=== PATIENT | female | born 1970 | race Caucasian/White ===

== ENCOUNTER 2022-08-17 07:02 | Outpatient (CLI) | payer OTHER, SELFPAY ==
--- NOTE | 2022-08-17 07:15 | CRLHL7_ITS ---
For Patients: As a result of the Century Cures Act, medical imaging exams and procedure reports are released immediately into your electronic medical record. You may view this report before your referring provider. If you have questions, please contact your health care provider. INDICATION: Neck pain TECHNIQUE: Noncontrast sagittal T1, T2, STIR and axial GRE sequences are provided. No comparisons. FINDINGS: The overall stature, alignment and intrinsic marrow signal of the cervical spine is within normal limits. Cervical cord is normal. C5-6: Minor disc osteophyte complex effaces the ventral thecal sac and results in mild to moderate central canal with no foraminal narrowing. C6-7: Mild broad-based posterior disc bulge effaces the ventral thecal sac results in mild central canal narrowing. Neural foramina are patent. Remainder of the cervical spine is unremarkable, specifically no evidence of suspicious central canal or foraminal narrowing. IMPRESSION: 1. Lzii-as-zyelhsvq C5-6 central canal narrowing. 2. Mild C6-7 central canal narrowing. Dictated by Anthony Del Rio MD @ 08/18/2022 4:02:08 AM Dictated by: Anthony Del Rio MD @ 08/18/2022 04:03:11 (Electronically Signed)
== END 2022-08-17 07:03 | disposition home or self-care (01) ==
LOC: MRI 07:03
PROVIDERS: PCP Family Medicine; Visit Provider Family Medicine
DX: M54.2 Cervicalgia (principal); M50.222 Other cervical disc displacement at C5-C6 level
CPT/HCPCS: 72141

== ENCOUNTER 2022-10-27 16:49 | Emergency (ER) | payer OTHER, SELFPAY ==
[2022-10-27 16:57] VITALS: BP 143/85; PULSE 98; RESP 18; TEMP 36.6; O2SAT 98; BMI 21.2
--- NOTE | 2022-10-27 17:18 | ED_ITS ---
HPI - General Adult General Chief complaint: Neck Injury/Pain Stated complaint: Neck pain, right side Time Seen by Provider: 10/27/22 16:50 History of Present Illness HPI narrative: Patient is a 52-year-old female who slipped on ice in grabbed a grocery cart, hurt her neck in the past. She has had chronic neck pain since she, she has had a plain film and an MRI to look largely unremarkable and some mild central stenosis of her cervical cervical spine, she denies radicular pain describes right cervical strap muscle pain down her periscapular area on the right in in her P trapezius muscle. No real radicular pain down her right arm Related Data Home Medications Medication Instructions Recorded Confirmed epinephrine 0.3 mg/0.3 mL 0.3 mg IM Q5-15M PRN 07/18/22 09/17/22 injection, auto-injector estradiol 1 mg tablet 1 mg PO QDAY 07/18/22 10/27/22 hydroxyzine pamoate 25 mg capsule 25 mg PO Q8H PRN 07/18/22 10/27/22 ketorolac 60 mg/2 mL intramuscular 60 mg IM QDAY PRN 07/18/22 10/27/22 solution mirtazapine 30 mg tablet 30 mg PO QHS 07/18/22 10/27/22 ondansetron 8 mg disintegrating 8 mg PO Q12H 07/18/22 10/27/22 tablet Tylenol 10/27/22 Previous Rx's Medication Instructions Recorded tizanidine 4 mg tablet See Rx Instructions PO Q8H PRN 07/30/22 muscle spasticity #30 tabs celecoxib 200 mg capsule 200 mg PO QDAY #21 caps 09/09/22 zolpidem 5 mg tablet 5 mg PO QHS PRN insomnia #14 tabs 09/17/22 methylprednisolone 4 mg tablets in See Rx Instructions PO .COMPLEX 10/27/22 a dose pack (Medrol (Lazaro)) #21 ea Allergies Allergy/AdvReac Type Severity Reaction Status Date / Time bee venom protein (honey bee) Allergy Severe Verified 10/27/22 17:02 acetaminophen Allergy Intermediate Hives Verified 10/27/22 17:02 codeine Allergy Unknown Rash Verified 10/27/22 17:02 dihydroergotamine Allergy Unknown Diarrhea Verified 10/27/22 17:02 hydrocodone Allergy Unknown Hives Verified 10/27/22 17:02 loperamide Allergy Unknown Hives Verified 10/27/22 17:02 methocarbamol Allergy Unknown Rash Verified 10/27/22 17:02 minocycline Allergy Unknown Verified 10/27/22 17:02 morphine Allergy Unknown Hives Verified 10/27/22 17:02 oxycodone Allergy Unknown Hives Verified 10/27/22 17:02 prochlorperazine Allergy Unknown Anxiety Verified 10/27/22 17:02 rizatriptan Allergy Unknown Nausea Verified 10/27/22 17:02 sumatriptan Allergy Unknown Hives Verified 10/27/22 17:02 venlafaxine Allergy Unknown Anxiety Verified 10/27/22 17:02 Review of Systems Status of ROS: Reports: 6 or more systems reviewed and unremarkable except as noted in History and below Narrative: Patient has worked with Dr. Giraldo on her situation has done some PT, some steroids. She is alert some morphine, but has had a lot in the past [facility] Medical History Pain of right middle finger ?M79.644 - Pain in right finger(s) (ICD-10) Surgical History Status post appendectomy ?Z90.49 - Acquired absence of other specified parts of digestive tract (ICD-10) Status post arthroscopy of right knee ?Z98.890 - Other specified postprocedural states (ICD-10) Status post hysterectomy with oophorectomy ?Z90.710 - Acquired absence of both cervix and uterus (ICD-10) ?Z90.721 - Acquired absence of ovaries, unilateral (ICD-10) Status post laparoscopic cholecystectomy ?Z90.49 - Acquired absence of other specified parts of digestive tract (ICD- 10) Status post shoulder surgery ?Z98.890 - Other specified postprocedural states (ICD-10) Social History Smoking Status: Current every day smoker How often do you have a drink containing alcohol: never AUDIT-C Alcohol total score: 0 Non-prescribed substance use: denies use Little interest or pleasure in doing things: more than half the days Feeling down, depressed, or hopeless: nearly every day Exam Narrative: Exam Narrative: Objective: In general patient apparent distress she has some tenderness along the right paraspinal cervical muscles on the right and into her trapezius muscle some mild rhomboid tenderness hand strength in healthcare liaison strength in the upper right upper extremity are unremarkable. Review of her MRI and plain film in the chart was done. Const: Vital Signs, click to edit/add: Vital Signs - 24 hr 10/27/22 16:57 Temperature 97.9 F Pulse Rate [Left P ulse Oximeter] 98 Respiratory Rate 18 Blood Pressure [Ri ght Upper Arm] 143/85 H Pulse Oximetry 98 Oxygen Delivery Me thod Room Air Course Vital Signs Vital signs: Initial Vital Signs Temperature 97.9 F 10/27/22 16:57 Temperature Source Temporal Artery Scan 10/27/22 16:57 Pulse Rate 98 10/27/22 16:57 Respiratory Rate 18 10/27/22 16:57 Blood Pressure 143/85 H 10/27/22 16:57 Blood Pressure Mean 104 10/27/22 16:57 Blood Pressure Position Sitting 10/27/22 16:57 Pulse Oximetry 98 10/27/22 16:57 Oxygen Delivery Method Room Air 10/27/22 16:57 Vital Signs Temperature 97.9 F 10/27/22 16:57 Pulse Rate 98 10/27/22 16:57 Respiratory Rate 18 10/27/22 16:57 Blood Pressure 143/85 H 10/27/22 16:57 Pulse Oximetry 98 10/27/22 16:57 Oxygen Delivery Method Room Air 10/27/22 16:57 Temperature 97.9 F 10/27/22 16:57 Pulse Rate 98 10/27/22 16:57 Respiratory Rate 18 10/27/22 16:57 Blood Pressure 143/85 H 10/27/22 16:57 Pulse Oximetry 98 10/27/22 16:57 Oxygen Delivery Method Room Air 10/27/22 16:57 Medical Decision Making MDM Narrative Medical decision making narrative: [age] year white female with increasing pain in her right periscapular and cervical strap muscle area, status post fairly reassuring MRI scan of the neck. At this point will give her an injection of Dilaudid IM 2 mg, will start a Medrol Dosepak again she has not been on 1 for 4-6 weeks. And would have her follow up with Dr. Abbasi on Saturday regarding continuation of physical therapy or additional modality. She may even consider the spine service in [place] with a medx program. Return here as needed Discharge Plan Discharge Clinical Impression: Chronic neck pain Patient Disposition: Home w/ Parent or Adult Condition: Stable Additional Instructions: medrol dose lazaro, ice, recheck primary saturday Activity Level: Light activity Discharge Diet: Regular Prescriptions: New methylprednisolone [Medrol (Lazaro)] 4 mg tablets,dose pack See Rx Instructions .ROUTE .COMPLEX Qty: 21 0RF Rx Instructions: orally per package directions No Action estradiol 1 mg tablet 1 mg PO QDAY Rx Instructions: off 1 week; repeat cycle mirtazapine 30 mg tablet 30 mg PO QHS hydroxyzine pamoate 25 mg capsule 25 mg PO Q8H PRN ondansetron 8 mg tablet,disintegrating 8 mg PO Q12H ketorolac 60 mg/2 mL solution 60 mg IM QDAY PRN epinephrine 0.3 mg/0.3 mL auto-injector 0.3 mg IM Q5-15M PRN Rx Instructions: do not exceed 3 doses per episode tizanidine 4 mg tablet See Rx Instructions PO Q8H PRN (Reason: muscle spasticity) Qty: 30 2RF Rx Instructions: 2 mg QAM and Q1PM, and 4 mg at HS orally every 8 hours PRN; zolpidem 5 mg tablet 5 mg PO QHS PRN (Reason: insomnia) Qty: 14 0RF Tylenol celecoxib 200 mg capsule 200 mg PO QDAY Qty: 21 2RF Follow Up/Referrals: Allen Kelley MD [Primary Care Provider] - Stand Alone Forms: [employer] Info Instructions
[2022-10-27] MEDS: HYDROmorphone 0.5 mg/0.5 ml inj 2 MG IM (17:27)
== END 2022-10-27 17:39 | disposition home or self-care (01) ==
LOC: ED 17:24
PROVIDERS: Emergency Provider Family Medicine; PCP Family Medicine
DX: M54.2 Cervicalgia (principal); G89.29 Other chronic pain
CPT/HCPCS: 96372; 99283; 99284; J1170

== ENCOUNTER 2022-11-20 18:02 | Emergency (ER) | payer OTHER, SELFPAY ==
[2022-11-20 18:13] VITALS: BP 144/85; PULSE 95; RESP 18; TEMP 36.4; O2SAT 98; BMI 21.6
[2022-11-20] MEDS: BUPIVACAINE 0.25% 30 ML INJECTION (19:25)
[2022-11-20] MEDS: HYDROmorphone 0.5 mg/0.5 ml inj 1 MG IM (19:43)
--- NOTE | 2022-11-22 13:46 | ED_ITS ---
HPI - General Adult General Chief complaint: Neck Injury/Pain Stated complaint: Neck injury Time Seen by Provider: 11/20/22 18:31 History of Present Illness HPI narrative: neck injury 5 months ago. seen in ED several weeks ago. was on steroids and that helped but has now completed, pain has returned. PT tomorrow and neck 52 year old woman presenting with complaint of right-sided neck pain of some months duration much worse again today. took a partial endo over an imbalanced cart leaving [employer]. A strain but did not impact head or neck. initially minimal discomfort with pain escalating in the following days. Had a massage the next? day. Pain especially with bilateral neck flexion and shaylee to the left. Pain mostly at the right. otherwise without radicular pain. can feel knots in the musculature. acetaminophen of minimal relief. also using heat. She reports recent MRI unremarkable. Believe she cannot take ibuprofen type medications due to recommendations stemming from an H pylori diagnosis. Not clear that there were ever ulcers or certainly not bleeding ulcers diagnosed. challenges in follow up since injury partly related to care of mother and her in the interim. Is finally able to see PT tomorrow. Related Data Home Medications Medication Instructions Recorded Confirmed epinephrine 0.3 mg/0.3 mL 0.3 mg IM Q5-15M PRN 07/18/22 09/17/22 injection, auto-injector estradiol 1 mg tablet 1 mg PO QDAY 07/18/22 10/27/22 hydroxyzine pamoate 25 mg capsule 25 mg PO Q8H PRN 07/18/22 10/27/22 ketorolac 60 mg/2 mL intramuscular 60 mg IM QDAY PRN 07/18/22 10/27/22 solution mirtazapine 30 mg tablet 30 mg PO QHS 07/18/22 10/27/22 ondansetron 8 mg disintegrating 8 mg PO Q12H 07/18/22 10/27/22 tablet Tylenol 10/27/22 Previous Rx's Medication Instructions Recorded tizanidine 4 mg tablet See Rx Instructions PO Q8H PRN 07/30/22 muscle spasticity #30 tabs celecoxib 200 mg capsule 200 mg PO QDAY #21 caps 09/09/22 zolpidem 5 mg tablet 5 mg PO QHS PRN insomnia #14 tabs 09/17/22 methylprednisolone 4 mg tablets in See Rx Instructions PO .COMPLEX 10/27/22 a dose pack (Medrol (Lazaro)) #21 ea hydromorphone 2 mg tablet 2 mg PO Q6H PRN pain #14 tabs 10/29/22 Allergies Allergy/AdvReac Type Severity Reaction Status Date / Time bee venom protein (honey bee) Allergy Severe Verified 10/27/22 17:02 acetaminophen Allergy Intermediate Hives Verified 10/27/22 17:02 codeine Allergy Unknown Rash Verified 10/27/22 17:02 dihydroergotamine Allergy Unknown Diarrhea Verified 10/27/22 17:02 hydrocodone Allergy Unknown Hives Verified 10/27/22 17:02 loperamide Allergy Unknown Hives Verified 10/27/22 17:02 methocarbamol Allergy Unknown Rash Verified 10/27/22 17:02 minocycline Allergy Unknown Verified 10/27/22 17:02 morphine Allergy Unknown Hives Verified 10/27/22 17:02 oxycodone Allergy Unknown Hives Verified 10/27/22 17:02 prochlorperazine Allergy Unknown Anxiety Verified 10/27/22 17:02 rizatriptan Allergy Unknown Nausea Verified 10/27/22 17:02 sumatriptan Allergy Unknown Hives Verified 10/27/22 17:02 venlafaxine Allergy Unknown Anxiety Verified 10/27/22 17:02 Review of Systems Status of ROS: Reports: 6 or more systems reviewed and unremarkable except as noted in History and below [facility] Medical History Pain of right middle finger ?M79.644 - Pain in right finger(s) (ICD-10) Surgical History Status post laparoscopic cholecystectomy ?Z90.49 - Acquired absence of other specified parts of digestive tract (ICD- 10) Status post appendectomy ?Z90.49 - Acquired absence of other specified parts of digestive tract (ICD- 10) Status post arthroscopy of right knee ?Z98.890 - Other specified postprocedural states (ICD-10) Status post hysterectomy with oophorectomy ?Z90.710 - Acquired absence of both cervix and uterus (ICD-10) ?Z90.721 - Acquired absence of ovaries, unilateral (ICD-10) Status post shoulder surgery ?Z98.890 - Other specified postprocedural states (ICD-10) Social History Smoking Status: Current every day smoker What tobacco products do you use: cigarettes Second hand tobacco smoke exposure: No How often do you have a drink containing alcohol: never AUDIT-C Alcohol total score: 0 Non-prescribed substance use: denies use Little interest or pleasure in doing things: more than half the days Feeling down, depressed, or hopeless: nearly every day service: No Exam Narrative: Exam Narrative: Pleasant. Seems a little uncomfortable. Conversing easily. Moving all extremities without difficulty. Prefers to sit upright in the bed with her head cocked to the left just a little. Frequently reaches up and massages deeply the right trapezial and paracervical musculature. Head looks to be atraumatic. She does not demonstrate difficulty with swallowing. Cranial nerves 2-12 are intact. No midline neck tenderness. There is a good deal of tension to palpation about the right trapezius and paracervical musculature relative to the left. Also tender. 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 Head rotation to the left is around 30? and equal to the right. Flexion of the head to the left is limited to 5-10? and causing more pain. To the right maybe 15?. Const: Documenting provider has reviewed patient's vital signs: yes Course Vital Signs Vital signs: Initial Vital Signs Temperature 97.6 F 11/20/22 18:13 Temperature Source Temporal Artery Scan 11/20/22 18:13 Pulse Rate 95 11/20/22 18:13 Respiratory Rate 18 11/20/22 18:13 Blood Pressure 144/85 H 11/20/22 18:13 Blood Pressure Mean 104 11/20/22 18:13 Blood Pressure Position Sitting 11/20/22 18:13 Pulse Oximetry 98 11/20/22 18:13 Oxygen Delivery Method Room Air 11/20/22 18:13 Vital Signs Temperature 97.6 F 11/20/22 18:13 Pulse Rate 95 11/20/22 18:13 Respiratory Rate 18 11/20/22 18:13 Blood Pressure 144/85 H 11/20/22 18:13 Pulse Oximetry 98 11/20/22 18:13 Oxygen Delivery Method Room Air 11/20/22 18:13 Temperature 97.6 F 11/20/22 18:13 Pulse Rate 95 11/20/22 18:13 Respiratory Rate 18 11/20/22 18:13 Blood Pressure 144/85 H 11/20/22 18:13 Pulse Oximetry 98 11/20/22 18:13 Oxygen Delivery Method Room Air 11/20/22 18:13 Medical Decision Making MDM Narrative Medical decision making narrative: suspect muscle spasms/strain/sprain possibly with jumped/slipped facet. Extensive imaging has already been done. Mostly myofascial issues probably remain. She is really needing some pain relief in the short term. Somewhat desperate for sleep I suspect We discussed options. I offered injection in the musculature for temporary relief. She would like to proceed with that. Risks and benefits were discussed. Cleansed injection sites with alcohol. Injected with about 1.5 mL in 5 sites scattered around the right trapezius and low right pericervical musculature as indicated by her as most tender. Overall improved. Still with discomfort after period of observation the emergency department was requesting further pain relief. Was given a shot of Dilaudid. She was then requesting departure. See patient discharge plan Medical Records Medical records reviewed: Yes I reviewed the patient's medical records Discharge Plan Discharge Clinical Impression: Muscle spasm, Torticollis Patient Disposition: Home w/ Parent or Adult Condition: Improved Additional Instructions: See handout on stretches for the upper back; these may further be helpful. And follow-up with physical therapy tomorrow as planned. You might benefit from some sort of a tens unit. I would consider an appointment with Dr. Koenig with consideration of facet injections. Wonder if you may have sustained, in addition to a neck strain, a jumped facet/inflammation that is resulting in some of this pain/muscle spasm/tension. Schedule also follow up with primary care to discuss further pain management if needed. I am not sure that H pylori is an absolute contraindication to nonsteroidal anti-inflammatories like ibuprofen. Can discuss the details of your history also with primary care. I would think ibuprofen and naproxen might be helpful as a baseline and could be combined with acetaminophen. Tramadol and prednisone from [facility]. Take the prednisone as 60 mg daily for 3 days then 40 mg daily for 4 days then 20 mg daily for 2 days Prescriptions: No Action estradiol 1 mg tablet 1 mg PO QDAY Rx Instructions: off 1 week; repeat cycle mirtazapine 30 mg tablet 30 mg PO QHS hydroxyzine pamoate 25 mg capsule 25 mg PO Q8H PRN ondansetron 8 mg tablet,disintegrating 8 mg PO Q12H ketorolac 60 mg/2 mL solution 60 mg IM QDAY PRN epinephrine 0.3 mg/0.3 mL auto-injector 0.3 mg IM Q5-15M PRN Rx Instructions: do not exceed 3 doses per episode tizanidine 4 mg tablet See Rx Instructions PO Q8H PRN (Reason: muscle spasticity) Qty: 30 2RF Rx Instructions: 2 mg QAM and Q1PM, and 4 mg at HS orally every 8 hours PRN; zolpidem 5 mg tablet 5 mg PO QHS PRN (Reason: insomnia) Qty: 14 0RF Tylenol methylprednisolone [Medrol (Lazaro)] 4 mg tablets,dose pack See Rx Instructions .ROUTE .COMPLEX Qty: 21 0RF Rx Instructions: orally per package directions celecoxib 200 mg capsule 200 mg PO QDAY Qty: 21 2RF hydromorphone 2 mg tablet 2 mg PO Q6H PRN (Reason: pain) Qty: 14 0RF Follow Up/Referrals: Allen Kelley MD [Primary Care Provider] - Stand [facility]one [facility]
== END 2022-11-20 20:14 | disposition home or self-care (01) ==
PROVIDERS: Emergency Provider Family Medicine; PCP Family Medicine
DX: M43.6 Torticollis (principal); M62.838 Other muscle spasm
CPT/HCPCS: 96372; 99284; J1170; J3490

== ENCOUNTER 2022-12-30 09:36 | Emergency (ER) | payer OTHER, SELFPAY ==
[2022-12-30 09:59] VITALS: BP 137/100; PULSE 113; RESP 16; TEMP 36.4; O2SAT 97; BMI 22.6
[2022-12-30] MEDS: LIDOCAINE 1 % PF 30 ML INJECTION (10:35)
[2022-12-30] MEDS: dexAMETHasone 10 MG/ML inj IV (10:35)
--- NOTE | 2022-12-30 10:37 | ED.NECK ---
HPI - Neck Pain/Injury General Chief Complaint: Neck Injury/Pain Stated Complaint: neck pain Time Seen by Provider: 12/30/22 09:58 History of Present Illness HPI Narrative: This 52-year-old female has chronic neck pain and states that she has difficulty turning her head to the left. She does not report any new injury event or strenuous activity. She is not currently taking any medications for these symptoms. Related Data Home Medications Medication Instructions Recorded Confirmed epinephrine 0.3 mg/0.3 mL 0.3 mg IM Q5-15M PRN 07/18/22 09/17/22 injection, auto-injector estradiol 1 mg tablet 1 mg PO QDAY 07/18/22 10/27/22 hydroxyzine pamoate 25 mg capsule 25 mg PO Q8H PRN 07/18/22 10/27/22 ketorolac 60 mg/2 mL intramuscular 60 mg IM QDAY PRN 07/18/22 10/27/22 solution mirtazapine 30 mg tablet 30 mg PO QHS 07/18/22 10/27/22 ondansetron 8 mg disintegrating 8 mg PO Q12H 07/18/22 10/27/22 tablet Tylenol 10/27/22 Previous Rx's Medication Instructions Recorded tizanidine 4 mg tablet See Rx Instructions PO Q8H PRN 07/30/22 muscle spasticity #30 tabs celecoxib 200 mg capsule 200 mg PO QDAY #21 caps 09/09/22 zolpidem 5 mg tablet 5 mg PO QHS PRN insomnia #14 tabs 09/17/22 methylprednisolone 4 mg tablets in See Rx Instructions PO .COMPLEX 10/27/22 a dose pack (Medrol (Lazaro)) #21 ea hydromorphone 2 mg tablet 2 mg PO Q6H PRN pain #14 tabs 10/29/22 cyclobenzaprine 10 mg tablet 10 mg PO TID #15 tabs 12/30/22 ketorolac 10 mg tablet 10 mg PO Q8H 5 days #15 tabs 12/30/22 methylprednisolone 4 mg tablets in See Rx Instructions PO .COMPLEX 12/30/22 a dose pack (Medrol (Lazaro)) #21 ea Allergies Allergy/AdvReac Type Severity Reaction Status Date / Time bee venom protein (honey bee) Allergy Severe Verified 10/27/22 17:02 acetaminophen Allergy Intermediate Hives Verified 10/27/22 17:02 codeine Allergy Unknown Rash Verified 10/27/22 17:02 dihydroergotamine Allergy Unknown Diarrhea Verified 10/27/22 17:02 hydrocodone Allergy Unknown Hives Verified 10/27/22 17:02 loperamide Allergy Unknown Hives Verified 10/27/22 17:02 methocarbamol Allergy Unknown Rash Verified 10/27/22 17:02 minocycline Allergy Unknown Verified 10/27/22 17:02 morphine Allergy Unknown Hives Verified 10/27/22 17:02 oxycodone Allergy Unknown Hives Verified 10/27/22 17:02 prochlorperazine Allergy Unknown Anxiety Verified 10/27/22 17:02 rizatriptan Allergy Unknown Nausea Verified 10/27/22 17:02 sumatriptan Allergy Unknown Hives Verified 10/27/22 17:02 venlafaxine Allergy Unknown Anxiety Verified 10/27/22 17:02 Review of Systems Status of ROS: Reports: 10 or more systems reviewed and unremarkable except as noted in History and below Narrative: Constitutional: No fevers, no weight gain or loss. Eyes: No discharge. No vision changes. HENT: No congestion, no sore throat, no ear pain. Cardiovascular: No chest pain, no palpitations. Respiratory: No shortness of breath, no wheezes, no cough. Gastrointestinal: No abdominal pain, no vomiting, no diarrhea. Genitourinary: No dysuria, no hematuria. Musculoskeletal: Normal range of motion. Decreased range of motion of her neck as described above. Skin: No rashes, no pruritis. Neurological: No dizziness, weakness, sensory change, speech change. Endo/Heme/Allergies: No bruising or bleeding. No polydipsia. Pysch: no suicidality, no anxiety, no insomnia. All other systems reviewed and are negative. [facility] Medical History Pain of right middle finger ?M79.644 - Pain in right finger(s) (ICD-10) Surgical History Status post laparoscopic cholecystectomy ?Z90.49 - Acquired absence of other specified parts of digestive tract (ICD-10) Status post appendectomy ?Z90.49 - Acquired absence of other specified parts of digestive tract (ICD-10) Status post arthroscopy of right knee ?Z98.890 - Other specified postprocedural states (ICD-10) Status post hysterectomy with oophorectomy ?Z90.710 - Acquired absence of both cervix and uterus (ICD-10) ?Z90.721 - Acquired absence of ovaries, unilateral (ICD-10) Status post shoulder surgery ?Z98.890 - Other specified postprocedural states (ICD-10) Social History Smoking Status: Current every day smoker What tobacco products do you use: cigarettes Second hand tobacco smoke exposure: No How often do you have a drink containing alcohol: never AUDIT-C Alcohol total score: 0 Non-prescribed substance use: denies use Little interest or pleasure in doing things: more than half the days Feeling down, depressed, or hopeless: nearly every day service: No Exam Narrative: Exam Narrative: Constitutional: Well-developed, well-nourished, no acute distress. HEENT: Normocephalic, atraumatic. Neck: Decreased range of motion. No midline tenderness. Heart: Intact distal pulses. Lungs: No chest discomfort. No wheezes, rhonchi, or rales. Abdomen: Nontender. Back: Normal range of motion. Extremities: Normal range of motion. No injury. Skin: Intact. No rash. Warm. No erythema or pallor. Neurologic: No altered sensation. No weakness. Alert and oriented. Psychiatric: No suicidality. No anxiety or depression. No insomnia. Nursing notes and vitals signs are reviewed. Const: Vital Signs, click to edit/add: Vital Signs - 24 hr 12/30/22 09:59 Temperature 97.5 F L Pulse Rate [Pulse Oximeter] 113 H Respiratory Rate 16 Blood Pressure [Ri ght Upper Arm] 137/100 H Pulse Oximetry 97 Oxygen Delivery Me thod Room Air Course Vital Signs Vital signs: Initial Vital Signs Temperature 97.5 F L 12/30/22 09:59 Temperature Source Temporal Artery Scan 12/30/22 09:59 Pulse Rate 113 H 12/30/22 09:59 Pulse Rhythm Regular 12/30/22 09:59 Respiratory Rate 16 12/30/22 09:59 Blood Pressure 137/100 H 12/30/22 09:59 Blood Pressure Mean 112 H 12/30/22 09:59 Blood Pressure Position Sitting 06/25/23 09:59 Pulse Oximetry 97 12/30/22 09:59 Oxygen Delivery Method Room Air 12/30/22 09:59 Vital Signs Temperature 97.5 F L 12/30/22 09:59 Pulse Rate 113 H 12/30/22 09:59 Respiratory Rate 16 12/30/22 09:59 Blood Pressure 137/100 H 12/30/22 09:59 Pulse Oximetry 97 12/30/22 09:59 Oxygen Delivery Method Room Air 12/30/22 09:59 Temperature 97.5 F L 12/30/22 09:59 Pulse Rate 113 H 12/30/22 09:59 Respiratory Rate 16 12/30/22 09:59 Blood Pressure 137/100 H 12/30/22 09:59 Pulse Oximetry 97 12/30/22 09:59 Oxygen Delivery Method Room Air 12/30/22 09:59 MDM - Neck Pain/Injury MDM Narrative Medical decision making narrative: This patient has chronic neck pain and comes in stating that she has some decreased range of motion rotating her head to the left. She does not describe any recent injury event or strenuous activity that would indicate need for imaging at this time. She did receive a therapeutic injection of 10 mg of dexamethasone mixed with 1% lidocaine split equally on either side of the nuchal ligament in the distribution of the occipital nerves. She also received prescription for Toradol, Flexeril, and Medrol Dosepak. She states that she has an appointment next week to follow-up with a primary physician. Discharge Plan Discharge Clinical Impression: Torticollis, Strain of neck muscle Patient Disposition: Home, Self-Care Condition: Stable Additional Instructions: Take medication as prescribed and needed. Follow up with MD return if worsening. Prescriptions: New cyclobenzaprine 10 mg tablet 10 mg PO TID Qty: 15 0RF ketorolac 10 mg tablet 10 mg PO Q8H 5 Days Qty: 15 0RF methylprednisolone [Medrol (Alzaro)] 4 mg tablets,dose pack See Rx Instructions .ROUTE .COMPLEX Qty: 21 0RF Rx Instructions: orally per package directions No Action estradiol 1 mg tablet 1 mg PO QDAY Rx Instructions: off 1 week; repeat cycle mirtazapine 30 mg tablet 30 mg PO QHS hydroxyzine pamoate 25 mg capsule 25 mg PO Q8H PRN ondansetron 8 mg tablet,disintegrating 8 mg PO Q12H ketorolac 60 mg/2 mL solution 60 mg IM QDAY PRN epinephrine 0.3 mg/0.3 mL auto-injector 0.3 mg IM Q5-15M PRN Rx Instructions: do not exceed 3 doses per episode tizanidine 4 mg tablet See Rx Instructions PO Q8H PRN (Reason: muscle spasticity) Qty: 30 2RF Rx Instructions: 2 mg QAM and Q1PM, and 4 mg at HS orally every 8 hours PRN; zolpidem 5 mg tablet 5 mg PO QHS PRN (Reason: insomnia) Qty: 14 0RF Tylenol methylprednisolone [Medrol (Lazaro)] 4 mg tablets,dose pack See Rx Instructions .ROUTE .COMPLEX Qty: 21 0RF Rx Instructions: orally per package directions celecoxib 200 mg capsule 200 mg PO QDAY Qty: 21 2RF hydromorphone 2 mg tablet 2 mg PO Q6H PRN (Reason: pain) Qty: 14 0RF Follow Up/Referrals: Allen Kelley MD [Primary Care Provider] - Stand Alone Forms: [facility] Info Instructions
== END 2022-12-30 10:48 | disposition home or self-care (01) ==
PROVIDERS: Emergency Provider Emergency Medicine Emergency Medical Services; PCP Family Medicine
DX: M43.6 Torticollis (principal); S16.1XXA Strain of muscle, fascia and tendon at neck level, initial encounter
CPT/HCPCS: 96374; 99284; J1100; J2001

== ENCOUNTER 2023-04-30 07:10 | Outpatient (CLI) | payer OTHER, SELFPAY ==
--- NOTE | 2023-04-30 07:15 | MR_ITS ---
[facility] [address] [facility] [address] Phone:?[phone] Fax:?[phone] Referring Physician Information: Romel Busch M.D. [address] [facility] [address] Phone:?[phone] Fax:?[phone] Patient:Bella Erickson D.O.B:?1970 Sex:?Female Phone:?[phone] [facility] MRN:?[id number] Exam Date:?04/30/2023 EXAM: MRI EXAMINATION OF THE RIGHT KNEE CLINICAL INFORMATION: Right knee pain. No specific injury. History of surgery to this area. TECHNICAL INFORMATION: Coronal PD and STIR. Axial PD and T2 fat saturation. Sagittal PD and PD fat saturation images acquired. No prior studies for comparison. INTERPRETATION: Bones: No appreciable subchondral edema signal or cystic change. No evidence for an occult fracture, osseous contusion or stress reaction. No evidence for AVN. No other abnormal bone marrow edema pattern is identified. Ligaments and tendons: The medial collateral ligament is intact, without acute sprain or tear. The iliotibial band, fibular collateral ligament, biceps femoris tendon and popliteus tendon all are intact. The anterior cruciate ligament is intact without acute sprain or tear. The posterior cruciate ligament is intact. Extensor Mechanism: The patellar and quadriceps tendons are intact. The medial and lateral retinacula are intact. Knee Joint: There is a small knee joint effusion. There is a slender popliteal cyst. There is no discrete loose body seen within the joint. Medial Compartment: There is no evidence for discrete medial meniscal tear. No displaced flap fragment or parameniscal cyst. There is a 0.8 x 0.7 cm segment of grade 3 to IV chondromalacia just posterior to the mid weightbearing surface of the medial femoral condyle. No other significant changes of chondromalacia. Lateral Compartment: There is no evidence for discrete lateral meniscal tear. No displaced flap fragment or parameniscal cyst. There is no focal chondral defect. No other significant changes of chondromalacia. Patellofemoral articulation: There is no focal chondral defect. No other significant chondromalacia. CONCLUSION: 1. No evidence for a meniscal tear. 2. The cruciate ligaments are intact. No other residua of a ligament injury involving the knee. 3. 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 No other evidence for chondromalacia involving the knee. 4. There is a small knee joint effusion as well as a slender popliteal cyst. 5. No other internal derangement. [facility]ES Electronically signed on 04/30/2023 3:29:00 PM by John Patel M.D.
== END 2023-04-30 07:11 | disposition home or self-care (01) ==
LOC: MRI 07:12
PROVIDERS: PCP Family Medicine; Visit Provider Orthopaedic Surgery Sports Medicine
DX: M25.561 Pain in right knee (principal); M94.261 Chondromalacia, right knee; M25.461 Effusion, right knee; M17.11 Unilateral primary osteoarthritis, right knee; S83.241A Other tear of medial meniscus, current injury, right knee, initial encounter
CPT/HCPCS: 73721

== ENCOUNTER 2023-05-14 12:44 | Emergency (ER) | payer OTHER, SELFPAY ==
[2023-05-14 13:14] VITALS: BP 139/88; PULSE 89; RESP 18; TEMP 36.8; O2SAT 98; BMI 21.6
--- NOTE | 2023-05-14 13:21 | CRLHL7_ITS ---
For Patients: As a result of the Century Cures Act, medical imaging exams and procedure reports are released immediately into your electronic medical record. You may view this report before your referring provider. If you have questions, please contact your health care provider. Indication: Ladder fell on right foot Comparison: None available. Technique: AP, lateral, and oblique views right foot were obtained. Findings: There is no displaced fracture or dislocation. There is minimal forefoot soft tissue swelling. The joint spaces are grossly well preserved. Impression: Mild forefoot soft tissue swelling without evidence of displaced fracture. Dictated by Iain Gupta MD @ 05/14/2023 2:51:50 PM (Electronically Signed)
--- NOTE | 2023-05-14 14:43 | ED_ITS ---
HPI - General Adult General Date Seen: 05/14/23 Chief complaint: Extremity Pain/Injury, Lower Stated complaint: r foot injury Time Seen by Provider: 05/14/23 14:20 History of Present Illness HPI narrative: This is a pleasant 52-year-old female with a past medical history of osteoarthritis, knee meniscus injury, rheumatoid arthritis, tobacco use, chronic neck pain, migraine headaches, anxiety, presents to the ER today with right foot pain. She was getting out a ladder to climb up into the rafters of her garage day today, Tote of [place] and holiday decorations. She was checking the ladder to see if it was secure when the ladder slipped. The ladder fell and landed directly across the dorsum of her right foot. She has had a lot of right foot pain there and is notice bruising and swelling over the midfoot and metatarsals. She is having pain with walking. The pain radiates from her foot up to her ankle and lower leg which she did not hit her ankle or lower leg with the ladder. No other injuries when a ladder fell on her foot. She says her toes feel slightly numb. She has a lot of pain when she tries to wiggle them. She has multiple medication allergies and intolerances. She tried to take fecj-hoy-dynnmdg medications and ice for pain but they are ineffective. Typically when she has pain like this, her primary doctor gives her Dilaudid, since she is tolerant of that. Related Data Home Medications Medication Instructions Recorded Confirmed epinephrine 0.3 mg/0.3 mL 0.3 mg IM Q5-15M PRN 07/18/22 04/16/23 injection, auto-injector estradiol 1 mg tablet 1 mg PO QDAY 07/18/22 04/16/23 hydroxyzine pamoate 25 mg capsule 25 mg PO Q8H PRN 07/18/22 04/16/23 ketorolac 60 mg/2 mL intramuscular 60 mg IM QDAY PRN 07/18/22 04/16/23 solution mirtazapine 30 mg tablet 30 mg PO QHS 07/18/22 04/16/23 ondansetron 8 mg disintegrating 8 mg PO Q12H 07/18/22 04/16/23 tablet Tylenol 10/27/22 04/16/23 Previous Rx's Medication Instructions Recorded tizanidine 4 mg tablet See Rx Instructions PO Q8H PRN 07/30/22 muscle spasticity #30 tabs celecoxib 200 mg capsule 200 mg PO QDAY #21 caps 09/09/22 zolpidem 5 mg tablet 5 mg PO QHS PRN insomnia #14 tabs 09/17/22 methylprednisolone 4 mg tablets in See Rx Instructions PO .COMPLEX 10/27/22 a dose pack (Medrol (Lazaro)) #21 ea cyclobenzaprine 10 mg tablet 10 mg PO TID #15 tabs 12/30/22 methylprednisolone 4 mg tablets in See Rx Instructions PO .COMPLEX 12/30/22 a dose pack (Medrol (Lazaro)) #21 ea ketorolac 10 mg tablet 10 mg PO Q6H PRN pain 5 days #15 01/17/23 tabs hydromorphone 2 mg tablet 2 mg PO Q6H PRN pain #14 tabs 04/08/23 hydromorphone 2 mg tablet 2 mg PO Q6H PRN pain #14 tabs 04/29/23 hydromorphone 2 mg tablet 2 mg PO Q6H PRN pain #7 tabs 05/14/23 (Dilaudid) Allergies Allergy/AdvReac Type Severity Reaction Status Date / Time bee venom protein (honey bee) Allergy Severe Verified 04/16/23 08:43 codeine Allergy Unknown Rash Verified 04/16/23 08:43 dihydroergotamine Allergy Unknown Diarrhea Verified 04/16/23 08:43 hydrocodone Allergy Unknown Hives Verified 04/16/23 08:43 loperamide Allergy Unknown Hives Verified 04/16/23 08:43 methocarbamol Allergy Unknown Rash Verified 04/16/23 08:43 minocycline Allergy Unknown Verified 04/16/23 08:43 morphine Allergy Unknown Hives Verified 04/16/23 08:43 oxycodone Allergy Unknown Hives Verified 04/16/23 08:43 prochlorperazine Allergy Unknown Anxiety Verified 04/16/23 08:43 rizatriptan Allergy Unknown Nausea Verified 04/16/23 08:43 sumatriptan Allergy Unknown Hives Verified 04/16/23 08:43 venlafaxine Allergy Unknown Anxiety Verified 04/16/23 08:43 [facility] Medical History (Updated 05/14/23 @ 15:18 by Vic Stein MD) Family history of ASCVD ?Z82.49 - Family history of ischemic heart disease and other diseases of the circulatory system (ICD-10) Family history of rheumatoid arthritis ?Z82.61 - Family history of arthritis (ICD-10) Family history of diabetes mellitus (DM) ?Z83.3 - Family history of diabetes mellitus (ICD-10) Kidney stones ?N20.0 - Calculus of kidney (ICD-10) History of depression ?Z86.59 - Personal history of other mental and behavioral disorders (ICD-10) DDD (degenerative disc disease) Pain of right middle finger ?M79.644 - Pain in right finger(s) (ICD-10) Surgical History (Updated 04/16/23 @ 08:43 by Julia Rahman ~ [facility], [facility]) History of arthroscopy of right shoulder (~2011) ?Z98.890 - Other specified postprocedural states (ICD-10) Status post laparoscopic cholecystectomy (04/28/14) ?Z90.49 - Acquired absence of other specified parts of digestive tract (ICD- 10) Status post appendectomy ?Z90.49 - Acquired absence of other specified parts of digestive tract (ICD- 10) Status post arthroscopy of right knee (~2009) ?Z98.890 - Other specified postprocedural states (ICD-10) Status post hysterectomy with oophorectomy ?Z90.710 - Acquired absence of both cervix and uterus (ICD-10) ?Z90.721 - Acquired absence of ovaries, unilateral (ICD-10) Social History (Reviewed 04/16/23 @ 08:45 by Julia Rahman ~ [facility], [facility]) Smoking Status: Current every day smoker What tobacco products do you use: cigarettes Smoking packs per day: 0.25 Smoking cigarettes per day: 5.0 Years smoked: 25 Smoking pack-years: 6.25 Do you use any of these nicotine containing products: None Second hand tobacco smoke exposure: No How often do you have a drink containing alcohol: never How often do you have six or more drinks on one occasion: Never AUDIT-C Alcohol total score: 0 Non-prescribed substance use: denies use Little interest or pleasure in doing things: more than half the days Feeling down, depressed, or hopeless: nearly every day service: No Exam Narrative: Exam Narrative: Constitutional: Appears well-developed and well-nourished. Alert. Conversant. Non toxic. HENT: Head: Atraumatic. Nose: Nose normal. Mouth/Throat: Oral mucosa is clear and moist. no trismus. Pharynx normal. Tonsils symmetric. No tonsillar enlargement, erythema, or exudate. Eyes: Conjunctivae normal. EOM normal. Pupils equal, round, and reactive to light. No scleral icterus. Neck: Normal range of motion. Neck supple. No tracheal deviation present. Cardiovascular: Normal rate, regular rhythm. No gallop. No friction rub. No murmur heard. Symmetric radial artery pulses Pulmonary/Chest: Effort normal. No stridor. No respiratory distress. No wheezes. No rales. No rhonchi . No tenderness. Abdominal: Soft. Bowel sounds normal. No distension. No mass. No tenderness. No rebound. No guarding. Musculoskeletal: RUE: Normal range of motion. No tenderness. No deformity LUE: Normal range of motion. No tenderness. No deformity RLE: Hip, femur, knee, bonds, Achilles, gastrocnemius are nontender. Ankle: Normal inspection. No tenderness over the medial lateral malleolus. Foot: Hind foot and calcaneus nontender. She is tender over the dorsum of the midfoot in particular over the dorsum of the 1st and 2nd metatarsals. There is subtle soft tissue swelling and probable early evolving ecchymosis there. No bony crepitus or deformity. No tenderness over the 4th or 5th metatarsals. She does not have any tenderness over the proximal or distal phalanges of her toes but she says her midfoot hurts whenever she tries to wiggle her toes. Normal distal cap refill. She has subjective paresthesias in her foot but no objective numbness. LLE: Normal range of motion. No edema. No tenderness. No deformity Neurological: Alert and oriented to person, place, and time. Normal strength. CN II-VII intact. No sensory deficit. GCS eye subscore is 4. GCS verbal subscore is 5. GCS motor subscore is 6. Normal coordination Skin: Skin is warm and dry. No rash noted. No pallor. Normal capillary refill. Psychiatric: Normal mood. Normal affect. Const: Vital Signs, click to edit/add: Vital Signs - 24 hr 05/14/23 13:14 Temperature 98.2 F Pulse Rate [Pulse Oximeter] 89 Respiratory Rate 18 Blood Pressure [Ri ght Upper Arm] 139/88 Pulse Oximetry 98 Oxygen Delivery Me thod Room Air Course Vital Signs Vital signs: Initial Vital Signs Temperature 98.2 F 05/14/23 13:14 Temperature Source Temporal Artery Scan 05/14/23 13:14 Pulse Rate 89 05/14/23 13:14 Pulse Rhythm Regular 05/14/23 13:14 Respiratory Rate 18 05/14/23 13:14 Blood Pressure 139/88 05/14/23 13:14 Blood Pressure Mean 105 05/14/23 13:14 Blood Pressure Position Sitting 05/14/23 13:14 Pulse Oximetry 98 05/14/23 13:14 Oxygen Delivery Method Room Air 05/14/23 13:14 Vital Signs Temperature 98.2 F 05/14/23 13:14 Pulse Rate 89 05/14/23 13:14 Respiratory Rate 18 05/14/23 13:14 Blood Pressure 139/88 05/14/23 13:14 Pulse Oximetry 98 05/14/23 13:14 Oxygen Delivery Method Room Air 05/14/23 13:14 Temperature 98.2 F 05/14/23 13:14 Pulse Rate 89 05/14/23 13:14 Respiratory Rate 18 05/14/23 13:14 Blood Pressure 139/88 05/14/23 13:14 Pulse Oximetry 98 05/14/23 13:14 Oxygen Delivery Method Room Air 05/14/23 13:14 Medications Administered Medications: Discontinued Medications Generic Name Dose Route Start Last Admin Trade Name Freq PRN Reason Stop Dose Admin Hydromorphone HCl 0.5 mg 05/14/23 14:41 05/14/23 14:56 Hydromorphone 0.5 Mg/0.5 Ml Inj IM 0.5 mg Q1H PRN Administration Pain Medical Decision Making [facility] Narrative Medical decision making narrative: Pleasant 52-year-old female with a history of osteoarthritis, through the 30s, chronic pain presenting to the ER today with a right foot injury where she accidentally dropped a ladder onto the dorsum of her right midfoot. She has tenderness with subtle ecchymosis and mild swelling there. Fortunately x-rays are negative for any acute fracture. No evidence for any tendon injury. She has some subjective numbness which I think is from pain but no evidence for any neurovascular compromise. No other injury aside from her midfoot. Pain is improved after Dilaudid here in the ER. She is intolerant of multiple her pain killers and opiate pain meds and that is really the only medicine that works, according to the patient. She is placed into a crutches and a knee ortho shoe. Will discharge home. Short prescription for Dilaudid tablets provided. Discussed the risks of sedation, addiction. Opiate precautions. Rest, ice, elevation. Use crutches and ortho shoe to help protect the injured foot. Follow-up with primary care or Ortho Clinic within 5-6 days if not completely improved. Return to the ER with any worsening symptoms. Imaging Data XR foot: Attestation: I have reviewed the pertinent imaging results. Radiologist's impression: Impression: Mild forefoot soft tissue swelling without evidence of displaced fracture. Discharge Plan Discharge Clinical Impression: Contusion of foot Patient Disposition: Home, Self-Care Condition: Stable Instructions: Foot Contusion (ED) Additional Instructions: Please rest her foot. Keep weight off it with crutches and use the foot brace to protect her foot for the next few days. Keep it elevated above the level of your heart when possible. Use ice or ice packs for 15-20 minutes every few hours to help reduce swelling and bruising. Try to treat the pain with bczy-vdu-lwmfcdi medications 1st. Use prescription pain killers only if needed for breakthrough pain. If you are not improving within the next 5 -6 days, please follow-up with your regular doctor or the [facility] (call [phone] to schedule an appointment) for recheck. If if you have worsening or severe pain, or other new concerning symptoms, please come back to the ER right away to be rechecked. Prescriptions: New hydromorphone [Dilaudid] 2 mg tablet 2 mg PO Q6H PRN (Reason: pain) Qty: 7 0RF No Action estradiol 1 mg tablet 1 mg PO QDAY Rx Instructions: off 1 week; repeat cycle mirtazapine 30 mg tablet 30 mg PO QHS hydroxyzine pamoate 25 mg capsule 25 mg PO Q8H PRN ondansetron 8 mg tablet,disintegrating 8 mg PO Q12H ketorolac 60 mg/2 mL solution 60 mg IM QDAY PRN epinephrine 0.3 mg/0.3 mL auto-injector 0.3 mg IM Q5-15M PRN Rx Instructions: do not exceed 3 doses per episode tizanidine 4 mg tablet See Rx Instructions PO Q8H PRN (Reason: muscle spasticity) Qty: 30 2RF Rx Instructions: 2 mg QAM and Q1PM, and 4 mg at HS orally every 8 hours PRN; zolpidem 5 mg tablet 5 mg PO QHS PRN (Reason: insomnia) Qty: 14 0RF cyclobenzaprine 10 mg tablet 10 mg PO TID Qty: 15 0RF methylprednisolone [Medrol (Lazaro)] 4 mg tablets,dose pack See Rx Instructions .ROUTE .COMPLEX Qty: 21 0RF Rx Instructions: orally per package directions Tylenol methylprednisolone [Medrol (Lazaro)] 4 mg tablets,dose pack See Rx Instructions .ROUTE .COMPLEX Qty: 21 0RF Rx Instructions: orally per package directions celecoxib 200 mg capsule 200 mg PO QDAY Qty: 21 2RF ketorolac 10 mg tablet 10 mg PO Q6H PRN (Reason: pain) 5 Days Qty: 15 2RF hydromorphone 2 mg tablet 2 mg PO Q6H PRN (Reason: pain) Qty: 14 0RF hydromorphone 2 mg tablet 2 mg PO Q6H PRN (Reason: pain) Qty: 14 0RF Follow Up/Referrals: Allen Kelley MD [Primary Care Provider] - Stand Alone Forms: [facility] Info Instructions
[2023-05-14] MEDS: HYDROmorphone 0.5 mg/0.5 ml inj IM (14:56)
== END 2023-05-14 15:40 | disposition home or self-care (01) ==
LOC: ED 15:20
PROVIDERS: Emergency Provider Emergency Medicine; PCP Family Medicine
DX: S90.31XA Contusion of right foot, initial encounter (principal); W11.XXXA Fall on and from ladder, initial encounter
CPT/HCPCS: 73630; 96372; 99283; J1170

== ENCOUNTER 2023-11-24 06:56 | Emergency (ER) | payer BC, SELFPAY ==
[2023-11-24 07:08] VITALS: BP 148/90; PULSE 86; RESP 18; TEMP 36.6; O2SAT 98; BMI 21.6
--- NOTE | 2023-11-24 07:18 | ED.GENADULT ---
HPI - General Adult General Chief complaint: Extremity Pain/Injury, Lower Stated complaint: r foot wart Time Seen by Provider: 11/24/23 07:10 History of Present Illness HPI narrative: Patient is a 53-year-old woman who has had progressive intermittent pain in the right foot for last 6 months is escalated over the weekend. His strong family history of gout in her brother and her son. She has had no recent trauma to her right foot which is mildly swollen and tender over the M TPs. She has no redness no signs of infection no fevers no chills no calf swelling. The pain is severe when she puts any weight on it. No other complaints or concerns are noted. No skin breakdown noted. Related Data Home Medications Medication Instructions Recorded Confirmed epinephrine 0.3 mg/0.3 mL 0.3 mg IM Q5-15M PRN 07/18/22 08/12/23 injection, auto-injector estradiol 1 mg tablet 1 mg PO QDAY 07/18/22 08/12/23 ketorolac 60 mg/2 mL intramuscular 60 mg IM QDAY PRN 07/18/22 08/12/23 solution ondansetron 8 mg disintegrating 8 mg PO Q12H 07/18/22 08/12/23 tablet Tylenol 10/27/22 08/12/23 Previous Rx's Medication Instructions Recorded tizanidine 4 mg tablet See Rx Instructions PO Q8H PRN 07/30/22 muscle spasticity #30 tabs celecoxib 200 mg capsule 200 mg PO QDAY #21 caps 09/09/22 zolpidem 5 mg tablet 5 mg PO QHS PRN insomnia #14 tabs 09/17/22 methylprednisolone 4 mg tablets in See Rx Instructions PO .COMPLEX 10/27/22 a dose pack (Medrol (Lazaro)) #21 ea cyclobenzaprine 10 mg tablet 10 mg PO TID #15 tabs 12/30/22 hydromorphone 2 mg tablet 2 mg PO Q6H PRN pain #14 tabs 04/08/23 hydromorphone 2 mg tablet 2 mg PO Q6H PRN pain #14 tabs 04/29/23 hydromorphone 2 mg tablet 2 mg PO Q6H PRN pain #7 tabs 05/14/23 (Dilaudid) lorazepam 1 mg tablet 1 mg PO TID PRN anxiety #20 tabs 07/26/23 azithromycin 250 mg tablet See Rx Instructions PO .COMPLEX #6 08/12/23 tabs hydroxyzine pamoate 25 mg capsule 25 mg PO Q6H PRN anxiety #30 caps 09/06/23 ketorolac 10 mg tablet 10 mg PO Q6H PRN pain 5 days #15 11/18/23 tabs Allergies Allergy/AdvReac Type Severity Reaction Status Date / Time bee venom protein (honey bee) Allergy Severe Verified 08/12/23 08:43 codeine Allergy Unknown Rash Verified 08/12/23 08:43 dihydroergotamine Allergy Unknown Diarrhea Verified 08/12/23 08:43 hydrocodone Allergy Unknown Hives Verified 08/12/23 08:43 loperamide Allergy Unknown Hives Verified 08/12/23 08:43 methocarbamol Allergy Unknown Rash Verified 08/12/23 08:43 minocycline Allergy Unknown Verified 08/12/23 08:43 morphine Allergy Unknown Hives Verified 08/12/23 08:43 oxycodone Allergy Unknown Hives Verified 08/12/23 08:43 prochlorperazine Allergy Unknown Anxiety Verified 08/12/23 08:43 rizatriptan Allergy Unknown Nausea Verified 08/12/23 08:43 sumatriptan Allergy Unknown Hives Verified 08/12/23 08:43 venlafaxine Allergy Unknown Anxiety Verified 08/12/23 08:43 Review of Systems Status of ROS: Reports: 10 or more systems reviewed and unremarkable except as noted in History and below [facility] Medical History COVID-19 ?U07.1 - COVID-19 (ICD-10) History of depression ?Z86.59 - Personal history of other mental and behavioral disorders (ICD-10) DDD (degenerative disc disease) Pain of right middle finger ?M79.644 - Pain in right finger(s) (ICD-10) Surgical History History of arthroscopy of right shoulder (~2011) ?Z98.890 - Other specified postprocedural states (ICD-10) Status post laparoscopic cholecystectomy (04/28/14) ?Z90.49 - Acquired absence of other specified parts of digestive tract (ICD-10) Status post appendectomy ?Z90.49 - Acquired absence of other specified parts of digestive tract (ICD-10) Status post arthroscopy of right knee (~2009) ?Z98.890 - Other specified postprocedural states (ICD-10) Status post hysterectomy with oophorectomy ?Z90.710 - Acquired absence of both cervix and uterus (ICD-10) ?Z90.721 - Acquired absence of ovaries, unilateral (ICD-10) Social History Smoking Status: Current every day smoker What tobacco products do you use: cigarettes Smoking packs per day: 0.25 Smoking cigarettes per day: 5.0 Years smoked: 25 Smoking pack-years: 6.25 Do you use any of these nicotine containing products: None Second hand tobacco smoke exposure: No How often do you have a drink containing alcohol: never How often do you have six or more drinks on one occasion: Never AUDIT-C Alcohol total score: 0 Non-prescribed substance use: denies use Little interest or pleasure in doing things: more than half the days Feeling down, depressed, or hopeless: nearly every day service: No Exam Narrative: Exam Narrative: EXAM GENERAL: Patient appears comfortable and well. EYES: No scleral icterus. ENT: Tympanic membranes and oropharynx normal. THYROID: no thyroid nodules or thyromegaly. LYMPH: No supraclavicular or cervical lymphadenopathy. SKIN: Visible skin seen during exam normal or with benign process only. EXT: Mild swelling without erythema of the right foot centered on the MTPs. HEART: Regular rate and rhythm with no murmurs, rubs, or gallops. LUNGS: Clear to auscultation bilaterally with no crackles or wheezes. ABD: Soft, non tender, non distended. PSYCH: Good eye contact, speech is not pressured. Const: Vital Signs, click to edit/add: Vital Signs - 24 hr 11/24/23 07:08 Temperature 97.9 F Pulse Rate [Pulse Oximeter] 86 Respiratory Rate 18 Blood Pressure [Ri ght Upper Arm] 148/90 H Pulse Oximetry 98 Oxygen Delivery Me thod Room Air Course Course ED Course: Patient seen and examined. Vital Signs Vital signs: Initial Vital Signs Temperature 97.9 F 11/24/23 07:08 Temperature Source Temporal Artery Scan 11/24/23 07:08 Pulse Rate 86 11/24/23 07:08 Respiratory Rate 18 11/24/23 07:08 Blood Pressure 148/90 H 11/24/23 07:08 Blood Pressure Mean 109 H 11/24/23 07:08 Pulse Oximetry 98 11/24/23 07:08 Oxygen Delivery Method Room Air 11/24/23 07:08 Vital Signs Temperature 97.9 F 11/24/23 07:08 Pulse Rate 86 11/24/23 07:08 Respiratory Rate 18 11/24/23 07:08 Blood Pressure 148/90 H 11/24/23 07:08 Pulse Oximetry 98 11/24/23 07:08 Oxygen Delivery Method Room Air 11/24/23 07:08 Temperature 97.9 F 11/24/23 07:08 Pulse Rate 86 11/24/23 07:08 Respiratory Rate 18 11/24/23 07:08 Blood Pressure 148/90 H 11/24/23 07:08 Pulse Oximetry 98 11/24/23 07:08 Oxygen Delivery Method Room Air 11/24/23 07:08 Medical Decision Making [facility] Narrative Medical decision making narrative: Patient is a 53-year-old woman with family history of gout who presents with a monoarthritis. The most likely etiology is gout. She has failed edcf-tlr-allfoai anti-inflammatories I did place her on prednisone 20 mg twice daily for 5 days. If her symptoms resolve and do not return she can proceed without further intervention. I did otherwise recommend primary care follow-up. Differential diagnosis includes but not limited to cellulitis fracture monoarthritis due to gout or pseudogout osteoarthritis. Discharge Plan Discharge Clinical Impression: Gout Patient Disposition: Home, Self-Care Condition: Stable Instructions: Gout (ED) Additional Instructions: Prednisone as directed Tylenol Rest Fluids Activity Level: No Restrictions Discharge Diet: Regular Prescriptions: No Action estradiol 1 mg tablet 1 mg PO QDAY Rx Instructions: off 1 week; repeat cycle ondansetron 8 mg tablet,disintegrating 8 mg PO Q12H ketorolac 60 mg/2 mL solution 60 mg IM QDAY PRN epinephrine 0.3 mg/0.3 mL auto-injector 0.3 mg IM Q5-15M PRN Rx Instructions: do not exceed 3 doses per episode tizanidine 4 mg tablet See Rx Instructions PO Q8H PRN (Reason: muscle spasticity) Qty: 30 2RF Rx Instructions: 2 mg QAM and Q1PM, and 4 mg at HS orally every 8 hours PRN; zolpidem 5 mg tablet 5 mg PO QHS PRN (Reason: insomnia) Qty: 14 0RF azithromycin 250 mg tablet See Rx Instructions PO .COMPLEX Qty: 6 0RF Rx Instructions: For 250 mg dose pack: take 500 mg today (day 1), then 250 mg for 4 days (days 2-5) PO cyclobenzaprine 10 mg tablet 10 mg PO TID Qty: 15 0RF Tylenol methylprednisolone [Medrol (Lazaro)] 4 mg tablets,dose pack See Rx Instructions .ROUTE .COMPLEX Qty: 21 0RF Rx Instructions: orally per package directions hydromorphone [Dilaudid] 2 mg tablet 2 mg PO Q6H PRN (Reason: pain) Qty: 7 0RF celecoxib 200 mg capsule 200 mg PO QDAY Qty: 21 2RF hydromorphone 2 mg tablet 2 mg PO Q6H PRN (Reason: pain) Qty: 14 0RF hydromorphone 2 mg tablet 2 mg PO Q6H PRN (Reason: pain) Qty: 14 0RF lorazepam 1 mg tablet 1 mg PO TID PRN (Reason: anxiety) Qty: 20 0RF hydroxyzine pamoate 25 mg capsule 25 mg PO Q6H PRN (Reason: anxiety) Qty: 30 2RF ketorolac 10 mg tablet 10 mg PO Q6H PRN (Reason: pain) 5 Days Qty: 15 2RF Follow Up/Referrals: Allen Kelley MD [Primary Care Provider] - Stand Alone Forms: [facility] Info Instructions
--- OUTSIDE RECORDS SUMMARY | 2023-11-24 07:27 | XMS_ITS | Encounter Summary ---
Author Name Unknown Organization [facility] Address [address] [address] Care Team Providers Care Electric Container Tester Name Role Phone Anna Wilkes MD Primary Care Provider + [phone] Encounter Details Date Type Department Care Team (Late st Contact Info) Description 10/13/2012 Orders Only [facility] [address] [place] [address] Tariq Cao MD [address] [place] [address] Biceps tendinopathy Social History Tobacco Use Types Packs/Day Years Used Date Smoking Tobacco: Never Assessed Sex and Gender Information Value Date Recorded Sex Assigned at Not on file Gender Identity Not on file Sexual Orientation Not on file documented as of this encounter Plan of Treatment Not on file documented as of this encounter Visit Diagnoses Diagnosis Biceps tendinopathy Bicipital tenosynovitis documented in this encounter Additional Health Concerns Infection Onset Date Last Indicated Resolved Time R/O COVID19 03/08/2020 03/08/2020 03/12/2020 7:18 AM CDT R/O COVID19 04/30/2021 04/30/2021 05/01/2021 2:03 AM CDT documented as of this encounter Care Teams Electric Container Tester Relationship Specialty Start Date End Date Anna Wilkes MD [address] [facility] [place] [address] PCP - General 08/23/14 documented as of this encounter
--- OUTSIDE RECORDS SUMMARY | 2023-11-24 07:27 | XMS_ITS | Encounter Summary ---
Author Name Unknown Organization [facility] Address [address] [place] [id number] Care Team Providers Care Conveyor Attendant Name Role Phone Neil Wilkes MD Primary Care Provider + [phone] Reason for Visit * Reason Comments Refill varenicline (CHANTIX ) 1 MG tablet [Pharmacy Med Name: VARENICLINE TARTRATE 1MG TABS] Encounter Details Date Type Department Care Team (Late st Contact Info) Description 11/07/2023 [facility]ill [facility] [address] [place], [place] [id number] Neil Wilkes MD [address] [place] [place], [place] [address] Refill (varenicline (CHANTIX) 1 MG tablet [Pharmacy Med Name: VARENICLINE TARTRATE 1MG TABS]) Social History Tobacco Use Types Packs/Day Years Used Date Smoking Tobacco: Every Day Cigarettes 0.5 7.2 Started: 09/11/2016 Smokeless Tobacco: Never Alcohol Use Standard Drinks/Week Comments No 0 (1 standard drink = 0.6 oz pur e alcohol) PHQ-2 Answer Date Recorded PHQ-2 Score 0 08/13/2023 Financial Resource Strain Answer Date R ecorded Is it hard for you to pay fo r the very basics like food, housing, medical care or heating? No 09/18/2022 Food Insecurity Answer Date Recorded Does your food run out before you have the money to buy more? No 09/18/2022 Transportation Needs Answer Date Record ed Does a lack of transportatio n keep you from your medical appointments or from getting your medications? No 023 Sex and Gender Information Value Date Recorded Sex Assigned at Not on file Gender Identity Not on file Sexual Orientation Not on file documented as of this encounter Nursing Notes * Megan Dickerson Xrwcomm - 11/07/2023 5:09 AM CDT varenicline (CHANTIX) 1 MG tablet [Pharmacy Med Name: VARENICLINE TARTRATE 1MG TABS] Medication started: 02/05/2023 Last ordered by NEIL WILKES: 05/28/2023 (163 days ago) QTY: 180, Refills: 1, Sig: take one tablet by mouth twice a day (unchanged) -> Medication cannot be delegated. Last qualifying visit: 08/13/2023 (with NEIL WILKES) Next scheduled visit: None [facility] Emb[facility]ded Refills, Reference: [id number], 11/07/2023 5:09:24 AM JACKSONTNathan: [facility] [[id number]] ([id number]) documented in this encounter Plan of Treatment Not on file documented as of this encounter Visit Diagnoses Diagnosis Tobacco use ([facility]) Tobacco use disorder documented in this encounter Care Teams Conveyor Attendant Relationship Specialty Start Date End Date Neil Wilkes MD [address] [place] [address] PCP - General 08/23/14 documented as of this encounter
--- OUTSIDE RECORDS SUMMARY | 2023-11-24 07:27 | XMS_ITS | Encounter Summary ---
Author Name Unknown Organization [facility] Address [address] [place] [address] Care Team Providers Care Director Of Photography Name Role Phone Anna Wilkes MD Primary Care Provider + [phone] Reason for Visit * Reason Onset Date Comments Refill Medication Approved 09/17/2023 Encounter Details Date Type Department Care Team (Late st Contact Info) Description 09/17/2023 Refill [facility] [address] [place] [address] Sanchez Garnica MD [address] [place] [id number] Refill; Medication Approved Social History Tobacco Use Types Packs/Day Years [...] as of this encounter Nursing Notes * Bettina Karimi RN - 09/17/2023 7:51 AM CDT Refill Request Granted: Requested Prescriptions Signed Prescriptions Disp Refills betamethasone dipropionate (DIPROLENE-AF) 0.05 % AUGMENTED cream 60 g 3 Sig: APPLY TO AFFECTED ITCHY SCALY AREAS OF THE BODY TWICE DAILY NEEDED Authorizing Provider: SANCHEZ GARNICA Ordering User: BETTINA KARIMI Action taken by Triage: Medication refilled per protocol. Patient is within 12 months of qualifying visit per refill protocol. * Megan Dickerson Xrwcomm - 09/17/2023 5:07 AM CDT betamethasone dipropionate (DIPROLENE-AF) 0.05 % AUGMENTED cream [Pharmacy Med Name: BETAMETHASONE DIP AUG 0.05%CREAM] None Exists -> Unable to determine if sig has changed, review required. -> Medication cannot be delegated. Last qualifying visit: 01/29/2023 (with SANCHEZ GARNICA) Next scheduled visit: None Last ordered by SANCHEZ GARNICA: 01/29/2023 (231 days ago) QTY: 60, Refills: 6, Sig: apply topicallytwo times daily as needed. 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
--- OUTSIDE RECORDS SUMMARY | 2023-11-24 07:27 | XMS_ITS | Clinical Summary ---
Author Name Unknown [facility] Address [address] [address] Care Team Providers Care Conference Producer Name Role Phone Anna Wilkes MD Primary Care Provider + [phone] Source Comments You are receiving this document as you are listed as the primary care provider,follow-up provider, or the patient has been referred to you for consultation.This is in compliance with the Medicare andMedicaid EHR Incentive Program,which states Providers who transition their patient to another setting of careor provider of care or refers their patient to another provider of care shouldprovide summary care record for each transition of care or referral. [facility] Allergies Active Allergy Reactions Criticality Noted Date Comments Bee Venom 09/19/2018 Codeine Rash 03/12/2006 Robitussin with Codeine cough syrup tolerates well Dihydroergotamine Diarrhea 01/19/2014 Hydrocodone Hives High 03/12/2006 Hydrocodone-Acetaminophen Hives 03/12/2006 Loperamide Hives 03/12/2006 Methocarbamol Rash 08/20/2012 Minocycline Itching 11/04/2013 Morphine Hives 03/12/2006 Oxycodone Hives High 03/12/2006 Oxycodone-Acetaminophen Hives 03/12/2006 Prochlorperazine Anxiety 09/29/2010 Rizatriptan Nausea 05/12/2015 Sumatriptan Hives 03/12/2006 Venlafaxine Anxiety 08/26/2012 Medications Medication Sig Dispensed Refills Start Date End Date Status acetaminophen (TYLENOL) 325 MG tabletIndications: Headache, migraine Take 2 Tablets (650 mg) by mouth every 4 hours as needed (Take 650 mg by mouth every 4 hours as needed.). 10/01/19 13 Active diphenhydrAMINE (BENADRYL) 25 MG capsuleIndications :[facility] Aug 05, 2014 8:02 AM Received from: External Pharmacy Received Sig: Take 1 Capsule (25 mg) by mouth three times a day as needed (Take 1 capsule by mouth 3 times daily as needed.). Indications: [facility] Aug 05, 2014 8:02 AM Received from: External Pharmacy Received Si 09/07/19 14 Active ascorbic acid (AKA VITAMIN C) 1000 MG tablet Take 1 Tablet (1,000 mg) by mouth daily. 11/16/19 15 Active EPINEPHrine (EPIPEN 2-MAX) 0.3 MG/0.3ML injectionIndicatio ns:Bee sting allergy Inject 0.3 mL intramuscularly as needed. May repeat 2 Each 03/13/20 18 Active ALBUterol sulfate HFA 108 (90 Base) MCG/ACT inhaler Inhale 2 Puffs. Acti ve oxymetazoline (AFRIN) 0.05 % nasal solution Place 2 Sprays into both nostrils two times a day. 30 mL 04/21/20 18 Active zolpidem (AMBIEN) 10 MG tabletIndications: Chronic insomnia Take 0.5-1 Tablets (5-10 mg) by mouth at bedtime as needed for Sleep. 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 20 Each 3 10/31/19 23 Active triamcinolone acetonide (KENALOG) 0.1 % ointmentIndication s:Eczema, unspecified type Apply topically two times a day. 80 g 11 11/28/19 23 Active loratadine (ALLERGY RELIEF) 10 MG tabletIndications: Allergic rhinitis, unspecified seasonality, unspecified trigger Take 1 Tablet (10 mg) by mouth daily. 90 Tablet 3 12/29/19 23 Active pregabalin (LYRICA) 75 MG capsuleIndications :Chronic pain syndrome,Neck pain,Chronic bilateral low back pain without sciatica Take 1 Capsule (75 mg) by mouth daily at bedtime for 7 days, THEN 1 Capsule (75 mg) two times a day for 7 days, THEN 1 Capsule (75 mg) three times a day. 201 Capsule 03/22/20 23 Active estradiol (ESTRACE) 1 MG tabletIndications: Symptomatic postsurgical menopause TAKE ONE TABLET BY MOUTH ONCE DAILY 90 Tablet 2 05/10/20 23 Active mirtazapine (REMERON) 30 MG tabletIndications: Major depressive disorder, recurrent, severe without psychotic features (HRC),Anxiety (HRC) TAKE ONE TABLET BY MOUTH AT BEDTIME 90 Tablet 2 05/29/20 23 Active citalopram (CELEXA) 10 MG tabletIndications: Major depressive disorder, recurrent, severe without psychotic features (HRC),Grief reaction (HRC),Anxiety (HRC) Take 1-2 Tablets (10-20 mg) by mouth daily. 60 Tablet 3 06/04/20 23 024 Active ketorolac (TORADOL) 60 MG/2ML injectionIndicatio ns:Chronic migraine without aura without status migrainosus, not intractable INJECT 2ML ONCE NEEDED FOR MIGRAINE 10 mL 1 06/06/20 23 Active nortriptyline (PAMELOR) 25 MG capsule Take 1 Capsule (25 mg) by mouth every evening. 90 Capsule 3 07/18/19 24 025 Active LORazepam (ATIVAN) 0.5 MG tabletIndications: Anxiety (HRC) TAKE ONE TABLET BY MOUTH EVERY 8 HOURS NEEDED FOR ANXIETY 15 Tablet 07/26/19 24 Active HYDROmorphone (DILAUDID) 4 MG tabletIndications: Strain of neck muscle, subsequent encounter,Right foot pain Take 0.5 Tablets (2 mg) by mouth every 3 hours as needed for Pain. 10 Tablet 07/31/19 24 Active ondansetron (ZOFRAN-ODT) 8 MG disintegrating tabletIndications: Allergic rhinitis, unspecified seasonality, unspecified trigger Take 1 Tablet (8 mg) by mouth every 8 hours as needed for Nausea. 30 Tablet 1 08/04/19 24 Active betamethasone dipropionate (DIPROLENE-AF) 0.05 % AUGMENTED creamIndications:C utaneous lupus erythematosus APPLY TO AFFECTED ITCHY SCALY AREAS OF THE BODY TWICE DAILY NEEDED 60 g 3 09/17/19 24 Active baclofen (LIORESAL) 10 MG tabletIndications: Chronic pain syndrome TAKE ONE TABLET BY MOUTH THREE TIMES A DAY NEEDED 90 Tablet 09/17/19 24 Active Meloxicam (MOBIC) 15 MG tabletIndications: Strain of neck muscle, subsequent encounter TAKE ONE TABLET BY MOUTH ONCE DAILY NEEDED 30 Tablet 1 10/18/19 24 Active hydrOXYzine pamoate (VISTARIL) 25 MG capsuleIndications :Anxiety (HRC) TAKE ONE CAPSULE BY MOUTH EVERY 8 HOURS NEEDED 120 Capsule 1 10/22/19 24 Active benzonatate (TESSALON) 200 MG capsule Take 1 Capsule by mouth three times a day as needed for Cough. 30 Capsule 1 06/20/20 21 024 Discontinued hydroxychloroquine (PLAQUENIL) 200 MG tabletIndications: Cutaneous lupus erythematosus Take 1 Tablet (200 mg) by mouth two times a day. 60 Tablet 3 01/30/20 23 024 Discontinued varenicline (CHANTIX) 1 MG tabletIndications: Tobacco use (HRC) TAKE ONE TABLET BY MOUTH TWICE A DAY 180 Tablet 1 05/28/20 23 024 Discontinued varenicline (CHANTIX) 1 MG tabletIndications: Tobacco use (HRC) TAKE ONE TABLET BY MOUTH TWICE A DAY 180 Tablet 11/07/19 24 024 Discontinued Active Problems Problem Noted Date Diagnosed Date Rheumatoid arthritis 11/09/2021 Major depressive disorder, r ecurrent episode, in partial remission 09/30/2012 Overview: Major depressive disorder, recurrent episode, in partial or unspecified remission Generalized anxiety disorder 09/30/2012 Chronic pain syndrome 08/05/2009 Migraine 09/18/2007 Overview: Migraine Without Aura Resolved Problems Problem Noted Date Diagnosed Date Resolved Date Marital conflict involving divorce 12/05/2014 07/22/2017 Helicobacter pylori (H. pylori) infection 04/27/2014 07/22/2017 Psychological factors associ ated with another disorder 09/30/2012 07/22/2017 Overview: Psychic factors associated with diseases classified elsewhere Migraine, chronic, without aura 09/30/2012 07/22/2017 Tobacco use disorder 05/08/2009 012 Overview: Nicotine Dependency Stressful life event affecting family 07/22/2017 Encounters Date Type Department Care Team Description 11/12/2023 1:15 PM CDT [facility] [address] [place] [address] Anna Wilkes MD Major depressive disorder, recurrent episode, in partial remission (HRC) (Primary Dx); Chronic pain syndrome; Rash 11/07/2023 [facility] [address] [place] [address] Anna Wilkes MD Refill (varenicline (CHANTIX) 1 MG tablet [Pharmacy Med Name: VARENICLINE TARTRATE 1MG TABS]) 10/17/2023 [facility] [address] [place] [address] Anna Wilkes MD Refill (Vistaril) 10/16/2023 [facility] [address] [place] [address] Anna Wilkes MD Refill (Meloxicam (MOBIC) 15 MG tablet [Pharmacy Med Name: MELOXICAM 15MG TABS]) 10/10/2023 [facility] [address] [place] [address] Anna Wilkes MD Breast Cancer Screening Outreach 09/17/2023 Refill [facility] [address] [place] [address] Graciela Adrian APRN, PROGRAM REVIEW DIRECTOR Refill 09/17/2023 Refill [facility] [address] [place] [address] Yadi Garnica MD Refill; Medication Approved from Last 3 Months Immunizations Name Administration Dates Next Due Flu Vac Preserv Free (3+yrs) 03/05/2012, 04/10/2011,04/03/2010, 009,04/19/2006 Influenza IIV4 (Quadrivalent ) 0.5mL (24850) 03/27/2023,03/29/2021,04/26/2020, 019,04/18/2018,04/05/2017,04/06/2016,05/2015,03/19/2014,03/27/2013,03/05/2012 ,04/10/2011,04/03/2010,03/29/2009,2005 PPSV23 (Pneumovax) 06/21/2017 Pfizer Monovalent 12+ Purple Top 021,05/15/2021,10/22/2020, 021 TDAP (ADACEL) 03/27/2007 Td 12/20/1997 Tdap 01/31/2017 Zoster RZV (Shingrix) 05/10/2021,02/21/2021 Family History Medical History Relation Name Comments Arthritis Father Rheumatoid COPD Father Heart Disease Father triple bypass Rheumatologic Disease Father Coronary Artery Disease Mother Diabetes Mother Hypertension Mother Migraines Mother Osteoarthritis Mother Other Mother Proctor's esoph kaley Rheumatologic Disease Mother Cancer Cousin Migraines Daughter linda Coronary Artery Disease Maternal Aunt Coronary Artery Disease Maternal Uncle Migraines Sister 1 Migraines Sister 2 both Migraines Son 1 agus Anesthesia Reaction Negative Family History Broken Bones Negative Family History Clotting Disorder Negative Family History Osteoporosis Negative Family History Relation Name Status Comments Father Alive does not know b iological father Mother (Age 71) ruptured g allbladder Brother Alive half Cousin Daughter linda Grandchild 9 Maternal Aunt Maternal Uncle (Age 55) Sister 1 Alive half Sister 2 Alive Son 1 agus Son 2 gutierrez Alive Son 3 reagan Alive Social History Tobacco Use Types Packs/Day Years Used Date Smoking Tobacco: Every Day Cigarettes 0.5 7.2 Started: 09/11/2016 Smokeless Tobacco: Never Tobacco Cessation:Ready to Q uit: No; Counseling Given: No Alcohol Use Standard Drinks/Week Comments No 0 (1 standard drink = 0.6 oz pur e alcohol) PHQ-2 Answer Date Recorded PHQ-2 Score 0 11/12/2023 Financial Resource Strain Answer Date R ecorded [...] on file Sexual Orientation Not on file Last Filed Vital Signs Vital Sign Reading Time Taken Comments Blood Pressure 116/88 07/18/2023 2:01 PM SCHOOL GUARD Pulse 92 07/18/2023 2:01 PM SCHOOL GUARD Temperature 36.4 ??C (97.6 ??F) 05/29/2022 8:10 AM CS T pt reported Respiratory Rate 16 12/04/2022 9:10 AM CDT Oxygen Saturation 97% 12/04/2022 9:10 AM CDT Inhaled Oxygen Concentration - - Weight 56 kg (123 lb 6.4 oz) 07/18/2023 2:01 PM SCHOOL GUARD Height 157.5 cm (5' 2) 12/28/2022 7:07 AM CDT Body Mass Index 22.57 12/28/2022 7:07 AM CDT Plan of Treatment Health Maintenance Due Date Last Done Comments HepB (1) 1989 Pneumococcal (2 - PCV) 06/21/2018 06/21/2017 Adult Preventive Visit 11/05/2019 11/04/2018, 2016 Dexa 12/24/2019 12/23/2018 Mammogram 12/24/2019 12/23/2018, 10/07, 04/23/2012 COVID-19 Vaccine ( season) 2023 05/17/2021, 05/15/2021, 10/22/2020, Additional history exists DTaP/Tdap/Td (3 - Tdap) 01/31/2027 02/01/20 17, 03/27/2007, 03/27/2007, Additional history exists Cholesterol 08/02/2028 08/02/2023, 01/06, 08/05/2014, Additional history exists Colonoscopy 12/04/2029 12/04/2022, 06/07 (Completed) Hep C Screening (Preventive Services) Completed 09/19/2018 HIV Screening (Preventive Services) Completed 04/26/2020 Zoster/Shingles Completed 05/10/2021, 02/21/2021 Influenza Completed 03/27/2023, 03/09, 04/26/2020, Additional history exists HepA Aged Out No longer eligi ble based on patient's age to complete this topic Hib Aged Out No longer eligi ble based on patient's age to complete this topic IPV (Polio) Aged Out No longer eligi ble based on patient's age to complete this topic MCV4 Aged Out No longer eligi ble based on patient's age to complete this topic Procedures Procedure Name Priority Date/Time Associated Diagnosis Comments LIPID PANEL & DIRECT LDL (IF NEEDED) Routine 08/02/2023 9:37 AM SCHOOL GUARD Screening for cholesterol level ENDOSCOPY, COLON, SCREENING/DIAGNOS TIC Routine 12/04/2022 8:16 AM CDT Screening for colon cancer HIV 1/2 AG/AB 4TH GEN Routine 04/26/2020 8:15 AM CDT Screening for HIV (human immunodeficiency virus) MM MAMMOGRAM SCREENING BILAT W CAD Routine 12/23/2018 10:52 AM CDT Visit for screening mammogram DXA BONE DENSITY SPINE/HIP Routine 12/23/2018 10:18 AM CDT Menopause HEPATITIS C ANTIBODY, WITH REFLEX Routine 09/19/2018 10:04 AM CDT Rheumatoid arthritis, involving unspecified site, unspecified rheumatoid factor presence (HRC) from Last 3 Months or Most Recently Relevant to Health Maintenance Results * (ABNORMAL) Lipid Panel and Direct LDL(If Needed) (08/02/2023 9:37 AM SCHOOL GUARD) Pathologist [facility] Cholesterol 192 0 - 199 mg/dL 08/02/2023 3:50 PM SCHOOL GUARD [facility] Triglyceride 155(H) <=149 mg/dL 08/02/2023 3:50 PM [facility] HDL Cholesterol 35(L) >=40 mg/dL 4 3:50 PM [facility] LDL, Calculated 126 <130 mg/dL 4 3:50 PM [facility] Non HDL Chol, Calculated 157 <=159 mg/dL 08/02/2023 3:50 PM [facility] Cholesterol/HDL Ratio 5.5(H) <=5.0 08/02/2023 3:50 PM [facility] Hours Fasting 15.0 8 - 12 Hours 08/02/2023 3:50 PM [facility] Blood Venipuncture / Unknown 08/02/2023 9:37 AM SCHOOL GUARD 08/02/2023 9:37 AM SCHOOL GUARD Anna Wilkes MD LAB_1 [facility] [address] [place] [address] [address] [place] [phone] * Endoscopy, Colon, Screening/Diagnostic (12/04/2022 8:16 AM CDT) 12/04/2022 8:16 AM CDT Narrative [facility] - 12/04/2022 8:16 AM CDT Patient Name: Dean Erickson Procedure Date: 12/04/2022 8:16 AM Date of : 1970 Admit Type: Outpatient Age: 52 Note Status: Finalized Attending MD: Liz Burgess , Procedure: ? Colonoscopy Indications: ? Screening for colorectal malignant ? neoplasm, Last colonoscopy 10 years ? ago Providers: ? Liz K. Nagler, Leesa Donald Referring MD: ? Medicines: ? Fentanyl 200 micrograms IV, ? Midazolam 5 mg IV Complications: ? No immediate complications. Procedure: ? After I obtained informed consent, ? the scope was passed under direct ? vision. Throughout the procedure, ? the patient's blood pressure, ? pulse, and oxygen saturations were ? monitored continuously. The ? [id number] was introduced through ? the anus and advanced to the ? terminal ileum. The colonoscopy was ? performed without difficulty. The ? quality of the bowel preparation ? was good. The patient tolerated the ? procedure. Findings: ? The terminal ileum appeared normal. ? A 1 to 2 mm polyp was found in the transverse colon. ? The polyp was sessile. The polyp was removed with a ? jumbo cold forceps. Resection and retrieval were ? complete. ? A 3 to 4 mm polyp was found in the descending colon. ? The polyp was sessile. The polyp was removed with a ? cold snare. Resection and retrieval were complete. ? Multiple diverticula were found in the entire colon. ? Hemorrhoids were found during retroflexion. ? No additional abnormalities were found on ? retroflexion. Moderate Sedation: ? Moderate (conscious) sedation was administered by the ? endoscopy nurse and supervised by the endoscopist. ? The patient's oxygen saturation, heart rate, blood ? pressure and response to care were monitored. Total ? physician intraservice time was 14 minutes. ? This time is the duration from the initial medication ? administration until the weather reporter assists with ? initial maneuvers (biopsy / polypectomy / etc.), or ? if no maneuvers are performed, until the endoscopist ? leaves the room. Impression: ?- The examined portion of the ileum ? was normal. ? - One 1 to 2 mm polyp in the ? transverse colon, removed with a ? jumbo cold forceps. Resected and ? retrieved. ? - One 3 to 4 mm polyp in the ? descending colon, removed with a ? cold snare. Resected and retrieved. ? - Diverticulosis in the entire ? examined colon. ? - Hemorrhoids. Recommendation: ?- Await pathology results. ? - Repeat colonoscopy in 5-10 years ? for surveillance based on pathology ? results. ? - future colonoscopies with ? propofol due to anxiety. Procedure Code(s): ? --- Professional --- ? 10895, Colonoscopy, flexible; with ? removal of tumor(s), polyp(s), or ? other lesion(s) by snare technique ? 41880, 59, Colonoscopy, flexible; ? with biopsy, single or multiple ? G0500, Moderate sedation services ? provided by the same physician or ? other qualified health care ? professional performing a ? gastrointestinal endoscopic service ? that sedation supports, requiring ? the presence of an independent ? trained observer to assist in the ? monitoring of the patient's level ? of consciousness and physiological ? status; initial 15 minutes of ? intra-service time; patient age 5 ? years or older (additional time may ? be reported with 91348, as ? appropriate) Diagnosis Code(s): ? --- Professional --- ? Z12.11, Encounter for screening for ? malignant neoplasm of colon ? K64.9, Unspecified hemorrhoids ? K63.5, Polyp of colon ? K57.30, Diverticulosis of large ? intestine without perforation or ? abscess without bleeding CPT copyright 2020 [employer]. All rights reserved. The codes documented in this report are preliminary and upon inpatient coder review may be revised to meet current compliance requirements. Liz Burgess, 12/04/2022 8:52:36 AM This document has been electronically signed. Number of Addenda: 0 Note Initiated On: 12/04/2022 8:16 AM ? Endoscopy Report Procedure Note Liz Burgess MD - 12/04/2022 Patient Name: Dean Erickson Procedure Date: 12/04/2022 8:16 AM Date of : 1970 Admit Type: Outpatient Age: 52 Note Status: Finalized Attending MD: Liz Burgess , Procedure: Colonoscopy Indications: Screening for colorectal malignant neoplasm, Last colonoscopy 10 years ago Providers: Leesa Gan Referring MD: Medicines: Fentanyl 200 micrograms IV, Midazolam 5 mg IV Complications: No immediate complications. Procedure: After I obtained informed consent, the scope was passed under direct vision. Throughout the procedure, the patient's blood pressure, pulse, and oxygen saturations were monitored continuously. The [id number] was introduced through the anus and advanced to the terminal ileum. The colonoscopy was performed without difficulty. The quality of the bowel preparation was good. The patient tolerated the procedure. Findings: The terminal ileum appeared normal. A 1 to 2 mm polyp was found in the transverse colon. The polyp was sessile. The polyp was removed with a jumbo cold forceps. Resection and retrieval were complete. A 3 to 4 mm polyp was found in the descending colon. The polyp was sessile. The polyp was removed with a cold snare. Resection and retrieval were complete. Multiple diverticula were found in the entire colon. Hemorrhoids were found during retroflexion. No additional abnormalities were found on retroflexion. Moderate Sedation: Moderate (conscious) sedation was administered by the endoscopy nurse and supervised by the endoscopist. The patient's oxygen saturation, heart rate, blood pressure and response to care were monitored. Total physician intraservice time was 14 minutes. This time is the duration from the initial medication administration until the weather reporter assists with initial maneuvers (biopsy / polypectomy / etc.), or if no maneuvers are performed, until the endoscopist leaves the room. Impression: - The examined portion of the ileum was normal. - One 1 to 2 mm polyp in the transverse colon, removed with a jumbo cold forceps. Resected and retrieved. - One 3 to 4 mm polyp in the descending colon, removed with a cold snare. Resected and retrieved. - Diverticulosis in the entire examined colon. - Hemorrhoids. Recommendation: - Await pathology results. - Repeat colonoscopy in 5-10 years for surveillance based on pathology results. - future colonoscopies with propofol due to anxiety. Procedure Code(s): --- Professional --- 60707, Colonoscopy, flexible; with removal of tumor(s), polyp(s), or other lesion(s) by snare technique 84741, 59, Colonoscopy, flexible; with biopsy, single or multiple G0500, Moderate sedation services provided by the same physician or other qualified health rn transitional care performing a gastrointestinal endoscopic service that sedation supports, requiring the presence of an independent trained observer to assist in the monitoring of the patient's level of consciousness and physiological status; initial 15 minutes of intra-service time; patient age 5 years or older (additional time may be reported with 22555, as appropriate) Diagnosis Code(s): --- Professional --- Z12.11, Encounter for screening for malignant neoplasm of colon K64.9, Unspecified hemorrhoids K63.5, Polyp of colon K57.30, Diverticulosis of large intestine without perforation or abscess without bleeding CPT copyright 2020 [employer]. All rights reserved. The codes documented in this report are preliminary and upon inpatient coder review may be revised to meet current compliance requirements. Liz Burgess, 12/04/2022 8:52:36 AM This document has been electronically signed. Number of Addenda: 0 Note Initiated On: 12/04/2022 8:16 AM Endoscopy Report Anna Wilkes MD PN GI PROCEDURE [facility] * HIV 1/2 Ag/Ab 4th Generation (04/26/2020 8:15 AM CDT) HIV 1/2 Antigen/Antib vickey (4th generation) Negative (Non Reactive) Negative (Non Reactive) 04/26/2020 1:03 PM CDT [facility] Comment:HIV-1 p24 Antigen an d HIV-1/HIV-2 Antibody not detected Blood Venipuncture / Unknown 04/26/2020 8:15 AM CDT 04/26/2020 8:15 AM CDT Anna Wilkes MD LAB_1 [facility] [address] * (ABNORMAL) MM Mammogram Screening Bilat W CAD (12/23/2018 10:52 AM CDT) Anatomical Region Laterality Modality Breast Bilateral Mammography Impressions 12/23/2018 11:10 AM CDT : ACR BI-RADS Category 0: Need Additional Imaging Evaluation RECOMMENDATION: Additional Mammographic Images and Ultrasound of the right breast. The results and recommendations of this examination will be communicated to the patient and the imaging center will attempt to schedule any recommended follow up with the patient. Narrative 12/23/2018 11:10 AM CDT MM MAMMOGRAM SCREENING BILAT W CAD performed on 12/23/18 Compared to: 11/03/2013 MM Mammogram Screening Bilat W CAD and 04/23/2012 MM Mammogram Screening Bilat W CAD FINDINGS: Bilateral screening mammogram was performed with the assistance of Computer-Aided Detection. The breasts are heterogeneously dense, which may obscure small masses. There is an asymmetry in the right breast at the 5 o'clock position at anterior depth. The remainder of the breast tissue is unremarkable. Anna Wilkes MD RAD [facility] * DEXA Bone Density Spine/Hip (12/23/2018 10:18 AM CDT) Anatomical Region Laterality Modality Lower Extremity, Spine, Hip, L-Spine Radiographic Imaging Narrative 12/29/2018 7:11 AM CDT CLINIC DXA REPORT Patient Name: ??Dean Erickson [place]: ??Francesco Polanco MD Densitometer: ??Hologic Horizon W (S/N [id number]) [place] BONE OSTEOPOROSIS RISK FACTORS FROM PATIENT QUESTIONNAIRE: ?? The patient is a 48 y.o.female: Calcium intake is probably adequate. There is no self-reported personal history of fracture. There is no family history in a first degree relative of hip, pelvis, and/or spine fracture. One self-reported fall over the past 12 months. Current smoking. Current corticosteroid therapy for rheumatoid arthritis. Current systemic estrogen replacement therapy. BONE MINERAL DENSITY: Lumbar Spine Vertebrae Included: L1;L2;L3;L4 Bone Mineral Density (gm/cm2): 0.807 T-Score: -2.2 Z-Score: -1.5 Total Hip Bone Mineral Density (gm/cm2): 0.755 T-Score: -1.5 Z-Score: -1.1 Femoral Neck Bone Mineral Density (gm/cm2): 0.633 T-Score: -1.9 Z-Score: -1.3 FRAX 10 year probability major osteoporotic fracture: 10.2% 10 year probability hip fracture: 2.2% COMPARISON TO PRIOR STUDY: Date of prior study: 04/23/2012 Lumbar spine change: -6.5% Total hip change: -8.2% VERTEBRAL FRACTURE ASSESSMENT: Not done ASSESSMENT: 1. Moderate low bone mass, based on T-score(s) at at the lumbar spine 2. Patient is at mildly increased risk of fracture, based on age, fracture history, bone mineral density at all skeletal sites, and presence or absence of other risk factors. RECOMMENDATIONS: ?? 1. Optimize calcium and vitamin D intake 2. Encourage cessation of smoking 3. Repeat DXA in 1 to 4 years, depending on dose and duration of corticosteroid therapy FRAX Explanation: The 10 year risks of hip and major osteoporotic fractures (clinical spine, forearm, hip or shoulder fracture) are calculated by the FRAX algorithm based on femoral neck bone density, age, gender, race/ethnicity, weight, height, previous fracture, parental hip fracture, smoking status, glucocorticoid intake, history of RA, secondary osteoporosis, and high alcohol consumption. FRAX Fracture Risk Categories in terms of major osteoporotic fractures: < 10% = low fracture risk ? 10% and <15% = mildly increased fracture risk ? 15% and <20% = moderately increased fracture risk ? 20% and <30% = high fracture risk ? 30% = very high fracture risk FRAX fracture risk estimates are adjusted for Trabecular Bone Score (TBS) Trabecular Bone Score (TBS) is a measure of the microarchitectural integrity of trabecular bone, and is derived from the [id number] changes of bone density embedded in the AP spine BMD image. TBS is only modestly correlated with BMD, and is modestly associated with incident major osteoporotic and hip fractures independent of BMD and other risk factors. TBS values of >1.350 indicate intact trabecular microarchitecture TBS values of 1.200 to 1.350 indicate partially degraded trabecular microarchitecture TBS values of <1.200 indicate degraded trabecular microarchitecture TBS for this patient is 1.299 National Osteoporosis Foundation Treatment Guideline A clinician may consider FDA-approved medical therapies in postmenopausal women and men aged 50 years and older, if one or more of the following is present (clinical correlation required and therapy may not always be indicated): 1. The patient has a hip or vertebral fracture. 2. T-score ? -2.5 at the femoral neck, hip, or spine after appropriate evaluation to exclude secondary causes. 3. Low bone mass (T-score between -1.0 and -2.5 at the femoral neck, hip or spine) and a 10-year probability of a hip fracture ? 3% or a 10-year probability of a major osteoporosis-related fracture ? 20% based on the FRAX scores. Anna iWlkes MD RAD DEXA * [facility] - Hepatitis C Virus Ivonne with Reflex In-House (09/19/2018 10:04 AM CDT) Hepatitis C Antibody Nonreactive Nonreactive PN SOFT 09/19/2018 10:0 4 AM CDT 09/19/2018 12:34 PM CDT Narrative PN SOFT - 09/19/2018 1:38 PM CDT Performed at [address] [address] CLIA number [id number] Janelle Carranza MD LAB_[address] [place] [id number] from Last 3 Months or Most Recently Relevant to Health Maintenance Care Teams Conference Producer Relationship Specialty Start Date End Date Anna Wilkes MD [address] [place], [place] [address] PCP - General 08/23/14
--- OUTSIDE RECORDS SUMMARY | 2023-11-24 07:27 | XMS_ITS | Encounter Summary ---
Author Name Unknown Organization [facility] Address [address], [place] [address] Care Team Providers Care Template Inspector Name Role Phone Neil Wilkes MD Primary Care Provider + [phone] Reason for Visit * Reason Onset Date Comments Refill 07/30/2023 HYDROmorphone (D ILAUDID) 2 MG tablet Encounter Details Date Type Department Care Team (Late st Contact Info) Description 07/30/2023 [facility] [address] [place], [place] [address] Neil Wilkes MD [address] [place], [place] [phone] Refill (HYDROmorphone (DILAUDID) 2 MG tablet) Social History Tobacco Use Types Packs/Day Years [...] as of this encounter Nursing Notes * Interface, Out PharmAssistant Prov Query - 07/30/2023 4:04 PM CST HYDROmorphone (DILAUDID) 2 MG tablet Medication started: 03/29/2021 Last ordered by NEIL WILKES M: 07/30/2023 (0 days ago) QTY: 20, Refills: 0, Sig: take 1 tablet (2 mg) by mouth every 3 hours as needed for pain. (unchanged) -> The patient is requesting a renewal from a different pharmacy. -> Medication cannot be delegated. Last qualifying visit: 07/30/2023 (with NEIL WILKES) Next scheduled visit: None [facility] Embedded Refills, Reference: [id number], 07/30/2023 4:04:20 PM FOOD STOREROOM CLERK, Pool: PN Refill [facility] Services - Primary Care [[id number]] ([id number]) STOREROOM CLERK * Guilherme Nielsen Surescripts Prov Query - 07/30/2023 4:04 PM CST No Careplan note found by [employer]. STOREROOM CLERK * Brodie Perea - 07/30/2023 4:01 PM CST Medications - Refill Request Name of prescribing clinician: Neil Wilkes MD Additional comments (related to the above concern): Pt would like a call with confirmation that the medication was sent For this refill, patient would like it filled at the pharmacy listed in Medication Management. If there are questions regarding your request, is it okay to leave a detailed message on your voicemail? Yes Is there anything else I can help you with today? STOREROOM CLERK documented in this encounter Plan of Treatment Not on file documented as of this encounter Visit Diagnoses Diagnosis Strain of neck muscle, subsequent encounter Right foot pain Pain in limb documented in this encounter Care Teams Template Inspector Relationship Specialty Start Date End Date Neil Wilkes MD [address] [place] [address] PCP - General 08/23/14 documented as of this encounter
--- OUTSIDE RECORDS SUMMARY | 2023-11-24 07:27 | XMS_ITS | Encounter Summary ---
Author Name Unknown Organization [facility] Address [address], [place] [address] Care Team Providers Care Hse Advisor Name Role Phone Neil Wilkes MD Primary Care Provider + [phone] Reason for Visit * Reason Comments Refill Meloxicam (MOBIC) 15 MG tablet [Pharmacy Med Name: MELOXICAM 15MG TABS] Encounter Details Date Type Department Care Team (Late st Contact Info) Description 10/16/2023 [facility] [address] [place], [place] [phone] Neil Wilkes MD [address] [place], [place] [address] Refill (Meloxicam (MOBIC) 15 MG tablet [Pharmacy Med Name: MELOXICAM 15MG TABS]) Social History Tobacco Use Types Packs/Day [...] as of this encounter Nursing Notes * Tino Swain RN - 10/18/2023 8:36 PM CDT Renewed medication per medication refill protocol. Requested Prescriptions Pending Prescriptions Disp Refills Meloxicam (MOBIC) 15 MG tablet [Pharmacy Med Name: MELOXICAM 15MG TABS] 30 Tablet 1 Sig: TAKE ONE TABLET BY MOUTH ONCE DAILY NEEDED * Megan Dickerson Xrwcomm - 10/16/2023 5:07 AM CDT Meloxicam (MOBIC) 15 MG tablet [Pharmacy Med Name: MELOXICAM 15MG TABS] Medication started: 11/21/2020 Last ordered by NEIL WILKES: 07/28/2023 (80 days ago) QTY: 30, Refills: 2, Sig: take one tablet by mouth once daily as needed (unchanged) -> Labs required if chronic use -> Refill x 6 months (until due for a(n) Cr check and HGB check) -> Calculate the quantity and number of refills manually. Last qualifying visit: 08/13/2023 (with NEIL WILKES) Next scheduled visit: None Cr: 0.9 mg/dL on 01/29/2023 HGB: 13.5 g/dL on 01/29/2023 [facility] Embedded Refills, Reference: [id number], 10/16/2023 5:07:46 AM CDT, [facility] - Primary Care [[id number]] ([id number]) * Megan Dickerson - 10/16/2023 5:07 AM CDT The following lab order(s) may be associated with the Result Note below: COMPLETE BLOOD COUNT-W/DIFF; COMP METABOLIC PANEL Notes recorded by Yadi Garnica on 01/30/2023 at 12:24 PM CDT Current labs do not show any evidence of internal lupus. Continue with topical steroid and hydroxychloroquine as discussed at visit. Keep follow-up appointment in 6-8 weeks. Team to call and update documented in this encounter Plan of Treatment Not on file documented as of this encounter Visit Diagnoses Diagnosis Strain of neck muscle, subsequent encounter documented in this encounter Care Teams Hse Advisor Relationship Specialty Start Date End Date Neil Wilkes MD [address] [place] [address] PCP - General 08/23/14 documented as of this encounter
--- OUTSIDE RECORDS SUMMARY | 2023-11-24 07:27 | XMS_ITS | Encounter Summary ---
Author Name Unknown Organization [facility] Address [address] [place] [address] Care Team Providers Care Loss Control Representative Name Role Phone Anna Wilkes MD Primary Care Provider + [phone] Reason for Visit * Reason Comments Refill Encounter Details Date Type Department Care Team (Late st Contact Info) Description 08/21/2023 Refill [facility] [address] [place] [address] Graciela Adrian APRN, JOB FOREMAN [address] [place] [address] Refill Social History Tobacco Use Types Packs/Day Years [...] as of this encounter Nursing Notes * Brittani Angulo MA - 08/21/2023 8:41 AM CST Medication: baclofen Dose:10 mg Quantity:90 Frequency of use: take 1 tab by mouth three times a day as needed Refill DUE DATE: Date of last OV with Provider:03/22/23 Date of next OV with Provider:NA Date last prescribed: __07/25/23 with 0 # of refills MATIC LOG CUT OFF SAWYER documented in this encounter Plan of Treatment Not on file documented as of this encounter Visit Diagnoses Diagnosis Chronic pain syndrome documented in this encounter Care Teams Loss Control Representative Relationship Specialty Start Date End Date Anna Wilkes MD [address] [place] [address] PCP - General 08/23/14 documented as of this encounter
--- OUTSIDE RECORDS SUMMARY | 2023-11-24 07:27 | XMS_ITS | Encounter Summary ---
Author Name Unknown Organization [facility] Address [address], [place] [address] Care Team Providers Care Electrical Continuity Tester Name Role Phone Neil Wilkes MD Primary Care Provider + [phone] Reason for Visit * Reason Comments Refill Vistaril Encounter Details Date Type Department Care Team (Late st Contact Info) Description 10/17/2023 Refill [facility] [address] [place], [place] [phone] Neil Wilkes MD [address] [place], [place] [phone] Refill (Vistaril) Social History Tobacco Use Types Packs/Day Years [...] as of this encounter Nursing Notes * Mayelin Gandhi RN - 10/22/2023 8:38 AM CDT Further Assistance Needed on Refill from Clinician RN reviewed. Signed order needed. Requested medication needs an order signed by an authorized prescriber. Last telemedicine visit for anxiety on 06/04/23. Last medication refill on 09/30/23. Per OV note- I am going to recommend mental health counseling and I also suggested that we start her on citalopram 10 mg daily for 2 weeks then increase to 20 mg daily for 2 weeks and follow-up with me in 6 weeks. Review pended order for accuracy and sign if appropriate and Document if appointment is needed for further refills. Requested Prescriptions Pending Prescriptions Disp Refills hydrOXYzine pamoate (VISTARIL) 25 MG capsule [Pharmacy Med Name: HYDROXYZINE PAMOATE 25MG CAPS] 120Capsule 2 Sig: TAKE ONE CAPSULE BY MOUTH EVERY 8 HOURS NEEDED * Diane Henderson RN - 10/21/2023 11:22 AM CDT Left message to return call to Nurse Line at [phone]. * Nacho Hassan RN - 10/21/2023 10:59 AM CDT Further Assistance Needed on Refill from Nursing/Triage Please clarify how patient is taking medication. Different dose/sig on medication list Next steps: Nursing/Triage to complete refill as appropriate. Requested Prescriptions Pending Prescriptions Disp Refills hydrOXYzine pamoate (VISTARIL) 25 MG capsule [Pharmacy Med Name: HYDROXYZINE PAMOATE 25MG CAPS] 120Capsule 2 Sig: TAKE ONE CAPSULE BY MOUTH EVERY 8 HOURS NEEDED * Megan Dickerson - 10/17/2023 9:33 AM CDT hydrOXYzine pamoate (VISTARIL) 25 MG capsule [Pharmacy Med Name: HYDROXYZINE PAMOATE 25MG CAPS] Medication started: 05/29/2022 Last ordered by NEIL WILKES: 05/23/2023 (147 days ago) QTY: 120, Refills: 2, Sig: take two capsules by mouth three times a day as needed (changed) -> Unable to determine if sig has changed, review required. -> Refill x 12 months (until due for an office visit) -> Calculate the quantity and number of refills manually. Last qualifying visit: 08/13/2023 (with NEIL WILKES) Next scheduled visit: None [facility] Embedded Refills, Reference: [id number], 10/17/2023 9:33:33 AM CDT, Nathan: ELID[facility] - [facility] [[id number]] ([id number]) documented in this encounter Plan of Treatment Not on file documented as of this encounter Visit Diagnoses Diagnosis Anxiety (HRC) Anxiety state, unspecified documented in this encounter Care Teams Electrical Continuity Tester Relationship Specialty Start Date End Date Neil Wilkes MD [address] [place] [address] PCP - General 08/23/14 documented as of this encounter
--- OUTSIDE RECORDS SUMMARY | 2023-11-24 07:27 | XMS_ITS | Encounter Summary ---
Author Name Unknown Organization [facility] Address [address], [place] [address] Care Team Providers Care Drop Wire Aligner Name Role Phone Anna Wilkes MD Primary Care Provider + [phone] Reason for Visit * Reason Onset Date Comments Video Visit 11/12/2023 Encounter Details Date Type Department Care Team (Late st Contact Info) Description 11/12/2023 1:15 PM CDT [facility] [address] [place] [address] Anna Wilkes MD [address] [place] [address] Major depressive disorder, recurrent episode, in partial remission (HRC) (Primary Dx); Chronic pain syndrome; Rash Social History Tobacco Use Types Packs/Day Years [...] on file documented as of this encounter Progress Notes * Anna Wilkes MD - 11/12/2023 1:15 PM CDT Subjective: Today's visit with Lea was conducted as a scheduled video visit. Patient had a full body rash break out in 2006. She states it resolved within a month and she has not had any trouble until the of her mother in 2022. She has been struggling with recurrent outbreaks primarily on the arms since the of her mother. She has been seen by several different head chopper and does have a follow-up appointment later this week with an outside head chopper. She has been started on methotrexate, she did not tolerate the meds orally and is doing weekly injections. She is complaining of a severe itch and burning discomfort, she has not sleeping well. I did review her medications and we elected to increase her hydroxyzine to 50 mg 3 times daily in hopes thatthis will help with the pain, anxiety and the itching. If this is not helpful she could try Toradoltwice daily, she generally only takes that for her migraines, for short period of time this would be appropriate. She could also increase the nortriptyline to 50 mg at bedtime. I would recommend thatshe not do all of these changes at 1 time. I would recommend hydroxyzine increased 1st and then either the Toradol or the nortriptyline increase. I discussed that she could use topical agents and I would suggest calamine lotion, Voltaren or Aspercreme. I would recommend that she apply to 1 lesion initially to make sure that this is not too uncomfortable Objective: There were no vitals taken for this visit. She is alert cooperative interactive in no acute distress Respiratory: She is breathing easily with no coughing or wheezing Neurologic: She is speaking in full and logical sentences with no focal neurologic deficits Dermatologic: She is got multiple annular lesions that have central ulcerations. There has no signsfor secondary infection at least through the visualization during a video visit Assessment/Plan: 1. Major depressive disorder, recurrent episode, in partial remission (HRC) 2. Chronic pain syndrome 3. Rash I would recommend that she try increasing the hydroxyzine to 50 mg 3 times daily, she should watch for sedation. If this is not effective she could try Toradol injections 1 to 2 times a day to help with the pain or she could increase the nortriptyline to 50 mg. I also recommended topical agents as d iscussed above Anna Wilkes MD documented in this encounter Plan of Treatment Not on file documented as of this encounter Visit Diagnoses Diagnosis Major depressive disorder, recurrent episode, in partial remission (HRC)- Primary Major depressive disorder, recurrent episode, in partial or unspecified remission Chronic pain syndrome Rash Rash and other nonspecific skin eruption documented in this encounter Care Teams Drop Wire Aligner Relationship Specialty Start Date End Date Anna Wilkes MD [address] [place] [address] PCP - General 08/23/14 documented as of this encounter
--- OUTSIDE RECORDS SUMMARY | 2023-11-24 07:27 | XMS_ITS | Encounter Summary ---
Author Name Unknown Organization [facility] Address [address] [place] [address] Care Team Providers Care Toy Mechanic Name Role Phone Anna Wilkes MD Primary Care Provider + [phone] Reason for Visit * Reason Comments Refill Encounter Details Date Type Department Care Team (Late st Contact Info) Description 09/17/2023 Refill [facility] [address] [place] [address] Graciela Adrian APRN, SDC TEACHER [address] [place] [address] Refill Social History Tobacco Use Types Packs/Day [...] Nursing Notes * Brittani Angulo MA - 09/17/2023 8:52 AM CDT Medication: baclofen Dose:10 mg Quantity:90 Frequency of use: take 1 tab by mouth three times a day as needed Refill DUE DATE: Date of last OV with Provider:03/22/23 Date of next OV with Provider:NA Date last prescribed: _08/21/23 with 0____ # of refills documented in this encounter Plan of Treatment Not on file documented as of this encounter Visit Diagnoses Diagnosis Chronic pain syndrome documented in this encounter Care Teams Toy Mechanic Relationship Specialty Start Date End Date Anna Wilkes MD [address] [place] [address] PCP - General 08/23/14 documented as of this encounter
--- OUTSIDE RECORDS SUMMARY | 2023-11-24 07:27 | XMS_ITS | Encounter Summary ---
Author Name Unknown Organization [facility] Address [address], [place] [address] Care Team Providers Care Aoc Airspace Control Officer Name Role Phone Anna Wilkes MD Primary Care Provider + [phone] Reason for Visit * Reason Comments Breast Cancer Screening Outreach Encounter Details Date Type Department Care Team (Late st Contact Info) Description 10/10/2023 [facility] [address] [place], [place] [phone] Anna Wilkes MD [address] [place], [place] [phone] Breast Cancer Screening Outreach Social History Tobacco Use Types Packs/Day Years [...] as of this encounter Nursing Notes * Adelaida Ortez - 10/10/2023 3:12 PM CDT This patient was identified from the Preventive Service workbench as coming due or overdue for a mammogram. This is the first attempt to contact [facility] . Result of call left recorded message to return my call. Adelaida Ortez 10/10/2023, 3:12 PM documented in this encounter Plan of Treatment Not on file documented as of this encounter Visit Diagnoses Not on filedocumented in this encounter Care Teams Aoc Airspace Control Officer Relationship Specialty Start Date End Date Anna Wilkes MD [address] [place] [address] PCP - General 08/23/14 documented as of this encounter
== END 2023-11-24 07:33 | disposition home or self-care (01) ==
LOC: ED 07:24
PROVIDERS: Emergency Provider Internal Medicine; PCP Family Medicine
DX: M10.9 Gout, unspecified (principal)
CPT/HCPCS: 99283

== ENCOUNTER 2024-01-10 11:39 | Emergency (ER) | payer BC, SELFPAY ==
[2024-01-10 11:49] VITALS: BP 135/97; PULSE 89; RESP 18; TEMP 36.5; O2SAT 94; BMI 21.6
--- NOTE | 2024-01-10 11:59 | CRLHL7_ITS ---
For Patients: As a result of the Century Cures Act, medical imaging exams and procedure reports are released immediately into your electronic medical record. You may view this report before your referring provider. If you have questions, please contact your health care provider. Indication: Right flank pain. Technique: CT of the abdomen and pelvis was performed without contrast. Comparison: None available. Findings: Visualized lung bases: Clear. Liver: Unremarkable for unenhanced technique. Post cholecystectomy. No biliary ductal dilation. Pancreas: Unremarkable for unenhanced technique. Spleen: Unremarkable for unenhanced technique. Adrenals: Unremarkable for unenhanced technique. Kidneys: Unremarkable for unenhanced technique. There is a punctate nonobstructing right lower pole renal calculus. No left renal calculi. No obstructing ureteral calculi. No hydronephrosis. Aorta/IVC: Moderate atherosclerotic aortic calcifications with infrarenal abdominal aortic ectasia measuring 2 cm. Lymph nodes: No lymphadenopathy. Bowel: Nonobstructed bowel. Appendix is not definitively seen. No localized inflammatory changes. No intraperitoneal free air or fluid. Pelvis: Uterus is surgically absent. Bones/body wall: Multilevel degenerative disc disease. Impression: 1. Nonobstructing right lower pole renal calculus. No hydronephrosis or ureteral calculi visualized. 2. Chronic/incidental findings as described. Please note that all CT scans at this facility use dose modulation, iterative reconstruction, and/or weight-based dosing when appropriate to reduce radiation dose to as low as reasonably achievable. Dictated by Rosi Cavazos MD @ 01/10/2024 1:00:01 PM (Electronically Signed)
--- NOTE | 2024-01-10 12:08 | ED.GENADULT ---
HPI - General Adult General Chief complaint: Flank Pain Stated complaint: Right side pain - kidney stones? Time Seen by Provider: 01/10/24 11:48 Source: patient Mode of arrival: ambulatory Limitations: no limitations History of Present Illness HPI narrative: 53-year-old female coming in today complaining of right flank pain that has been constant and intense for the last 6 hours. She states that she has increased urinary frequency. She had dysuria yesterday. She denies seeing any blood in her urine. She denies any fevers. The pain is located in the right flank and radiates into the right upper quadrant. Does not radiate into her groin. Does not change with food. She denies vomiting. She has not taken any pain medications this morning. Patient's past medical history is complex and significant for rheumatoid arthritis, anxiety, chronic pain. She has had an appendectomy and a cholecystectomy. Related Data Home Medications ?Medication ?Instructions ?Recorded ?Confirmed epinephrine 0.3 mg/0.3 mL 0.3 mg IM Q5-15M PRN 07/18/22 08/12/23 injection, auto-injector estradiol 1 mg tablet 1 mg PO QDAY 07/18/22 08/12/23 ketorolac 60 mg/2 mL intramuscular 60 mg IM QDAY PRN 07/18/22 08/12/23 solution ondansetron 8 mg disintegrating 8 mg PO Q12H 07/18/22 08/12/23 tablet Tylenol 10/27/22 08/12/23 Previous Rx's ?Medication ?Instructions ?Recorded tizanidine 4 mg tablet See Rx Instructions PO Q8H PRN 07/30/22 muscle spasticity #30 tabs celecoxib 200 mg capsule 200 mg PO QDAY #21 caps 09/09/22 zolpidem 5 mg tablet 5 mg PO QHS PRN insomnia #14 tabs 09/17/22 methylprednisolone 4 mg tablets in See Rx Instructions PO .COMPLEX 10/27/22 a dose pack (Medrol (Lazaro)) #21 ea cyclobenzaprine 10 mg tablet 10 mg PO TID #15 tabs 12/30/22 hydromorphone 2 mg tablet 2 mg PO Q6H PRN pain #14 tabs 04/08/23 hydromorphone 2 mg tablet 2 mg PO Q6H PRN pain #14 tabs 04/29/23 hydromorphone 2 mg tablet 2 mg PO Q6H PRN pain #7 tabs 05/14/23 (Dilaudid) lorazepam 1 mg tablet 1 mg PO TID PRN anxiety #20 tabs 07/26/23 azithromycin 250 mg tablet See Rx Instructions PO .COMPLEX #6 08/12/23 tabs hydroxyzine pamoate 25 mg capsule 25 mg PO Q6H PRN anxiety #30 caps 09/06/23 ketorolac 10 mg tablet 10 mg PO Q6H PRN pain 5 days #15 12/03/23 tabs ciprofloxacin HCl 500 mg tablet 500 mg PO BID 7 days #14 tabs 01/10/24 Allergies Allergy/AdvReac Type Severity Reaction Status Date / Time bee venom protein (honey bee) Allergy Severe Verified 08/12/23 08:43 codeine Allergy Unknown Rash Verified 08/12/23 08:43 dihydroergotamine Allergy Unknown Diarrhea Verified 08/12/23 08:43 hydrocodone Allergy Unknown Hives Verified 08/12/23 08:43 loperamide Allergy Unknown Hives Verified 08/12/23 08:43 methocarbamol Allergy Unknown Rash Verified 08/12/23 08:43 minocycline Allergy Unknown Verified 08/12/23 08:43 morphine Allergy Unknown Hives Verified 08/12/23 08:43 oxycodone Allergy Unknown Hives Verified 08/12/23 08:43 prochlorperazine Allergy Unknown Anxiety Verified 08/12/23 08:43 rizatriptan Allergy Unknown Nausea Verified 08/12/23 08:43 sumatriptan Allergy Unknown Hives Verified 08/12/23 08:43 venlafaxine Allergy Unknown Anxiety Verified 08/12/23 08:43 Review of Systems Status of ROS: Reports: 10 or more systems reviewed and unremarkable except as noted in History and below [facility] Medical History COVID-19 ?U07.1 - COVID-19 (ICD-10) History of depression ?Z86.59 - Personal history of other mental and behavioral disorders (ICD-10) DDD (degenerative disc disease) Pain of right middle finger ?M79.644 - Pain in right finger(s) (ICD-10) Surgical History History of arthroscopy of right shoulder (~2011) ?Z98.890 - Other specified postprocedural states (ICD-10) Status post laparoscopic cholecystectomy (04/28/14) ?Z90.49 - Acquired absence of other specified parts of digestive tract (ICD-10) Status post appendectomy ?Z90.49 - Acquired absence of other specified parts of digestive tract (ICD-10) Status post arthroscopy of right knee (~2009) ?Z98.890 - Other specified postprocedural states (ICD-10) Status post hysterectomy with oophorectomy ?Z90.710 - Acquired absence of both cervix and uterus (ICD-10) ?Z90.721 - Acquired absence of ovaries, unilateral (ICD-10) Social History Smoking Status: Current every day smoker What tobacco products do you use: cigarettes Smoking packs per day: 0.25 Smoking cigarettes per day: 5.0 Years smoked: 25 Smoking pack-years: 6.25 Do you use any of these nicotine containing products: None Second hand tobacco smoke exposure: No How often do you have a drink containing alcohol: never How often do you have six or more drinks on one occasion: Never AUDIT-C Alcohol total score: 0 Non-prescribed substance use: denies use Little interest or pleasure in doing things: more than half the days Feeling down, depressed, or hopeless: nearly every day service: No Exam Narrative: Exam Narrative: Well-nourished well-developed patient , tearful. Alert and oriented. Answers questions appropriately. Thoughts are goal oriented and rational. No tangential or magical thinking noted. Patient speaks in full sentences without needing to catch her breath. HEENT: Normocephalic atraumatic. Pupils are equally round reactive to light. Extraocular muscles are intact. Conjunctivae are moist without any icterus noted. Moist mucous membranes. Posterior pharynx is normal. Neck is soft without any lymphadenopathy or thyromegaly. No masses are appreciated. Ago patient has dentures. Does Cardiovascular: Heart is regular rate and rhythm S1 and S2 are present without any murmurs. Lungs: Clear to auscultation bilaterally no wheezes rhonchi or rales are appreciated. Deep breaths cause right upper quadrant pain. Abdomen: Soft and nondistended with normal bowel sounds. Patient has right-sided CVA tenderness. She has right upper quadrant tenderness. Patient flinches and groans in pain with light touch to the skin in these areas. Extremities: Bilateral lower extremities are without edema. Skin: Well perfused, healing scabs across the upper extremities. Const: Vital Signs, click to edit/add: Vital Signs - 24 hr 01/10/24 11:49 01/10/24 12:47 Temperature 97.7 F Pulse Rate [Pulse Oximeter] 89 84 Respiratory Rate 18 14 Blood Pressure [Ri ght Upper Arm] 135/97 H 119/71 Pulse Oximetry 94 96 Oxygen Delivery Me thod Room Air Room Air Course Course ED Course: IV is established and patient is given fluids, Toradol and Zofran. Abdomen and pelvis CT showed Nonobstructing right lower pole renal calculus. No hydronephrosis or ureteral calculi visualized. Patient stated that her pain was just minimally better after the Toradol, however upon conversation re-evaluation she seemed significantly more comfortable and was no longer tearful. CBC was unremarkable. UA showed 1+ protein, 1+ blood, 1+ nitrite, trace leukocyte esterase. We discussed the possibility of UTI pyelonephritis. Because of this we did treat patient with IV Rocephin while she was here she will be discharged home with ciprofloxacin. Does not seem that her pain is being caused by that nonobstructing stone, that would be very unusual. We did not have chemistries, LFTs, CRP back as our labs were down on the stay. I do not think that we would be missing any life-threatening causes of her discomfort by not having these labs back. Vital Signs Vital signs: Initial Vital Signs Temperature 97.7 F 01/10/24 11:49 Temperature Source Temporal Artery Scan 01/10/24 11:49 Pulse Rate 89 01/10/24 11:49 Pulse Rhythm Regular 01/10/24 11:49 Respiratory Rate 18 01/10/24 11:49 Blood Pressure 135/97 H 01/10/24 11:49 Blood Pressure Mean 109 H 01/10/24 11:49 Blood Pressure Position Supine 01/10/24 11:49 Pulse Oximetry 94 01/10/24 11:49 Oxygen Delivery Method Room Air 01/10/24 11:49 Vital Signs Temperature 97.7 F 01/10/24 11:49 Pulse Rate 89 01/10/24 11:49 Respiratory Rate 18 01/10/24 11:49 Blood Pressure 135/97 H 01/10/24 11:49 Pulse Oximetry 94 01/10/24 11:49 Oxygen Delivery Method Room Air 01/10/24 11:49 Temperature 97.7 F 01/10/24 11:49 Pulse Rate 84 01/10/24 12:47 Respiratory Rate 14 01/10/24 12:47 Blood Pressure 119/71 01/10/24 12:47 Pulse Oximetry 96 01/10/24 12:47 Oxygen Delivery Method Room Air 01/10/24 12:47 Medications Administered Medications: Discontinued Medications Generic Name Dose Route Start Last Admin Trade Name Freq PRN Reason Stop Dose Admin Sodium Chloride 1,000 mls @ 1,000 mls/hr 01/10/24 12:00 01/10/24 13:14 0.9 % Sodium Chloride 1000 Ml IV 01/10/24 12:59 Infused .Q1H ERIC Infusion Ketorolac Tromethamine 30 mg 01/10/24 11:59 01/10/24 12:27 Ketorolac 30 Mg/Ml Inj IVP 01/10/24 12:00 30 mg ONCE ONE Administration Ondansetron HCl 4 mg 01/10/24 11:59 01/10/24 12:27 Ondansetron 2 Mg/Ml Inj IVP 01/10/24 12:00 4 mg ONCE ONE Administration Medical Decision Making MDM Narrative Medical decision making narrative: 53-year-old female with UTI, question pyelonephritis. Treatment per above. Medical Records Medical records reviewed: Yes I reviewed the patient's medical records Lab Data Lab results reviewed: Yes I reviewed the patient's lab results Labs: Lab Results 01/10/24 01/10/24 Range/Units 12:20 13:30 WBC 5.78 (4.50-11.00) K/uL RBC 4.32 (4.00-5.20) m/uL Hgb 13.0 (12.0-16.0) gm/dL Hct 38.6 (33.0-51.0) % MCV 89 (80-100) fL MCH 30 (26-34) pg MCHC 34 (32-36) gm/dL RDW Coeff of [place] 13.1 (11.5-15.5) % Plt Count 214 (140-440) K/uL Neut % (Auto) 71.0 (42.0-72.0) % Lymph % (Auto) 15.1 L (20-44) % [place] % (Auto) 9.2 (0.0-11.0) % Eos % (Auto) 3.6 (0.0-7.0) % Baso % (Auto) 0.2 (0.0-3.0) % Neut # (Auto) 4.11 (1.7-7.0) K/uL Lymph # (Auto) 0.90 (0.90-2.90) K/uL [place] # (Auto) 0.50 (0.00-0.90) K/UL Eos # (Auto) 0.21 (0.00-0.50) K/uL Baso # (Auto) 0.01 (0.00-0.30) K/uL Abs Immat Gran (auto) 0.05 (0.00-0.30) K/uL Imm/Tot Granulo (auto) 0.9 % Urine Color [place] A (Yellow) Urine Appearance Slightly Cloudy A (Clear) Urine pH 7.0 (5.0-8.5) Ur Specific [place] 1.020 (1.000-1.030) Urine Protein 1+ A (Negative) Urine Glucose (UA) Trace A (Negative) Urine Ketones Trace A (Negative) Urine Blood 1+ A (Negative) Urine Nitrite Positive A (Negative) Urine Bilirubin Negative (Negative) Urine Urobilinogen 1.0 (0.2-1.0) Ur Leukocyte Esterase Trace A (Negative) Urine RBC 0-2 (0-2) Urine WBC 2-5 (0-5) Ur Squamous Epith Cells Few (None-Few) Urine Bacteria Few A (None) Imaging Data CT scan - abdomen: Attestation: I have reviewed the pertinent imaging results. Radiologist's impression: Study:?CT-Abdomen/Pelvis WITHOUT-01/10/2024 12:27:01 PM Ordering Physician:Buffy Regalado Final Report: Indication: Right flank pain. Technique: CT of the abdomen and pelvis was performed without contrast. Comparison: None available. Findings: Visualized lung bases: Clear. Liver: Unremarkable for unenhanced technique. Post cholecystectomy. No biliary ductal dilation. Pancreas: Unremarkable for unenhanced technique. Spleen: Unremarkable for unenhanced technique. Adrenals: Unremarkable for unenhanced technique. Kidneys: Unremarkable for unenhanced technique. There is a punctate nonobstructing right lower pole renal calculus. No left renal calculi. No obstructing ureteral calculi. No hydronephrosis. Aorta/IVC: Moderate atherosclerotic aortic calcifications with infrarenal abdominal aortic ectasia measuring 2 cm. Lymph nodes: No lymphadenopathy. Bowel: Nonobstructed bowel. Appendix is not definitively seen. No localized inflammatory changes. No intraperitoneal free air or fluid. Pelvis: Uterus is surgically absent. Bones/body wall: Multilevel degenerative disc disease. Impression: 1. Nonobstructing right lower pole renal calculus. No hydronephrosis or ureteral calculi visualized. 2. Chronic/incidental findings as described. Discharge Plan Discharge Clinical Impression: UTI (urinary tract infection), Pyelonephritis Patient Disposition: Home, Self-Care Condition: Stable Additional Instructions: Take all antibiotics as prescribed. Okay to use ibuprofen or Tylenol as needed for discomfort. Okay to use a heating pad to sore areas, do not apply heat directly to skin. Follow-up with your primary care provider in approximately 1 week. Prescriptions: New ciprofloxacin HCl 500 mg tablet 500 mg PO BID 7 Days Qty: 14 0RF No Action estradiol 1 mg tablet 1 mg PO QDAY Rx Instructions: off 1 week; repeat cycle ondansetron 8 mg tablet,disintegrating 8 mg PO Q12H ketorolac 60 mg/2 mL solution 60 mg IM QDAY PRN epinephrine 0.3 mg/0.3 mL auto-injector 0.3 mg IM Q5-15M PRN Rx Instructions: do not exceed 3 doses per episode tizanidine 4 mg tablet See Rx Instructions PO Q8H PRN (Reason: muscle spasticity) Qty: 30 2RF Rx Instructions: 2 mg QAM and Q1PM, and 4 mg at HS orally every 8 hours PRN; zolpidem 5 mg tablet 5 mg PO QHS PRN (Reason: insomnia) Qty: 14 0RF azithromycin 250 mg tablet See Rx Instructions PO .COMPLEX Qty: 6 0RF Rx Instructions: For 250 mg dose pack: take 500 mg today (day 1), then 250 mg for 4 days (days 2-5) PO cyclobenzaprine 10 mg tablet 10 mg PO TID Qty: 15 0RF Tylenol methylprednisolone [Medrol (Lazaro)] 4 mg tablets,dose pack See Rx Instructions .ROUTE .COMPLEX Qty: 21 0RF Rx Instructions: orally per package directions hydromorphone [Dilaudid] 2 mg tablet 2 mg PO Q6H PRN (Reason: pain) Qty: 7 0RF celecoxib 200 mg capsule 200 mg PO QDAY Qty: 21 2RF hydromorphone 2 mg tablet 2 mg PO Q6H PRN (Reason: pain) Qty: 14 0RF hydromorphone 2 mg tablet 2 mg PO Q6H PRN (Reason: pain) Qty: 14 0RF lorazepam 1 mg tablet 1 mg PO TID PRN (Reason: anxiety) Qty: 20 0RF hydroxyzine pamoate 25 mg capsule 25 mg PO Q6H PRN (Reason: anxiety) Qty: 30 2RF ketorolac 10 mg tablet 10 mg PO Q6H PRN (Reason: pain) 5 Days Qty: 15 2RF Follow Up/Referrals: Allen Kelley MD [Primary Care Provider] - Stand Alone Forms: [facility] Info Instructions
--- OUTSIDE RECORDS SUMMARY | 2024-01-10 12:13 | XMS_ITS | Patient Health Record ---
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 Role Phone Anna Wilkes MD Primary Care Provider Unavail able Matt Schneider Unavailable [phone] Castillo [facility] Bear RUSSELL Unavailable Unavailab Wilfredo Jimenez Unavailable [phone] Quique Milton Unavailable [phone] Myra Santo Unavailable [phone] Luis Enrique Kruse Unavailable [phone] ALLERGIES Allergen (clinical drug ingredient) Drug/Non Drug Allergy documented on EMR Reaction Allergy Type Onset Date Status codeine Codeine Sulfate Hives Drug Allergy A ctive DHEA Diarrhea and Nausea Drug Allergy Active acetaminophen / hydrocodone Hydrocodone-Acetamino phen Hives Drug Allergy Active loperamide Loperamide HCl Hives Drug Allergy A ctive methocarbamol Methocarbamol Rash Drug Allergy Active minocycline Minocycline HCl Itching Drug Allergy Active morphine Morphine Sulfate Hives Drug Allergy Active oxycodone Oxycodone HCl Hives Drug Allergy Act rafael prochlorperazine Prochlorperazine Hives Drug Allergy Active sumatriptan Sumatriptan Hives Drug Allergy Act rafael venlafaxine Venlafaxine HCl Anxiety Drug Allergy Active REASON FOR REFERRAL Reason Repeat Left and Righ t L3-S1 RFAs Diagnosis 1 Spondylosis without myelopathy or radiculopathy, lumbosacral 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) Referral Organization [facility] Referring Provider First Name Matt Referring Provider Last Name Jennie Referring Provider Speciality Pain Medic ine Referred Organization [facility] Referred Provider Matt Schneider Referred Address [address] [place] [address] [address],[place], [place],[address],[place] Referred Provider Specialty Pain Medicin e Referral Priority Routine MEDICATIONS Medication SIG (Take, Route, Frequency, Duration) Notes Start Date End Date Status Ambien 10 MG 1 tablet at bedtime as needed Orally Once a day Active Hydroxychloroquine Sulfate 200 MG twice a day Orally Active tiZANidine HCl 2 MG 1 tablet as needed Orally every 8 hrs for 30 days Active Ketorolac Tromethamine 60 MG/2ML INJECT 2 ML ONCE A DAY NEEDED FOR MIGRAINE Intramuscular for 30 Active HYDROmorphone HCl 2 MG 1 tablet as neede d Orally three times a day as needed for 4 days For post procedural pain 12/18/2023 Active Ondansetron 8 MG DISSOLVE ONE TABLET BY MOUTH EVERY 8 HOURS NEEDED FOR NAUSEA Oral for 7 Active Allergy Relief 10 MG TAKE ONE TABLET BY MOUTH ONCE DAILY Oral for 90 Active Estradiol 1 MG 1 tablet Orally Once a day Active Mirtazapine 30 MG TAKE ONE TABLET BY MOUTH AT BEDTIME Oral for 90 Active SOCIAL HISTORY Tobacco Use: Social History Observation Description Date Details (start date - stop date) Current Smoker NA - NA Sex Assigned At : Social History Observation Description Sex Assigned At Unknown Tobacco Use/Smoking: Question Answer Notes Are you a current smoker How often do you smoke cigarettes? every day How many cigarettes a day do you smoke? 5 or les s How soon after you wake up d o you smoke your first cigarette? within 5 minutes Are you interested in quitting? Thinking about q uitting Alcohol Screen Question Answer Notes Did you have a drink containing alcohol in the p ast year? No Points 0 Interpretation Negative PROBLEMS Problem Type ICD Code Onset Dates Problem Status W/U Status Risk SNOMED Code Notes Problem Lumbar disc degeneration (722.52) Active confirmed Degeneration of lumbar intervertebral disc (20947850) Problem Chronic pain (338.29) Active confirmed Chronic pain (26501425) Problem Lumbosacral Spondylosis w/o myelopathy (721.3) Active confirmed Lumbosacral spondylosis without myelopathy (23948711) Problem Opioid dependence, uncomplicated (F11.20) Active confirmed Opioid dependen ce (36487184) Problem Opioid use, unspecified, uncomplicated (F11.90) Active confirmed Nondependent opioid abuse (263359632) Problem Fear of injections and transfusions (F40.231) Active confirmed Fear of medical treatment (584655245) Problem Mononeuropathy, unspecified (G58.9) Active confirmed Mononeuropathy (803514935) Problem Other chronic pain (G89.29) Active confirmed Chronic pain (49880229) Problem Pain in unspecified shoulder (M25.519) Active confirmed Shoulder joint pain (446142847) Problem Osteophyte, right wrist (M25.731) Active confirmed Enthesopathy of wrist AND/OR carpus (95438954) Problem Joint disorder, unspecified (M25.9) Active confirmed Joint disorder (034867123) Problem Other spondylosis with radiculopathy, lumbar region (M47.26) Active confirmed Lumbosacral spondylosis without myelopathy (36935971) Problem Spondylosis without myelopathy or radiculopathy, cervical region (M47.812) Active confirmed Cervical spondylosis without myelopathy (043057604) Problem Spondylosis without myelopathy or radiculopathy, lumbosacral 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) Active confirmed Lumbosacral spondylosis without myelopathy (15367838) Problem Other spondylosis, lumbosacral region (M47.897) Active confirmed Lumbosacral spondylosis without myelopathy (08089763) Problem Other intervertebral disc degeneration, lumbar region (M51.36) Active confirmed Degeneration of lumbar intervertebral disc (20598974) Problem Sacrococcygeal disorders, not elsewhere classified (M53.3) Active confirmed Sacrococcygeal disorder (951038625) Problem Radiculopathy, lumbar region (M54.16) Active confirmed Lumbar radiculopathy (903696703) Problem Radiculopathy, lumbosacral region (M54.17) Active confirmed Lumbosacral radiculopathy (4732140) Problem Cervicalgia (M54.2) Active confirmed Cervicalgia (71288638) Problem Myositis, unspecified (M60.9) Active confirmed Myositis (34721409) Problem Other synovitis and tenosynovitis, unspecified hand (M65.849) Active confirmed Synovitis/tenos yn ovitis - hand (115478946) Problem Primary osteoarthritis of right knee (M17.11) Active confirmed Osteoarthritis of knee (937390740) Problem Osteoarthritis of left knee, unspecified osteoarthritis type (M17.12) Active confirmed Osteoarthritis of left knee joint (783046034586286) VITAL SIGNS Heart Rate 90 /min 03/01/2023 Temperature 98.5 degrees Fahrenheit 03/01/2023 Respiratory Rate 16 /min 03/01/2023 Oximetry 98 % 03/01/2023 Blood pressure diastolic 94 mm Hg 11/20/2023 Height 63 in 11/20/2023 Blood pressure systolic 152 mm Hg 11/20/2023 Weight 123 lbs 11/20/2023 BMI 21.79 kg/m2 11/20/2023 PROCEDURES Procedure Date Ordered Date Performed Result Body Sit e Intervention: 11/20/2023 11/29/2023 sched 12/03 and 12/17 Intervention: 2 11/20/202312/09 sent letter Intervention: 08/05/2023 08/06/2023 sched 08/23 and 09/05 Intervention: 06/19/2023 07/25/2023 Sched 08/01 Intervention: 06/17/2023 06/17/2023 closing-see notes Intervention: 06/11/2023 06/13/2023 Sched Rt 06/17 and Lt 07/03 Intervention: 02/07/2023 02/11/2023 sched 02/14,03/01 Encounters Encounter Location Date Provider Diagnosis [facility] [address] [place] [address] 02/06/2023 Matt Schneider [facility] [address] [place] [address] 02/11/2023 Matt Schneider [facility] [address] [place] [address] 02/14/2023 Matt Schneider [facility] [address] [place] [address] 02/26/2023 Matt Schneider [facility] [address] [place] [address] 06/05/2023 Matt Schneider [facility] [address] [place] [address] 06/17/2023 Matt Schneider [facility] [address] [place] [address] 08/05/2023 Matt Schneider [facility] [address] [place] [address] 08/28/2023 Matt Schneider [facility] [address] [place] [address] [address] [place] [address] 09/02/2023 Matt Schneider [facility] [address] [place] [address] [address] [place] [address] 11/14/2023 Matt Schneider [place] [address] [facility] [address] [place] [address] 11/20/2023 Luis Enrique Uriah Spondylosis without myelopathy or radiculopathy, lumbosacral region M47.817 ; Mononeuropathy, unspecified G58.9 and Other chronic pain G89.29 [facility] [address] [place] [address] [address] [place] [address] 06/18/2023 Myra Santo Other chronic pain G89.29 [facility] [address] [place] [address] 07/03/2023 Matt Jennie [facility] [address] [place] [address] 06/17/2023 [facility] [address] [place] [address] [place] [address] [place] [address] 02/14/2023 Wilfredo Motta [facility] [address] [place] [address] 03/01/2023 Matt Jennie [facility] [address] [place] [address] 03/18/2023 Rano Faltas [facility] [address] [place] [address] 03/18/2023 Rano [place]altas [facility] [address] [place] [address] 08/02/2023 [facility] [address] [place] [address] [place] [address] [place] [address] 08/23/2023 Matt Jennie [facility] [address] [place] [address] 12/04/2023 Matt Jennie [facility] [address] [place] [address] [place] [address] [place] [address] 09/06/2023 Matt Jennie [facility] [address] [place] [address] 12/18/2023 Rano [place] [facility] [address] [place] [address] 12/17/2023 Rano [place]altas [facility] [address] [place] [address] [place] [address] [place] [address] 08/20/2023 Matt Jennie [facility] [address] [place] [address] 12/03/2023 Matt Jennie [facility] [address] [place] [address] [address] [place] [address] 09/03/2023 Matt Jennie [facility] [address] [place] [address] 02/27/2023 Matt Jennie [facility] [address] [place] [address] 03/14/2023 Rano [place]altas [facility] [address] [place] [address] 06/13/2023 Rano [place]as [facility] [address] [place] [address] 07/31/2023 Rano [place]altas [facility] [address] [place] [address] 06/28/2023 Matt Jennie [facility] [address] [place] [address] [place] [address] [place] [address] 02/11/2023 Wilfredo [place] [facility] [address] [place] [address] 03/01/2023 Matt Jennie Spondylosis without myelopathy or radiculopathy, cervical region M47.812 ASSESSMENTS Encounter Date Diagnosis Assessment Notes Treatment Notes Treatment Clinical Notes 11/20/2023 Mononeuropathy, unspecified (ICD-10 - G58.9) Patient education will be available in person or on the patient portal. 11/20/2023 Spondylosis without myelopathy or radiculopathy, lumbosacral region (ICD-10 - M47.817) Patient Educated with: Radiofrequency info sheet (Radiofrequency's.pd f) 06/18/2023 Other chronic pain (ICD-10 - G89.29) 03/01/2023 Spondylosis without myelopathy or radiculopathy, cervical region (ICD-10 - M47.812) 11/20/2023 Other chronic pain (ICD-10 - G89.29) Dean Patel) returns to clinic today for a follow-up evaluation regarding her chronic neck, left shoulder, and low back pain. I have reviewed the [facility] database and did not find any inconsistencies. We discussed her current symptoms and medications. I will continue with a treatment plan consisting of conservative therapy at this time. Lea reports that her low back pain has returned to baseline and based on her previous robust response to injection therapy, I have recommended and ordered repeat left and right L3-S1 RFAs. We discussed this procedure in detail, and she expressed understanding and interest in proceeding. In addition, she expressed interest in repeating her left dorsal scapular nerve block today and previously experienced great relief from this injection, therefore I have ordered a repeat of this procedure today. We discussed this procedure in detail, and she expressed understanding and interest in proceeding. This treatment plan was reviewed with the patient, and she was agreeable. I will continue to monitor her progress and she will follow up as needed. Plan:1. Order repeat left and right L3-S1 RFAs2. Order repeat left dorsal scapular nerve injection3. Follow-up as needed Discharge instructions reviewed verbally. The patient was instructed to return to the office as scheduled and call with any questions, problems or concerns. 03/01/2023 Other The patient has been cleared to have the above procedure today at [facility] and wishes to proceed. Ok to proceed forward. 06/18/2023 Other Alejandra Russell a m serving as a scribe to document services personally performed by Myra Santo NP, based upon my observations and the provider's statements to me. All documentation has been reviewed by the aforementioned EMERGENCY PREPAREDNESS COORDINATOR. I, Myra Santo NP, attest that the above named individual is acting in scribe capacity, has observed my performance of the services and has documented them in accordance with my direction. The documentation recorded by the scribe accurately reflects the service I personally performed and the decisions made during the clinic visit. 11/20/2023 Other I, Shira canales, am serving as a scribe to document services personally performed by Luis Enrique Kruse NP, based upon my observations and the provider's statements to me. All documentation has been reviewed by the aforementioned EMERGENCY PREPAREDNESS COORDINATOR prior to being entered into the official medical record. I, Luis Enrique Kruse NP, attest that the above named individual is acting in scribe capacity, has observed my performance of the services and has documented them in accordance with my direction. The documentation recorded by the scribe accurately reflects the service I personally performed and the decisions made during the clinic visit. PLAN OF TREATMENT Pending Test Test Name Order Date Intervention: 2 11/20/2023 MRI : Shoulder, right 03/30/2020 X ray : Hand, left 12/13/2021 Insurance Providers Payer Name Payer Address Payer Phone Subscriber Number Group Number Insured Name Patient Relationship to Insured Coverage Start Date Coverage End Date [facility] [address] [address] [place] [phone] [id number] Lisandro Erickson Spouse - patient is the spouse of the insured 3 [employer] [address] [place] [address] [id number] Dean Erickson Self - patient is the insured 3 3 MEDICATIONS ADMINISTERED Medication Instructions Date of Administration Dosage Notes Toradol 01/10/2017 1 mL MFG: Hospira Toradol 07/12/2016 30 mg Given in Right deltoid IM, Manuf [facility]osp[facility] Toradol 07/12/2016 30 mg Given in Rt de ltoid, IM - manuf hospira Toradol 09/10/2016 30 mg Given in Rt De ltoid IM, Manuf Hospira - Lot [id number] MEDICAL (GENERAL) HISTORY Medical History History ICD Code Depression Arthritis Migraines Osteoporosis Lupus Surgical History Surgery Date(Month/Year) Hysterectomy Appendectomy Cholecysectomy Right Shoulder x2 Right Knee Arthroscopy Cervical Radiofrequency 08/2021 Lumbar Radiofrequency 12/2021
--- OUTSIDE RECORDS SUMMARY | 2024-01-10 12:13 | XMS_ITS | Encounter Summary ---
Author Organization [employer] Address [address] [place] [address] Care Team Providers Care Outreach And Education Social Worker Name Role Phone Neil Wilkes MD Primary Care Provider + [phone] Reason for Visit * Reason Comments Refill hydrOXYzine pamoate (VISTARIL) 25 MG capsule [Pharmacy Med Name: HYDROXYZINE PAMOATE 25MG CAPS] Encounter Details Date Type Department Care Team (Late st Contact Info) Description 01/05/2024 Refill [facility] [address] [place], [place] [id number] Neil Wilkes MD [address] [place], [place] [address] Refill (hydrOXYzine pamoate (VISTARIL) 25 MG capsule [Pharmacy Med Name: HYDROXYZINE PAMOATE 25MG CAPS]) Social History Tobacco Use Types Packs/Day Years Used Date Smoking Tobacco: Every Day Cigarettes 0.5 7.3 Started: 09/11/2016 Smokeless Tobacco: Never Alcohol Use [...] as of this encounter Nursing Notes * Mary Caldwell, RN - 01/08/2024 4:20 PM CDT Requested Prescriptions Refused Prescriptions Disp Refills hydrOXYzine pamoate (VISTARIL) 25 MG capsule [Pharmacy Med Name: HYDROXYZINE PAMOATE 25MG CAPS] 120Capsule Sig: TAKE ONE CAPSULE BY MOUTH EVERY 8 HOURS NEEDED Refused By: MARY CALDWELL Reason for Refusal: Request Already Responded To By Other Means Rx 01/02/24 * Megan Dickerson Xrwcomm - 01/05/2024 5:14 AM CDT hydrOXYzine pamoate (VISTARIL) 25 MG capsule [Pharmacy Med Name: HYDROXYZINE PAMOATE 25MG CAPS] Medication started: 05/29/2022 Last ordered by NEIL WILKES M: 01/02/2024 (3 days ago) QTY: 120, Refills: 3, Sig: take one capsule by mouth every 8 hours as needed (unchanged) -> A duplicate request was processed on 01/02/2024. -> This is a re-requested duplicate that should be manually reviewed. -> Refill x 12 months (until due for an office visit) -> Calculate the quantity and number of refills manually. Last qualifying visit: 11/12/2023 (with NEIL WILKES) Next scheduled visit: None [facility] [employer] Emb[employer]ded Refills, Reference: [id number], 01/05/2024 5:14:04 AM CDT, Nathan: ELIDIA Refill Centralized Services - Primary Care [[id number]] ([id number]) documented in this encounter Plan of Treatment Not on file documented as of this encounter Visit Diagnoses Diagnosis Anxiety (HRC) Anxiety state, unspecified documented in this encounter Care Teams Outreach And Education Social Worker Relationship Specialty Start Date End Date Neil Wilkes MD [address] [place] [address] PCP - General 08/23/14 documented as of this encounter
--- OUTSIDE RECORDS SUMMARY | 2024-01-10 12:13 | XMS_ITS | Clinical Summary ---
[facility] Organization [facility] Address [address] [place] [address] Care Team Providers Care Pharmacy Technology Instructor Name Role Phone Anna Wilkes MD Primary Care Provider + [phone] Source Comments You are receiving this document [...] for each transition of care or referral. [facility] Allerg[facility] Active Allergy Reactions Criticality Noted Date [...] diphenhydrAMINE (BENADRYL) 25 MG capsuleIndications :CANDI JOSEPH Teodora Aug 05, 2014 8:02 AM Received from: External Pharmacy Received Sig: Take 1 Capsule (25 mg) by mouth three times a day as needed (Take 1 capsule by mouth 3 times daily as needed.). 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 20 Each 3 10/31/19 23 Active triamcinolone acetonide (KENALOG) 0.1 % ointmentIndication s:Eczema, unspecified type Apply topically two times a day. 80 g 11/28/19 23 Active pregabalin (LYRICA) 75 MG capsuleIndications [...] for Pain. 10 Tablet 07/31/19 24 Active betamethasone dipropionate (DIPROLENE-AF) 0.05 % AUGMENTED creamIndications:C utaneous lupus erythematosus APPLY TO AFFECTED ITCHY SCALY AREAS OF THE BODY TWICE DAILY NEEDED 60 g 3 09/17/19 24 Active baclofen (LIORESAL) 10 MG tabletIndications: Chronic pain syndrome TAKE ONE TABLET BY MOUTH THREE TIMES A DAY NEEDED 90 Tablet 09/17/19 24 Active Meloxicam (MOBIC) 15 MG tablet take one tablet by mouth once daily as needed 30 Tablet 12/27/19 24 Active loratadine (CLARITIN) 10 MG tabletIndications: Allergic rhinitis, unspecified seasonality, unspecified trigger take one tablet by mouth once daily 90 Tablet 3 12/31/19 24 Active ondansetron (ZOFRAN-ODT) 8 MG disintegrating tablet DISSOLVE ONE TABLET BY MOUTH EVERY 8 HOURS NEEDED FOR NAUSEA 30 Tablet 3 01/02/20 24 Active hydrOXYzine pamoate (VISTARIL) 25 MG capsuleIndications :Anxiety (HRC) TAKE ONE CAPSULE BY MOUTH EVERY 8 HOURS NEEDED 120 Capsule 3 01/02/20 24 Active loratadine (ALLERGY RELIEF) 10 MG tabletIndications: Allergic rhinitis, unspecified seasonality, unspecified trigger Take 1 Tablet (10 mg) by mouth daily. 90 Tablet 3 12/29/19 23 024 Discontinued ondansetron (ZOFRAN-ODT) 8 MG disintegrating tabletIndications: Allergic rhinitis, unspecified seasonality, unspecified trigger Take 1 Tablet (8 mg) by mouth every 8 hours as needed for Nausea. 30 Tablet 1 08/04/19 24 024 Discontinued Meloxicam (MOBIC) 15 MG tabletIndications: Strain of neck muscle, subsequent encounter TAKE ONE TABLET BY MOUTH ONCE DAILY NEEDED 30 Tablet 1 10/18/19 24 024 Discontinued hydrOXYzine pamoate (VISTARIL) 25 MG capsuleIndications :Anxiety (HRC) TAKE ONE CAPSULE BY MOUTH EVERY 8 HOURS NEEDED 120 Capsule 1 10/22/19 24 024 Discontinued loratadine (CLARITIN) 10 MG tabletIndications: Allergic rhinitis, unspecified seasonality, unspecified trigger take one tablet by mouth once daily 90 Tablet 3 12/24/19 24 024 Discontinued Active Problems Problem Noted [...] Encounters Date Type Department Care Team Description 01/05[facility] [address] [place] [address] Anna Wilkes MD Refill (hydrOXYzine pamoate (VISTARIL) 25 MG capsule [Pharmacy Med Name: HYDROXYZINE PAMOATE 25MG CAPS]) 01/04/2024 [facility] [address] [place] [place] [address] Anna Wilkes MD Refill (hydrOXYzine pamoate (VISTARIL) 25 MG capsule [Pharmacy Med Name: HYDROXYZINE PAMOATE 25MG CAPS]) 01/02/2024 [facility] [address] [place] [address] Anna Wilkes MD Refill (ondansetron (ZOFRAN-ODT) 8 MG disintegrating tablet [Pharmacy Med Name: ONDANSETRON 8MG TBDP]) 01/02/2024 [facility] [address] [place] [address] Anna Wilkes MD Refill (hydrOXYzine pamoate (VISTARIL) 25 MG capsule [Pharmacy Med Name: HYDROXYZINE PAMOATE 25MG CAPS]) 12/26/2023 [facility] [address] [place] [address] Anna Wilkes MD Refill (loratadine (CLARITIN) 10 MG tablet [Pharmacy Med Name: LORATADINE 10MG TABS]) 12/25/2023 [facility] [id number] [place] [address] Anna Wilkes MD Refill (loratadine (CLARITIN) 10 MG tablet [Pharmacy Med Name: LORATADINE 10MG TABS]) 12/24/[address] [place] [address] Anna Wilkes MD Breast Cancer Screening Outreach 12/24/[address] [place] [place] [address] Anna Wilkes MD Refill (Meloxicam (MOBIC) 15 MG tablet [Pharmacy Med Name: MELOXICAM 15MG TABS]) 12/24/[address] [place] [address] Anna Wilkes MD Refill (loratadine (CLARITIN) 10 MG tablet [Pharmacy Med Name: LORATADINE 10MG TABS]) 11/12/2023 1:15 PM CDT Telemedicine [address] [place] [address] Anna Wilkes MD Major depressive disorder, recurrent episode, in partial remission (HRC) (Primary Dx); Chronic pain syndrome; Rash 11/07/[address] [place] [address] Anna Wilkes MD Refill (varenicline (CHANTIX) 1 MG tablet [Pharmacy Med Name: VARENICLINE TARTRATE 1MG TABS]) 10/17/[address] [place] [place] [address] Anna Wilkes MD Refill (Vistaril) 10/16/[address] [place] [address] Anna Wilkes MD Refill (Meloxicam (MOBIC) 15 MG tablet [Pharmacy Med Name: MELOXICAM 15MG TABS]) from Last 3 Months Immunizations Name Administration Dates Next Due Flu Vac Preserv Free (3+yrs) 03/05/2012, 04/10/2011,04/03/2010, 009,04/19/2006 Influenza IIV4 (Quadrivalent ) 0.5mL (42328) 03/27/2023,03/29/2021,04/26/2020, 019,04/18/2018,04/05/2017,04/06/2016,05/2015,03/19/2014,03/27/2013,03/05/2012 ,04/10/2011,04/03/2010,03/29/2009,2005 PPSV23 (Pneumovax) 06/21/2017 Pfizer [facility] 12+ Purple Top 021,05/15/2021,10/22/2020, 021 TDAP (ADACEL) [...] 0.5 7.3 Started: 09/11/2016 Smokeless Tobacco: Never Tobacco Cessation:Ready [...] Comments Blood Pressure 116/88 07/18/2023 2:01 PM MOVIE PROJECTIONIST Pulse 92 07/18/2023 2:01 PM MOVIE PROJECTIONIST Temperature 36.4 ??C (97.6 ??F) 05/29/2022 8:10 AM CS T pt reported Respiratory Rate 16 12/04/2022 9:10 AM CDT Oxygen Saturation 97% 12/04/2022 9:10 AM CDT Inhaled Oxygen Concentration - - Weight 56 kg (123 lb 6.4 oz) 07/18/2023 2:01 PM MOVIE PROJECTIONIST Height 157.5 cm (5' 2) 12/28/2022 7:07 AM CDT Body Mass Index 22.57 12/28/2022 7:07 AM CDT Plan of Treatment Health Maintenance Due Date Last Done Comments HepB (1) 1989 Pneumococcal (2 - PCV) 06/21/2018 06/21/2017 Adult Preventive Visit 11/05/2019 11/04/2018, 2016 Dexa 12/24/2019 12/23/2018 Mammogram 12/24/2019 12/23/2018, 10/07, 04/23/2012 COVID-19 Vaccine ( season) 2023 05/17/2021, 05/15/2021, 10/22/2020, Additional history exists Influenza (#1) 2024 03/27/2023, 03/09, 04/26/2020, Additional history exists DTaP/Tdap/Td (3 - Tdap) 01/31/2027 02/01/20 17, 03/27/2007, 03/27/2007, Additional history exists Cholesterol 08/02/2028 08/02/2023, 01/06, 08/05/2014, Additional history exists Colonoscopy 12/04/2029 12/04/2022, 06/07 (Completed) Hep C Screening (Preventive Services) Completed 09/19/2018 HIV Screening (Preventive Services) Completed 04/26/2020 Zoster/Shingles Completed 05/10/2021, 02/21/2021 HepA Aged Out No longer eligi ble [...] LDL (IF NEEDED) Routine 08/02/2023 9:37 AM MOVIE PROJECTIONIST Screening for cholesterol level ENDOSCOPY, COLON, SCREENING/DIAGNOS [...] and Direct LDL(If Needed) (08/02/2023 9:37 AM MOVIE PROJECTIONIST) Cholesterol 192 0 - 199 mg/dL 08/02/2023 3:50 PM [facility] Triglyceride 155(H) <=149 mg/dL 08/02/2023 3:50 PM [facility] HDL Cholesterol 35(L) >=40 mg/dL 3:50 PM [facility] LDL, Calculated 126 <130 mg/dL 3:50 PM [facility] Non HDL Chol, Calculated 157 <=159 mg/dL 08/02/2023 3:50 PM [facility] Cholesterol/HDL Ratio 5.5(H) <=5.0 08/02/2023 3:50 PM [facility] Hours Fasting 15.0 8 - 12 Hours 08/02/2023 3:50 PM [facility] Blood Venipuncture / Unknown 08/02/2023 9:37 AM MOVIE PROJECTIONIST 08/02/2023 9:37 AM MOVIE PROJECTIONIST Anna Wilkes MD LAB_1 [facility] [address] [place] [address] [address] [place] [phone] * Endoscopy, Colon, Screening/Diagnostic (12/04/2022 8:16 AM [...] 10 years ? ago Providers: ? Liz Burgess, Leesa Bennett Referring MD: ? Medicines: ? Fentanyl 200 micrograms IV, ? Midazolam 5 mg IV Complications: ? No immediate complications. Procedure: ? After I obtained informed consent, ? the scope was passed under direct ? vision. Throughout the procedure, ? the patient's blood pressure, ? pulse, and oxygen saturations were ? monitored continuously. The ? [id number] was introduced through ? the anus and [...] the initial medication ? administration until the hr consultant assists with ? initial maneuvers (biopsy / [...] Procedure Code(s): ? --- Professional --- ? 61678, Colonoscopy, flexible; with ? removal of tumor(s), polyp(s), or ? other lesion(s) by snare technique ? 24228, 59, Colonoscopy, flexible; ? with biopsy, single [...] (additional time may ? be reported with 85807, as ? appropriate) Diagnosis Code(s): ? --- Professional --- ? Z12.11, Encounter for screening for ? malignant neoplasm of colon ? K64.9, Unspecified hemorrhoids ? K63.5, Polyp of colon ? K57.30, Diverticulosis of large ? intestine without perforation or ? abscess without bleeding CPT copyright 2020 [employer]. All rights reserved. The codes documented in this report are preliminary and upon attendance clerk review may be revised to meet current [...] colonoscopy 10 years ago Providers: Leesa Gan MD: Medicines: Fentanyl 200 micrograms IV, Midazolam 5 mg IV Complications: No immediate complications. Procedure: After I obtained informed consent, the scope was passed under direct vision. Throughout the procedure, the patient's blood pressure, pulse, and oxygen saturations were monitored continuously. The [id number] was introduced through the anus and advanced [...] from the initial medication administration until the hr consultant assists with initial maneuvers (biopsy / polypectomy [...] to anxiety. Procedure Code(s): --- Professional --- 71083, Colonoscopy, flexible; with removal of tumor(s), polyp(s), or other lesion(s) by snare technique 48132, 59, Colonoscopy, flexible; with biopsy, single or multiple G0500, Moderate sedation services provided by the same physician or other qualified health animal caretaker performing a gastrointestinal endoscopic service that sedation supports, requiring the presence of an independent trained observer to assist in the monitoring of the patient's level of consciousness and physiological status; initial 15 minutes of intra-service time; patient age 5 years or older (additional time may be reported with 40752, as appropriate) Diagnosis Code(s): --- Professional --- Z12.11, Encounter for screening for malignant neoplasm of colon K64.9, Unspecified hemorrhoids K63.5, Polyp of colon K57.30, Diverticulosis of large intestine without perforation or abscess without bleeding CPT copyright 2020 [employer]. All rights reserved. The codes documented in this report are preliminary and upon attendance clerk review may be revised to meet current compliance requirements. Liz Burgess, 12/04/2022 8:52:36 AM This document has been electronically signed. Number of Addenda: 0 Note Initiated On: 12/04/2022 8:16 AM Endoscopy Report Anna BRENNER GI PROCEDURE ORDE AMANDA [facility] Organization Address City/State/ZIP Co de Phone Number PN PROVATION * HIV 2 Ag/Ab 4th Generation (04/26/2020 8:15 AM CDT) HIV 1/2 Antigen/Antib vickey (4th generation) Negative (Non Reactive) Negative (Non Reactive) 04/26/2020 1:03 PM CDT [facility] Comment:HIV-1 p24 Antigen an d HIV-1/HIV-2 Antibody not detected Blood Venipuncture / Unknown 04/26/2020 8:15 AM CDT 04/26/2020 8:15 AM CDT Anna Wilkes MD LAB_1 [facility] [address] * (ABNORMAL) MM Mammogram Screening Bilat [...] AM CDT CLINIC DXA REPORT Patient Name: ??Daen Erickson Sutton: ??Francesco Polanco MD Densitometer: ??Hologic Horizon W (S/N [id number]) AESTMAN BONE OSTEOPOROSIS RISK FACTORS FROM PATIENT QUESTIONNAIRE: [...] trabecular bone, and is derived from the xxnmn-gw-adobb changes of bone density embedded in the [...] 20% based on the FRAX scores. Anna Wilkes MD RAD DEXA * HC[facility] - Hepatitis C Virus Ivonne with Reflex In-House (09/19/2018 10:04 AM CDT) Hepatitis C Antibody Nonreactive Nonreactive SOFT 09/19/2018 10:0 4 AM CDT 09/19/2018 12:34 PM CDT Narrative PN SOFT - 09/19/2018 1:38 PM CDT Performed at [address] [address] CLIA number [id number] Janelle Carranza MD LAB_[address] [address] [place] [id number] from Last 3 Months or Most Recently Relevant to Health Maintenance Care Teams Pharmacy Technology Instructor Relationship Specialty Start Date End Date Anna Wilkes MD [address] [place] [address] PCP - General 08/23/14
--- OUTSIDE RECORDS SUMMARY | 2024-01-10 12:14 | XMS_ITS | Encounter Summary ---
Author Organization [employer] Address [address] [place] [address] Care Team Providers Care Sales Floor Manager Name Role Phone Anna Wilkes MD Primary Care Provider + [phone] Reason for Visit * Reason Comments Breast Cancer Screening Outreach Encounter Details Date Type Department Care Team (Late st Contact Info) Description 12/24/2023 Telephone [facility] [address] [place], [place] [phone] Anna Wilkes MD [address] [place], [place] [address] Breast Cancer Screening Outreach Social History Tobacco [...] as of this encounter Nursing Notes * Ankita Sheppard - 12/24/2023 10:04 AM CDT This patient was identified from the Preventive Service workbench as coming due or overdue for a mammogram. This is the second attempt to contact [facility] . Result of call left message with [phone] to return my call. Ankita Sheppard 12/24/2023, 10:04 AM documented in this encounter Plan of Treatment Not on file documented as of this encounter Visit Diagnoses Not on filedocumented in this encounter Care Teams Sales Floor Manager Relationship Specialty Start Date End Date Anna Wilkes MD [address] [place] [address] PCP - General 08/23/14 documented as of this encounter
--- OUTSIDE RECORDS SUMMARY | 2024-01-10 12:14 | XMS_ITS | Encounter Summary ---
Author Organization [employer] Address [address] [place] [address] Care Team Providers Care Speeder Tender Name Role Phone Neil Wilkes MD Primary Care Provider + [phone] Reason for Visit * Reason Comments Refill loratadine (CLARITIN ) 10 MG tablet [Pharmacy Med Name: LORATADINE 10MG TABS] Encounter Details Date Type Department Care Team (Late st Contact Info) Description 12/[facility] [address] [place], [place] [id number] Neil Wilkes MD [address] [place], [place] [address] Refill (loratadine (CLARITIN) 10 MG tablet [Pharmacy Med Name: LORATADINE 10MG TABS]) Social History Tobacco Use Types Packs/Day [...] as of this encounter Nursing Notes * Vicki iDckersonreynaldoarmand Xrwcomm - 12/25/2023 5:09 AM CDT loratadine (CLARITIN) 10 MG tablet [Pharmacy Med Name: LORATADINE 10MG TABS] Medication started: 01/01/2020 Last ordered by NEIL WILKES: 12/24/2023 (1 days ago) QTY: 90, Refills: 3, Sig: take one tablet by mouth once daily (unchanged) -> A duplicate request was processed on 12/24/2023. -> Refill x 12 months, qty: 90, refills: 3 (until due for an office visit) Last qualifying visit: 11/12/2023 (with NEIL WILKES) Next scheduled visit: [facility] Embedded Refills, Reference: [id number], 12/25/2023 5:09:05 AM Nathan MUNSON: ELIDIA Refill [facility] - Primary Care [[id number]] ([id number]) documented in this encounter Plan of Treatment Not on file documented as of this encounter Visit Diagnoses Diagnosis Allergic rhinitis, unspecified seasonality, unspecified trigger documented in this encounter Care Teams Speeder Tender Relationship Specialty Start Date End Date Neil Wilkes MD [address] [place] [address] PCP - General 08/23/14 documented as of this encounter
--- OUTSIDE RECORDS SUMMARY | 2024-01-10 12:14 | XMS_ITS | Encounter Summary ---
Author Organization [employer] Address [address] [place] [address] Care Team Providers Care Expediter Service Order Name Role Phone Neil Wilkes MD Primary Care Provider + [phone] Reason for Visit * Reason Comments Refill Vistaril Encounter Details Date Type Department Care Team (Late st Contact Info) Description 10/17/2023 [facility] [address] [place], [place] [address] Neil Wilkes MD [address] [place], [place] [address] Refill (Vistaril) Social History Tobacco Use Types [...] to return call to Nurse Line at [phone]. * Nacho Hassan RN - 10/21/2023 10:59 [...] NEIL WILKES) Next scheduled visit: [facility] Embedded Refills, Reference: [id number], 10/17/2023 9:33:33 AM CDT, Nathan: ELIDIA [place] Centralized Services - Primary Care [[id number]] ([id number]) documented in this encounter Plan of Treatment Not on file documented as of this encounter Visit Diagnoses Diagnosis Anxiety (HRC) Anxiety state, unspecified documented in this encounter Care Teams Expediter Service Order Relationship Specialty Start Date End Date Neil Wilkes MD [address] [place] [place] [address] PCP - General 08/23/14 documented as of this encounter
--- OUTSIDE RECORDS SUMMARY | 2024-01-10 12:14 | XMS_ITS | Encounter Summary ---
Author Organization [employer] Address [address] [place] [address] Care Team Providers Care Four Slide Operator Name Role Phone Neil Wilkes MD Primary Care Provider + [phone] Reason for Visit * Reason Comments Refill hydrOXYzine pamoate (VISTARIL) 25 MG capsule [Pharmacy Med Name: HYDROXYZINE PAMOATE 25MG CAPS] Encounter Details Date Type Department Care Team (Late st Contact Info) Description 01/04/2024 [facility] [address] [place], [place] [address] Neil Wilkes MD [address] [place], [place] [address] Refill (hydrOXYzine pamoate (VISTARIL) 25 MG capsule [...] Nursing Notes * Megan Dickerson Xrwcomm - 01/04/2024 5:14 AM CDT hydrOXYzine pamoate (VISTARIL) 25 MG capsule [Pharmacy Med Name: HYDROXYZINE PAMOATE 25MG CAPS] Medication started: 05/29/2022 Last ordered by NEIL WILKES: 01/02/2024 (2 days ago) QTY: 120, Refills: 3, Sig: take one capsule by mouth every 8 hours as needed (unchanged) -> A duplicate request was processed on 01/02/2024. -> Refill x 12 months (until due for an office visit) -> Calculate the quantity and number of refills manually. Last qualifying visit: 11/12/2023 (with NEIL WILKES) Next scheduled visit: [facility] Embedded Refills, Reference: [id number], 01/04/2024 5:14:54 AM CDT, Pool: ELIDIA Refill [facility]ized Services - Primary Care [[id number]] ([id number]) documented in this encounter Plan of Treatment Not on file documented as of this encounter Visit Diagnoses Diagnosis Anxiety (HRC) Anxiety state, unspecified documented in this encounter Care Teams Four Slide Operator Relationship Specialty Start Date End Date Neil Wilkes MD [address] [place], [place] [address] PCP - General 08/23/14 documented as of this encounter
--- OUTSIDE RECORDS SUMMARY | 2024-01-10 12:14 | XMS_ITS | Encounter Summary ---
Author Organization [employer] Address [address] [place] [address] Care Team Providers Care Ship Engines Operating Engineer Name Role Phone Neil Wilkes MD Primary Care Provider + [phone] Reason for Visit * Reason Comments Refill loratadine (CLARITIN ) 10 MG tablet [Pharmacy Med Name: LORATADINE 10MG TABS] Encounter Details Date Type Department Care Team (Late st Contact Info) Description 12/26/2023 [facility] [address] [place], [place] [phone] Neil Wilkes MD [address] [place], [place] [address] Refill (loratadine (CLARITIN) 10 MG tablet [Pharmacy [...] as of this encounter Nursing Notes * Zahra Lamas, RN - 12/31/2023 7:18 AM CDT Renewed medication per medication refill standing order. Requested Prescriptions Signed Prescriptions Disp Refills loratadine (CLARITIN) 10 MG tablet 90 Tablet 3 Sig: take one tablet by mouth once daily Authorizing Provider: NEIL WILKES Ordering User: ZAHRA LAMAS * Megan Dickerson Xrwcomm - 12/26/2023 5:09 AM CDT loratadine (CLARITIN) 10 MG tablet [Pharmacy Med Name: LORATADINE 10MG TABS] Medication started: 01/01/2020 Last ordered by NEIL WILKES: 12/24/2023 (2 days ago) QTY: 90, Refills: 3, Sig: take one tablet by mouth once daily (unchanged) -> A duplicate request was processed on 12/24/2023. -> This is a re-requested duplicate that should be manually reviewed. -> Refill x 12 months, qty: 90, refills: 3 (until due for an office visit) Last qualifying visit: 11/12/2023 (with NEIL WILKES) Next scheduled visit: [facility] Emb[facility]ded Refills, Reference: [id number], 12/26/2023 5:09:52 AM CDT, Pool: PN Refill [facility]ized [facility] - Primary Care [[id number]] ([id number]) documented in this encounter Plan of Treatment Not on file documented as of this encounter Visit Diagnoses Diagnosis Allergic rhinitis, unspecified seasonality, unspecified trigger documented in this encounter Care Teams Ship Engines Operating Engineer Relationship Specialty Start Date End Date Neil Wilkes MD [address] [place] [address] PCP - General 08/23/14 documented as of this encounter
--- OUTSIDE RECORDS SUMMARY | 2024-01-10 12:14 | XMS_ITS | Encounter Summary ---
Author Organization [employer] Address [address] [place] [address] Care Team Providers Care Parachute Mender Name Role Phone Neil Wilkes MD Primary Care Provider + [phone] Reason for Visit * Reason Comments Refill Meloxicam (MOBIC) 15 MG tablet [Pharmacy Med Name: MELOXICAM 15MG TABS] Encounter Details Date Type Department Care Team (Late st Contact Info) Description 12/24/2023 [facility] [address] [place], [place] [id number] Neil Wilkes MD [address] [place], [place] [address] Refill (Meloxicam (MOBIC) 15 MG tablet [Pharmacy [...] as of this encounter Nursing Notes * Berta Saenz RN - 12/27/2023 3:20 PM CDT Renewed medication per medication refill standing order. Requested Prescriptions Pending Prescriptions Disp Refills Meloxicam (MOBIC) 15 MG tablet [Pharmacy Med Name: MELOXICAM 15MG TABS] 30 Tablet 0 Sig: take one tablet by mouth once daily as needed * Megan Dickerson Xrwcomm - 12/24/2023 5:08 AM CDT Meloxicam (MOBIC) 15 MG tablet [Pharmacy Med Name: MELOXICAM 15MG TABS] Medication started: 11/21/2020 Last ordered by NEIL WILKES M: 10/18/2023 (67 days ago) QTY: 30, Refills: 1, Sig: take one tablet by mouth once daily as needed (unchanged) -> Labs required if chronic use -> Refill x 3 months (until due for a(n) Cr check and HGB check) -> Calculate the quantity and number of refills manually. Last qualifying visit: 11/12/2023 (with NEIL WILKES) Next scheduled visit: None Cr: 0.9 mg/dL on 01/29/2023 HGB: 13.5 g/dL on 01/29/2023 [facility] Embedded Refills, Reference: [id number], 12/24/2023 5:08:02 AM CDT, [facility] Services - Primary Care [[id number]] ([id number]) * Megan Dickerson - 12/24/2023 5:08 AM CDT The following lab order(s) may [...] on filedocumented in this encounter Care Teams Parachute Mender Relationship Specialty Start Date End Date Neil Wilkes MD [address] [place] [address] PCP - General 08/23/14 documented as of this encounter
--- OUTSIDE RECORDS SUMMARY | 2024-01-10 12:14 | XMS_ITS | Encounter Summary ---
Author Organization [employer] Address [address] [place] [address] Care Team Providers Care Planer Offbearer Name Role Phone Neil Wilkes MD Primary Care Provider + [phone] Reason for Visit * Reason Comments Refill ondansetron (ZOFRAN- ODT) 8 MG disintegrating tablet [Pharmacy Med Name: ONDANSETRON 8MG TBDP] Encounter Details Date Type Department Care Team (Late st Contact Info) Description 01/02/2024 [facility] [address] [place], [place] [phone] Neil Wilkes MD [address] [place], [place] [phone] Refill (ondansetron (ZOFRAN-ODT) 8 MG disintegrating tablet [Pharmacy Med Name: ONDANSETRON 8MG TBDP]) Social History Tobacco Use Types Packs/Day Years [...] Nursing Notes * Megan Dickerson Xrwcomm - 01/02/2024 1:06 PM CDT ondansetron (ZOFRAN-ODT) 8 MG disintegrating tablet [Pharmacy Med Name: ONDANSETRON 8MG TBDP] Medication started: 01/27/2018 Last ordered by NEIL WILKES: 08/04/2023 (151 days ago) QTY: 30, Refills: 1, Sig: take 1 tablet (8 mg) by mouth every 8 hours as needed for nausea. (changed but equivalent) -> Medication cannot be delegated. Last qualifying visit: 11/12/2023 (with NEIL WILKES) Next scheduled visit: None [facility] Embedded Refills, Reference: [id number], 01/02/2024 1:05:59 PM CDTNathan: ELIDIA Refill [facility] Services - Primary Care [[id number]] ([id number]) documented in this encounter Plan of Treatment Not on file documented as of this encounter Visit Diagnoses Not on filedocumented in this encounter Care Teams Planer Offbearer Relationship Specialty Start Date End Date Neil Wilkes MD [address] [place] [address] PCP - General 08/23/14 documented as of this encounter
--- OUTSIDE RECORDS SUMMARY | 2024-01-10 12:14 | XMS_ITS | Encounter Summary ---
Author Organization [employer] Address [address] [place] [address] Care Team Providers Care Monotype Keyboard Operator Name Role Phone Neil Wilkes MD Primary Care Provider + [phone] Reason for Visit * Reason Comments Refill varenicline (CHANTIX ) 1 MG tablet [Pharmacy Med Name: VARENICLINE TARTRATE 1MG TABS] Encounter Details Date Type Department Care Team (Late st Contact Info) Description 11/07/2023 [facility] [address] [place], [place] [address] Neil Wilkes MD [address] [place], [place] [address] Refill (varenicline (CHANTIX) 1 MG tablet [Pharmacy [...] visit: None [facility] Embedded Refills, Reference: [id number], 11/07/2023 5:09:24 AM JACKSONT, Nathan: ELIDIA Refill [facility] - Primary Care [[id number]] ([id number]) documented in this encounter Plan of Treatment Not on file documented as of this encounter Visit Diagnoses Diagnosis Tobacco use (HRC) Tobacco use disorder documented in this encounter Care Teams Monotype Keyboard Operator Relationship Specialty Start Date End Date Neil Wilkes MD [address] [place] [address] PCP - General 08/23/14 documented as of this encounter
--- OUTSIDE RECORDS SUMMARY | 2024-01-10 12:14 | XMS_ITS | Encounter Summary ---
Author Organization [facility] Address [address] [place] [address] Care Team Providers Care Metal Inspector Name Role Phone Anna Wilkes MD Primary Care Provider + [phone] Reason for Visit * Reason Onset Date Comments Video Visit 11/12/2023 Encounter Details Date Type Department Care Team (Late st Contact Info) Description 11/12/2023 1:15 PM CDT [facility] [address] [place], [place] [phone] Anna Wilkes MD [address] [place], [place] [phone] Major depressive disorder, recurrent episode, in partial [...] She has been seen by several different biomedical technician and does have a follow-up appointment later this week with an outside biomedical technician. She has been started on methotrexate, she [...] eruption documented in this encounter Care Teams Metal Inspector Relationship Specialty Start Date End Date Anna Wilkes MD [address] [place] [address] PCP - General 08/23/14 documented as of this encounter
--- OUTSIDE RECORDS SUMMARY | 2024-01-10 12:14 | XMS_ITS | Encounter Summary ---
Author Organization [employer] Address [address] [place] [address] Care Team Providers Care Metal Rolling Mill Operator Name Role Phone Neil Wilkes MD Primary Care Provider + [phone] Reason for Visit * Reason Comments Refill Meloxicam (MOBIC) 15 MG tablet [Pharmacy Med Name: MELOXICAM 15MG TABS] Encounter Details Date Type Department Care Team (Late st Contact Info) Description 10/16/2023 [facility] [address] [place], [place] [phone] Neil Wilkes MD [address] [place], [place] [address] Refill (Meloxicam (MOBIC) 15 MG tablet [Pharmacy [...] 11/21/2020 Last ordered by NEIL WILKES M: 07/28/2023 (80 days ago) QTY: 30, Refills: [...] 01/29/2023 HGB: 13.5 g/dL on 01/29/2023 [facility] Embedded Refills, Reference: [id number], 10/16/2023 5:07:46 AM CDTLindsay [facility] [[id number]] ([id number]) * Megan Dickerson - 10/16/2023 5:07 AM [...] encounter documented in this encounter Care Teams Metal Rolling Mill Operator Relationship Specialty Start Date End Date Neil Wilkes MD [address] [place] [address] PCP - General 08/23/14 documented as of this encounter
--- OUTSIDE RECORDS SUMMARY | 2024-01-10 12:14 | XMS_ITS | Encounter Summary ---
Author Organization [employer] Address [address] [place] [address] Care Team Providers Care Skills Instructor Name Role Phone Anna Wilkes MD Primary Care Provider + [phone] Reason for Visit * Reason Comments Breast Cancer Screening Outreach Encounter Details Date Type Department Care Team (Late st Contact Info) Description 10/10/2023 [facility] [address] [place], [place] [address] Anna Wilkes MD [address] [place], [place] [address] Breast Cancer Screening Outreach Social History Tobacco [...] This is the first attempt to contact [facility] . Result of call left recorded message to return my call. Adelaida Ortez 10/10/2023, 3:12 PM documented in this encounter Plan of Treatment Not on file documented as of this encounter Visit Diagnoses Not on filedocumented in this encounter Care Teams Skills Instructor Relationship Specialty Start Date End Date Anna Wilkes MD [address] [place] [address] PCP - General 08/23/14 documented as of this encounter
--- OUTSIDE RECORDS SUMMARY | 2024-01-10 12:14 | XMS_ITS | Encounter Summary ---
Author Organization [employer] Address [address] [place] [address] Care Team Providers Care Repair Department Manager Name Role Phone Neil Wilkes MD Primary Care Provider + [phone] Reason for Visit * Reason Comments Refill loratadine (CLARITIN ) 10 MG tablet [Pharmacy Med Name: LORATADINE 10MG TABS] Encounter Details Date Type Department Care Team (Late st Contact Info) Description 12/24/2023 [facility] [address] [place], [place] [phone] Neil Wilkes MD [address] [place], [place] [address] Refill (loratadine (CLARITIN) 10 MG tablet [Pharmacy [...] Nursing Notes * Zahra Lamas, RN - 12/24/2023 8:39 AM CDT Renewed medication per medication refill protocol. Requested Prescriptions Pending Prescriptions Disp Refills loratadine (CLARITIN) 10 MG tablet [Pharmacy Med Name: LORATADINE 10MG TABS] 90 Tablet 3 Sig: take one tablet by mouth once daily * Megan Dickerson Xrwcomm - 12/24/2023 5:08 AM CDT loratadine (CLARITIN) 10 MG tablet [Pharmacy Med Name: LORATADINE 10MG TABS] Medication started: 01/01/2020 Last ordered by NEIL WILKES M: 12/28/2022 (361 days ago) QTY: 90, Refills: 3, Sig: take 1 tablet (10 mg) by mouth daily. (changed but equivalent) -> Refill x 12 months, qty: 90, refills: 3 (until due for an office visit) Last qualifying visit: 11/12/2023 (with NEIL WILKES) Next scheduled visit: None [facility] Embedded Refills, Reference: [id number], 12/24/2023 5:08:02 AM CDT, Pool: ELIDIA Refill Centralized Services - Primary Care [[id number]] ([id number]) documented in this encounter Plan of Treatment Not on file documented as of this encounter Visit Diagnoses Diagnosis Strain of neck muscle, subsequent encounter Allergic rhinitis, unspecified seasonality, unspecified trigger documented in this encounter Care Teams Repair Department Manager Relationship Specialty Start Date End Date Neil Wilkes MD [address] [place] [address] PCP - General 08/23/14 documented as of this encounter
--- OUTSIDE RECORDS SUMMARY | 2024-01-10 12:14 | XMS_ITS | Encounter Summary ---
Author Organization [employer] Address [address] [place] [address] Care Team Providers Care Personal Financial Counselor Name Role Phone Anna Wilkes MD Primary Care Provider + [phone] Reason for Visit * Reason Comments Refill hydrOXYzine pamoate (VISTARIL) 25 MG capsule [Pharmacy Med Name: HYDROXYZINE PAMOATE 25MG CAPS] Encounter Details Date Type Department Care Team (Late st Contact Info) Description 01/02/2024 [facility] [address] [place], [place] [address] Anna Wilkes MD [address] [place], [place] [address] Refill (hydrOXYzine pamoate (VISTARIL) 25 MG capsule [...] Diagnosis Allergic rhinitis, unspecified seasonality, unspecified trigger Anxiety (HRC) Anxiety state, unspecified documented in this encounter Care Teams Personal Financial Counselor Relationship Specialty Start Date End Date Anna Wilkes MD [address] [place] [address] PCP - General 08/23/14 documented as of this encounter
--- OUTSIDE RECORDS SUMMARY | 2024-01-10 12:14 | XMS_ITS | Encounter Summary ---
Author Organization [facility] Address [address] [place] [address] Care Team Providers Care Quality Control Manager Name Role Phone Anna Wilkes MD Primary Care Provider + [phone] Encounter Details Date Type Department Care Team (Late st Contact Info) Description 10/13/2012 Orders Only [facility] [address] [place] [address] Tariq Cao MD [address] [place], [place] [address] Biceps tendinopathy Social History Tobacco Use Types [...] documented as of this encounter Care Teams Quality Control Manager Relationship Specialty Start Date End Date Anna Wilkes MD [address] [facility] [place] [address] PCP - General 08/23/14 documented as of this encounter
[2024-01-10] MEDS: KETOROLAC 30 MG/ML inj IVP (12:27)
[2024-01-10] MEDS: 0.9 % SODIUM CHLORIDE 1000 ml 1,000 ML IV (12:27)
[2024-01-10] MEDS: ONDANSETRON 2 MG/ML inj 4 MG IVP (12:27)
[2024-01-10 12:41] LABS: Basophils Absolute Auto 0.01 K/uL (0.00-0.30); Basophils Percent Auto 0.2 % (0.0-3.0); Eosinophils Absolute Auto 0.21 K/uL (0.00-0.50); Eosinophils Percent Auto 3.6 % (0.0-7.0); Hematocrit 38.6 % (33.0-51.0); Immature Granulocytes Abs Auto 0.05 K/uL (0.00-0.30); Immature Granulocytes Pct Auto 0.9 %; Lymphocytes Percent Auto 15.1 % (20-44); Mean Corpuscular HGB Conc 34 gm/dL (32-36); Mean Corpuscular Hemoglobin 30 pg (26-34); Mean Corpuscular Volume 89 fL (80-100); Monocytes Percent Auto 9.2 % (0.0-11.0); Neutrophils Absolute Auto 4.11 K/uL (1.7-7.0); Platelet Count* 214 K/uL (140-440); RDW Coefficient of Variation % 13.1 % (11.5-15.5); Red Blood Count 4.32 m/uL (4.00-5.20); White Blood Count* 5.78 K/uL (4.50-11.00)
[2024-01-10 12:46] LABS: Slide Review Reflex No
[2024-01-10 12:47] VITALS: BP 119/71; PULSE 84; RESP 14; O2SAT 96
[2024-01-10 13:43] LABS: Appearance Urine Slightly Cloudy (Clear); Bilirubin Urine Negative (Negative); Blood Urine 1+ (Negative); Color Urine Orange (Yellow); Glucose Urine Trace (Negative); Ketones Urine Trace (Negative); Leukocyte Esterase Urine Trace (Negative); Nitrite Urine Positive (Negative); Protein Urine 1+ (Negative)
[2024-01-10 13:55] LABS: Bacteria Urine Few; RBC Urine 0-2 (0-2); Squamous Epithelial Cell Urine Few (None-Few)
[2024-01-10] MEDS: cefTRIAXone 1 GM VIAL IVPB (14:32)
[2024-01-10 15:38] LABS: Chloride* 106 mmol/L (96-114); Potassium* 3.6 mmol/L (3.6-5.1); Sodium* 140 mmol/L (135-149)
[2024-01-10 15:41] LABS: Creatinine* 0.7 mg/dL (0.5-1.5); Est. Creatinine Clearance* 76.88; Estimated Glomerular Filt Rate 103 ml/min
[2024-01-10 15:42] LABS: Anion Gap 8 mEq/L (7-15); Blood Urea Nitrogen* 13 mg/dL (7-30); Calcium* 9.3 mg/dL (8.4-10.6); Carbon Dioxide* 26 mmol/L (20-32); Glucose* 93 mg/dL (60-115)
[2024-01-10 15:45] LABS: C Reactive Protein* < 0.5 mg/dL (0.5-1.0)
[2024-01-10 16:50] LABS: Albumin* 4.4 g/dL (3.3-5.0)
[2024-01-10 16:53] LABS: Alanine Aminotransferase* 13 U/L (4-35); Alkaline Phosphatase* 91 U/L (40-150); Aspartate Amino Transferase* 21 U/L (12-35); Bilirubin Total* 0.8 mg/dL (0.1-1.5); Lipase* 65 U/L (23-300); Total Protein* 7.5 g/dL (6.0-8.3)
== END 2024-01-10 14:56 | disposition home or self-care (01) ==
PROVIDERS: Emergency Provider Family Medicine; PCP Family Medicine
DX: N39.0 Urinary tract infection, site not specified (principal); N10 Acute pyelonephritis
CPT/HCPCS: 36415; 74176; 80048; 80076; 81001; 83690; 85025; 86140; 87086; 87186; 99284; J0696; J1885; J2405; J7030

== ENCOUNTER 2024-09-21 16:20 | Emergency (ER) | payer BC, SELFPAY ==
--- OUTSIDE RECORDS SUMMARY | 2024-09-21 16:22 | XMS_ITS | Clinical Summary ---
[facility] Address [address] [place] [address] Care Team Providers Care Investigative Assistant Name Role Phone Anna Wilkes MD Primary Care Provider + [phone] Source Comments You are receiving this document [...] for each transition of care or referral. [facility] Allergies Active Allergy Reactions Criticality Noted Date Comments Bee Venom 09/19/2018 Codeine Rash 03/12/2006 Robitussin with Codeine cough syrup tolerates well Dihydroergotamine Diarrhea 01/19/2014 Hydrocodone Hives High 03/12/2006 Hydrocodone-Acetaminophen Hives 03/12/2006 Loperamide Hives 03/12/2006 Methocarbamol Rash 08/20/2012 Minocycline Itching 11/04/2013 Morphine Hives 03/12/2006 Oxycodone Hives High 03/12/2006 Oxycodone-Acetaminophen Hives 03/12/2006 Prochlorperazine Anxiety 09/29/2010 Rizatriptan Nausea 05/12/2015 Sumatriptan Hives 03/12/2006 Venlafaxine Anxiety 08/26/2012 Medications * This document contains information received from the source organization and may not represent a complete record from that organization. acetaminophen (TYLENOL) 325 MG tabletIndication s:Headache, migraine Take 2 Tablets (650 mg) by mouth every 4 hours as needed (Take 650 mg by mouth every 4 hours as needed.). 013 Active diphenhydrAMINE (BENADRYL) 25 MG capsuleIndicatio ns:CANDI JOSEPH [facility] Aug 05, 2014 8:02 AM Received from: External Pharmacy Received Sig: Take 1 Capsule (25 mg) by mouth three times a day as needed (Take 1 capsule by mouth 3 times daily as needed.). Indications: ACNDI JOSEPH [facility] Aug 05, 2014 8:02 AM Received from: External Pharmacy Received Si 014 Active ascorbic acid (AKA VITAMIN C) 1000 MG tablet Take 1 Tablet (1,000 mg) by mouth daily. 015 Active EPINEPHrine (EPIPEN 2-MAX) 0.3 MG/0.3ML injectionIndicat ions:Bee sting allergy Inject 0.3 mL intramuscularly as needed. May repeat 2 Each 018 Active ALBUterol sulfate HFA 108 (90 Base) MCG/ACT inhaler Inhale 2 Puffs. Active oxymetazoline (AFRIN) 0.05 % nasal solution Place 2 Sprays into both nostrils two times a day. 30 mL 018 Active zolpidem (AMBIEN) 10 MG tabletIndication s:Chronic insomnia Take 0.5-1 Tablets (5-10 mg) by mouth at bedtime as needed for Sleep. 90 Tablet 1 023 Active Syringe, Disposable, 3 MLIndications:Ch ronic migraine without aura without status migrainosus, not intractable Use with ketorolac- 3cc syringes with 1 needles 23-25 G, and Filter [place] if glass ampules. 20 Each 3 023 Active triamcinolone acetonide (KENALOG) 0.1 % ointmentIndicati ons:Eczema, unspecified type Apply topically two times a day. 80 g 11 023 Active citalopram (CELEXA) 10 MG tabletIndication s:Major depressive disorder, recurrent, severe without psychotic features (HRC),Grief reaction (HRC),Anxiety (HRC) Take 1-2 Tablets (10-20 mg) by mouth daily. 60 Tablet 3 023 Active ketorolac (TORADOL) 60 MG/2ML injectionIndicat ions:Chronic migraine without aura without status migrainosus, not intractable INJECT 2ML ONCE NEEDED FOR MIGRAINE 10 mL 1 023 Active LORazepam (ATIVAN) 0.5 MG tabletIndication s:Anxiety (HRC) TAKE ONE TABLET BY MOUTH EVERY 8 HOURS NEEDED FOR ANXIETY 15 Tablet 024 Active betamethasone dipropionate (DIPROLENE-AF) 0.05 % AUGMENTED creamIndications :Cutaneous lupus erythematosus APPLY TO AFFECTED ITCHY SCALY AREAS OF THE BODY TWICE DAILY NEEDED 60 g 3 024 Active loratadine (CLARITIN) 10 MG tabletIndication s:Allergic rhinitis, unspecified seasonality, unspecified trigger take one tablet by mouth once daily 90 Tablet 3 024 Active clobetasol (TEMOVATE) 0.05 % cream Apply topically. 024 Active desonide (DESOWEN) 0.05 % ointment Apply topically. 024 Active folic acid 1 MG tablet Take 1 Tablet (1 mg) by mouth. 024 Active methotrexate 50 MG/2ML injection Inject 15 mg subcutaneously once every week. 024 Active BD SAFETYGLIDE NEEDLE 25G X 5/8 USE FOR METHOTREXATE INJECTIONS 024 Active estradiol (ESTRACE) 1 MG tabletIndication s:Symptomatic postsurgical menopause take one tablet by mouth once daily 90 Tablet 3 024 Active mirtazapine (REMERON) 30 MG tabletIndication s:Major depressive disorder, recurrent, severe without psychotic features (HRC),Anxiety (HRC) take one tablet by mouth at bedtime 90 Tablet 3 024 Active nortriptyline (PAMELOR) 50 MG capsuleIndicatio ns:Chronic pain syndrome,Neck pain,Chronic bilateral low back pain without sciatica Take 2 Capsules (100 mg) by mouth daily at bedtime. 180 Capsule 3 024 2024 Active pregabalin (LYRICA) 75 MG capsuleIndicatio ns:Chronic pain syndrome,Neck pain,Chronic bilateral low back pain without sciatica Take one in the am and noon and 2 at bedtime 360 Capsule 1 Active varenicline tartrate (CHANTIXPAK) 0.5 MG X 11 & 1 MG X 42 TBPK tabletIndication s:Smoker (HRC) 1 wk before you stop smoking take 0.5mg daily on days 1-3, 0.5mg 2 times each day on days 4-7, then 1mg 2 times daily 53 Each Active cyclobenzaprine (FLEXERIL) 10 MG tablet Take 0.5-1 Tablets (5-10 mg) by mouth three times a day as needed for Muscle Spasms for up to 30 doses. 30 Tablet Active HYDROmorphone (DILAUDID) 2 MG tabletIndication s:Coccyalgia (HRC),De Quervain's tenosynovitis, left,Left wrist pain Take 1 Tablet (2 mg) by mouth every 6 hours as needed for Pain. 10 Tablet Active hydrOXYzine pamoate (VISTARIL) 25 MG capsuleIndicatio ns:Anxiety (HRC) TAKE ONE CAPSULE BY MOUTH EVERY 8 HOURS NEEDED 120 Capsule 3 Active Meloxicam (MOBIC) 15 MG tablet Take 1 Tablet (15 mg) by mouth daily. 90 Tablet 3 Active HYDROmorphone (DILAUDID) 4 MG tabletIndication s:Chronic bilateral low back pain without sciatica Take 0.5 Tablets (2 mg) by mouth every 3 hours as needed for Pain. 10 Tablet 025 Active hydroCHLOROthiaz donovan (ORETIC) 25 MG tablet Take 1 Tablet (25 mg) by mouth daily. 90 Tablet 3 025 2025 Active ondansetron (ZOFRAN-ODT) 8 MG disintegrating tablet DISSOLVE ONE TABLET BY MOUTH EVERY 8 HOURS NEEDED FOR NAUSEA 30 Tablet 1 Active ondansetron (ZOFRAN-ODT) 8 MG disintegrating tablet DISSOLVE ONE TABLET BY MOUTH EVERY 8 HOURS NEEDED FOR NAUSEA 30 Tablet 3 024 2024 Discontinued Active Problems Problem Noted Date Diagnosed Date Rheumatoid arthritis 11/09/2021 Major depressive disorder, r ecurrent episode, in partial remission 09/30/2012 Overview (02/27/2017): Major depressive disorder, recurrent episode, in partial or unspecified remission Generalized anxiety disorder 09/30/2012 Chronic pain syndrome 08/05/2009 Migraine 09/18/2007 Overview (02/27/2017): Migraine Without Aura Resolved Problems Problem Noted Date Diagnosed Date Resolved Date Marital conflict involving divorce 12/05/2014 07/22/2017 Helicobacter pylori (H. pylori) infection 04/27/2014 07/22/2017 Psychological factors associ ated with another disorder 09/30/2012 07/22/2017 Overview (02/27/2017): Psychic factors associated with diseases classified elsewhere Migraine, chronic, without aura 09/30/2012 07/22/2017 Tobacco use disorder 05/08/2009 012 Overview (02/27/2017): Nicotine Dependency Stressful life event affecting family 07/22/2017 Encounters Date Type Department Care Team Description 09/[facility] [address] [place] [address] Anna Wilkes MD Refill (ondansetron (ZOFRAN-ODT) 8 MG disintegrating tablet [Pharmacy Med Name: ONDANSETRON 8MG TBDP]) 09/11/2024 9:00 AM [employer] [facility] [address] [place] [address] Anna Wilkes MD Chief Comp: QUESTIONS, GENERAL 08/30/2024 [facility] [address] [place] [address] Anna Wilkes MD Refill (Meloxicam (MOBIC) 15 MG tablet [Pharmacy Med Name: MELOXICAM 15MG TABS]) 08/29/2024 [facility] [address] [place] [address] Anna Wilkes MD Refill (Meloxicam (MOBIC) 15 MG tablet [Pharmacy Med Name: MELOXICAM 15MG TABS]) 08/28/2024 Notes/Orders [place] 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 [address] Anna Wilkes MD Chronic bilateral low back pain without sciatica (Primary Dx); Essential hypertension (HRC); Post-menopausal; Encounter for screening mammogram for malignant neoplasm of breast; Encounter for long-term (current) use of medications; Generalized anxiety disorder (HRC); Major depressive disorder, recurrent episode, in partial remission (HRC) 08/01/[address] [place] [place] [address] Anna Wilkes MD Refill (hydrOXYzine pamoate (VISTARIL) 25 MG capsule [Pharmacy Med Name: HYDROXYZINE PAMOATE 25MG CAPS]) 07/31/2024 Nurse Triage [place] [place] [address] Anna Wilkes MD Back Pain 07/11/[address] [place] [place] [address] Anna Wilkes MD Refill (nortriptyline (PAMELOR) 25 MG capsule [Pharmacy Med Name: NORTRIPTYLINE HCL 25MG CAPS]) from Last 3 Months Immunizations Immunization Administration Dates Next Due Flu Vac Preserv Free (3+yrs) 03/05/2012, 04/10/2011,04/03/2010,2008,04/19/2006 Influenza IIV4 (Quadrivalent ) 0.5mL (15608) 03/27/2023,03/29/2021,04/26/2020,2018,04/18/2018,04/05/2017,04/06/2016,0 03/18/2015,03/19/2014,03/27/2013, 012,04/10/2011,04/03/2010,03/29/2009, Influenza ccIIV3 6 months+ (Flucelvax) 05/19/2024 PCV20 ([id number]) 03/12/2024 PPSV23 (Pneumovax) 06/21/2017 Pfizer COVID-19 12+ 05/19/2024 Pfizer Monovalent 12+ Purple Top 021,05/15/2021,10/22/2020,2020 TDAP (ADACEL) 03/27/2007 Td 12/20/1997 Tdap 01/31/2017 [...] Date Smoking Tobacco: Every Day Cigarettes 0.5 8 Started: 09/11/2016 Smokeless Tobacco: Never Tobacco Cessation:Ready to Q uit: No; Counseling Given: No Alcohol Use Standard Drinks/Week Comments No 0 (1 standard drink = 0.6 oz pur e alcohol) PHQ-2 Answer Date Recorded PHQ-2 Score 0 05/19/2024 Financial Resource Strain Answer Date R ecorded [...] or from getting your medications? 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 [facility], [place] [id number] Anna Wilkes MD [address] [place] [place] [id number] Health Maintenance Due Date Last Done Comments HepB (1) 1989 Adult Preventive Visit 11/05/2019 11/04/2018, 2016 Dexa 12/24/2019 12/23/2018 Mammogram 12/24/2019 12/23/2018, 10/07, 04/23/2012 DTaP/Tdap/Td (3 - Tdap) 01/31/2027 02/01/20 17, 03/27/2007, 03/27/2007, Additional history exists Cholesterol 08/02/2028 08/02/2023, 01/06, 08/05/2014, Additional history exists Colonoscopy 12/04/2029 12/04/2022, 06/07 (Completed) Hep C Screening (Preventive Services) Completed 09/19/2018 HIV Screening (Preventive Services) Completed 04/26/2020 Zoster/Shingles Completed 05/10/2021, 02/21/2021 Pneumococcal 50+ Yrs Completed 03/12/2024, 06/21/20 COVID-19 Vaccine Completed 05/19/2024, 04/2021, 05/15/2021, Additional history exists Influenza Completed 05/19/2024, 03/09, 03/29/2021, Additional history exists HepA Aged Out No [...] on patient's age to complete this topic Meningococcal B Aged Out No longer el igible based on patient's age to complete this topic Procedures Procedure Name Priority Date/Time Associated Diagnosis Comments LIPID PANEL & DIRECT LDL (IF NEEDED) Routine 08/02/2023 9:37 AM SH[employer]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 Screening for cholesterol level ENDOSCOPY, COLON, SCREENING/DIAGNOS [...] and Direct LDL(If Needed) (08/02/2023 9:37 AM SHUTTLECOCK ASSEMBLER) Cholesterol 192 0 - 199 mg/dL 08/02/2023 3:50 PM [facility] Triglyceride 155(H) <=149 mg/dL 08/02/2023 3:50 PM [facility] HDL Cholesterol 35(L) >=40 mg/dL 4 3:50 PM [facility] LDL, Calculated 126 <130 mg/dL 4 3:50 PM [facility] Non HDL Chol, Calculated 157 <=159 mg/dL 08/02/2023 3:50 PM [facility] Cholesterol/HDL Ratio 5.5(H) <=5.0 08/02/2023 3:50 PM [facility] Hours Fasting 15.0 8 - 12 Hours 08/02/2023 3:50 PM [facility] Blood Venipuncture / Unknown 08/02/2023 9:37 AM SHUTTLECOCK ASSEMBLER 08/02/2023 9:37 AM SHUTTLECOCK ASSEMBLER us Anna Wilkes MD LAB_1 Final Result [facility] [address] [place] [address], [facility] [address] [place] [id number] * Endoscopy, Colon, Screening/Diagnostic (12/04/2022 8:16 AM CDT) Anatomical Region Laterality Modality Other 12/04/2022 8:16 AM CDT Narrative 12/04/2022 8:16 AM CDT Patient Name: Dean Del Rosario Procedure Date: 12/04/2022 8:16 AM Date of [...] and oxygen saturations were monitored continuously. The [id number] was introduced through the anus and advanced [...] from the initial medication administration until the financial accountant assists with initial maneuvers (biopsy / polypectomy [...] to anxiety. Procedure Code(s): --- Professional --- 86322, Colonoscopy, flexible; with removal of tumor(s), polyp(s), or other lesion(s) by snare technique 41539, 59, Colonoscopy, flexible; with biopsy, single or multiple G0500, Moderate sedation services provided by the same physician or other qualified health career manager performing a gastrointestinal endoscopic service that sedation supports, requiring the presence of an independent trained observer to assist in the monitoring of the patient's level of consciousness and physiological status; initial 15 minutes of intra-service time; patient age 5 years or older (additional time may be reported with 15859, as appropriate) Diagnosis Code(s): --- Professional --- Z12.11, Encounter for screening for malignant neoplasm of colon K64.9, Unspecified hemorrhoids K63.5, Polyp of colon K57.30, Diverticulosis of large intestine without perforation or abscess without bleeding CPT copyright 2020 [employer]. All rights reserved. The codes documented in this report are preliminary and upon medical donation professional review may be revised to meet current compliance requirements. Liz Burgess, 12/04/2022 8:52:36 AM This document has been electronically signed. Number of Addenda: 0 Note Initiated On: 12/04/2022 8:16 AM Endoscopy Report Procedure Note Liz Burgess MD - 12/04/2022 Patient Name: Dean Del Rosario Procedure Date: 12/04/2022 8:16 AM Date of [...] and oxygen saturations were monitored continuously. The [id number] was introduced through the anus and advanced [...] from the initial medication administration until the financial accountant assists with initial maneuvers (biopsy / polypectomy [...] to anxiety. Procedure Code(s): --- Professional --- 00936, Colonoscopy, flexible; with removal of tumor(s), polyp(s), or other lesion(s) by snare technique 29152, 59, Colonoscopy, flexible; with biopsy, single or multiple G0500, Moderate sedation services provided by the same physician or other qualified health career manager performing a gastrointestinal endoscopic service that sedation supports, requiring the presence of an independent trained observer to assist in the monitoring of the patient's level of consciousness and physiological status; initial 15 minutes of intra-service time; patient age 5 years or older (additional time may be reported with 91665, as appropriate) Diagnosis Code(s): --- Professional --- Z12.11, Encounter for screening for malignant neoplasm of colon K64.9, Unspecified hemorrhoids K63.5, Polyp of colon K57.30, Diverticulosis of large intestine without perforation or abscess without bleeding CPT copyright 2020 [employer]. All rights reserved. The codes documented in this report are preliminary and upon medical donation professional review may be revised to meet current compliance requirements. Liz Burgess, 12/04/2022 8:52:36 AM This document has been electronically signed. Number of Addenda: 0 Note Initiated On: 12/04/2022 8:16 AM Endoscopy Report Anna Wilkes MD ET GI PROCEDURE ORDERABLES F inal Result * HIV 1/2 Ag/Ab 4th Generation (04/26/2020 8:15 AM CDT) HIV 1/2 Antigen/Antib vickey (4th generation) Negative (Non Reactive) Negative (Non Reactive) 04/26/2020 1:03 PM CDT [facility] Comment:HIV-1 p24 Antigen an d HIV-1/HIV-2 Antibody not detected Blood Venipuncture / Unknown 04/26/2020 8:15 AM CDT 04/26/2020 8:15 AM CDT Anna Wilkes MD LAB_1 Final Result [facility] [address] * (ABNORMAL) MM Mammogram Screening Bilat [...] remainder of the breast tissue is unremarkable. us Anna Wilkes MD RAD GIOVANNA Final Result * DEXA Bone Density Spine/Hip (12/23/2018 10:18 AM CDT) Anatomical Region Laterality Modality Lower Extremity, Spine, Hip, L-Spine Radiographic Imaging Narrative 12/29/2018 7:11 AM CDT CLINIC DXA REPORT Patient Name: Dean Del Rosario [place]: Francesco Polanco MD Densitometer: AxialMED Horizon W (S/N [id number]) EASTMAN BONE OSTEOPOROSIS RISK FACTORS FROM PATIENT QUESTIONNAIRE: The patient is a 48 y.o.female: Calcium [...] or absence of other risk factors. RECOMMENDATIONS: 1. Optimize calcium and vitamin D intake [...] trabecular bone, and is derived from the [id number] changes of bone density embedded in the [...] ? 20% based on the FRAX scores. us Anna Wilkes MD RAD DEXA Final Result * [facility] - Hepatitis C Virus Ivonne with Reflex In-House (09/19/2018 10:04 AM CDT) Hepatitis C Antibody Nonreactive Nonreactive PN SOFT 09/19/2018 10:0 4 AM CDT 09/19/2018 12:34 PM CDT Narrative PN SOFT - 09/19/2018 1:38 PM CDT Performed at [facility], [address] [place] [address] CLIA number [id number] us Janelle Carranza MD LAB_1 Final Resul t [facility] [address] [place] [address] from Last 3 Months or Most Recently Relevant to Health Maintenance Insurance [facility] Care Teams Investigative Assistant Relationship Specialty Start Date End Date Anna Wilkes MD [address] [place], [place] [id number] PCP - General 08/23/14
--- OUTSIDE RECORDS SUMMARY | 2024-09-21 16:22 | XMS_ITS | Encounter Summary ---
Author Organization [facility] Address [address] [place] [address] Care Team Providers Care Briquette Machine Operator Name Role Phone Unavailable Primary Care Provider Unavailabl e Reason for Visit * Reason Comments Flank Pain Patient presents wit h burning with urination along with (R) flank. Patient has history of kidney stones. Encounter Details Date Type Department Care Team (Late st Contact Info) Description 09/13/2024 5:14 PM CDT - 09/13/2024 7:10 PM CDT Emergency [facility] [address] [place] [phone] Héctor Allen M.D. [address] [place] [address] Pyelonephritis Acute (Primary Dx); Pain Flank Discharge Disposition: Home or Self Care Social History Tobacco Use Types Packs/Day Years Used Date Smoking Tobacco: Every Day Cigarettes 0.3 1.2 Started: 2023 Smokeless Tobacco: Never Tobacco Cessation:Ready to Q uit: Not Asked; Counseling Given: Not Answered Alcohol Use Standard Drinks/Week Comments Not Currently 0 (1 standard drink = 0.6 oz pur e alcohol) Nutrition Answer Date Recorded Nutrition: EVOO Fat Source 13 03/22 Nutrition: Servings of Fruits/Vegetables per Day Not on file 03/22/2020 Dental Answer Date Recorded Dental: Regular Dentist Unknown 09/07/19 21 Comments No Sex and Gender Information Value Date Recorded Sex Assigned at Not on file 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 Gender Identity Not on file Sexual Orientation Not on file documented as of this encounter Last Filed Vital Signs Vital Sign Reading Time Taken Comments Blood Pressure 150/97 09/13/2024 7:00 PM CDT Pulse 85 09/13/2024 7:00 PM CDT Temperature 36.6 C (97.9 F) 09/13/2024 7:01 PM CDT Respiratory Rate - - Oxygen Saturation 97% 09/13/2024 7:00 PM CDT Inhaled Oxygen Concentration - - Weight 51 kg (112 lb 6.4 oz) 09/13/2024 5:37 PM CDT Height 157 cm (5' 1.81) 09/13/2024 5:37 PM CDT Body Mass Index 20.68 09/13/2024 5:37 PM CDT documented in this encounter Discharge Instructions * Discharge Instructions* Héctor Allen M.D. - 09/13/2024 7:04 PM CDT You can also take ibuprofen 400 mg every 6 hours and acetaminophen 650 mg every 6 hours for fever or pain. You may alternate these so that you are able to take something every 3 hours, but still keep6 hours between doses of the same medication. * Attachments The following attachments cannot be sent through Care Everywhere. * Pyelonephritis Adult (Kosovan) documented in this encounter Medications at Time of Discharge albuterol (PROVENTIL HFA,VENTOLIN HFA) 90 mcg/actuation inhaler Inhale 2 puffs. ALPRAZolam (XANAX) 0.5 mg tablet Take 0.5 mg by mouth. ascorbic acid, vitamin C, (VITAMIN C) 1,000 mg tablet Take 1,000 mg by mouth. 5 atenolol (TENORMIN) 50 mg tablet Take 50 mg by mouth. EPINEPHrine (EPIPEN) 0.3 mg/0.3 mL injection syringe Inject 0.3 mg intramuscularly. 6 estradiol (ESTRACE) 1 mg tablet Take 1 mg by mouth. 11/13/19 1 8 hydroCHLOROthiazide (HydroDiuril) 25 mg tablet Take 25 mg by mouth daily. HYDROmorphone (DILAUDID) 2 mg tablet Take 1 tablet by mouth every 4 (four) hours as needed. 7 hydrOXYzine (VISTARIL) 25 mg capsule Take 25 mg by mouth. 7 ketorolac (TORADOL) 60 mg/2 mL injection INJECT 2MLS INTRAMUSCULARLY NEEDED FOR MIGRAINE HEADACHE,UP TO 2 INJECTIONS PER 24 HOURS 8 loratadine-pseudoep hedrine (CLARITIN-D 24-hour) 10-240 mg per 24 hr tablet Take 1 tablet by mouth. LORazepam (ATIVAN) 1 mg tablet Take 1 mg by mouth. 03/06/20 1 7 methotrexate 25 mg/mL injection Inject 15 mg under the skin over 168 hr. 4 mirtazapine (Remeron) 30 mg tablet Take 30 mg by mouth at bedtime. nortriptyline (Pamelor) 50 mg capsule Take 100 mg by mouth. 4 03/12/20 25 omeprazole (PriLOSEC) 40 mg capsule Take 40 mg by mouth as needed. 7 ondansetron ODT (ZOFRAN-ODT) 8 mg disintegrating tablet DISSOLVE ONE TABLET BY MOUTH EVERY 12 HOURS NEEDED 8 safety needles (BD SafetyGlide Needle) 25 gauge x 5/8 needle USE FOR METHOTREXATE INJECTIONS 4 triamcinolone (Kenalog) 0.1 % ointment Apply 1 Application topically 2 (two) times a day. 3 zolpidem (AMBIEN) 10 mg tablet Take 5-10 mg by mouth. 8 cefdinir (Omnicef) 300 mg capsuleIndications: Pyelonephritis Acute Take 1 capsule (300 mg total) by mouth every 12 (twelve) hours for 7 days. 14 capsule 5 09/21/19 25 documented as of this encounter ED Notes * Héctor Allen M.D. - 09/13/2024 7:10 PM CDT CHIEF COMPLAINT/REASON FOR VISIT (RN note) Flank Pain (Patient presents with burning with urination along with (R) flank. Patient has history of kidney stones. ) HISTORY OF PRESENT ILLNESS Dean Erickson is a 54 y.o. female who presents to the ED for evaluation of severe. She does have a history of kidney stones in the past. She also reports dysuria. No fever, nausea or vomiting, orchanges in bowel movements. Past medical history: Reviewed in the EMR. Agree with nursing documentation. Pertinent past medicalhistory noted per HPI. Medical History[1] Patient Active Problem List Diagnosis Date Noted Dysthymia 12/18/2012 Family History[2] Social history: Reviewed in the EMR. Agree with nursing documentation. Pertinent social history noted per HPI. Social History[3] REVIEW OF SYSTEMS Constitutional: As noted in the HPI, otherwise negative. Eyes: As noted in the HPI, otherwise negative. HEENT: As noted in the HPI, otherwise negative. CV: As noted in the HPI, otherwise negative. Resp: As noted in the HPI, otherwise negative. GI: As noted in the HPI, otherwise negative. : As noted in the HPI, otherwise negative. MSK: As noted in the HPI, otherwise negative. Skin: As noted in the HPI, otherwise negative. Neuro: As noted in the HPI, otherwise negative. PHYSICAL EXAMINATION Initial Vitals Temperature 09/13/24 1901 36.6 ??C Pulse Rate 09/13/24 1730 107 Heart Rate -- Resp -- Blood Pressure 09/13/24 1737 (!) 155/97 SpO2 09/13/24 1730 97 % Pain Score 09/13/24 1738 10 - Worst possible pain General: Awake, alert, oriented x3. No apparent distress. Elevated blood pressure noted. Head: Normocephalic, atraumatic. Eyes: Normal sclerae and conjunctivae, extraocular movements intact. ENT: Oropharynx is clear, moist mucus membranes. Neck: Supple, full range of motion, trachea midline. Heart: Tachycardic, regular. Lungs: No respiratory distress. Abd: Soft, mild right-sided abdominal tenderness without rebound or guarding, nondistended. Back: Normal to inspection, nontender, right costovertebral angle tenderness. Ext: Warm, well-perfused. Skin: Warm, dry, normal color. No rashes. Neuro: Awake, alert, GCS 15, cranial nerves II-XII grossly intact, normal strength/sensation x4 without focal deficits. Psych: Normal affect, concentration, and judgment. MEDICAL DECISION MAKING / ED COURSE: 54-year-old female comes to the emergency department found to have pyelonephritis and started on cefdinir. She does have an allergy listed to loracarbef and after discussion with her and finding out that she has had both Augmentin and cephalosporins in the past, she was comfortable with receiving ce ftriaxone here, was feeling better after Zofran and discussed the results of her CT that show a nonobstructing stone but nothing ureteral. -- Nursing documentation and prior records reviewed in the medical record. -- External documents reviewed. -- I personally reviewed by visualization, interpreted, and discussed with the patient the results of labs and imaging studies as reported in the medical record. Medications ondansetron ODT disintegrating tablet 4 mg (Zofran-ODT) ( oral See Alternative 09/13/241741) Or ondansetron (PF) injection 4 mg (Zofran) (4 mg intravenous Given 09/13/241741) cefTRIAXone injection 2 g (Rocephin) (2 g intravenous Given 09/13/241900) FINAL DIAGNOSIS: 1. Pyelonephritis Acute 2. Pain Flank ED Disposition Discharge ED Prescriptions Medication Sig Dispense Start Date End Date Auth. Provider cefdinir (Omnicef) 300 mg capsule Take 1 capsule (300 mg total) by mouth every 12 (twelve) hours for 7 days. 14 capsule 09/13/2024 09/20/2024 Héctor Allen M.D. DIAGNOSTIC RESULTS Labs Reviewed BASIC METABOLIC PANEL, S/P - Abnormal Result Value Potassium, P 3.9 Sodium, P 141 Chloride, P 103 Bicarbonate, P 26 Anion Gap, P 12 BUN (Blood Urea Nitrogen), P 31 (*) Creatinine 0.92 Estimated GFR (eGFR) 74 Calcium, Total, P 9.6 Glucose, P 106 URINALYSIS WITH MICROSCOPIC IF INDICATED, U - Abnormal Source Urine, Urine, Midstream Clarity Clear Color Yellow Blood Negative Nitrite Negative Leukocyte Esterase Small (*) Protein 30 (*) Glucose Negative Ketones, QI(U) Negative Bilirubin Negative pH 7.0 Specific [place] 1.020 Urobilinogen 0.2 MICROSCOPIC MANUAL - Abnormal White Blood Cells 51-100 (*) Red Blood Cells None Seen Bacteria Present (*) BACTERIAL CULTURE, AEROBIC + SUSC, URINE TEST, POCT, U (LAB) Test, POCT, U Negative CBC WITHOUT DIFFERENTIAL, B Hemoglobin 13.4 Hematocrit 39.6 Erythrocytes 4.58 MCV 86.5 RBC Distrib Width 13.0 Platelet Count [address] Abdomen Pelvis without IV Contrast Final Result Small nonobstructing stone in the right kidney. No ureteral stones, hydronephrosis, or other acute abnormality. Notes are completed with voice recognition dictation software. [1] No past medical history on file. [2] No family history on file. [3] Social History Tobacco Use Smoking status: Every Day Current packs/day: 0.25 Average packs/day: 0.3 packs/day for 1.2 years (0.3 ttl pk-yrs) Types: Cigarettes Start date: 2023 Smokeless tobacco: Never Vaping Use Vaping status: never used Substance Use Topics Alcohol use: Not Currently Drug use: Never Héctor Allen M.D. 09/14/242122 documented in this encounter Plan of Treatment Not on file documented as of this encounter Procedures Procedure Name Priority Date/Time Associated Diagnosis Comments CT ABDOMEN PELVIS WITHOUT IV CONTRAST RAD - Semiurgent (Fast; most ED patients; some inpatients) 09/13/2024 6:16 PM CDT URINALYSIS WITH MICROSCOPIC IF INDICATED, U Routine 09/13/2024 5:31 PM CDT HC URINALYSIS AUTO W MICRO Routine 09/13/2024 5:31 PM CDT BACTERIAL CULTURE, AEROBIC + SUSC, URINE Routine 09/13/2024 5:31 PM CDT TEST, POCT, U (LAB) STAT 09/13/2024 5:31 PM CDT CBC WITHOUT DIFFERENTIAL, B STAT 09/13/2024 5:30 PM CDT BASIC METABOLIC PANEL, S/P STAT 09/13/2024 5:30 PM CDT documented in this encounter Results * CT Abdomen Pelvis without IV Contrast (09/13/2024 6:16 PM CDT) Anatomical Region Laterality Modality Abdomen, Pelvis, Abdominal R ST LOS, Abdominal ARZ LOS, Abdominal FLA LOS N/A Computed Tomography 09/13/2024 6:13 PM CDT Impressions 09/13/2024 6:24 PM CDT Small nonobstructing stone in the right kidney. No ureteral stones, hydronephrosis, or other acute abnormality. Narrative 09/13/2024 6:24 PM CDT EXAM: CT ABDOMEN PELVIS WITHOUT IV CONTRAST COMPARISON: Abdomen CT 01/12/2014 FINDINGS: Nonobstructing 3 mm stone lower pole the right kidney. No hydronephrosis, hydroureter, or visible ureteral stones. Distal ureters are difficult to visualize. Scattered calcified pelvic phleboliths. Cholecystectomy. Unremarkable noncontrast appearance the liver, adrenal glands, spleen, and pancreas. Postop changes distal colon. Colonic diverticula without diverticulitis. Moderate arterial calcifications. Procedure Note Augustine Rankin M.D. - 09/13/2024 EXAM: CT ABDOMEN PELVIS WITHOUT IV CONTRAST COMPARISON: Abdomen CT 01/12/2014 FINDINGS: Nonobstructing 3 mm stone lower pole the right kidney. Nohydronephrosis, hydroureter, or visible ureteral stones. Distal uretersare difficult to visualize. Scattered calcified pelvic phleboliths. Cholecystectomy. Unremarkable noncontrast appearance the liver, adrenalglands, spleen, and pancreas. Postop changes distal colon. Colonicdiverticula without diverticulitis. Moderate arterial calcifications. IMPRESSION: Small nonobstructing stone in the right kidney. No ureteral stones,hydronephrosis, or other acute abnormality. Héctor Allen M.D. IMG CT PROCEDURES Final Res ult * (ABNORMAL) Microscopic Manual (09/13/2024 5:31 PM CDT) White Blood Cells 51-100(A) /hpf 09/13/2024 5:47 PM CDT NPRG Comment: ----REFERENCE VALUE---- Males: 0-3 Females: 0-10 Unknown: 0-10 Red Blood Cells None Seen 0 - 2 /hpf 09/13/2024 5:47 PM CDT NPRG Bacteria Present(A) None Seen 09/13/2024 5:47 PM CDT NPRG Urine 09/13/2024 5:31 PM CDT 09/13/2024 5:34 PM CDT Héctor Allen M.D. LAB URINE ORDERABLES Final Result [facility] [address] [place] [address], [facility] NPRG [facility] [address] [place] [address] * (ABNORMAL) Bacterial Culture, Aerobic + Susceptibility, Urine (09/13/2024 5:31 PM CDT) Pathologist [facility] Urine Culture ESCHERICHIA COLI >100,000 cfu/mL (A) 09/16/2024 6:31 AM CDT MKTO Urine (Urine, Midstream) 09/13/2024 5:31 PM CDT 09/14/2024 2:17 PM CDT Comment:Specimen Source Site : Urine Narrative Organism Antibiotic Method Susceptibility Escherichia coli Ampicillin SUSCEPTIBILITY, PETRA (MCG/ML) <=2 mcg/mL: Susceptible Escherichia coli Ampicillin + Sulbactam SUSCEPTI BILITY, PETRA (MCG/ML) <=2 mcg/mL: Susceptible Escherichia coli Piperacillin + Tazobactam SUSCE PTIBILITY, PETRA (MCG/ML) <=4 mcg/mL: Susceptible Escherichia coli Cefazolin SUSCEPTIBILITY, PETRA (MCG/ML) <=4 mcg/mL: Susceptible Comment: The interpretation applies to uncomplicated urinary tract infections only. It also applies to these oral cephalosporins: cefuroxime, cephalexin, and cefprozil. Escherichia coli Ceftazidime SUSCEPTIBILITY, PETRA (MCG/ML) <=1 mcg/mL: Susceptible Escherichia coli Ceftriaxone SUSCEPTIBILITY, PETRA (MCG/ML) <=1 mcg/mL: Susceptible Escherichia coli Cefepime SUSCEPTIBILITY, PETRA (MCG/ML) <=1 mcg/mL: Susceptible Escherichia coli Aztreonam SUSCEPTIBILITY, PETRA (MCG/ML) <=1 mcg/mL: Susceptible Escherichia coli Ertapenem SUSCEPTIBILITY, PETRA (MCG/ML) <=0.5 mcg/mL: Susceptible Escherichia coli Meropenem SUSCEPTIBILITY, PETRA (MCG/ML) <=0.25 mcg/mL: Susceptible Escherichia coli Gentamicin SUSCEPTIBILITY, PETRA (MCG/ML) <=1 mcg/mL: Susceptible Escherichia coli Tobramycin SUSCEPTIBILITY, PETRA (MCG/ML) <=1 mcg/mL: Susceptible Escherichia coli Levofloxacin SUSCEPTIBILITY, PETRA (MCG/ML) <=0.12 mcg/mL: Susceptible Escherichia coli Nitrofurantoin SUSCEPTIBILITY, PETRA (MCG/ML) <=16 mcg/mL: Susceptible Escherichia coli Trimethoprim + Sulfamethoxazole SUSCEPTIBILITY, PTERA (MCG/ML) <=20 mcg/mL: Susceptible us Héctor Allen M.D. LAB MICROBIOLOGY - GENERAL ORDERABLES Final Result [facility] [address] [place] [address], [facility] [place] [address] * (ABNORMAL) Urinalysis with Microscopic if Indicated: Urine, Midstream (09/13/2024 5:31 PM CDT) Source Urine, Urine, Midstream 09/13/2024 5:34 PM CDT NPRG Clarity Clear Clear 09/13/2024 5:37 PM CDT NPRG Color Yellow 09/13/2024 5:37 PM CDT NPRG Comment: ----REFERENCE VALUE---- Colorless Yellow Janeth Blood Negative Negative 09/13/2024 5:37 PM CDT NPRG Nitrite Negative Negative 09/13/2024 5:37 PM CDT NPRG Leukocyte Esterase Small(A) Negative 09/13/2024 5:37 PM CDT NPRG Protein 30(A) mg/dL 09/13/2024 5:37 PM CDT NPRG Comment: ----REFERENCE VALUE---- Negative Trace Glucose Negative Negative mg/dL 09/13/2024 5:37 PM CDT NPRG Ketones, QI(U) Negative Negative mg/dL 09/13/2024 5:37 PM CDT NPRG Bilirubin Negative Negative 09/13/2024 5:37 PM CDT NPRG pH 7.0 5.0 - 8.0 09/13/2024 5:37 PM CDT NPRG Specific [place] 1.020 1.001 - 1.035 09/13/2024 5:37 PM CDT NPRG Urobilinogen 0.2 0.2 - 1.0 mg/dL 09/13/2024 5:37 PM CDT NPRG Urine (Urine, Midstream) 09/13/2024 5:31 PM CDT 09/13/2024 5:34 PM CDT Héctor Allen M.D. LAB URINE ORDERABLES Final Result Performing Organization Address [facility]/ZIP Co de Phone Number [facility] [address] [place] [address], [facility] NPRG [address] [address] * Test, POCT, Urine (Lab) (09/13/2024 5:31 PM CDT) Test, POCT, U Negative 09/13/2024 5:42 PM CDT NPRG Urine (Urine, Midstream) 09/13/2024 5:31 PM CDT 09/13/2024 5:34 PM CDT Héctor Allen M.D. LAB POCT ORDERABLES - DEVIC E Final Result Performing Organization Address City/[facility]/ZIP Co de Phone Number [facility] [address] [place] [id number], [facility] [address] [address] * CBC without Differential (09/13/2024 5:30 PM CDT) Hemoglobin 13.4 11.6 - 15.0 g/dL 09/13/2024 5:37 PM CDT NPRG Hematocrit 39.6 35.5 - 44.9 % 09/13/2024 5:37 PM CDT NPRG Erythrocytes 4.58 3.92 - 5.13 x10(12)/L 09/13/2024 5:37 PM CDT NPRG MCV 86.5 78.2 - 97.9 fL 09/13/2024 5:37 PM CDT NPRG RBC Distrib Width 13.0 12.2 - 16.1 % 09/13/2024 5:37 PM CDT NPRG Platelet Count 187 157 - 371 x10(9)/L 09/13/2024 5:37 PM CDT NPRG Leukocytes 5.6 3.4 - 9.6 x10(9)/L 09/13/2024 5:37 PM CDT NPRG Blood (Blood, Venous) 09/13/2024 5:30 PM CDT 09/13/2024 5:33 PM CDT Héctor Allen M.D. LAB BLOOD ADD-ON Final Resu lt [facility] [address] [place] [address], [facility] NPRG [facility] [address] [place] [address] * (ABNORMAL) Basic Metabolic Panel (09/13/2024 5:30 PM CDT) Potassium, P 3.9 3.6 - 5.2 mmol/L 09/13/2024 5:56 PM CDT NPRG Sodium, P 141 135 - 145 mmol/L 09/13/2024 5:56 PM CDT NPRG Chloride, P 103 98 - 107 mmol/L 09/13/2024 5:56 PM CDT NPRG Bicarbonate, P 26 22 - 29 mmol/L 09/13/2024 5:56 PM CDT NPRG Anion Gap, P 12 7 - 15 09/13/2024 5:56 PM CDT NPRG BUN (Blood Urea Nitrogen), P 31(H) 6 - 21 mg/dL 09/13/2024 5:56 PM CDT NPRG Creatinine 0.92 0.59 - 1.04 mg/dL 09/13/2024 5:56 PM CDT NPRG Estimated GFR (eGFR) 74 >=60 mL/min/BSA 09/13/2024 5:56 PM CDT NPRG Comment: Estimated GFR calculated using the 2020 CKD_EPI creatinine equation. Calcium, Total, P 9.6 8.6 - 10.0 mg/dL 09/13/2024 5:56 PM CDT NPRG Glucose, P 106 70 - 140 mg/dL 09/13/2024 5:56 PM CDT NPRG Blood (Blood, Venous) 09/13/2024 5:30 PM CDT 09/13/2024 5:33 PM CDT us Héctor Allen M.D. LAB BLOOD ADD-ON Final Resu lt [facility] [address] [place] [address], [facility] NPRG [facility] [address] [place] [address] documented in this encounter Visit Diagnoses Diagnosis Pyelonephritis Acute- Primary Pain Flank documented in this encounter Administered Medications Inactive Administered Medications - up to 3 most recent administrations Medication Order MAR Action Action Date Dose Rate Site cefTRIAXone injection 2 g (Rocephin) 2 g, intravenous, Once, On 09/13/24 at 1839, For 1 dose, If needed, reconstitute vial per package insert instructions. See IVAG for administration guidelines., Drug Monitoring Program: Pharmacist to adjust medication dosing based on indication and drug clearance factors., Indications: Upper UTI (pyelonephritis)Indications:Upper UTI (pyelonephritis) Given 09/13/2024 7:01 PM CDT 2 g HYDROmorphone injection 0.5 mg (Dilaudid) 0.5 mg, intravenous, Every 30 min PRN, severe pain or score 7-10 of 10, Starting on 09/13/24 at 1735, For 3 doses Given 09/13/2024 6:57 PM CDT 0.5 mg Given 09/13/2024 5:41 PM CDT 0.5 mg ondansetron (PF) injection 4 mg (Zofran) 4 mg, intravenous, Once as needed, nausea, vomiting, Starting on Sat09/13/24 at 1722, For 1 dose, Select antiemetic if IV access obtained. Given 09/13/2024 5: 42 PM CDT 4 mg sodium chloride 0.9 % injection 10 mL 10 mL, intravenous, As needed, line care, Starting on 09/13/24 at 1722, Peripheral Intravenous Catheter and Rapid Infusion Catheter, prior to blood sampling, post blood transfusion or post blood sampling sodium chloride 0.9 % injection 3 mL 3 mL, intravenous, As needed, line care, Starting on Sat09/13/24 at 1722, Prior to and following infusion and between multiple consecutive infusions: sodium chloride 0.9 % injection sodium chloride 0.9 % injection 3 mL 3 mL, intravenous, Every 12 hours scheduled, First dose on Sat09/13/24 at 2100, Peripheral Intravenous Catheter and Rapid Infusion Catheter, when no infusion to maintain patency documented in this encounter Active and Recently Administered Medications Due to Daylight Saving Time, this section may contain times in both DRIVER EXAMINER and CDT. Scheduled Medication Order 09/11/2024 09/12/2024 09/13/2024 cefTRIAXone injection 2 g (Rocephin) (COMPLETED) 2 g, intravenous, Once, On Sat09/13/24 at 1839, For 1 dose, If needed, reconstitute vial per package insert instructions. See IVAG for administration guidelines., Drug Monitoring Program: Pharmacist to adjust medication dosing based on indication and drug clearance factors., Indications: Upper UTI (pyelonephritis) 1901 (Given - Provid er: Kamla Tran R.N.) sodium chloride 0.9 % injection 3 mL 3 mL, intravenous, Every 12 hours scheduled, First dose on Sat09/13/24 at 2100, Peripheral Intravenous Catheter and Rapid Infusion Catheter, when no infusion to maintain patency PRN Medication Order 09/11/2024 09/12/2024 09/13/2024 HYDROmorphone injection 0.5 mg (Dilaudid) 0.5 mg, intravenous, Every 30 min PRN, severe pain or score 7-10 of 10, Starting on 09/13/24 at 1735, For 3 doses 1741 (Given - Provid er: Luis Sanders R.N.)1857 (Given - Provider: Kamla Tran R.N.) ondansetron (PF) injection 4 mg (Zofran) (COMPLETED)(Linked Group 1) 4 mg, intravenous, Once as needed, nausea, vomiting, Starting on 09/13/24 at 1722, For 1 dose, Select antiemetic if IV access obtained. 1742 (Given - Provid er: Luis Sanders R.N.) sodium chloride 0.9 % injection 10 mL 10 mL, intravenous, As needed, line care, Starting on 09/13/24 at 1722, Peripheral Intravenous Catheter and Rapid Infusion Catheter, prior to blood sampling, post blood transfusion or post blood sampling sodium chloride 0.9 % injection 3 mL 3 mL, intravenous, As needed, line care, Starting on 09/13/24 at 1722, Prior to and following infusion and between multiple consecutive infusions: sodium chloride 0.9 % injection Linked Groups Order Group 1: ondansetron ODT disintegrating tablet 4 mg (Zofran-ODT) (COMPLETED) 4 mg, oral, Once as needed, nausea, vomiting, Starting on 09/13/24 at 1722, For 1 dose, Select antiemetic if no IV access. When splitting ODT at bedside, handle with gloves and a pill splitter to prevent moisture contact. Or ondansetron (PF) injection 4 mg (Zofran) (COMPLETED)Jump to med 4 mg, intravenous, Once as needed, nausea, vomiting, Starting on 09/13/24 at 1722, For 1 dose, Select antiemetic if IV access obtained. documented in this encounter Additional Health Concerns Infection Onset Date Last Indicated Resolved Time Protective Environment 09/13/2024 09/13/2024 documented as of this encounter
--- OUTSIDE RECORDS SUMMARY | 2024-09-21 16:22 | XMS_ITS ---
Author Organization [facility] Address [address] [place] [address] [address] [place] [address] Care Team Providers Care Utility Spray Operator Name Role Phone Katrin BARNETT, Anna Primary Care Provider Unavail able Matt Schneider Unavailable [phone] [facility] Bear RUSSELL Unavailable Unavailab le REASON FOR VISIT FYI Encounters Encounter Location Date Provider Diagnosis MG [address] [facility] [address] [facility] [address] [place] [address] 09/21/2024 Matt Schneider Plan Of Treatment No Information Progress Notes * Dean DEL ROSARIO JDOB: 0 (54 yo F)Acc No.[id number]:09/21/2024 Patient: Rosalba DUARTEDean DELCID :[id number] A ge:54 Y S ex:Female Phone: Address:[address] [place] [address], [id number] * * Date:
--- OUTSIDE RECORDS SUMMARY | 2024-09-21 16:23 | XMS_ITS | Encounter Summary ---
Author Organization [employer] Address [address] [place] [address] Care Team Providers Care Lab Director Name Role Phone Neil Wilkes MD Primary Care Provider + [phone] Reason for Visit * Reason Comments Refill Meloxicam (MOBIC) 15 MG tablet [Pharmacy Med Name: MELOXICAM 15MG TABS] Encounter Details Date Type Department Care Team (Late st Contact Info) Description 08/30/2024 Refill [facility] [address] [place], [place] [phone] Neil Wilkes MD [address] [place], [place] [phone] Refill (Meloxicam (MOBIC) 15 MG tablet [Pharmacy Med Name: MELOXICAM 15MG TABS]) Social History Tobacco Use Types Packs/Day Years Used Date Smoking Tobacco: Every Day Cigarettes 0.5 8 Started: 09/11/2016 Smokeless Tobacco: Never Alcohol Use [...] file Not on file Not on file documented as of this encounter Nursing Notes * Megan Dickerson Xrwcomm - 08/30/2024 5:19 AM CST Meloxicam (MOBIC) 15 MG tablet [Pharmacy Med Name: MELOXICAM 15MG TABS] Medication started: 11/21/2020 Last ordered by NEIL WILKES M: 08/03/2024 (27 days ago) QTY: 90, Refills: 3, Sig: take 1 tablet(15 mg) by mouth daily. (changed) -> This is a re-requested duplicate that should be manually reviewed. -> A duplicate request was processed on 08/29/2024. -> Labs required if chronic use -> Unable to determine if sig has changed, review required. -> Cr is overdue (performed over 19 months ago, required every 12 months) -> Cr was found, but the result could not be read. Last qualifying visit: 08/03/2024 (with NEIL WILKES) Next scheduled visit: 09/18/2024 (with NEIL WILKES) Cr: Taken on 01/29/2023 HGB: 13.2 g/dL on 01/23/2024 [facility] Embedded Refills, Reference: [id number], 08/30/2024 5:19:30 AM RETAIL ATTENDANT, Pool: ELIDIA Refill Centralized Services - Primary Care [[id number]] ([id number]) [place] ATTENDANT * Megan Dickerson - 08/30/2024 5:19 AM CST The following lab order(s) may be associated with the Result Note below: COMP METABOLIC PANEL Notes recorded by Yadi Garnica on 01/30/2023 at 12:24 PM CDT Current labs do not show any evidence of internal lupus. Continue with topical steroid and hydroxychloroquine as discussed at visit. Keep follow-up appointment in 6-8 weeks. Team to call and update [place] ATTENDANT * Megan Dickerson - 08/30/2024 5:19 AM CST The following lab order(s) may be associated with the following Patient Result Comment (Entered by Neil Wilkes MD at 01/26/2024 12:31 PM): COMPLETE BLOOD COUNT-W/DIFF Your CBC continues to be very good and unlikely a picture of sepsis which would indicate the bacteria had gotten into her blood stream. [place] ATTENDANT documented in this encounter Plan of Treatment Upcoming Encounters Date Type Department Care Team (Late st Contact Info) Description 09/22/2024 3:15 PM CDT Telemedicine [facility] [address] [place], [place] [phone] Neil Wilkes MD [address] [place], [place] [phone] documented as of this encounter Visit Diagnoses Not on filedocumented in this encounter Care Teams Lab Director Relationship Specialty Start Date End Date Neil Wilkes MD [address] [place], [place] [phone] PCP - General 08/23/14 documented as of this encounter
--- OUTSIDE RECORDS SUMMARY | 2024-09-21 16:23 | XMS_ITS | Encounter Summary ---
Author Organization [employer] Address [address] [place] [address] Care Team Providers Care Metal Products Viewer Name Role Phone Anna Wilkes MD Primary Care Provider + [phone] Reason for Visit * Reason Comments Back Pain Encounter Details Date Type Department Care Team (Late st Contact Info) Description 07/31/2024 Nurse [facility]riage [facility] [address] [place], [place] [phone] Anna Wilkes MD [address] [place], [place] [phone] Back Pain Social History Tobacco Use Types Packs/Day Years [...] as of this encounter Nursing Notes * Anna Wilkes MD - 07/31/2024 10:04 AM CST Please call, I did send a prescription for prednisone. She should take 2 tablets every day for 5 days. I would recommend that she take this in the morning with food. LER FIRST * Matheus Fajardo RN - 07/31/2024 9:17 AM CST I would be happy to forward your message (request) onto your clinician, however please note that a potential charge may apply in doing so. Do I have your approval to forward this onto them? Yes Clinician: Review and advise and Patient is expecting a call back from [facility] Patient/post acute care registered nurse request: Input needed: ongoing symptoms and New medication Specific Request: (Triage Encounter 07/31/24) - patient is requesting input on severe pain control prior to 08/03/24 appointment, reports previously prescribed steroid pack for former back issues. RN advised Seen in Office Today / Urgent Care, patient requests 08/03/24 appointment and message to PCP. LER FIRST * Matheus Fajardo RN - 07/31/2024 8:56 AM CST Situation/Background (brief explanation of current symptoms/situation): Symptoms: Back Pain Characteristics: Severe right sided lower back pain, intermittent electric pulse sensation. Pain constant with movement worsening. Bowel Movements increase pain. Pain: at rest 8/10 movement goes to 10/10 or with bending. History: Severe back pain occurrence in the past, reports steroid pack and pain management effective. Onset date/time: 07/29/24 - picking up grandchild, pain began. Location: Right Lower Back, radiates to Right Leg Aggravating: Movement, bending. Relieving: Tylenol, q4 hours. Denies; denies numbness or tingling, denies loss of bladder control, denies vomiting, denies abdominal pain, denies weakness of extremity. Reviewed pertinent medical history (as relates to the call): Yes Reviewed pertinent medications (as relates to the call): Yes I would be happy to forward your message (request) onto your clinician, however please note that a potential charge may apply in doing so. Do I have your approval to forward this onto them? Yes It is possible that you are experiencing a harmful medical condition for which doctor's office is not a safe place for your symptoms. Any delay in your care such as waiting for an appointment or being seen in the wrong place could be harmful to your health. You have the right to refuse my recommendation but I need to make sure you understand. Do you understand? Yes Reason for Disposition SEVERE back pain (e.g., excruciating, unable to do any normal activities) and not improved after pain medicine and CARE ADVICE Protocols used: Back Zjqd-NASYK-ET LER FIRST * Singh Buitrago - 07/31/2024 8:51 AM CST Symptoms Describe your symptoms (if pain, include location): Back pain When did they start? Ongoing 2 days Additional comments (related to the above concern): Patient states she was picking up her grandchild when she through her back out and will like to be seen by pcp if possible and recommendations Insurance verified and confirmed with patient? Yes If a prescription is needed, patient would like it filled at the pharmacy listed in Medication Management. Preferred communication method: Phone Call. Is it okay to leave a detailed message on your voicemail? Yes Is there anything else I can help you with today? LER FIRST documented in this encounter Plan of Treatment Upcoming Encounters Date Type Department Care Team (Late st Contact Info) Description 09/22/2024 3:15 PM CDT Telemedicine [place] [address] [place] [address] Anna Wilkes MD [address] [place] [id number] documented as of this encounter Visit Diagnoses Diagnosis Chronic bilateral low back pain without sciatica- Primary documented in this encounter Care Teams Metal Products Viewer Relationship Specialty Start Date End Date Anna Wilkes MD [address] [place] [phone] PCP - General 08/23/14 documented as of this encounter
--- OUTSIDE RECORDS SUMMARY | 2024-09-21 16:23 | XMS_ITS ---
Author Organization [facility] Address [address] [place] [address] [address] [place] [address] Care Team Providers Care Vacuum Bottle Assembler Name Role Phone Katrin BARNETT, Anna Primary Care Provider Unavail able Matt Schneider Unavailable [phone] [facility] CITLALY-Bear Peterson Unavailable Unavailab le REASON FOR VISIT Cervical RFA request Encounters Encounter Location Date Provider Diagnosis [facility] [address] [place] [address] [address] [place] [address] 09/21/2024 Matt Schneider Plan Of Treatment No Information Progress Notes * Dean DEL ORSARIODOB: 0 (54 yo F)Acc No.[id number]:09/21/2024 Patient: Herminio AGUAYOchloe Carlos A :1970 A ge:54 Y S ex:Female Phone: Address:[address] [place] [address], [address] * true * Date: Generated for Printi ng/Fasukhjinderg/eTransmitting on: 0 09/21/2024 04:22 PM CDT
--- OUTSIDE RECORDS SUMMARY | 2024-09-21 16:23 | XMS_ITS ---
Author Organization [facility] Address [address] [place] [address] [address] [place] [address] Care Team Providers Care Tree Tapping Laborer Name Role Phone Katrin BARNETT, Anna Primary Care Provider Unavail able Matt Schneider Unavailable [phone] [facility] Bear RUSSELL Unavailable Unavailab le REASON FOR VISIT repeat cRFA request Encounters Encounter Location Date Provider Diagnosis [facility] [address] [place] [address] [address] [place] [address] 09/21/2024 Matt Schneider Plan Of Treatment No Information Progress Notes * Dean DEL ROSARIO JDOB: 0 (54 yo F)Acc No.[id number]:09/21/2024 Patient: Rosalba BIGGSDean :1970 A ge:54 Y S ex:Female Phone: Address:[address] [place] [address], [address] * * Date:
--- OUTSIDE RECORDS SUMMARY | 2024-09-21 16:23 | XMS_ITS | Encounter Summary ---
Author Organization [employer] Address [address] [place] [address] Care Team Providers Care Candy Butcher Name Role Phone Anna Wilkes MD Primary Care Provider + [phone] Reason for Visit * Reason Comments HYPERTENSION Entered automaticall y based on patient selection in [employer]. Encounter Details Date Type Department Care Team (Late st Contact Info) Description 08/17/2024 12:05 AM QM CONSULTANT [facility] [address] [place], [place] [address] Anna Wilkes MD [address] [place], [place] [phone] Dx: Screening for hypertension (Primary Dx) Social History Tobacco Use Types Packs/Day Years [...] Comments Blood Pressure 152/101 08/14/2024 1:21 PM QM CONSULTANT Pulse - - Temperature - - Respiratory Rate - - Oxygen Saturation - - Inhaled Oxygen Concentration - - Weight - - Height - - Body Mass Index - - documented in this encounter Nursing Notes * Loretta Martin MA - 08/28/2024 1:22 PM CST Clinician: Review and advise Patient/career guidance counselor request: Input needed: Home BP Results and pain medication refill Specific Request: Pt is wondering if their BP is high due to the pain or just high due to high blood pressure. Pt is requesting a refill of the pain medication because she is unable to sleep at night. Received patients home blood pressure monitor results. Does this patient have an active RN Hypertension Order? No No order of RN HYPERTENSION ORDER is found. Blood Pressure and Pulse from current encounter: BP: (!) 152/101, BP Method: Patient Reported, BP Readings from Last 5 Encounters: 08/14/24 (!) 152/101 08/03/24 (!) 162/109 05/19/24 (!) 142/93 03/12/24 (!) 127/92 01/24/24 (!) 128/90 Pulse Readings from Last 5 Encounters: 08/03/24 90 05/19/24 88 03/12/24 (!) 103 01/24/24 83 01/23/24 99 Verify home BP monitor: Needs to be a digital BP monitor, upper arm cuff Follow Up Instructions: Patient instructed on follow up recommendations BP 160-179/100-109 Recheck BP and send your BP readings within 2-4 weeks. If next BP not improved, schedule a Clinician visit within 1-2 weeks. CONSULTANT documented in this encounter Plan of Treatment Upcoming Encounters Date Type Department Care Team (Late st Contact Info) Description 09/22/2024 3:15 PM CDT Telemedicine [facility] [address] [place], [place] [address] Anna Wilkes MD [address] [place] [id number] documented as of this encounter Visit Diagnoses Diagnosis Screening for hypertension- Primary documented in this encounter Care Teams Candy Butcher Relationship Specialty Start Date End Date Anna Wilkes MD [address] [facility] [place] [phone] PCP - General 08/23/14 documented as of this encounter
--- OUTSIDE RECORDS SUMMARY | 2024-09-21 16:23 | XMS_ITS | Encounter Summary ---
Author Organization [facility] Address [address] [place] [address] Care Team Providers Care Sales Consultant Insurance Name Role Phone Elsewhere, Pcp Primary Care Provider Unavailabl e Reason for Visit * Reason Comments Back Pain Patient reports arou nd 10:30 am this morning she bent over to crop picker her granddaughter and she threw her back out. She states the pain radiates down her left hip and ankle. Encounter Details Date Type Department Care Team (Late st Contact Info) Description 09/21/2024 2:22 PM CDT - 09/21/2024 3:38 PM CDT Emergency [facility] [address] [place] [address] Mary Moreno, YVONNE, C.N.P., M.S.N. 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 8 documented as of this encounter Progress Notes * Mary Moreno, YVONNE, C.N.P., M.S.N. - 09/21/2024 3:26 PM CDT SUBJECTIVE CHIEF COMPLAINT/REASON FOR VISIT Back Pain (Patient reports around 10:30 am this morning she bent over to crop picker her granddaughter and she threw her back out. She states the pain radiates down her left hip and ankle. ). HISTORY OF PRESENT ILLNESS Dean Erickson is a 54 y.o. female who presents for evaluation of low back pain. Patient states at 10:30 a.m. this morning she bent over to crop picker her grandson and felt a sharp pain in her left low back. Her pain radiated down her left posterior leg to just below the knee. She states the pain is progressively gotten worse throughout the day. She has had a history of low back pain and cervicalneck pain. She states she sees a [facility] in the [facility] and has radiofrequency injections every 6 months. Her last injection was in July. She is unsure of what type of spine problem she has. She denies any bowel or bladder involvement, she denies any saddle numbness. She was able to walk into the clinic and exam room without problem. REVIEW OF SYSTEMS Review of Systems was negative except for that mentioned in the History of Present Illness. Social History Tobacco Use Smoking status: Every Day Packs/day: 0.25 Years: 0.3 packs/day for 1.2 years (0.3 ttl pk-yrs) Types: Cigarettes Start date: 2023 Smokeless tobacco: Never The following portions of the chart were reviewed and updated: ???Allergies, current medications, family history, medical history, social history, and surgical history.?? OBJECTIVE VITAL SIGNS BP (!) 150/99 (BP Location: Left arm;Upper, Patient Position: Sitting) Pulse (!) 112 Temp 37 ??C (Temporal) Resp 20 Wt 51.1 kg SpO2 99% BMI 20.72 kg/m?? PHYSICAL EXAMINATION General: Patient is crying stating she is having severe pain. Appropriately dressed and normal hygiene. HEENT: Normocephalic. Respiratory: Normal rise and fall of chest. No shortness of breath. Cardiac: No cyanosis. Musculoskeletal: Examination the back reveals no bruising, swelling or rashes. Patient reports tenderness over the left hip crest. She has tenderness on palpation in that area, no spinal process tenderness in the lumbar or sacral area, no hip tenderness or pelvic tenderness. No numbness or paresthesia over the left leg. Strength in left leg is slightly weaker than right. She does have some pain with left leg raise. Grossly intact, no deformities. No neurovascular compromise. Skin: Good turgor. No rashes noted on exposed skin during exam. No cyanosis. Neurologic/Psychiatric: Alert, responds appropriately. No weakness or abnormality of gait. DIAGNOSTICS LABS: No results found for this or any previous visit (from the past 24 hours). ECG: IMAGING: No results found. ASSESSMENT / PLAN #1 Pain Low Back Acute Other orders - ketorolac injection 15 mg (ToradoL); 15 mg, intramuscular, Once, On Sat09/21/24 at 1514, For 1 doseAdult IV push rate: Over 15 seconds. Peds IV push rate: Over 1 minute. Doses > 15 mg IV/IM are discouraged due to lack of additional analgesic benefit. Upon entering the exam room, patient was sitting on the floor beside the exam table crying. She states she got up to get a drink of water and ???my left leg gave out?? . She stated she was unable to get off the floor. The ER and urgent care nurse's assistant principal her to the exam table. She was able to bear weight on her left leg and foot. She has no numbness in the left leg or foot, she does have fullextension and flexion of the leg, foot and ankle. Patient was given Toradol 15 mg IM. I did offer her muscle relaxants however she declined all muscle relaxant because it makes her too tired. I did recommend acetaminophen as directed for pain. She states she is unable take NSAIDs due to stomach problems. Ice to the low back. Because she has a history of spine problems that she is being followed by the spine Clinic in the [facility], I did recommend she call them today and let them know what occurred and follow-up with them as she is being followed by them quite closely for her chronic back and neck problems. Recommend further recommendations per her spine doctors. Warning signs and symptoms that would require re-evaluation or emergency evaluation reviewed. Patient verbalized understanding and acceptance of this plan has no further questions at this time. Patient left the urgent care, walking without any difficulty, only with a very slight limp, to meether in the parking lot. She states he will be driving her home. Mary Moreno APRN, C.NCharlie., M.S.N. Mary Moreno APRN, C.NCharlie., M.S.N. 09/21/24 1534 documented in this encounter Plan of Treatment Not on file documented as of this encounter Visit Diagnoses Diagnosis Pain Low Back Acute- Primary documented in this encounter Administered Medications Inactive Administered Medications - up to 3 most recent administrations Medication Order MAR Action Action Date Dose Rate Site ketorolac injection 15 mg (ToradoL) 15 mg, intramuscular, Once, On 09/21/24 at 1514, For 1 dose, Adult IV push rate: Over 15 seconds. Peds IV push rate: Over 1 minute. Doses > 15 mg IV/IM are discouraged due to lack of additional analgesic benefit. Given 09/21/2024 3:21 PM CDT 15 mg Left Deltoid documented in this encounter Active and Recently Administered Medications Times are shown in CDT. Scheduled Medication Order 09/19/2024 09/20/2024 09/21/2024 ketorolac injection 15 mg (ToradoL) (COMPLETED) 15 mg, intramuscular, Once, On 09/21/24 at 1514, For 1 dose, Adult IV push rate: Over 15 seconds. Peds IV push rate: Over 1 minute. Doses > 15 mg IV/IM are discouraged due to lack of additional analgesic benefit. 1521 (Given - Provid er: Jessica MinorM.ASylvain) documented in this encounter Additional Health Concerns Infection Onset Date Last Indicated Resolved Time Protective Environment 09/13/2024 09/13/2024 documented as of this encounter Care Teams Sales Consultant Insurance Relationship Specialty Start Date End Date Elsewhere, Pcp PCP - General Internal Medicine 09/21/24 documented as of this encounter
--- OUTSIDE RECORDS SUMMARY | 2024-09-21 16:23 | XMS_ITS | Encounter Summary ---
Author Organization [employer] Address [address] [place] [address] Care Team Providers Care Refrigeration Engine Operator Name Role Phone Anna Wilkes MD Primary Care Provider + [phone] Reason for Visit * Reason Comments QUESTIONS, GENERAL Entered automaticall y based on patient selection in [facility]. Encounter Details Date Type Department Care Team (Late st Contact Info) Description 09/11/2024 9:00 AM CLERICAL DENTIST ASSISTANT [facility] [address] [place], [place] [phone] Anna Wilkes MD [address] [place], [place] [phone] Chief Comp: QUESTIONS, GENERAL Social History Tobacco Use Types Packs/Day Years [...] as of this encounter Plan of Treatment Upcoming Encounters Date Type Department Care Team (Late st Contact Info) Description 09/22/2024 3:15 PM CDT Telemedicine [facility] [address] [place], [place] [phone] Anna Wilkes MD [address] [place], [place] [phone] documented as of this encounter Visit Diagnoses Not on filedocumented in this encounter Care Teams Refrigeration Engine Operator Relationship Specialty Start Date End Date Anna Wilkes MD [address] [place], [place] [phone] PCP - General 08/23/14 documented as of this encounter
--- OUTSIDE RECORDS SUMMARY | 2024-09-21 16:23 | XMS_ITS | Clinical Summary ---
Author Organization [facility] Address [address] [place] [address] Care Team Providers Care General Office Assistant Name Role Phone Elsewhere, Pcp Primary Care Provider Unavailabl e Source Comments Patient records contain information from all sites at [facility]. For routine questions regarding patient records, call [phone] during business hours, M-F 8:00 AM - 5:00 PM Central Time. Record requests for emergency care only can be directed to [phone] at any time.[facility] Allergies Active Allergy Reactions Criticality Noted Date Comments Codeine Hives (Reselect Reaction) 07/05/2006 Codeine only Dihydroergotamine Diarrhea 01/19/2014 Woztncro-Xvi-Cz-Acetaminoph en Hives (Reselect Reaction) 06/26/2013 Hydrocodone Hives (Reselect Reaction) 11/11/2012 Loperamide Hives (Reselect Reaction) 06/26/2013 Loracarbef Hives (Reselect Reaction) 07/05/2006 Methocarbamol Rash 06/26/2013 Minocycline Itching 11/04/2013 Morphine Hives (Reselect Reaction) 07/05/2006 Oxycodone Hives (Reselect Reaction) 11/11/2012 Oxycodone-Acetaminophen Hives (Reselect Reaction) 07/05/2006 Prochlorperazine Anxiety,Other (see comments) 12/29/2009 Rizatriptan GI intolerance 05/12/2015 Sumatriptan Hives (Reselect Reaction) 07/05/2006 Venlafaxine Analogues Anxiety 06/26/2013 Venom-Honey Bee Anaphylaxis High 09/19/2018 Medications albuterol (PROVENTIL HFA,VENTOLIN HFA) 90 mcg/actuation inhaler Inhale 2 puffs. Acti ve ALPRAZolam (XANAX) 0.5 mg tablet Take 0.5 mg by mouth. Active ascorbic acid, vitamin C, (VITAMIN C) 1,000 mg tablet Take 1,000 mg by mouth. 11/16/19 15 Active atenolol (TENORMIN) 50 mg tablet Take 50 mg by mouth. Active EPINEPHrine (EPIPEN) 0.3 mg/0.3 mL injection syringe Inject 0.3 mg intramuscularly. 04/06/20 16 Active estradiol (ESTRACE) 1 mg tablet Take 1 mg by mouth. 11/13/19 18 Active HYDROmorphone (DILAUDID) 2 mg tablet Take 1 tablet by mouth every 4 (four) hours as needed. 07/12/19 17 Active hydrOXYzine (VISTARIL) 25 mg capsule Take 25 mg by mouth. 07/27/19 17 Active ketorolac (TORADOL) 60 mg/2 mL injection INJECT 2MLS INTRAMUSCULARLY NEEDED FOR MIGRAINE HEADACHE,UP TO 2 INJECTIONS PER 24 HOURS 09/27/19 18 Active loratadine-pseudo ephedrine (CLARITIN-D 24-hour) 10-240 mg per 24 hr tablet Take 1 tablet by mouth. Active LORazepam (ATIVAN) 1 mg tablet Take 1 mg by mouth. 03/06/20 17 Active omeprazole (PriLOSEC) 40 mg capsule Take 40 mg by mouth as needed. 02/01/20 17 Active ondansetron ODT (ZOFRAN-ODT) 8 mg disintegrating tablet DISSOLVE ONE TABLET BY MOUTH EVERY 12 HOURS NEEDED 08/08/19 18 Active zolpidem (AMBIEN) 10 mg tablet Take 5-10 mg by mouth. 09/13/19 18 Active safety needles (BD SafetyGlide Needle) 25 gauge x 5/8 needle USE FOR METHOTREXATE INJECTIONS 10/31/19 24 Active methotrexate 25 mg/mL injection Inject 15 mg under the skin over 168 hr. 12/25/19 24 Active mirtazapine (Remeron) 30 mg tablet Take 30 mg by mouth at bedtime. Active nortriptyline (Pamelor) 50 mg capsule Take 100 mg by mouth. 03/12/20 24 2024 Active triamcinolone (Kenalog) 0.1 % ointment Apply 1 Application topically 2 (two) times a day. 11/28/19 23 Active hydroCHLOROthiazi de (HydroDiuril) 25 mg tablet Take 25 mg by mouth daily. Active cefdinir (Omnicef) 300 mg capsuleIndication s:Pyelonephritis Acute Take 1 capsule (300 mg total) by mouth every 12 (twelve) hours for 7 days. 14 capsule 09/14/19 25 2024 Active Problems Problem Noted Date Diagnosed Date Dysthymia 12/18/2012 Overview (11/27/2016): Depression with anxiety (dysthymic) Encounters Date Type Department Care Team Description 09/21/2024 2:22 PM CDT - 09/21/2024 3:38 PM CDT Emergency [facility] [address] [place] [phone] Mary Moreno APRN, C.N.P., M.S.N. Pain Low Back Acute (Primary Dx) Discharge Disposition: Home or Self Care 09/15/2024 Results Follow-Up [facility] [address] [place] [address], [place] [phone] Augustine Davis M.D. Bacterial Culture, Aerobic + Susceptibility, Urine 09/13/2024 5:14 PM CDT - 09/13/2024 7:10 PM CDT Emergency [facility] [address] [place] [address], [place] [address] Héctor Allen M.D. 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 Gender Identity Not on file Sexual Orientation [...] oz) 09/21/2024 1:47 P M CDT Height 157 cm (5' 1.81) 09/13/2024 5:37 PM CDT Body Mass Index 20.72 09/13/2024 5:37 PM CDT Plan of Treatment Health Maintenance Due Date Last Done Comments CT Colonography 1970 Cologuard 1970 Colonoscopy 1970 Colorectal Cancer Screening 1970 FIT 1970 Hepatitis C Screening 1970 Lipid (Cholesterol) Screening 1970 Tobacco Cessation counseling 1970 Hepatitis B Vaccines (1 of 3 - 19+ 3-dose series) 1989 Pneumococcal vaccine (50+ years) (2 of 2 - PCV) 06/21/2018 06/21/2017 Mammogram 12/24/2019 12/23/2018, 12/06, 11/03/2013, Additional history exists Depression Screening (Annual PHQ-2) 07/08/2024 COVID-19 Vaccine (5 - Pfizer risk season) 2024 05/19/2024, 05/17/2021, 10/22/2020, Additional history exists DTaP,Tdap,and Td Vaccines (3 - Td or Tdap) 01/31/2027 01/31/2017, 03/27/2007, 12/20/1997 Fasting Glucose for Diabetes Screening 09/14/2027 09/13/2024, 09/01/2014, 08/14/2014, Additional history exists Zoster Vaccines Completed 05/10/2021, 02/21/2021 Influenza Vaccine Completed 05/19/2024, , 03/29/2021, Additional history exists IPV Vaccines Aged Out No longer eligi ble based on patient's age to complete this topic Procedures Procedure Name Priority Date/Time Associated Diagnosis Comments CT ABDOMEN PELVIS WITHOUT IV CONTRAST RAD - Semiurgent (Fast; most ED patients; some inpatients) 09/13/2024 6:16 PM CDT HC URINALYSIS AUTO W MICRO Routine 09/13/2024 5:31 PM CDT URINALYSIS WITH MICROSCOPIC IF INDICATED, U Routine 09/13/2024 5:31 PM CDT TEST, POCT, U (LAB) STAT 09/13/2024 5:31 PM CDT BACTERIAL CULTURE, AEROBIC + SUSC, URINE Routine 09/13/2024 5:31 PM CDT CBC WITHOUT DIFFERENTIAL, B STAT 09/13/2024 5:30 PM CDT BASIC METABOLIC PANEL, S/P STAT 09/13/2024 5:30 PM CDT from Last 3 Months Results * CT Abdomen Pelvis without IV [...] No ureteral stones,hydronephrosis, or other acute abnormality. us Héctor Allen M.D. IMG CT PROCEDURES Final Res ult * (ABNORMAL) Urinalysis with Microscopic if Indicated: [...] 8.0 09/13/2024 5:37 PM CDT NPRG Specific [place] 1.020 1.001 - 1.035 09/13/2024 5:37 PM CDT NPRG Urobilinogen 0.2 0.2 - 1.0 mg/dL 09/13/2024 5:37 PM CDT NPRG Urine (Urine, Midstream) 09/13/2024 5:31 PM CDT 09/13/2024 5:34 PM CDT us Héctor Allen M.D. LAB URINE ORDERABLES Final Result Performing Organization Address [facility]/ZIP Co de Phone Number [facility] [address] [place] [id number], [facility] NPRG [address] [address] * (ABNORMAL) Microscopic Manual (09/13/2024 5:31 PM CDT) White Blood Cells 51-100(A) /hpf 09/13/2024 5:47 PM CDT NPRG Comment: ----REFERENCE VALUE---- Males: 0-3 Females: 0-10 Unknown: 0-10 Red Blood Cells None Seen 0 - 2 /hpf 09/13/2024 5:47 PM CDT NPRG Bacteria Present(A) None Seen 09/13/2024 5:47 PM CDT NPRG Urine 09/13/2024 5:31 PM CDT 09/13/2024 5:34 PM CDT us Héctor Allen M.D. LAB URINE ORDERABLES Final Result Performing Organization Address City/[facility]/ZIP Co de Phone Number [facility] [address] [place] [address], [facility] NPRG [address] [address] * (ABNORMAL) Bacterial Culture, Aerobic + Susceptibility, Urine (09/13/2024 5:31 PM CDT) Urine Culture ESCHERICHIA COLI >100,000 cfu/mL (A) [...] Susceptible Escherichia coli Trimethoprim + Sulfamethoxazole SUSCEPTIBILITY, PETRA (MCG/ML) <=20 mcg/mL: Susceptible us Héctor Allne M.D. LAB MICROBIOLOGY - GENERAL ORDERABLES Final Result [facility] [address] [place] [address], [place] [facility] [place] [address] [place] [address] * Test, POCT, Urine (Lab) (09/13/2024 5:31 PM CDT) Test, POCT, U Negative 09/13/2024 5:42 PM CDT NPRG Urine (Urine, Midstream) 09/13/2024 5:31 PM CDT 09/13/2024 5:34 PM CDT us Héctor Allen M.D. LAB POCT ORDERABLES - DEVIC E Final Result [facility] [address] [place] [address], [facility] NPRG [facility] [address] [place] [address] * CBC without Differential (09/13/2024 5:30 PM [...] M.D. LAB BLOOD ADD-ON Final Resu lt [facility] [address] [place] [address], [facility] NPRG [facility] [address] [place] [address] * (ABNORMAL) Basic Metabolic Panel (09/13/2024 5:30 [...] M.D. LAB BLOOD ADD-ON Final Resu lt [facility] [address] [place] [address], [facility] NPRG [facility] [address] [place] [address] from Last 3 Months Additional Health Concerns Infection Onset Date Last Indicated Protective Environment 09/13/2024 Insurance [facility] [place] [address] Care Teams General Office Assistant Relationship Specialty Start Date End Date Elsewhere, Pcp PCP - General Internal Medicine 09/21/24
--- OUTSIDE RECORDS SUMMARY | 2024-09-21 16:23 | XMS_ITS | Encounter Summary ---
Author Organization [employer] Address [address] [place] [address] Care Team Providers Care Cigar Wrapper Tender Automatic Name Role Phone Neil Wilkes MD Primary Care Provider + [phone] Reason for Visit * Reason Comments Refill ondansetron (ZOFRAN- ODT) 8 MG disintegrating tablet [Pharmacy Med Name: ONDANSETRON 8MG TBDP] Encounter Details Date Type Department Care Team (Late st Contact Info) Description 09/17/2024 [facility] [address] [place], [place] [phone] Neil Wilkes MD [address] [place], [place] [address] Refill (ondansetron (ZOFRAN-ODT) 8 MG disintegrating tablet [...] Nursing Notes * Megan Dickerson Xrwcomm - 09/17/2024 5:09 AM CDT ondansetron (ZOFRAN-ODT) 8 MG disintegrating tablet [Pharmacy Med Name: ONDANSETRON 8MG TBDP] Medication started: 12/30/2018 Last ordered by NEIL WILKES: 05/05/2024 (135 days ago) QTY: 30, Refills: 3, Sig: dissolve onetablet by mouth every 8 hours as needed for nausea (unchanged) -> Patient has a visit scheduled within the next 3 days. -> Medication cannot be delegated. Last qualifying visit: 08/03/2024 (with NEIL WILKES) Next scheduled visit: 09/18/2024 (with NEIL WILKES) [employer] Embedded Refills, Reference: [id number], 09/17/2024 5:09:12 AM CDT, Pool: ELIDIA Refill Centralized Services - Primary Care [[id number]] ([id number]) documented in this encounter Plan of Treatment Upcoming Encounters Date Type Department Care Team (Late st Contact Info) Description 09/22/2024 3:15 PM CDT [facility] [address] [place], [place] [phone] Neil Wilkes MD [address] [place], [place] [phone] documented as of this encounter Visit Diagnoses Not on filedocumented in this encounter Care Teams Cigar Wrapper Tender Automatic Relationship Specialty Start Date End Date Neil Wilkes MD [address] [place], [place] [phone] PCP - General 08/23/14 documented as of this encounter
--- OUTSIDE RECORDS SUMMARY | 2024-09-21 16:23 | XMS_ITS | Encounter Summary ---
Author Organization [facility] Address [address] [place] [address] Care Team Providers Care Electronic Equipment Set Up Operator Name Role Phone Anna Wileks MD Primary Care Provider + [phone] Encounter Details Date Type Department Care Team (Late st Contact Info) Description 10/13/2012 [facility] Only [facility] [address] [place] [address] Tariq Cao MD [address] [place] [address] Biceps tendinopathy Social History Tobacco Use Types Packs/Day Years Used Date Smoking Tobacco: Never Assessed Comments No Sex and Gender Information Value Date Recorded Sex Assigned at Not on file Legal Sex Female 12:08 PM CDT Gender Identity Not on file Sexual Orientation Not on file documented as of this encounter Plan of Treatment Upcoming Encounters Date Type Department Care Team (Late st Contact Info) Description 09/22/2024 3:15 PM CDT [facility] [address] [place], [place] [phone] Anna Wilkes MD [address] [place], [place] [phone] documented as of this encounter Visit Diagnoses Diagnosis Biceps tendinopathy Bicipital tenosynovitis documented in this encounter Additional Health Concerns Infection Onset Date Last Indicated Resolved Time R/O COVID19 03/08/2020 03/08/2020 03/12/2020 7:18 AM CDT R/O COVID19 04/30/2021 04/30/2021 05/01/2021 2:03 AM CDT documented as of this encounter Care Teams Electronic Equipment Set Up Operator Relationship Specialty Start Date End Date Anna Wilkes MD [address] [place] [address] PCP - General 08/23/14 documented as of this encounter
--- OUTSIDE RECORDS SUMMARY | 2024-09-21 16:23 | XMS_ITS | Encounter Summary ---
Author Organization [employer] Address [address] [place] [address] Care Team Providers Care Paper Baler Name Role Phone Anna Wilkes MD Primary Care Provider + [phone] Reason for Referral * Procedure/Equipment (Routine) - Authorized Specialty Diagnoses / Procedures Referred By Theresaac t Referred To Contact Diagnoses Chronic radicular low back pain Procedures MR Lumbar Spine WO IV Cont Anna Wilkes MD [address] [place] [address] Phone: tel: fax: Referral ID Status Reason Start Date Expiration Date V isits Requested Visits Authorized [id number] Authorized 08/28/2024 11/27/2025 1 1 [employer] Encounter Details Date Type Department Care Team (Late st Contact Info) Description 08/28/2024 Notes/Orders [facility] [address] [place], [place] [phone] Anna Wilkes MD [address] [place], [place] [phone] Chronic radicular low back pain (Primary Dx) Social History Tobacco Use Types [...] Info) Description 09/22/2024 3:15 PM CDT Telemedicine [facility] [address] [place], [place] [phone] Anna Wilkes MD [address] [place] [address] Scheduled Orders Name Type Priority Associated Diagnoses Orde r Schedule MR Lumbar Spine WO IV Cont Imaging New Routine Chronic radicular low back pain Expected: 08/28/2024 (Approximate), Expires: 08/28/2025 documented as of this encounter Visit Diagnoses Diagnosis Chronic radicular low back pain- Primary Thoracic or lumbosacral neuritis or radiculitis, unspecified documented in this encounter Care Teams Paper Baler Relationship Specialty Start Date End Date Anna Wilkes MD [address] [place], [place] [address] PCP - General 08/23/14 documented as of this encounter
--- OUTSIDE RECORDS SUMMARY | 2024-09-21 16:23 | XMS_ITS | Encounter Summary ---
Author Organization [employer] Address [address] [place] [address] Care Team Providers Care Medical Staff Credentialing Coordinator Name Role Phone Neil Wilkes MD Primary Care Provider + [phone] Reason for Visit * Reason Comments Refill Meloxicam (MOBIC) 15 MG tablet [Pharmacy Med Name: MELOXICAM 15MG TABS] Encounter Details Date Type Department Care Team (Late st Contact Info) Description 08/29/2024 [facility] [address] [place], [place] [phone] Neil Wilkes MD [address] [place], [place] [phone] Refill (Meloxicam (MOBIC) 15 MG tablet [Pharmacy [...] Nursing Notes * Megan Dickerson Xrwcomm - 08/29/2024 5:06 AM CST Meloxicam (MOBIC) 15 MG tablet [Pharmacy Med Name: MELOXICAM 15MG TABS] Medication started: 11/21/2020 Last ordered by NEIL WILKES M: 08/03/2024 (26 days ago) QTY: 90, Refills: 3, Sig: take 1 tablet(15 mg) by mouth daily. (changed) -> The patient is requesting refills too soon, the current prescription is due to run out on 07/29/2025. -> Labs required if chronic use -> Unable to determine if sig has changed, review required. -> Cr is overdue (performed over 19 months ago, required every 12 months) -> Cr was found, but the result could not be read. Last qualifying visit: 08/03/2024 (with NEIL WILKES) Next scheduled visit: 09/18/2024 (with NEIL WILKES) Cr: Taken on 01/29/2023 HGB: 13.2 g/dL on 01/23/2024 [facility] Embedded Refills, Reference: [id number], 08/29/2024 5:06:31 AM BREW HOUSE SUPERVISORNathan: ELIDIA Refill Centralized Services - Primary Care [[id number]] ([id number]) HOUSE SUPERVISOR * Megan Dickerson - 08/29/2024 5:06 AM CST The following lab order(s) may be associated with the Result Note below: COMP METABOLIC PANEL Notes recorded by Yadi Garnica on 01/30/2023 at 12:24 PM CDT Current labs do not show any evidence of internal lupus. Continue with topical steroid and hydroxychloroquine as discussed at visit. Keep follow-up appointment in 6-8 weeks. Team to call and update * Megan Dickerson - 08/29/2024 5:06 AM CST The following lab order(s) may be associated with the following Patient Result Comment (Entered by Neil Wilkes MD at 01/26/2024 12:31 PM): COMPLETE BLOOD COUNT-W/DIFF Your CBC continues to be very good and unlikely a picture of sepsis which would indicate the bacteria had gotten into her blood stream. HOUSE SUPERVISOR documented in this encounter Plan of Treatment Upcoming Encounters Date Type Department Care Team (Late st Contact Info) Description 09/22/2024 3:15 PM CDT Telemedicine [place] [place], [place] [address] Neil Wilkes MD [address] [facility] [place] [address] documented as of this encounter Visit Diagnoses Not on filedocumented in this encounter Care Teams Medical Staff Credentialing Coordinator Relationship Specialty Start Date End Date Neil Wilkes MD [address] [facility] [place] [phone] PCP - General 08/23/14 documented as of this encounter
--- OUTSIDE RECORDS SUMMARY | 2024-09-21 16:23 | XMS_ITS | Encounter Summary ---
Author Organization [facility] Address [address] [place] [address] Care Team Providers Care Recreation Establishment Manager Name Role Phone Elsewhere, Pcp Primary Care Provider Unavailabl e Encounter Details Date Type Department Care Team (Late st Contact Info) Description 09/15/2024 Results Follow-Up [facility] [address] [place] [phone] Augustine Davis M.D. 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
--- OUTSIDE RECORDS SUMMARY | 2024-09-21 16:23 | XMS_ITS | Clinical Summary ---
Author Organization [facility] Address [address] [place] [id number] Care Team Providers Care Threader Operator Name Role Phone None, Provided Unavailable Unavailable Anna Wilkes MD Primary Care Prov ider Allergies Active Allergy Reactions Criticality Noted Date Comments Codeine Hives 07/05/2006 Venlafaxine Analogues Anxiety 06/26/2013 Jbjkijts-Dyt-Ob-Acetaminophen Hives 2012 Sumatriptan Hives 07/05/2006 Loperamide Hives 07/05/2006 Loperamide Hives 06/26/2013 Loracarbef Hives 07/05/2006 Morphine Hives 07/05/2006 Oxycodone-Acetaminophen Hives 07/05/2006 Prochlorperazine Agitation 12/29/2009 Methocarbamol Rash 06/26/2013 Ketorolac Hives 07/05/2006 Medications estradiol (ESTRACE) 1 mg tablet Take 1 mg by mouth once daily. Active fluocinonide 0.05% topical (LIDEX) 0.05 % cream Apply topically to affected area(s) 2 times daily. Active topiramate (TOPAMAX) 50 mg tablet Take 50 mg by mouth 2 times daily. Active albuterol (PROVENTIL; VENTOLIN) 90 mcg/Actuation inhaler Inhale 2 Puffs by mouth 4 times daily if needed. Active ALPRAZolam (XANAX) 0.5 mg tablet Take 0.5 mg by mouth 3 times daily if needed. 1-2 three times a day if needed Active loratadine-pse udoephedrine, 10-240 mg, 24hr (CLARITIN-D 24 HOUR) 10-240 mg per tablet Take 1 tablet by mouth once daily. Active acetaminophen (TYLENOL) 325 mg tablet Take by mouth every 4 hours if needed. Max acetaminophen dose: 4000mg in 24 hrs. Active amitriptyline (ELAVIL) 25 mg tablet Take 25 mg by mouth at bedtime. 1-2 at bedtime as needed Active atenolol (TENORMIN) 50 mg tablet Take 50 mg by mouth once daily. 1.5 tablets by mouth daily Active buPROPion (WELLBUTRIN SR) 150 mg Sustained-Rele ase tablet Take 150 mg by mouth 2 times daily. Active divalproex (DEPAKOTE ER) 250 mg Extended-Relea se tablet Take 250 mg by mouth once daily. 1 tablet at bedtime x 7 days then increase to 2 tablets at bedtime Active hydrOXYzine pamoate (VISTARIL) 25 mg capsule Take 25 mg by mouth every 8 hours if needed. Active HYDROmorphone (DILAUDID) 2 mg tablet Take 1 tablet by mouth every 4 hours if needed for Pain. 30 tablet 0 3 Active zolpidem (AMBIEN) 10 mg tablet Take 1 tablet by mouth at bedtime if needed for Sleep. 0 5 Active hyoscyamine sublingual (LEVSIN SL) 0.[address] 1-2 tablets under the tongue every 4 hours if needed. 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 Gender Identity Not on file Sexual Orientation Not on file Obstetrics History Last Filed Vital Signs Vital Sign Reading Time Taken Comments Blood Pressure 108/78 02/18/2015 3:10 PM CDT Pulse 90 02/18/2015 3:10 PM CDT Temperature 36.7 C (98 F) 07/21/2014 3:49 PM 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 Respiratory Rate 16 02/18/2015 3:10 PM CDT Oxygen Saturation 90% 02/18/2015 3:10 PM CDT Inhaled Oxygen Concentration - - Weight 53 kg (116 lb 13.5 oz) 02/18/2015 1:24 PM CDT Height 157.5 cm (5' 2) 02/18/2015 1:24 PM CDT Body Mass Index 21.37 02/18/2015 1:24 PM CDT Plan of Treatment Health Maintenance Due Date Last Done Comments Tdap 1981 Depression screening for age 12+ 1982 HIV for age 15-65 1985 BMI (ht and wt on same day) for age 18+ 1988 Hepatitis C screening for age 18-79 1988 Tetanus booster 1990 Pap test for age 21-65 1991 Colonoscopy through age 75 2015 Lipids for age 45-75 2015 Mammogram for age 45-75 2015 Pneumococcal series for age 50+ (1 of 1 - PCV) 020 Zoster (shingles) series for age 50+ (1 of 2) 06/22/20 20 COVID-19 vaccine series ( - 2023- season) 4 Influenza Vaccine (#1) 2024 Medical Devices Implanted Type Area Human Relations Professor Device Identifier Shelf Expiration Date Model / Serial / Lot Sut Bio Mini Revo W/#2 Hi Fi - [id number] Implanted:Qty: 3 on 12/30/2009 at [facility] Right: Shoulder [employer] 01/05/2011 [id number] / / [id number] Sut Bio Mini Revo W/#2 Hi Fi - [id number] Implanted:Qty: 1 on 12/30/2009 at [facility] Right: Shoulder [employer] 09/05/2010 [id number]# / / [id number] Sut Bio Mini Revo W/#2 Hi Fi - [id number] Implanted:Qty: 1 on 12/30/2009 at [facility] Right: Shoulder [employer] 12/06/2010 [id number] / / [id number] Insurance [facility] BASIC+1 PB ONLY [facility] * Guarantor: JOSE A DEL ROSARIO Account Type Relation to Patient Date of Phone Billing Address [employer] [id number] [place] [id number] [employer] * Guarantor: JOSE A DIAS Account Type Relation to Patient Date of Phone Billing Address Personal/Family 1970 [facility] [id number] Advance Directives * Full Code (Latest Code Status on File) Date Activated Date Inactivated Comments 02/18/2015 1:29 PM 02/18/2015 5:28 PM * Full Code Date Activated Date Inactivated Comments 07/02/2013 10:09 AM 07/02/2013 6:18 PM * Full Code Date Activated Date Inactivated Comments 06/19/2013 2:41 PM 06/19/2013 6:31 PM * Full Code Date Activated Date Inactivated Comments 12/30/2009 9:15 AM 12/30/2009 1:20 PM Care Teams Threader Operator Relationship Specialty Start Date End Date Anna Wilkes MD . PCP - General Family Practice 02/15/15 None, Provided . 07/05/06
[2024-09-21 17:21] VITALS: BP 149/94; PULSE 93; RESP 18; TEMP 36.7; O2SAT 96; BMI 19.8
--- NOTE | 2024-09-21 19:50 | ED.BACK ---
HPI - Back Pain/Injury General Chief Complaint: Back Injury/Pain Stated Complaint: Lower left back pain Time Seen by Provider: 09/21/24 19:23 History of Present Illness HPI Narrative: this 54-year-old female comes in with severe lower back pain radiating all the way down her left leg. She states that she bent over to berry picker her grandchild a few days ago and felt onset of some pain which has worsened since then. She does not have any prior history of back pain like this. She does not report any other injury event. She states that she went to urgent care elsewhere and while waiting there she stood up and had sudden onset of severe pain causing her to fall. She states that she laid there for about 15 minutes before somebody came to help her up. She came here instead for further evaluation Related Data Home Medications ?Medication ?Instructions ?Recorded ?Confirmed epinephrine 0.3 mg/0.3 mL 0.3 mg IM Q5-15M PRN 07/18/22 09/21/24 injection, auto-injector estradiol 1 mg tablet 1 mg PO QDAY 07/18/22 09/21/24 ondansetron 8 mg disintegrating 8 mg PO Q12H 07/18/22 08/12/23 tablet Tylenol 10/27/22 08/12/23 Previous Rx's ?Medication ?Instructions ?Recorded tizanidine 4 mg tablet See Rx Instructions PO Q8H PRN 07/30/22 muscle spasticity #30 tabs celecoxib 200 mg capsule 200 mg PO QDAY #21 caps 09/09/22 zolpidem 5 mg tablet 5 mg PO QHS PRN insomnia #14 tabs 09/17/22 methylprednisolone 4 mg tablets in See Rx Instructions PO .COMPLEX 10/27/22 a dose pack (Medrol (Lazaro)) #21 ea cyclobenzaprine 10 mg tablet 10 mg PO TID #15 tabs 12/30/22 hydromorphone 2 mg tablet 2 mg PO Q6H PRN pain #14 tabs 04/08/23 hydromorphone 2 mg tablet 2 mg PO Q6H PRN pain #14 tabs 04/29/23 hydromorphone 2 mg tablet 2 mg PO Q6H PRN pain #7 tabs 05/14/23 (Dilaudid) lorazepam 1 mg tablet 1 mg PO TID PRN anxiety #20 tabs 07/26/23 azithromycin 250 mg tablet See Rx Instructions PO .COMPLEX #6 08/12/23 tabs hydroxyzine pamoate 25 mg capsule 25 mg PO Q6H PRN anxiety #30 caps 09/06/23 ciprofloxacin HCl 500 mg tablet 500 mg PO BID 7 days #14 tabs 01/10/24 ketorolac 10 mg tablet 10 mg PO Q8H PRN pain #20 tabs 08/31/24 methylprednisolone 4 mg tablets in See Rx Instructions PO .COMPLEX 09/21/24 a dose pack (Medrol (Lazaro)) #21 ea Allergies Allergy/AdvReac Type Severity Reaction Status Date / Time bee venom protein (honey bee) Allergy Severe Verified 09/21/24 17:27 codeine Allergy Unknown Rash Verified 09/21/24 17:27 dihydroergotamine Allergy Unknown Diarrhea Verified 09/21/24 17:27 hydrocodone Allergy Unknown Hives Verified 09/21/24 17:27 loperamide Allergy Unknown Hives Verified 09/21/24 17:27 methocarbamol Allergy Unknown Rash Verified 09/21/24 17:27 minocycline Allergy Unknown Verified 09/21/24 17:27 morphine Allergy Unknown Hives Verified 09/21/24 17:27 oxycodone Allergy Unknown Hives Verified 09/21/24 17:27 prochlorperazine Allergy Unknown Anxiety Verified 09/21/24 17:27 rizatriptan Allergy Unknown Nausea Verified 09/21/24 17:27 sumatriptan Allergy Unknown Hives Verified 09/21/24 17:27 venlafaxine Allergy Unknown Anxiety Verified 09/21/24 17:27 Review of Systems Status of ROS: Reports: 10 or more systems reviewed and unremarkable except as noted in History and below Narrative: Constitutional: No fevers, no weight gain or loss. Eyes: No discharge. No vision changes. HENT: No congestion, no sore throat, no ear pain. Cardiovascular: No chest pain, no palpitations. Respiratory: No shortness of breath, no wheezes, no cough. Gastrointestinal: No abdominal pain, no vomiting, no diarrhea. Genitourinary: No dysuria, no hematuria. Musculoskeletal: Normal range of motion. Low back pain radiating down the left leg as described above. Skin: No rashes, no pruritis. Neurological: No dizziness, weakness, sensory change, speech change. Endo/Heme/Allergies: No bruising or bleeding. No polydipsia. Pysch: no suicidality, no anxiety, no insomnia. All other systems reviewed and are negative. [facility] Medical History COVID-19 ?U07.1 - COVID-19 (ICD-10) History of depression ?Z86.59 - Personal history of other mental and behavioral disorders (ICD-10) DDD (degenerative disc disease) Pain of right middle finger ?M79.644 - Pain in right finger(s) (ICD-10) Surgical History History of arthroscopy of right shoulder (~2011) ?Z98.890 - Other specified postprocedural states (ICD-10) Status post laparoscopic cholecystectomy (04/28/14) ?Z90.49 - Acquired absence of other specified parts of digestive tract (ICD-10) Status post appendectomy ?Z90.49 - Acquired absence of other specified parts of digestive tract (ICD-10) Status post arthroscopy of right knee (~2009) ?Z98.890 - Other specified postprocedural states (ICD-10) Status post hysterectomy with oophorectomy ?Z90.710 - Acquired absence of both cervix and uterus (ICD-10) ?Z90.721 - Acquired absence of ovaries, unilateral (ICD-10) Social History Smoking Status: Current every day smoker What tobacco products do you use: cigarettes Smoking packs per day: 0.25 Smoking cigarettes per day: 5.0 Years smoked: 25 Smoking pack-years: 6.25 Do you use any of these nicotine containing products: None Second hand tobacco smoke exposure: No How often do you have a drink containing alcohol: never How often do you have six or more drinks on one occasion: Never AUDIT-C Alcohol total score: 0 Non-prescribed substance use: denies use service: No Exam Narrative: Exam Narrative: Constitutional: Well-developed, well-nourished, no acute distress. HEENT: Normocephalic, atraumatic. Neck: Normal range of motion. Nontender. Supple. Heart: Intact distal pulses. Lungs: No chest discomfort. No wheezes, rhonchi, or rales. Abdomen: Nontender. Back: Low back pain with pain radiating down the left leg to the foot. Extremities: Normal range of motion. No injury. Skin: Intact. No rash. Warm. No erythema or pallor. Neurologic: No altered sensation. No weakness. Alert and oriented. Psychiatric: No suicidality. No anxiety or depression. No insomnia. Nursing notes and vitals signs are reviewed. Const: Vital Signs, click to edit/add: Vital Signs - 24 hr 09/21/24 17:21 09/21/24 19:51 09/21/24 19:54 Temperature 98.1 F 98.1 F Pulse Rate [Pulse Oximeter] 93 85 Respiratory Rate 18 18 Blood Pressure [Ri ght Upper Arm] 149/94 H 135/84 Pulse Oximetry 96 96 96 Oxygen Delivery Me thod Room Air Room Air 09/21/24 20:00 Temperature 98.1 F Pulse Rate [Pulse Oximeter] 85 Respiratory Rate 18 Blood Pressure [Ri ght Upper Arm] 135/84 Pulse Oximetry Oxygen Delivery Me thod Course Vital Signs Vital signs: Initial Vital Signs Temperature 98.1 F 09/21/24 17:21 Temperature Source Temporal Artery Scan 09/21/24 17:21 Pulse Rate 93 09/21/24 17:21 Respiratory Rate 18 09/21/24 17:21 Blood Pressure 149/94 H 09/21/24 17:21 Blood Pressure Mean 112 H 09/21/24 17:21 Blood Pressure Position Sitting 09/21/24 17:21 Pulse Oximetry 96 09/21/24 17:21 Oxygen Delivery Method Room Air 09/21/24 17:21 Vital Signs Temperature 98.1 F 09/21/24 17:21 Pulse Rate 93 09/21/24 17:21 Respiratory Rate 18 09/21/24 17:21 Blood Pressure 149/94 H 09/21/24 17:21 Pulse Oximetry 96 09/21/24 17:21 Oxygen Delivery Method Room Air 09/21/24 17:21 Temperature 98.1 F 09/21/24 20:00 Pulse Rate 85 09/21/24 20:00 Respiratory Rate 18 09/21/24 20:00 Blood Pressure 135/84 09/21/24 20:00 Pulse Oximetry 96 09/21/24 19:54 Oxygen Delivery Method Room Air 09/21/24 19:54 Medications Administered Medications: Discontinued Medications Generic Name Dose Route Start Last Admin Trade Name Siva PRN Reason Stop Dose Admin Hydromorphone HCl 0.5 mg 09/21/24 19:48 09/21/24 19:55 Hydromorphone 0.5 Mg/0.5 Ml Inj IM 09/21/24 19:49 0.5 mg ONCE ONE Administration MDM - Back Pain/Injury MDM Narrative Medical decision making narrative: This patient comes in with symptoms typical of a lumbar radiculopathy. There was no significant injury event that requires imaging at this time. She may need an MRI if further more specific treatments are needed. Today the patient received an intramuscular injection of hydromorphone 0.5 mg. I did also provide prescriptions from [facility] for Flexeril, Toradol, and tramadol. A prescription for Medrol Dosepak is also sent to her preferred pharmacy. I advised her to follow-up with our back clinic for ongoing management and treatment. Discharge Plan Discharge Clinical Impression: Acute left lumbar radiculopathy Patient Disposition: Home w/ Parent or Adult Condition: Stable Additional Instructions: take medications as prescribed. Follow-up with spine clinic for ongoing management and treatment. Call [phone] for appointment. Return if worsening. Prescriptions: New methylprednisolone [Medrol (Lazaro)] 4 mg tablets,dose pack See Rx Instructions .ROUTE .COMPLEX Qty: 21 0RF Rx Instructions: orally per package directions No Action estradiol 1 mg tablet 1 mg PO QDAY Rx Instructions: off 1 week; repeat cycle ondansetron 8 mg tablet,disintegrating 8 mg PO Q12H epinephrine 0.3 mg/0.3 mL auto-injector 0.3 mg IM Q5-15M PRN Rx Instructions: do not exceed 3 doses per episode tizanidine 4 mg tablet See Rx Instructions PO Q8H PRN (Reason: muscle spasticity) Qty: 30 2RF Rx Instructions: 2 mg QAM and Q1PM, and 4 mg at HS orally every 8 hours PRN; zolpidem 5 mg tablet 5 mg PO QHS PRN (Reason: insomnia) Qty: 14 0RF azithromycin 250 mg tablet See Rx Instructions PO .COMPLEX Qty: 6 0RF Rx Instructions: For 250 mg dose pack: take 500 mg today (day 1), then 250 mg for 4 days (days 2-5) PO cyclobenzaprine 10 mg tablet 10 mg PO TID Qty: 15 0RF Tylenol methylprednisolone [Medrol (Lazaro)] 4 mg tablets,dose pack See Rx Instructions .ROUTE .COMPLEX Qty: 21 0RF Rx Instructions: orally per package directions hydromorphone [Dilaudid] 2 mg tablet 2 mg PO Q6H PRN (Reason: pain) Qty: 7 0RF ciprofloxacin HCl 500 mg tablet 500 mg PO BID 7 Days Qty: 14 0RF celecoxib 200 mg capsule 200 mg PO QDAY Qty: 21 2RF hydromorphone 2 mg tablet 2 mg PO Q6H PRN (Reason: pain) Qty: 14 0RF hydromorphone 2 mg tablet 2 mg PO Q6H PRN (Reason: pain) Qty: 14 0RF lorazepam 1 mg tablet 1 mg PO TID PRN (Reason: anxiety) Qty: 20 0RF hydroxyzine pamoate 25 mg capsule 25 mg PO Q6H PRN (Reason: anxiety) Qty: 30 2RF ketorolac 10 mg tablet 10 mg PO Q8H PRN (Reason: pain) Qty: 20 1RF Rx Instructions: maximum total duration of 5 days from all oral, intranasal, or parenteral formulations Follow Up/Referrals: Allen Kelley MD [Primary Care Provider] - Stand Alone Forms: [facility] Info Instructions
[2024-09-21 19:51] VITALS: O2SAT 96
[2024-09-21 19:54] VITALS: BP 135/84; PULSE 85; RESP 18; TEMP 36.7; O2SAT 96
[2024-09-21] MEDS: HYDROmorphone 0.5 mg/0.5 ml inj IM (19:55)
--- OUTSIDE RECORDS SUMMARY | 2024-09-21 19:56 | XMS_ITS | Patient Health Record ---
Author Organization [facility] Address [address] [place] [address] [address] [place] [address] Care Team Providers Care Software Quality Analyst Name Role Phone Katrin BARNETT, Anna Primary Care Provider Unavail able Matt Schneider Unavailable [phone] Castillo [facility] Bear RUSSELL Unavailable Unavailab Wilfredo Jimenez Unavailable [phone] Quique Milton Unavailable [phone] Luis Enrique Kruse Unavailable [phone] Lorrie Charles Unavailable [phone] Allergies Allergen (clinical drug ingredient) Drug/Non Drug Allergy documented on EMR Reaction Allergy Type Onset Date Status codeine Codeine Sulfate Hives Drug Allergy A ctive prasterone DHEA Diarrhea and Nausea Drug Allergy Active acetaminophen / hydrocodone Hydrocodone-Acetamino phen Hives Drug Allergy Active loperamide Loperamide HCl Hives Drug Allergy A ctive methocarbamol Methocarbamol Rash Drug Allergy Active minocycline Minocycline HCl Itching Drug Allergy Active morphine Morphine Sulfate Hives Drug Allergy Active oxycodone Oxycodone HCl Hives Drug Allergy Act rafael prochlorperazine Prochlorpjohannzine Hives Drug Allergy Active sumatriptan Sumatriptan Hives Drug Allergy Act rafael venlafaxine Venlafaxine HCl Anxiety Drug Allergy Active Reason For Referral Reason Repeat Left and Righ t L3-S1 RFAs Diagnosis 1 Spondylosis without myelopathy or radiculopathy, lumbosacral 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) Referral Organization [facility] Referring Provider First Name Matt Referring Provider Last Name Jennie Referring Provider Speciality Pain Medic ine Referred Organization [facility] Referred Provider Matt Schneider Referred Address [address],[place], [place],[address],[place] Referred Provider Specialty Pain Medicin e Referral Priority Routine Reason Repeat Left and Righ t C4-C6 RFAs Diagnosis 1 Spondylosis without myelopathy or radiculopathy, cervical region (M47.812) Referral Organization [facility] Referring Provider First Name Matt Referring Provider Last Name Jennie Referring Provider Speciality Pain Medic ine Referred Organization [facility] Referred Provider Matt Schneider Referred Address [address] [place] [address] [address],[place], [place],[address],[place] Referred Provider Specialty Pain Medicin e Referral Priority Routine Reason Repeat Left and Righ t L3-S1 RFAs Diagnosis 1 Spondylosis without myelopathy or radiculopathy, lumbosacral 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) Referral Organization [facility] Referring Provider First Name Matt Referring Provider Last Name Jennie Referring Provider Speciality Pain Medic ine Referred Organization [facility] Referred Provider Matt Schneider Referred Address [address] [place] [address] [address],[place], [place],[address],[place] Referred Provider Specialty Pain Medicin e Referral Priority Routine Medications Medication SIG (Take, Route, Frequency, Duration) Notes Start Date End Date Status tiZANidine HCl 2 MG 1 tablet as needed Orally every 8 hrs for 30 days Active Hydroxychloroquine Sulfate 200 MG twice a day Orally Active HYDROmorphone HCl 2 MG 1 tablet as neede d Orally three times a day for 4 days post procedure pain 07/22/2024 Active Ketorolac Tromethamine 60 MG/2ML INJECT 2 ML ONCE A DAY NEEDED FOR MIGRAINE Intramuscular for 30 Active Medrol 4 MG as directed on Medrol package Orally 1 pack for 6 days 06/30/2024 Active HYDROmorphone HCl 2 MG 1 tablet as neede d Orally once daily for severe pain for 12 days G89.29. M47.817 06/30/2024 Active Allergy Relief 10 MG TAKE ONE TABLET BY MOUTH ONCE DAILY Oral for 90 Active Ondansetron 8 MG DISSOLVE ONE TABLET BY MOUTH EVERY 8 HOURS NEEDED FOR NAUSEA Oral for 7 Active Mirtazapine 30 MG TAKE ONE TABLET BY MOUTH AT BEDTIME Oral for 90 Active Estradiol 1 MG 1 tablet Orally Once a day Active Ambien 10 MG 1 tablet at bedtime as needed Orally Once a day Active HYDROmorphone HCl 2 MG 1 tablet as neede d Orally every 8 hours for 4 days post procedure pain Active Social History Tobacco Use: Social History Observation Description Date Details (start date - stop date) Current Smoker NA - NA Tobacco Use/Smoking: Question Answer Notes Are you [...] ast year? No Points 0 Interpretation Negative Problems Problem Type SNOMED Code ICD Code Onset Dates Problem Status W/U Status Risk Notes Problem Degeneration of lumbar intervertebral disc (72854153) Lumbar disc degeneration (722.52) Active confirmed Problem Chronic pain (63941423) Chronic pain (338.29) Active confirmed Problem Lumbosacral spondylosis without myelopathy (34415908) Lumbosacral Spondylosis w/o myelopathy (721.3) Active confirmed Problem Opioid dependence (61728174) Opioid dependence, uncomplicated (F11.20) Active confirmed Problem Nondependent opioid abuse (727879624) Opioid use, unspecified, uncomplicated (F11.90) Active confirmed Problem Fear of medical treatment (986166048) Fear of injections and transfusions (F40.231) Active confirmed Problem Mononeuropathy of upper limb (583917139) Unspecified mononeuropathy of left upper limb (G56.92) Active confirmed Problem Mononeuropathy (787766208) Mononeuropathy, unspecified (G58.9) Active confirmed Problem Chronic pain (86423113) Other chronic pain (G89.29) Active confirmed Problem Shoulder joint pain (767122740) Pain in unspecified shoulder (M25.519) Active confirmed Problem Enthesopathy of wrist AND/OR carpus (13301238) Osteophyte, right wrist (M25.731) Active confirmed Problem Joint disorder (611532928) Joint disorder, unspecified (M25.9) Active confirmed Problem Lumbosacral spondylosis without myelopathy (64960312) Other spondylosis with radiculopathy, lumbar region (M47.26) Active confirmed Problem Cervical spondylosis without myelopathy (945580391) Spondylosis without myelopathy or radiculopathy, cervical region (M47.812) Active confirmed Problem Lumbosacral spondylosis without myelopathy (disorder) (60508648) Spondylosis without myelopathy or radiculopathy, lumbosacral 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) Active confirmed Problem Lumbosacral spondylosis without myelopathy (19516722) Other spondylosis, lumbosacral region (M47.897) Active confirmed Problem Degeneration of lumbar intervertebral disc (40139085) Other intervertebral disc degeneration, lumbar region (M51.36) Active confirmed Problem Sacrococcygeal disorder (304824965) Sacrococcygeal disorders, not elsewhere classified (M53.3) Active confirmed Problem Lumbar radiculopathy (595282415) Radiculopathy, lumbar region (M54.16) Active confirmed Problem Lumbosacral radiculopathy (3312001) Radiculopathy, lumbosacral region (M54.17) Active confirmed Problem Cervicalgia (70757394) Cervicalgia (M54.2) Active confirmed Problem Myositis (02173973) Myositis, unspecified (M60.9) Active confirmed Problem Synovitis/tenosyn ovitis - hand (680879942) Other synovitis and tenosynovitis, unspecified hand (M65.849) Active confirmed Problem Osteoarthritis of knee (481485233) Primary osteoarthritis of right knee (M17.11) Active confirmed Problem Osteoarthritis of left knee joint (800987098354865) Osteoarthritis of left knee, unspecified osteoarthritis type (M17.12) Active confirmed Vital Signs Blood pressure diastolic 98 mm Hg 06/30/2024 Height 63 in 06/30/2024 Blood pressure systolic 166 mm Hg 06/30/2024 Weight 123 lbs 06/30/2024 BMI 21.79 kg/m2 06/30/2024 Encounters Encounter Location Date Provider Diagnosis [place] [address] [facility] [address] [address] 11/20/2023 Luis Enrique Kruse Spondylosis without myelopathy or radiculopathy, lumbosacral region M47.817 ; Mononeuropathy, unspecified G58.9 and Other chronic pain G89.29 [facility] [address] [place] [address] 12/03/2023 Matt Jennie [facility] [address] [place] [address] 12/04/2023 Mattlarry Barronf [facility] [address] [place] [address] 12/17/2023 Rano Faltas [facility] [address] [place] [address] 12/18/2023 Rano Faltas [facility] [address] [place] [address] 01/23/2024 Rano Faltas [facility] [address] [place] [address] 01/24/2024 Rano Faltas [address] [facility] [address] [place] [address] 03/24/2024 Wilfredo [place] Spondylosis without myelopathy or radiculopathy, cervical region M47.812 [address] [facility] [address] [place] [address] 04/07/2024 Wilfredo [place] Spondylosis without myelopathy or radiculopathy, cervical region M47.812 [address] [facility] [address] [facility] [facility] [address] [place] [address] 06/30/2024 Rano Faltas Spondylosis without myelopathy or radiculopathy, lumbosacral region M47.817 ; Mononeuropathy, unspecified G58.9 and Other chronic pain G89.29 [facility] [place] [address] [place] [address] 07/21/2024 Matt Schneider [address] [place] [address] 07/22/2024 Matt Schneider [address] [facility] [address] [place] [address] 08/06/2024 Matt Schneider Spondylosis without myelopathy or radiculopathy, lumbosacral region M47.817 [facility] [address] [place] [address] [address] [place] [address] 09/21/2024 Matt Schneider [place] [address] [facility] [address] [place] [address] 09/21/2024 Matt Schneider [facility] [address] [place] [address] [address] [place] [address] 11/14/2023 Matt Schneider [facility] [address] [place] [address] [address] [place] [address] 01/27/2024 Quique Milton [facility] [address] [place] [address] [address] [place] [address] 02/07/2024 Matt Schneider [facility] [address] [place] [address] [address] [place] [address] 03/23/2024 Wilfredo Motta [facility] [address] [place] [address] [address] [place] [address] 04/06/2024 Wilfredo Motta [facility] [address] [place] [address] [address] [place] [address] 06/18/2024 Matt Schneider [facility] [address] [place] [address] [address] [place] [address] 07/07/2024 Matt Schneider Spondylosis without myelopathy or radiculopathy, lumbosacral region M47.817 [facility] [address] [place] [address] [address] [place] [address] 08/03/2024 Matt Schneider [facility] [address] [place] [address] [address] [place] [address] 09/21/2024 Matt Schneider Assessments Encounter Date Diagnosis (ICD Code) Assessment Notes Treatment Notes Treatment Clinical Notes Section Notes 11/20/2023 Mononeuropathy, unspecified (ICD-10 - G58.9) Patient education will be available in person or on the patient portal. 11/20/2023 Spondylosis without myelopathy or radiculopathy, lumbosacral region (ICD-10 - M47.817) Patient Educated with: Radiofrequency info sheet (Radiofrequency's. pdf) 03/24/2024 Spondylosis without myelopathy or radiculopathy, cervical region (ICD-10 - M47.812) 04/07/2024 Spondylosis without myelopathy or radiculopathy, cervical region (ICD-10 - M47.812) 06/30/2024 Spondylosis without myelopathy or radiculopathy, lumbosacral region (ICD-10 - M47.817) 07/07/2024 Spondylosis without myelopathy or radiculopathy, lumbosacral region (ICD-10 - M47.817) 08/06/2024 Spondylosis without myelopathy or radiculopathy, lumbosacral region (ICD-10 - M47.817) 06/30/2024 Mononeuropathy, unspecified (ICD-10 - G58.9) 11/20/2023 Other chronic pain (ICD-10 - G89.29) Dean Patel) returns to clinic today for a follow-up evaluation regarding her chronic neck, left shoulder, and low back pain. I have reviewed the [facility] database and did not find any inconsistencies. [...] call with any questions, problems or concerns. 06/30/2024 Other chronic pain (ICD-10 - G89.29) Lea returns to clinic today for a follow-up evaluation regarding her chronic neck, left shoulder, and low back pain. I have reviewed the [facility] database and did not find any inconsistencies. We discussed her current symptoms and medications. I will continue with a treatment plan consisting of conservative therapies at this time. Regarding medications, I have refilled her Dilaudid 2mg QD PRN for severe pain until she can complete her RFA procedure. I will also start an MDP to address her wolff flare. This treatment plan was reviewed with Lea, and she was agreeable. I will continue to monitor her progress and she will follow up in one month or sooner if needed. Plan: 1. Order repeat right and left C2-5 RFAs 2. Refill Dilaudid 2mg #12 3. Send MDP 4. Follow up in one month Discharge instructions reviewed verbally. Discussed the risks/benefits of prescribed medication. The patient is aware that medication may be discontinued at any time due to poor compliance with visits, and recommended treatment and/or if patient doesn't adhere to the signed pain contract. The patient was instructed to return to the office as scheduled and call with any questions, problems or concerns. 11/20/2023 Other Shira Russell, am serving as a scribe to document services personally performed by Luis Enrique Kruse NP, based upon my observations and the provider's statements to me. All documentation has been reviewed by the aforementioned MONEY COUNTER prior to being entered into the official medical record. I, Luis Enrique Kruse NP, attest that the above named individual is acting in scribe capacity, has observed my performance of the services and has documented them in accordance with my direction. The documentation recorded by the scribe accurately reflects the service I personally performed and the decisions made during the clinic visit. 06/30/2024 Other Sara Russell, am serving as a scribe to document services personally performed by Quique Milton MD, based upon my observations and the provider's statements to me. All documentation has been reviewed by the aforementioned MD. I, Quique Milton MD, attest that the above named individual is acting in scribe capacity, has observed my performance of the services and has documented them in accordance with my direction. The documentation recorded by the scribe accurately reflects the service I personally performed and the decisions made during the clinic visit. Plan Of Treatment Pending Test Test Name Order Date MRI : Shoulder, right 03/30/2020 X ray : Hand, left 12/13/2021 Insurance Providers Payer Name Payer Address Payer Phone Subscriber Number Group Number Insured Name Patient Relationship to Insured Coverage Start Date Coverage End Date [employer] [address] [address] [place] [address] [id number] Lisandro Erickson Spouse - patient is the spouse of the insured 3 [employer] [address] [place] [phone] [id number] Dean Erickson Self - patient is the insured 3 3 Medications Administered Medication Instructions Date of Administration Dosage Notes Toradol 01/10/2017 1 mL MFG: Hospira Toradol 07/12/2016 30 mg Given in Right deltoid IM, Manuf [facility]osp[facility] Toradol 07/12/2016 30 mg Given in Rt de ltoid, IM - manuf hospira Toradol 09/10/2016 30 mg Given in Rt De ltoid IM, Manuf Hospira - Lot [id number] Medical (General) History Medical History History ICD Code Depression Arthritis Migraines Osteoporosis Lupus Surgical History Surgery Date(Month/Year) Lumbar Radiofrequency 07/2024 Lumbar Radiofrequency 12/2021 Cervical Radiofrequency 08/2021 Right Knee Arthroscopy Right Shoulder x2 Cholecysectomy Appendectomy Hysterectomy
--- OUTSIDE RECORDS SUMMARY | 2024-09-21 19:56 | XMS_ITS | Clinical Summary ---
Author Organization [facility] Address [address] [place] [address] Care Team Providers Care Top Ironer Name Role Phone Anna Wilkes MD Primary Care Provider + [phone] Source Comments You are receiving this document [...] for each transition of care or referral. [facility] Allergies Active Allergy Reactions Criticality Noted Date [...] diphenhydrAMINE (BENADRYL) 25 MG capsuleIndicatio ns:CANDI JOSEPH [facility] Aug 05, 2014 8:02 AM Received from: External Pharmacy Received Sig: Take 1 Capsule (25 mg) by mouth three times a day as needed (Take 1 capsule by mouth 3 times daily as needed.). Indications: CANDI JOSEPH [facility] Aug 05, 2014 8:02 AM Received from: [...] with 1 needles 23-25 G, and Filter [place] if glass ampules. 20 Each 3 023 [...] Type Department Care Team Description 09/17[facility] [address] [place] [address] Anna Wilkes MD Refill (ondansetron (ZOFRAN-ODT) 8 MG disintegrating tablet [Pharmacy Med Name: ONDANSETRON 8MG TBDP]) 09/11/2024 9:00 AM HEAD GREASE MAKER [facility] [address] [place] [address] Anna Wilkes MD Chief Comp: QUESTIONS, GENERAL 08/30/2024 [facility] [address] [place] [address] Anna Wilkes MD Refill (Meloxicam (MOBIC) 15 MG tablet [Pharmacy Med Name: MELOXICAM 15MG TABS]) 08/29/2024 [facility] [address] [place] [address] Anna Wilkes MD Refill (Meloxicam (MOBIC) 15 MG tablet [Pharmacy Med Name: MELOXICAM 15MG TABS]) 08/28/2024 Notes/Orders [place] [place] [address] Anna Wilkes MD Chronic radicular low back pain (Primary Dx) 08/17/2024 12:05 AM HEAD GREASE MAKER E-Visit [place] [place] [address] Anna Wilkes MD Dx: Screening for hypertension (Primary Dx) 08/03/2024 10:00 AM HEAD GREASE MAKER Office Visit [place] [place] [address] Anna Wilkes MD Chronic bilateral low back pain without sciatica (Primary Dx); Essential hypertension (HRC); Post-menopausal; Encounter for screening mammogram for malignant neoplasm of breast; Encounter for long-term (current) use of medications; Generalized anxiety disorder (HRC); Major depressive disorder, recurrent episode, in partial remission (HRC) 08/01/[address] [place] [place] [address] Anna Wilkes MD Refill (hydrOXYzine pamoate (VISTARIL) 25 MG capsule [Pharmacy Med Name: HYDROXYZINE PAMOATE 25MG CAPS]) 07/31/2024 Nurse Triage [place] [place] [address] Anna Wilkes MD Back Pain 07/11/[address] [place] [place] [address] Anna Wilkes MD Refill (nortriptyline (PAMELOR) 25 MG capsule [Pharmacy Med Name: NORTRIPTYLINE HCL 25MG CAPS]) from Last 3 Months Immunizations Immunization Administration Dates Next Due Flu Vac Preserv Free (3+yrs) 03/05/2012, 04/10/2011,04/03/2010,2008,04/19/2006 Influenza IIV4 (Quadrivalent ) 0.5mL (45708) 03/27/2023,03/29/2021,04/26/2020,2018,04/18/2018,04/05/2017,04/06/2016,0 03/18/2015,03/19/2014,03/27/2013, 012,04/10/2011,04/03/2010,03/29/2009, Influenza ccIIV3 6 months+ (Flucelvax) 05/19/2024 PCV20 (Oaliizv67) 03/12/2024 PPSV23 (Pneumovax) 06/21/2017 Pfizer COVID-19 12+ [...] Comments Blood Pressure 152/101 08/14/2024 1:21 PM HEAD GREASE MAKER Pulse 90 08/03/2024 10:10 AM HEAD GREASE MAKER Temperature 36.4 C (97.6 F) 05/29/2022 8:10 AM HEAD GREASE MAKER pt reported Respiratory Rate 16 12/04/2022 9:10 AM CDT Oxygen Saturation 97% 12/04/2022 9:1 0 AM CDT Inhaled Oxygen Concentration - - Weight 55.3 kg (122 lb) 08/03/2024 10:0 1 AM HEAD GREASE MAKER patient reported Height 157.5 cm (5' 2) 12/28/2022 7:07 AM CDT Body Mass Index 22.31 12/28/2022 7:07 AM CDT Plan of Treatment Upcoming Encounters Date Type Department Care Team (Late st Contact Info) Description 09/22/2024 3:15 PM CDT Telemedicine [place] [facility] [address] [facility], [place] [address] Anna Wilkes MD [address] [place] [address] Health Maintenance Due Date Last Done Comments [...] LDL (IF NEEDED) Routine 08/02/2023 9:37 AM HEAD GREASE MAKER Screening for cholesterol level ENDOSCOPY, COLON, SCREENING/DIAGNOS [...] and Direct LDL(If Needed) (08/02/2023 9:37 AM HEAD GREASE MAKER) Cholesterol 192 0 - 199 mg/dL 08/02/2023 3:50 PM [facility] Triglyceride 155(H) <=149 mg/dL 08/02/2023 3:50 PM [facility] HDL Cholesterol 35(L) >=40 mg/dL 4 3:50 PM [facility] LDL, Calculated 126 <130 mg/dL 4 3:50 PM [facility] Non HDL Chol, Calculated 157 <=159 mg/dL 08/02/2023 3:50 PM [facility] Cholesterol/HDL Ratio 5.5(H) <=5.0 08/02/2023 3:50 PM [facility] Hours Fasting 15.0 8 - 12 Hours 08/02/2023 3:50 PM [facility] Blood Venipuncture / Unknown 08/02/2023 9:37 AM HEAD GREASE MAKER 08/02/2023 9:37 AM HEAD GREASE MAKER us Anna Wilkes MD LAB_1 Final Result [facility] [address] [place] [address], [facility] [address] [place] [phone] * Endoscopy, Colon, Screening/Diagnostic (12/04/2022 8:16 [...] and oxygen saturations were monitored continuously. The [id number] was introduced through the anus and advanced [...] from the initial medication administration until the tandem mill operator assists with initial maneuvers (biopsy / polypectomy [...] to anxiety. Procedure Code(s): --- Professional --- 81461, Colonoscopy, flexible; with removal of tumor(s), polyp(s), or other lesion(s) by snare technique 52015, 59, Colonoscopy, flexible; with biopsy, single or multiple G0500, Moderate sedation services provided by the same physician or other qualified health health care assistant performing a gastrointestinal endoscopic service that sedation supports, requiring the presence of an independent trained observer to assist in the monitoring of the patient's level of consciousness and physiological status; initial 15 minutes of intra-service time; patient age 5 years or older (additional time may be reported with 44765, as appropriate) Diagnosis Code(s): --- Professional --- Z12.11, Encounter for screening for malignant neoplasm of colon K64.9, Unspecified hemorrhoids K63.5, Polyp of colon K57.30, Diverticulosis of large intestine without perforation or abscess without bleeding CPT copyright 2020 [employer]. All rights reserved. The codes documented in this report are preliminary and upon statistical developer review may be revised to meet current [...] and oxygen saturations were monitored continuously. The [id number] was introduced through the anus and advanced [...] from the initial medication administration until the tandem mill operator assists with initial maneuvers (biopsy / polypectomy [...] to anxiety. Procedure Code(s): --- Professional --- 98053, Colonoscopy, flexible; with removal of tumor(s), polyp(s), or other lesion(s) by snare technique 46333, 59, Colonoscopy, flexible; with biopsy, single or multiple G0500, Moderate sedation services provided by the same physician or other qualified health health care assistant performing a gastrointestinal endoscopic service that sedation supports, requiring the presence of an independent trained observer to assist in the monitoring of the patient's level of consciousness and physiological status; initial 15 minutes of intra-service time; patient age 5 years or older (additional time may be reported with 75550, as appropriate) Diagnosis Code(s): --- Professional --- Z12.11, Encounter for screening for malignant neoplasm of colon K64.9, Unspecified hemorrhoids K63.5, Polyp of colon K57.30, Diverticulosis of large intestine without perforation or abscess without bleeding CPT copyright 2020 [employer]. All rights reserved. The codes documented in this report are preliminary and upon statistical developer review may be revised to meet current [...] Negative (Non Reactive) 04/26/2020 1:03 PM CDT [facility] Comment:HIV-1 p24 Antigen an d HIV-1/HIV-2 Antibody not detected Blood Venipuncture / Unknown 04/26/2020 8:15 AM CDT 04/26/2020 8:15 AM CDT Anna Wilkes MD LAB_1 Final Result [facility] [address] * (ABNORMAL) MM Mammogram Screening Bilat [...] DXA REPORT Patient Name: Dean [place]: Francesco Polanco MD Densitometer: BR Supply Horizon W (S/N [id number]) EASTMAN BONE OSTEOPOROSIS RISK FACTORS FROM PATIENT [...] trabecular bone, and is derived from the gizbl-zk-zuxdl changes of bone density embedded in the [...] - 09/19/2018 1:38 PM CDT Performed at [facility], [address] [place] [address] CLIA number [id number] us Janelle Carranza MD LAB_1 Final Resul t [facility] [address] [place] [address] from Last 3 Months or Most Recently Relevant to Health Maintenance Insurance [facility] Care Teams Top Ironer Relationship Specialty Start Date End Date Anna Wilkes MD [address] [place], [place] [address] PCP - General 08/23/14
--- OUTSIDE RECORDS SUMMARY | 2024-09-21 19:57 | XMS_ITS | Encounter Summary ---
Author Organization [facility] Address [address] [place] [address] Care Team Providers Care Gospel Worker Name Role Phone Elsewhere, Pcp Primary Care Provider Unavailabl e Encounter Details Date Type Department Care Team (Late st Contact Info) Description 09/15/2024 Results Follow-Up [facility] [address] [place] [phone] Augustine Davis M.D. 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
--- OUTSIDE RECORDS SUMMARY | 2024-09-21 19:57 | XMS_ITS | Clinical Summary ---
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 Gender Identity Not on file Sexual Orientation Not on file Obstetrics History Last Filed Vital Signs Vital Sign Reading Time Taken Comments Blood Pressure 108/78 02/18/2015 3:10 PM CDT Pulse 90 02/18/2015 3:10 PM CDT Temperature 36.7 C (98 F) 07/21/2014 3:49 PM DONOR SPECIALIST Respiratory Rate 16 02/18/2015 3:10 PM CDT [...] (#1) 2024 Medical Devices Implanted Type Area Test Lead Device Identifier Shelf Expiration Date Model / Serial / Lot Sut Bio Mini Revo W/#2 Hi Fi - [id number] Implanted:Qty: 3 on 12/30/2009 at [facility] Right: Shoulder [employer]/CONMED 01/05/2011 [id number]# / / [id number] Sut Bio Mini Revo W/#2 Hi Fi - [id number] Implanted:Qty: 1 on 12/30/2009 at [facility] Right: Shoulder [employer]/CONMED 09/05/2010 [id number]# / / [id number] Sut Bio Mini Revo W/#2 Hi Fi - [id number] Implanted:Qty: 1 on 12/30/2009 at [facility] Right: Shoulder [employer]/CONMED 12/06/2010 [id number]# / / [id number] Insurance [facility]1 PB ONLY [facility] * Guarantor: JOSE A DEL ROSARIO Account Type Relation to Patient Date of Phone Billing Address [employer] [id number] [place] [address] [employer] * Guarantor: JOSE A DIAS Account Type Relation to Patient Date of Phone Billing Address Personal/Family 1970 [facility] [address] Advance Directives * Full Code (Latest Code [...] 9:15 AM 12/30/2009 1:20 PM Care Teams Bath Mix Operator Relationship Specialty Start Date End Date Anna Wilkes MD . PCP - General Family Practice 02/15/15 None, Provided . 07/05/06
--- OUTSIDE RECORDS SUMMARY | 2024-09-21 19:57 | XMS_ITS | Encounter Summary ---
Author Organization [facility] Address [address] [place] [address] Care Team Providers Care Buffing Machine Tender Name Role Phone Elsewhere, Pcp Primary Care Provider Unavailabl e Reason for Visit * Reason Comments Back Pain Patient reports arou nd 10:30 am this morning she bent over to brass pickler her granddaughter and she threw her back out. She states the pain radiates down her left hip and ankle. Encounter Details Date Type Department Care Team (Late st Contact Info) Description 09/21/2024 2:22 PM CDT - 09/21/2024 3:38 PM CDT Emergency [facility] [address] [place] [address] Mary Moreno, YVONNE, C.N.P., M.S.N. 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 She states the pain radiates down her left hip and ankle. ). HISTORY OF PRESENT ILLNESS Dean Erickson is a 54 y.o. female who presents for evaluation of low back pain. Patient states at 10:30 a.m. this morning she bent over to brass pickler her grandson and felt a sharp pain in her left low back. Her pain radiated down her left posterior leg to just below the knee. She states the pain is progressively gotten worse throughout the day. She has had a history of low back pain and cervicalneck pain. She states she sees a web operations specialist in the [facility] and has radiofrequency injections every 6 months. [...] floor. The ER and urgent care nurse's corporate law assistant her to the exam table. She was [...] followed by the spine Clinic in the [facility], I did recommend she call [...] documented as of this encounter Care Teams Buffing Machine Tender Relationship Specialty Start Date End Date Elsewhere, Pcp PCP - General Internal Medicine 09/21/24 documented as of this encounter
--- OUTSIDE RECORDS SUMMARY | 2024-09-21 19:57 | XMS_ITS | Encounter Summary ---
Author Organization [employer] Address [address] [place] [address] Care Team Providers Care Sewer Line Photo Inspector Name Role Phone Neil Wilkes MD Primary Care Provider + [phone] Reason for Visit * Reason Comments Refill ondansetron (ZOFRAN- ODT) 8 MG disintegrating tablet [Pharmacy Med Name: ONDANSETRON 8MG TBDP] Encounter Details Date Type Department Care Team (Late st Contact Info) Description 09/17/2024 [facility] [address] [place], [place] [address] Neil Wilkes MD [address] [place], [place] [phone] Refill (ondansetron (ZOFRAN-ODT) 8 MG disintegrating tablet [...] NEIL WILKES) [employer] Emb[employer]ded Refills, Reference: [id number], 09/17/2024 5:09:12 AM CDT, Pool: ELIDIA Refill Centralized Services - Primary Care [[id number]] (49588) documented in this encounter Plan of Treatment Upcoming Encounters Date Type Department Care Team (Late st Contact Info) Description 09/22/2024 3:15 PM CDT [facility] [address] [place], [place] [phone] Neil Wilkes MD [address] [place], [place] [address] documented as of this encounter Visit Diagnoses Not on filedocumented in this encounter Care Teams Sewer Line Photo Inspector Relationship Specialty Start Date End Date Neil Wilkes MD [address] [place], [place] [phone] PCP - General 08/23/14 documented as of this encounter
--- OUTSIDE RECORDS SUMMARY | 2024-09-21 19:57 | XMS_ITS | Encounter Summary ---
Author Organization [employer] Address [address] [place] [address] Care Team Providers Care Business Teacher Name Role Phone Anna Wilkes MD Primary Care Provider + [phone] Reason for Referral * Procedure/Equipment (Routine) - Authorized Specialty Diagnoses / Procedures Referred By Theresaac t Referred To Contact Diagnoses Chronic radicular low back pain Procedures MR Lumbar Spine WO IV Cont Anna Wilkes MD [address] [place] [address] Phone: tel: fax: Referral ID Status Reason Start Date Expiration Date V isits Requested Visits Authorized [id number] Authorized 08/28/2024 11/27/2025 1 1 ET SERVER Encounter Details Date Type Department Care Team (Late st Contact Info) Description 08/28/2024 Notes/Orders [facility] [address] [place], [place] [phone] Anna Wilkes MD [address] [place], [place] [phone] Chronic radicular low back pain (Primary Dx) [...] Info) Description 09/22/2024 3:15 PM CDT Telemedicine [facility] [address] [place], [place] [address] Anna Wilkes MD [address] [place] [address] Scheduled Orders Name Type Priority Associated Diagnoses Orde r Schedule MR Lumbar Spine WO IV Cont Imaging New Routine Chronic radicular low back pain Expected: 08/28/2024 (Approximate), Expires: 08/28/2025 documented as of this encounter Visit Diagnoses Diagnosis Chronic radicular low back pain- Primary Thoracic or lumbosacral neuritis or radiculitis, unspecified documented in this encounter Care Teams Business Teacher Relationship Specialty Start Date End Date Anna Wilkes MD [address] [place], [place] [phone] PCP - General 08/23/14 documented as of this encounter
--- OUTSIDE RECORDS SUMMARY | 2024-09-21 19:57 | XMS_ITS | Clinical Summary ---
Author Organization [facility] Address [address] [place] [address] Care Team Providers Care Cracker Off Name Role Phone Elsewhere, Pcp Primary Care Provider Unavailabl e Source Comments Patient records contain information from all sites at [facility]. For routine questions regarding patient records, call [phone] during business hours, M-F 8:00 AM - 5:00 PM Central Time. Record requests for emergency care only can be directed to [phone] at any time.[facility] Allergies Active Allergy Reactions Criticality Noted Date Comments Codeine Hives (Reselect Reaction) 07/05/2006 Codeine only Dihydroergotamine Diarrhea 01/19/2014 Jeobivmx-Uzl-Ff-Acetaminoph en Hives (Reselect Reaction) 06/26/2013 Hydrocodone Hives [...] CDT - 09/21/2024 3:38 PM CDT Emergency [place] [facility] [address] [place] [phone] Mary Moreno APRN, C.N.P., M.S.N. Pain Low Back Acute (Primary Dx) Discharge Disposition: Home or Self Care 09/15/2024 Results Follow-Up [place] [facility] [address] [place] [address], [place] [address] Augustine Davis M.D. Bacterial Culture, Aerobic + Susceptibility, Urine 09/13/2024 5:14 PM CDT - 09/13/2024 7:10 PM CDT Emergency [place] [facility] [address] [place] [address], [place] [address] Héctor Allen M.D. 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 LAB URINE ORDERABLES Final Result Performing Organization Address [facility]/ZIP Co de Phone Number [facility] [address] [place] [address], [facility] NPRG [address] [address] * (ABNORMAL) Microscopic Manual (09/13/2024 5:31 PM [...] URINE ORDERABLES Final Result Performing Organization Address City/[facility]/ZIP Co de Phone Number [facility] [address] [place] [address], [facility] NPRG [address] [address] * (ABNORMAL) Bacterial Culture, Aerobic + Susceptibility, [...] PETRA (MCG/ML) <=20 mcg/mL: Susceptible us Héctor Allen M.D. LAB MICROBIOLOGY - GENERAL ORDERABLES Final Result [facility] [address] [place] [address], [place] MKTO [facility] [place] [address] [place] [address] * Test, POCT, Urine (Lab) (09/13/2024 5:31 PM CDT) Test, POCT, U Negative 09/13/2024 5:42 PM CDT NPRG Urine (Urine, Midstream) 09/13/2024 5:31 PM CDT 09/13/2024 5:34 PM CDT us Héctor Allen M.D. LAB POCT ORDERABLES - DEVIC E Final Result [facility] [address] [place] [address], [facility] NPRG [facility] [address] [place] [address] * CBC without Differential (09/13/2024 5:30 PM [...] M.D. LAB BLOOD ADD-ON Final Resu lt [facility] [address] [place] [address], [facility] NPRG [facility] [address] [place] [address] * (ABNORMAL) Basic Metabolic Panel (09/13/2024 5:30 [...] M.D. LAB BLOOD ADD-ON Final Resu lt [facility] [address] [place] [address], [facility] NPRG [facility] [address] [place] [address] from Last 3 Months Additional Health Concerns Infection Onset Date Last Indicated Protective Environment 09/13/2024 Insurance [facility] Care Teams Cracker Off Relationship Specialty Start Date End Date Elsewhere, Pcp PCP - General Internal Medicine 09/21/24
--- OUTSIDE RECORDS SUMMARY | 2024-09-21 19:57 | XMS_ITS | Encounter Summary ---
Author Organization [email or web address] Address [address] [place] [address] Care Team Providers Care Gas Meter Repair Supervisor Name Role Phone Anna Wilkes MD Primary Care Provider + [phone] Reason for Visit * Reason Comments HYPERTENSION Entered automaticall y based on patient selection in [employer]. Encounter Details Date Type Department Care Team (Late st Contact Info) Description 08/17/2024 12:05 AM WORKERS COMPENSATION CLAIMS SPECIALIST [facility] [address] [place], [place] [address] Anna Wilkes MD [address] [place], [place] [address] Dx: Screening for hypertension (Primary Dx) Social [...] Comments Blood Pressure 152/101 08/14/2024 1:21 PM WORKERS COMPENSATION CLAIMS SPECIALIST Pulse - - Temperature - - Respiratory Rate - - Oxygen Saturation - - Inhaled Oxygen Concentration - - Weight - - Height - - Body Mass Index - - documented in this encounter Nursing Notes * Loretta Martin MA - 08/28/2024 1:22 PM CST Clinician: Review and advise Patient/veterinarian laboratory animal care request: Input needed: Home BP Results and [...] schedule a Clinician visit within 1-2 weeks. ERS COMPENSATION CLAIMS SPECIALIST documented in this encounter Plan of Treatment Upcoming Encounters Date Type Department Care Team (Late st Contact Info) Description 09/22/2024 3:15 PM CDT Telemedicine [facility] [address] [place], [place] [address] Anna Wilkes MD [address] [place] [phone] documented as of this encounter Visit Diagnoses Diagnosis Screening for hypertension- Primary documented in this encounter Care Teams Gas Meter Repair Supervisor Relationship Specialty Start Date End Date Anna Wilkes MD [address] [facility] [place] [address] PCP - General 08/23/14 documented as of this encounter
--- OUTSIDE RECORDS SUMMARY | 2024-09-21 19:57 | XMS_ITS | Encounter Summary ---
Author Organization [employer] Address [address] [place] [address] Care Team Providers Care Assembly Associate Name Role Phone Anna Wilkes MD Primary Care Provider + [phone] Reason for Visit * Reason Comments Back Pain Encounter Details Date Type Department Care Team (Late st Contact Info) Description 07/31/2024 [facility] [address] [place], [place] [phone] Anna Wilkes MD [address] [place], [place] [address] Back Pain Social History Tobacco Use Types [...] take this in the morning with food. RONMENTAL SAMPLING TECHNICIAN * Mathesu Fajardo RN - 07/31/2024 9:17 AM CST I would be happy to forward your message (request) onto your clinician, however please note that a potential charge may apply in doing so. Do I have your approval to forward this onto them? Yes Clinician: Review and advise and Patient is expecting a call back from [facility] Patient/health care aide request: Input needed: ongoing symptoms and New medication Specific Request: (Triage Encounter 07/31/24) - patient is requesting input on severe pain control prior to 08/03/24 appointment, reports previously prescribed steroid pack for former back issues. RN advised Seen in Office Today / Urgent Care, patient requests 08/03/24 appointment and message to PCP. RONMENTAL SAMPLING TECHNICIAN * Matheus Fajardo RN - 07/31/2024 8:56 [...] medicine and CARE ADVICE Protocols used: Back [id number] RONMENTAL SAMPLING TECHNICIAN * Singh Buitrago - 07/31/2024 8:51 AM [...] else I can help you with today? RONMENTAL SAMPLING TECHNICIAN documented in this encounter Plan of Treatment Upcoming Encounters Date Type Department Care Team (Late st Contact Info) Description 09/22/2024 3:15 PM CDT Telemedicine [place] [address] [place] [address] Anna Wilkes MD [address] [place] [address] documented as of this encounter Visit Diagnoses Diagnosis Chronic bilateral low back pain without sciatica- Primary documented in this encounter Care Teams Assembly Associate Relationship Specialty Start Date End Date Anna Wilkes MD [address] [place] [id number] PCP - General 08/23/14 documented as of this encounter
--- OUTSIDE RECORDS SUMMARY | 2024-09-21 19:57 | XMS_ITS | Encounter Summary ---
Author Organization [employer] Address [address] [place] [address] Care Team Providers Care Char Filter Tank Tender Head Name Role Phone Anna Wilkes MD Primary Care Provider + [phone] Reason for Visit * Reason Comments QUESTIONS, GENERAL Entered automaticall y based on patient selection in [employer]. Encounter Details Date Type Department Care Team (Late st Contact Info) Description 09/11/2024 9:00 AM TRANSFER KNITTER [facility] [address] [place], [place] [phone] Anna Wilkes MD [address] [place], [place] [address] Chief Comp: QUESTIONS, GENERAL Social History Tobacco [...] Info) Description 09/22/2024 3:15 PM CDT Telemedicine [facility] [address] [place], [place] [address] Anna Wilkes MD [address] [place], [place] [phone] documented as of this encounter Visit Diagnoses Not on filedocumented in this encounter Care Teams Char Filter Tank Tender Head Relationship Specialty Start Date End Date Anna Wilkes MD [address] [place], [place] [phone] PCP - General 08/23/14 documented as of this encounter
--- OUTSIDE RECORDS SUMMARY | 2024-09-21 19:57 | XMS_ITS | Encounter Summary ---
Author Organization [employer] Address [address] [place] [address] Care Team Providers Care Schedule Hanger Name Role Phone Neil Wilkes MD Primary Care Provider + [phone] Reason for Visit * Reason Comments Refill Meloxicam (MOBIC) 15 MG tablet [Pharmacy Med Name: MELOXICAM 15MG TABS] Encounter Details Date Type Department Care Team (Late st Contact Info) Description 08/30/20[facility] [address] [place], [place] [phone] Neil Wilkes MD [address] [place], [place] [address] Refill (Meloxicam (MOBIC) 15 MG tablet [Pharmacy [...] on 01/29/2023 HGB: 13.2 g/dL on 01/23/2024 [facility] Embedded Refills, Reference: [id number], 08/30/2024 5:19:30 AM NAVAL AIRCREWMAN AVIONICS, Pool: EL[place]IA Refill Centralized Services - Primary Care [[id number]] ([id number]) L AIRCREWMAN AVIONICS * Megan Dickerson - 08/30/2024 5:19 AM [...] 6-8 weeks. Team to call and update L AIRCREWMAN AVIONICS * Megan Dickerson - 08/30/2024 5:19 AM CST The following lab order(s) may be associated with the following Patient Result Comment (Entered by Neil Wilkes MD at 01/26/2024 12:31 PM): COMPLETE BLOOD COUNT-W/DIFF Your CBC continues to be very good and unlikely a picture of sepsis which would indicate the bacteria had gotten into her blood stream. L AIRCREWMAN AVIONICS documented in this encounter Plan of Treatment Upcoming Encounters Date Type Department Care Team (Late st Contact Info) Description 09/22/2024 3:15 PM CDT Telemedicine [facility] [address] [place], [place] [address] Neil Wilkes MD [address] [place], [place] [phone] documented as of this encounter Visit Diagnoses Not on filedocumented in this encounter Care Teams Schedule Hanger Relationship Specialty Start Date End Date Neil Wilkes MD [address] [place], [place] [address] PCP - General 08/23/14 documented as of this encounter
--- OUTSIDE RECORDS SUMMARY | 2024-09-21 19:57 | XMS_ITS | Encounter Summary ---
Author Organization [facility] Address [address] [place] [address] Care Team Providers Care Liner Installer Name Role Phone Anna Wilkes MD Primary Care Provider + [phone] Encounter Details Date Type Department Care Team (Late st Contact Info) Description 10/13/2012 [facility] Only [facility] [address] [place] [address] Tariq Cao MD [address] [place] [address] Biceps tendinopathy Social History Tobacco Use Types [...] Info) Description 09/22/2024 3:15 PM CDT [facility] [address] [place], [place] [address] Anna Wilkes MD [address] [place], [place] [address] documented as of this encounter Visit Diagnoses Diagnosis Biceps tendinopathy Bicipital tenosynovitis documented in this encounter Additional Health Concerns Infection Onset Date Last Indicated Resolved Time R/O COVID19 03/08/2020 03/08/2020 03/12/2020 7:18 AM CDT R/O COVID19 04/30/2021 04/30/2021 05/01/2021 2:03 AM CDT documented as of this encounter Care Teams Liner Installer Relationship Specialty Start Date End Date Anna Wilkes MD [address] [place] [address] PCP - General 08/23/14 documented as of this encounter
--- OUTSIDE RECORDS SUMMARY | 2024-09-21 19:57 | XMS_ITS | Encounter Summary ---
Author Organization [employer] Address [address] [place] [address] Care Team Providers Care Electronic Sales And Service Technician Name Role Phone Neil Wilkes MD Primary Care Provider + [phone] Reason for Visit * Reason Comments Refill Meloxicam (MOBIC) 15 MG tablet [Pharmacy Med Name: MELOXICAM 15MG TABS] Encounter Details Date Type Department Care Team (Late st Contact Info) Description 08/29/2024 [facility] [address] [place], [place] [phone] Neil Wilkes MD [address] [place], [place] [address] Refill (Meloxicam (MOBIC) 15 MG tablet [Pharmacy [...] on 01/29/2023 HGB: 13.2 g/dL on 01/23/2024 [facility] Embedded Refills, Reference: [id number], 08/29/2024 5:06:31 AM OBSTETRICS NURSENathan: [place] Refill Centralized Services - Primary Care [[id number]] ([id number]) ETRICS NURSE * Megan Dickerson - 08/29/2024 5:06 AM [...] bacteria had gotten into her blood stream. ETRICS NURSE documented in this encounter Plan of Treatment Upcoming Encounters Date Type Department Care Team (Late st Contact Info) Description 09/22/2024 3:15 PM CDT Telemedicine [place] [place], [place] [address] Neil Wilkes MD [address] [facility] [place] [address] documented as of this encounter Visit Diagnoses Not on filedocumented in this encounter Care Teams Electronic Sales And Service Technician Relationship Specialty Start Date End Date Neil Wilkes MD [address] [facility] [place] [address] PCP - General 08/23/14 documented as of this encounter
--- OUTSIDE RECORDS SUMMARY | 2024-09-21 19:57 | XMS_ITS | Encounter Summary ---
Author Organization [facility] Address [address] [place] [address] Care Team Providers Care Warp Spooler Name Role Phone Unavailable Primary Care Provider Unavailabl e Reason for Visit * Reason Comments Flank Pain Patient presents wit h burning with urination along with (R) flank. Patient has history of kidney stones. Encounter Details Date Type Department Care Team (Late st Contact Info) Description 09/13/2024 5:14 PM CDT - 09/13/2024 7:10 PM CDT Emergency [facility] [address] [place] [phone] Héctor Allen M.D. [address] [place] [address] Pyelonephritis Acute (Primary Dx); Pain [...] on file Legal Sex Female 6:09 PM MUSIC EDUCATION ADJUNCT PROFESSOR Gender Identity Not on file Sexual Orientation [...] sent through Care Everywhere. * Pyelonephritis Adult (Jordanian) documented in this encounter Medications at Time [...] of this encounter ED Notes * Héctor Aleln M.D. - 09/13/2024 7:10 PM CDT CHIEF [...] QI(U) Negative Bilirubin Negative pH 7.0 Specific Guthrie 1.020 Urobilinogen 0.2 MICROSCOPIC MANUAL - Abnormal [...] Allen M.D. LAB URINE ORDERABLES Final Result [facility] [address] [place] [address], [facility] NPRG [facility] [address] [place] [address] * (ABNORMAL) Bacterial Culture, Aerobic + Susceptibility, Urine (09/13/2024 5:31 PM CDT) Pathologist [facility] [place] Urine Culture ESCHERICHIA COLI >100,000 cfu/mL (A) [...] LAB MICROBIOLOGY - GENERAL ORDERABLES Final Result [facility] [address] [place] [address], [place] [address] * (ABNORMAL) Urinalysis with Microscopic if Indicated: [...] 8.0 09/13/2024 5:37 PM CDT NPRG Specific Guthrie 1.020 1.001 - 1.035 09/13/2024 5:37 PM CDT NPRG Urobilinogen 0.2 0.2 - 1.0 mg/dL 09/13/2024 5:37 PM CDT NPRG Urine (Urine, Midstream) 09/13/2024 5:31 PM CDT 09/13/2024 5:34 PM CDT Héctor Allen M.D. LAB URINE ORDERABLES Final Result Performing Organization Address [facility]/ZIP Co de Phone Number [facility] [address] [place] [address], [facility] NPRG [address] [address] * Test, POCT, Urine (Lab) (09/13/2024 5:31 PM CDT) Test, POCT, U Negative 09/13/2024 5:42 PM CDT NPRG Urine (Urine, Midstream) 09/13/2024 5:31 PM CDT 09/13/2024 5:34 PM CDT Héctor Allen M.D. LAB POCT ORDERABLES - DEVIC E Final Result Performing Organization Address City/[facility]/ZIP Co de Phone Number [facility] [address] [place] [address], [facility] [address] [address] * CBC without Differential (09/13/2024 5:30 PM [...] M.D. LAB BLOOD ADD-ON Final Resu lt [facility] [address] [place] [address], [facility] NPRG [facility] [address] [place] [address] * (ABNORMAL) Basic Metabolic Panel (09/13/2024 5:30 [...] M.D. LAB BLOOD ADD-ON Final Resu lt [facility] [address] [place] [address], [facility] NPRG [facility] [address] [place] [address] documented in this encounter Visit Diagnoses Diagnosis [...] this section may contain times in both MUSIC EDUCATION ADJUNCT PROFESSOR and CDT. Scheduled Medication Order 09/11/2024 09/12/2024 [...]
[2024-09-21 20:00] VITALS: BP 135/84; PULSE 85; RESP 18; TEMP 36.7
== END 2024-09-21 20:00 | disposition home or self-care (01) ==
PROVIDERS: Emergency Provider Emergency Medicine Emergency Medical Services; PCP Family Medicine
DX: M54.16 Radiculopathy, lumbar region (principal)
CPT/HCPCS: 94761; 96372; 99283; 99284; J1171

== ENCOUNTER 2025-01-18 16:57 | Emergency (ER) | payer BC, SELFPAY ==
--- OUTSIDE RECORDS SUMMARY | 2014-08-11 06:36 | XMS_ITS | Continuity of Care Document ---
Author Organization [facility] Address [address] [address] [place] [address] Phone Care Team Providers Care Copra Sampler Name Role Phone Kevyn Wong MD Unavailable Unavailable Advance Directives Directive Yes / No Effective Date File Name No Information Encounters Encounter Description Practice Location Reason(s) For Visit Diagnoses Date Provider Providers Copied on Encounter [facility], [address] [address], [place], [place], [id number], [place] tel:[phone] [facility] No Information 5 Link MD Bagley. [address] [facility], [facility] [address], [place], [place], [id number] , [place]. tel:[phone] Referring Provider: Jorge Collado MD, [address] [place] [address], [address]. tel:[phone] Family History Family Member Type Diagnosis Age At Onset No Information Payers Payer name Insurance type Covered constitution party ID Authoriza tion(s) No Information Social History Type Description Quantity Date Captured Comments Sex Female Smoking Status No Information Chief Complaint And Reason For Visit No Information Reason For Referral Reason For Referral No Information History Of Present Illness Encounter Date Complaint History Of Prese nt Illness No Information Functional Status Date Functional Assessmen t No Information Instructions Date Instruction Additional Infor mation No Information Assessments Type Assessment Date No Information Patient Care Teams Name Effective Dates (start - stop) Status Members No Information
--- OUTSIDE RECORDS SUMMARY | 2014-08-11 06:36 | XMS_ITS | Continuity of Care Document ---
Author Organization [facility] Address [address] [address] [place] [address] Phone Care Team Providers Care Heel Reducer Name Role Phone Kevyn Wong MD Unavailable Unavailable Advance Directives Directive Yes / No Effective Date File Name No Information Encounters Encounter Description Practice Location Reason(s) For Visit Diagnoses Date Provider Providers Copied on Encounter [facility], [address] [address], [place], [place], [address], [place] tel:[phone] [facility] No Information 5 Link MD Bagley. [address] [facility], [facility] [address], [place], [place], [id number] , [place]. tel:[phone] Referring Provider: Jorge Collado MD, [address] [place] [address], [address]. tel:[phone] Family History Family Member Type Diagnosis Age [...]
--- OUTSIDE RECORDS SUMMARY | 2014-10-13 06:30 | XMS_ITS | Continuity of Care Document ---
Author Organization [facility] Address [address] [facility] [address] [place] [address] Phone Care Team Providers Care Dye Reel Operator Name Role Phone Unavailable Unavailable Unavailable Allergies, [...] Providers Copied on Encounter FARHAT Sosa, [address] [facility] [address], [place], [place], [address], [place] tel:[phone] [facility] No Information 5 No Information Referring Provider: REFERRAL SELF, ELADIO. New Pt Eval 45 Min FARHAT Sosa, [address] [facility] [address], [place], [place], [address], [place] tel:[phone] [facility] No Information No Information Referring Provider: REFERRAL SELF, ELADIO. Family History Family Member Type Diagnosis Age At Onset Mother Problem (finding) diabetes melli tus in first degree relative Mother Problem (finding) Arthritis Payers Payer name Insurance type Covered libertarian ID Milliebozena wayne(s) [employer] [place] [id number] Social History Type Description Quantity Date Captured [...]
--- OUTSIDE RECORDS SUMMARY | 2014-10-13 06:30 | XMS_ITS | Continuity of Care Document ---
Author Organization [facility] Address [address] [facility] [address] [place] [address] Phone Care Team Providers Care Mobile Application Architect Name Role Phone Unavailable Unavailable Unavailable Allergies, Adverse Reactions, Alerts Substance Reaction Status Criticality minocycline Hives(mild) Active No Information ketorolac Hives(mild) Active No Information morphine Hives(mild) Active No Information LOPERAMIDE HCL Hives(mild) Active No Informatio n SUMATRIPTAN SUCCINATE Hives(mild) Active No Inf ormation acetaminophen Hives(mild) Active No Information Medications Medication Instructions Dosage Effective Dates (start - stop) Status Comments estradiol 1 mg tablet take 1 tablet by o ral route every day 1 MG - Active zolpidem 10 mg tablet take 1 tablet by o ral route every day at bedtime 10 MG - Active Benadryl 25 mg capsule take 2 capsule by oral route every 4 - 6 hours as needed 50 MG - Active omeprazole 40 mg capsule,delayed release take 1 capsule by oral route every bedtime 40 MG - Active gabapentin 400 mg capsule take 1 capsule by oral route 3 times every day 400 MG - Active alprazolam 0.5 mg tablet take 1 tablet by oral route 3 times every day PRN 0.5 MG - Active ondansetron HCl 8 mg tablet take 1 tablet by oral route every 8 hours for 2 days 8 MG - Active benzonatate 100 mg capsule take 1 capsule by oral route 4 times every day 100 MG - Active mirtazapine 30 mg tablet take 1 tablet by oral route every day before bedtime 30 MG - Active Procedures Procedure Date Epid/SAB Lumbosacral Fluoroscopic Guidance For Needle Placeme nt - Spine New Pt Eval 45 Min Pain Assessment And Follow Up Plan Docum ented Advance Directives Directive Yes / No Effective Date File Name No Information Encounters Encounter Description Practice Location Reason(s) For Visit Diagnoses Date Provider Providers Copied on Encounter FARHAT Sosa, [address] [facility] [address], [place], [place], [id number], [place] tel:[phone] [facility] No Information 5 No Information Referring Provider: REFERRAL SELF, ELADIO. New Pt Eval 45 Min FARHAT Sosa, [address] [facility] [address], [place], [place], [address], [place] tel:[phone] [facility] No Information No Information Referring Provider: REFERRAL SELF, ELADIO. Family History Family Member Type Diagnosis Age At Onset Mother Problem (finding) diabetes melli tus in first degree relative Mother Problem (finding) Arthritis Payers Payer name Insurance type Covered democrat ID Milliebozena wayne(s) [employer] [place] [id number] Social History Type Description Quantity Date Captured [...]
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
--- OUTSIDE RECORDS SUMMARY | 2022-07-25 08:40 | XMS_ITS | Continuity of Care Document ---
Author Organization [facility] Address [address] [facility] [place] [address] Phone Care Team Providers Care Director Of Scientific Research Name Role Phone Otis MARSHA Mary Unavailable [...] Copied on Encounter OFFICE/OUTPAT IENT VISIT, EST [facility], [address] [facility] [place], [id number] , [place] tel:[phone] [facility] [place] Back Pain (chief complaint) Chronic pain syndromePain in right shoulderSpondylosi s without myelopathy or radiculopathy, lumbar regionRadiculopath y, cervical regionLong term (current) use of opiate analgesic 3 Madeline Mary. [address] [facility] [address], [place], [id number] , [place]. tel:[phone] Referring Provider: Hunter Strauss, [address] [place], [place] [address], [address] . tel:[phone] [facility], [address] [place] [address] [place], [place], [id number] , [place] tel: [phone] [facility] [place] No Information 3 Arlen Richter. [place], [address], [place], [address], [place]. tel: [phone] [facility], [address] [place] [address], [id number] , [place] tel: [phone] [facility] [place] No Information 2 [facility] Mary. [address] [facility] [address], [place], [id number] , [place]. tel: [phone] Referring Provider: Hunter Strauss, [address] [place] [address] [place], [address] . tel:[phone] [facility], [address] [place] [address], [id number] , [place] tel: [phone] [facility] No Information 2 [facility] Mary. [address] [place] [address] Rd [address], [place], [id number] , [place]. tel: [phone] Referring Provider: Hunter Strauss, [address] [place] [address] [place], [address] . tel:[phone] OFFICE VISIT, EST TELEMEDICINE [facility], [address] [place] [address] [place], [place], [id number] , [place] tel: [phone] [facility] Back Pain (chief complaint) Chronic pain syndromeLong term (current) use of opiate analgesicSpondylos is without myelopathy or radiculopathy, lumbar regionPain in right shoulderRadiculopa thy, cervical region 2 [facility] Mary. [address] [facility] [address], [place], [id number] , [place]. tel: [phone] [facility], [address] [facility] [place], [id number] , [place] tel:[phone] [facility] [place] No Information 2 Otis Hernandez. [address] [facility] [address], [place], [id number] , [place]. tel:[phone] Family History Family Member Type Diagnosis Age At Onset No Information Payers Payer name Insurance type Covered republican ID Authorlos black(s) [facility] Individual And Family Plans [id number] Social History Type Description Quantity Date [...] Goal AST (SGOT). 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 Due on due Goal Creatinine. Due on due Goal ALT (SGPT). Due on due Goal PANEL MAKER Scanned. Due on due Goal Order Annual PT. Due on due Goal OARS. Due on due Goal UDT. Due on due Goal HPV. Due on due Goal Unhealthy [...] Goal AST (SGOT). 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 Due on due Goal Creatinine. Due on due Goal ALT (SGPT). Due on due Goal Order Annual PT. Due on due Goal UDT. Due on due Goal OARS. Due on due Goal PANEL MAKER Scanned. Due on due Goal Lipid panel. Due [...] due Goal CT-Colonography. Due on due Goal Weight. Due on [...] on du e Future Order: Radiology Order MR Buck WO Right (MRSHOUWO), Sent on: Sent History [...] imaging with Dr. Allen Kelley MD through [facility]. Results showed an already existing herniated disc [...] a 52 y/o female who presents via [place] for initial consultation in the setting of [...] both the neck and low back with [facility]. The ablation for the neck and low back provides around 85% relief and lasts for about 5-6 months. Continues to find interest in repeating the procedure through [facility]. Also reports various completion of PT over the last 10 years. Was previously established with [facility]. Notes she was with them for about 6 years. She states she was reluctant to switch to another pain clinic but was forced to d/t the fact her insurance was unable to cover her care with [facility] anymore. She discloses 3 instances in which her UDT results did not show any presence of her current medication. Reports she was issued a violation from [facility] for the first time last month.Currently managed on Tizanidine 2mg and Dilaudid 2mg with significant benefit. Requests a note from [facility] which states we do not prescribed opioid medications on the first visit in order to receive a bridge prescription with her PCP.Patient is interested in RFA and medication management from [facility]. No other concerns today. Functional Status [...] hitting a guardrail. Was previously established with [facility] for about 6-7 years. Patient states she had to switch pain clinics d/t her insurance no longer covering her care at [facility]. Discloses the fact 3 of her UDT results did not show any presence of her medication and was issued a violation in 04/2022. Have tried RFA for both the neck and low back several times with [facility]. Reports about 85% pain relief each [...] up with Dr. Allen Kelley MD through 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 Per the records from [facility], no presence of Dilaudid was shown in the UDT results of 11/10/21, 07/13/21, and 04/30/22. UDT on 04/30/22 also had presence of Methylphenidate. MME is Butrans 5mcg/hr. Patient has been managing medications appropriately, and is not confused or oversedated during our office visit. [facility] queried and showed no outside prescriptions. UDT results from 07/04/22 reviewed and are consistent with current medication regimen. Appropriate to continue with opioid therapy Mental Status Date Cognitive Assessment Orientation - [place] ed to time, place, person, situation. Patient Care Teams Name Effective Dates (start - stop) Status Members No Information
--- OUTSIDE RECORDS SUMMARY | 2024-12-08 13:15 | XMS_ITS | Encounter Summary ---
Author Organization [employer] Address [address] [place] [address] Care Team Providers Care Rehabilitation Nurse Name Role Phone Anna Wilkes MD Primary Care Provider + [phone] Reason for Referral * Consult/Transfer Care (Routine) - New Request Specialty Diagnoses / Procedures Referred By Contac t Referred To Contact Diagnoses Anxiety (HRC) Major depressive disorder, recurrent, severe without psychotic features (HRC) Anna Wilkes MD [address] [place] [address] Phone: tel: fax: Referral ID Status Reason Start Date Expiration Date V isits Requested Visits Authorized [id number] New Request 12/08/2024 03/09/2026 1 1 Scheduling Instructions Your clinician has recommended an appointment with Behavioral Health. You may call [phone] to schedule your appointment. This recommended service/s may not be covered by your health plan (health insurance). To find out your specific benefit coverage, please call the number on your insurance card. Please note that in order to maintain access for all patients, Behavioral Health does have a late cancellation policy. In order to avoid being restricted from scheduling future appointments in Behavioral Health you will need to cancel at least 24 hours in advance. We request you that you arrive 30 minutes before your first appointment to complete paperwork. Question Answer Appointment Urgency? Non-Urgent Reason for request? anxiety Requested Services? Therapy/Counseling Pt aware and agrees to this order: Confirmed with patient Reason for Visit * Reason Onset Date Comments REFERRAL REQUEST Therapy Video Visit 12/08/2024 Encounter Details Date Type Department Care Team (Late st Contact Info) Description 12/08/2024 1:15 PM CDT [facility] [address] [place], [place] [phone] Anna Wilkes MD [address] [place], [place] [phone] Encounter for long-term (current) use of medications (Primary Dx); Urinary tract infection without hematuria, site unspecified; Anxiety (HRC); Major depressive disorder, recurrent, severe without psychotic features (HRC) Social History Tobacco Use Types Packs/Day Years Used Date Smoking Tobacco: Every Day Cigarettes 0.5 8.4 Started: 09/11/2016 Smokeless Tobacco: Never Alcohol Use [...] Sign Reading Time Taken Comments Blood Pressure - - Pulse - - Temperature - - Respiratory Rate - - Oxygen Saturation - - Inhaled Oxygen Concentration - - Weight 50.8 kg (112 lb) 12/08/2024 12:59 PM CDT pt reported Height - - Body Mass Index 20.49 12/28/2022 7:07 AM CDT documented in this encounter Progress Notes * Anna Wilkes MD - 12/08/2024 1:15 PM CDT Subjective: Today's visit with Lea was conducted via telehealth (video) as it is the patient's preference andit is appropriate for the treatment being provided Patient is stating she is having urinary tract infectious symptoms over the last 2 days. Her symptoms include dysuria, increased frequency and urgency. She is denying any hematuria, no nausea or vomiting, no fevers or chills and only minimal back pain. I did send a prescription for Macrobid twice daily for 5 days and Pyridium. She states she is struggling with her anxiety and depression. There has been multiple family stressors and it is now starting to interfere with her sleep. I did place a referral for mental health butalso recommended that she check with her insurance company to see if she could be seen earlier. Shedenies any suicidal thoughts or ideation Objective: Wt 112 lb (50.8 kg) Comment: pt reported BMI 20.49 kg/m?? She is alert cooperative interactive in no acute distress Respiratory: She is breathing easily with no coughing or wheezing Neurologic: She is speaking in full and logical sentences with no focal neurologic deficits Psychiatric: She is neatly groomed has good eye contact and her affect is fair Assessment/Plan: 1. Encounter for long-term (current) use of medications 2. Urinary tract infection without hematuria, site unspecified 3. Anxiety (HRC) 4. Major depressive disorder, recurrent, severe without psychotic features (HRC) I did recommend that if her symptoms with her urinary tract infection are not improving within 24-36 hours that she should be seen. Anna Wilkes MD documented in this encounter Plan of Treatment Upcoming Encounters Date Type Department Care Team (Late st Contact Info) Description 01/19/2025 4:15 PM CDT [facility] [address] [place] [address] Anna Wilkes MD [address] [place], [place] [address] Scheduled Referrals Name Type Priority Associated Diagnoses Orde r Schedule Behavioral Health - Adult/Peds Referral Routine Anxiety (HRC) Major depressive disorder, recurrent, severe without psychotic features (HRC) Ordered: 12/08/2024 documented as of this encounter Visit Diagnoses Diagnosis Encounter for long-term (current) use of medications- Primary Encounter for long-term (current) use of other medications Urinary tract infection without hematuria, site unspecified Anxiety (HRC) Anxiety state, unspecified Major depressive disorder, recurrent, severe without psychotic features (HRC) Major depressive disorder, recurrent episode, severe, without mention of psychotic behavior documented in this encounter Care Teams Rehabilitation Nurse Relationship Specialty Start Date End Date Anna Wilkes MD [address] [place], [place] [address] PCP - General 08/23/14 documented as of this encounter
--- OUTSIDE RECORDS SUMMARY | 2024-12-17 11:30 | XMS_ITS | Encounter Summary ---
Author Organization [employer] Address [address] [place] [address] Care Team Providers Care Help Desk Operator Name Role Phone Anna Wilkes MD Primary Care Provider + [phone] Reason for Visit * Reason Comments QUESTIONS, GENERAL Entered automaticall y based on patient selection in [employer]. Encounter Details Date Type Department Care Team (Late st Contact Info) Description 12/17/2024 11:30 AM CDT [facility] [address] [place], [place] [address] Anna Wilkes MD [address] [place], [place] [phone] Dx: Neck pain (Primary Dx) Social History Tobacco Use [...] as of this encounter Nursing Notes * Tonya Woods, RN - 12/17/2024 1:21 PM CDT Clinician: Review and advise and Patient is expecting a At[employer] message from [employer] Patient/career services assistant request: Input needed: ongoing symptoms and medication request. Specific Request: Patient requesting steroid for next pain. See evisit. Last seen today. documented in this encounter Plan of Treatment Upcoming Encounters Date Type Department Care Team (Late st Contact Info) Description 01/19/2025 4:15 PM CDT Telemedicine [facility] [address] [place] [address] Anna Wilkes MD [address] [place] [address] documented as of this encounter Visit Diagnoses Diagnosis Neck pain- Primary Cervicalgia Coccyalgia (HRC) Other disorder of coccyx De Quervain's tenosynovitis, left Left wrist pain Pain in joint, forearm documented in this encounter Care Teams Help Desk Operator Relationship Specialty Start Date End Date Anna Wilkes MD [address] [place] [address] PCP - General 08/23/14 documented as of this encounter
--- OUTSIDE RECORDS SUMMARY | 2025-01-06 08:30 | XMS_ITS ---
Author Organization [facility] Address [address] [place] [address] [address] [place] [address] Care Team Providers Care Contract Attorney Name Role Phone Katrin BARNETT, Anna Primary Care Provider Unavail able Matt Schneider Unavailable [phone] [address] Bear RUSSELL Unavailable Unavailab Alberto Reddy Unavailable [phone] REASON FOR VISIT Follow-Up Encounters Encounter Location Date Provider Diagnosis [address] [facility] [address] [facility] [address] [place] [address] 01/06/2025 Alberto Yoon Plan Of Treatment No Information Progress Notes * MIGUEL ÁNGEL Dean JDOB: 0 (54 yo F)Acc No.[id number]:01/06/2025 Progress Notes Patient: Dean AGUAYO Provider: Jayme Yoon PA-C :1970 A ge:54 Y S ex:Female Date:01/06/2025 Phone: Address:[address] [place], [place] [id number] Pcp:Anna Wilkes MD Subjective: * Chief Complaints: * 1 . Follow-Up. * Medical History: Objective: * Vitals: Assessment: Plan: * Treatment: * Billing Information: * Visit Code: * Procedure Codes: * Electronic signature of Matthew Yoon PA-C on 01/18/2025 at 05:00 PM CDT Sign off status: Pending * Provider: Jayme Yoon PA-C Date: 0 01/06/2025 Generated for Ricki rondon/Ai/Francescaitting on: 0 01/18/2025 05:00 PM CDT
--- OUTSIDE RECORDS SUMMARY | 2025-01-11 03:45 | XMS_ITS ---
Author Organization [facility] Address [address] [place] [address] [address] [place] [address] Care Team Providers Care Heater Helper Name Role Phone Katrin BARNETT, Anna Primary Care Provider Unavail able Matt Schneider Unavailable [phone] Castillo [facility] Bear RUSSELL Unavailable Unavailab Freddy Khalil Unavailable [phone] Allergies Allergen (clinical drug ingredient) Drug/Non Drug [...] HCl Anxiety Drug Allergy Active REASON FOR VISIT Neck Pain, Left Shoulder Pain, Low Back Pain Medications Medication SIG (Take, Route, Frequency, Duration) Notes Start Date End Date Status Mirtazapine 30 MG TAKE ONE TABLET BY MOUTH AT BEDTIME Oral; Duration: 90 Active Ondansetron 8 MG DISSOLVE ONE TABLET BY MOUTH EVERY 8 HOURS NEEDED FOR NAUSEA Oral; Duration: 7 Active Allergy Relief 10 MG TAKE ONE TABLET BY MOUTH ONCE DAILY Oral; Duration: 90 Active HYDROmorphone HCl 2 MG 1 tablet as neede d Orally every 6 hrs; Duration: 4 days Post-procedur e pain 10/15/2024 Active traMADol HCl 50 MG TAKE 1 TABLET BY MOUTH EVERY 6 HOURS NEEDED FOR PAIN Oral; Duration: 6 Days Active Hydroxychloroquine Sulfate 200 MG twice a day Orally Active tiZANidine HCl 2 MG 1 tablet as needed Orally every 8 hrs; Duration: 30 days Active Ambien 10 MG 1 tablet at bedtime as needed Orally Once a day Active Estradiol 1 MG 1 tablet Orally Once a day Active Ketorolac Tromethamine 60 MG/2ML INJECT 2 ML ONCE A DAY NEEDED FOR MIGRAINE Intramuscular; Duration: 30 Active Social History Tobacco Use: Social History [...] interested in quitting? Thinking about q uitting Vital Signs Blood pressure systolic 130 mm Hg 01/12/20 25 Blood pressure diastolic 86 mm Hg 025 Height 63 in 01/11/2025 Procedures Procedure Date Ordered Date Performed Result Body Sit e Intervention: 01/11/202501/18 Submitted online Encounters Encounter Location Date Provider Diagnosis [facility] [address] [facility] [address] [place] [address] 01/11/2025 Freddy Giles Spondylosis without myelopathy or radiculopathy, cervical region M47.812 ; Pain in left shoulder M25.512 ; Spondylosis without myelopathy or radiculopathy, lumbosacral region M47.817 and Other chronic pain G89.29 Assessments Encounter Date Diagnosis (ICD Code) Assessment Notes Treatment Notes Treatment Clinical Notes Section Notes 01/11/2025 Spondylosis without myelopathy or radiculopathy, cervical region (ICD-10 - M47.812) 01/11/2025 Pain in left shoulder (ICD-10 - M25.512) 01/11/2025 Spondylosis without myelopathy or radiculopathy, lumbosacral region (ICD-10 - M47.817) 01/11/2025 Other chronic pain (ICD-10 - G89.29) Dean Patel) returns to clinic today for a follow-up evaluation regarding her chronic neck, left shoulder, and low back pain. I have reviewed the [place] [employer] database and did not find any inconsistencies. We discussed her current symptoms and medications. I will continue with a treatment plan consisting of conservative therapy at this time. Lea expressed desire to repeat her left and right L3-S1 RFA's as her symptoms have returned to baseline. She reported 90% relief for 5.5 months following her last lumbar RFA's in 07/2024. She notes improvements with ADLS, toys inspector, and standing. Therefore, an order will be placed today for this procedure to be repeated. This treatment plan was reviewed with Lea, and she was agreeable. I will continue to monitor her progress and she will follow up as needed. Plan: 1. Order repeat left and right L3-S1 RFA's 2. Follow up as needed Discharge instructions reviewed verbally. The patient was instructed to return to the office as scheduled and call with any questions, problems or concerns. 01/11/2025 Other I, Dipesh Krueger , am serving as a scribe to document services personally performed by Freddy Giles PA-C, based upon my observations and the provider's statements to me. All documentation has been reviewed by the aforementioned DREW. I, Freddy Giles PA-C, attest that the above named individual is acting in scribe capacity, has observed my performance of the services and has documented them in accordance with my direction. The documentation recorded by the scribe accurately reflects the service I personally performed and the decisions made during the clinic visit. Plan Of Treatment Treatment Notes Assessment Notes Other chronic pain Herminiomra (Lea) returns to clinic today for a follow-up evaluation regarding her chronic neck, left shoulder, and low back pain. I have reviewed the [place] [employer] database and did not find any inconsistencies. We discussed her current symptoms and medications. I will continue with a treatment plan consisting of conservative therapy at this time. Lea expressed desire to repeat her left and right L3-S1 RFA's as her symptoms have returned to baseline. She reported 90% relief for 5.5 months following her last lumbar RFA's in 07/2024. She notes improvements with ADLS, toys inspector, and standing. Therefore, an order will be placed today for this procedure to be repeated. This treatment plan was reviewed with Lea, and she was agreeable. I will continue to monitor her progress and she will follow up as needed. Plan: 1. Order repeat left and right L3-S1 RFA's 2. Follow up as needed Discharge instructions reviewed verbally. The patient was instructed to return to the office as scheduled and call with any questions, problems or concerns. Other I, Dipesh Krueger, am serving as a scribe to document services personally performed by Freddy Giles PA-C, based upon my observations and the provider's statements to me. All documentation has been reviewed by the aforementioned DREW. I, Freddy Giles PA-C, attest that the above named individual is acting in scribe capacity, has observed my performance of the services and has documented them in accordance with my direction. The documentation recorded by the scribe accurately reflects the service I personally performed and the decisions made during the clinic visit. Pending Test Test Name Order Date Intervention: 01/11/2025 Next Appt Details Follow Up: prn, Reason: Progress Notes * MIGUEL ÁNGELDean JDOB: 0 (54 yo F)Acc No.[id number]:01/11/2025 Progress Notes Patient: Rosalba BIGGS Dean Carlos A Provider: Kayley Giles PA-C :1970 A ge:54 Y S ex:Female Date:01/11/2025 Phone: Address:[address] [place] [address] Pcp:Anna Wilkes MD Subjective: * Chief Complaints: * N dm PainLeft Shoulder PainLow Back Pain * HPI: C linic visit: Val (Lea) returns to clinic today for a follow-up evaluation on her chronic low back, neck, and left shoulder pain. Interval History: Lea underwent a repeat left and right C4-6 RFA on 10/29/2024 and 10/15/2024 respectively, reporting 80% ongoing relief on the left side and 75% ongoing relief on the right. Today, she inquires about repeating lumbar RFA's as her pain has returned to baseline. Regarding medications, Journavx trialed in the interim was discontinued due to side effects of GI upset and minimal benefit. Previous Procedures: - 10/15/2024 and 10/29/2024 repeat right and left C4-6 RFAs: (80% ongoing relief left, 75% ongoing relief right) (improvements with ADLs and toys inspector) - 07/22/2024 and 08/06/2024 right and left L3-S1 RFAs (90% relief for 5.5 months; easier to complete ADLs, toys inspector, standing) - 04/07/2024 and 03/24/2024 right and left C2-5 RFAs (90% relief for 5-6 months with improvement in driving, sleeping, and vacuuming) - 01/24/2024 left dorsal scapular NB (90% relief for 5-6 months.) - 12/04/2023 and 12/18/2023 right and left L3-S1 RFAs (85% relief for 6 months with improvement in vacuuming, lifting grandchildren, and standing) - 08/23/2023 and 09/06/2023 right and left C2-5 RFAs (85% relief for 6 months) - 08/02/2023 right Duralone knee injection (90% ongoing relief) - 06/17/2023 and 07/03/2023 right and left L3-S1 RFAs (85% relief for over 6 months) - 03/18/2023 left dorsal scapular NB (75% relief for 3-4 months) - 02/14/2023 and 03/01/2023 right and left C4-6 RFAs (80-85% relief for 5 months) - 12/21/2022 and 01/04/2023 right and left L3-S1 RFAs - 09/07/2022 and 08/24/2022 C4-6 RFAs (75% relief for 6 months) - 07/13/2022 and 06/27/2022 right and left L3-S1 RFAs - 02/14/2022 and 01/31/2022 repeat left and right C4-6 RFAs (80-85% relief) - 12/13/2021 and 01/03/2022 left and right L3-S1 RFAs Current medications: Meloxicam and Tizanidine 2MG TID Previous medications: MDP, Journavx (minimal relief, s/e GI) Inconsistencies: UDS from 11/10/21 was void of Dilaudid which was inconsistent. Upon review of her records, her UDS from 07/13/21 was also negative for Dilaudid. Her UDS from 04/30/2022 was void of Dilaudid and positive for Methylphenidate. She was discharged from narcotic management on 04/30/22. D epression Screening: PHQ-9 L ittle interest or pleasure in doing things N ot at all, F eeling down, depressed, or hopeless N ot at all, T rouble falling or staying asleep, or sleeping too much N ot at all, F eeling tired or having little energy N ot at all, P oor appetite or overeating N ot at all, F eeling bad about yourself or that you are a failure, or have let yourself or your family down N ot at all, T rouble concentrating on things, such as reading the newspaper or watching television N ot at all, M oving or speaking so slowly that other people could have noticed; or the opposite, being so fidgety or restless that you have been moving around a lot more than usual N ot at all, T houghts that you would be better off or of hurting yourself in some way N ot at all, T otal Score 0 . I ntervention D epression Screening Findings N egative, N isabel of the standardized tool used for adult depression screening: P atient Health Questionnaire (PHQ-9). P QRS MEASURE: 154,155 Fall Risk H ave you had two or more falls in the past year? N o, H ave you had any falls with injury in the past year? N o, P guillermo of Care: D ocumented. * ROS: G eneral/Constitutional: Chills/Fevers N o. F atigue N o. W eight gain?No. W eight loss N o. E ndocrine: Dizziness N o. E xcessive sweating N o. W eakness N o. R espiratory: Chest pain N o. C ough N o. S hortness of breath at rest N o. G astrointestinal: Abdominal pain N o. B lood in stool N o. C onstipation N o. D iarrhea N o. H ematology: Easy bruising N o. P rolonged bleeding N o. S wollen glands N o. M usculoskeletal: Painful joints Y es. S wollen joints Y es. ? S kin: Skin lesion(s) N o. N eurologic: Balance difficulty N o. H eadache Y es. T ingling/Numbness N o. P sychiatric: Alcoholism N o. A nxiety Y es. S ubstance abuse?No. * Medical History: * Surgical History: H ysterectomy Appendectomy Cholecysectomy Right Shoulder x2 Right Knee Arthroscopy * Hospitalization/Major Diagno stic Procedure: S urgical * Family History: F ather: unknown. M other: alive, diagnosed with Unspecified essential hypertension. Pt adopted. * Social History: T obacco Use: T obacco Use/Smoking A re you a c urrent smoker, H ow often do you smoke cigarettes? e very day, H ow many cigarettes a day do you smoke? 5 or less, H ow soon after you wake up do you smoke your first cigarette? w ithin 5 minutes, A re you interested in quitting? T hinking about quitting. 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 * Medications: T akingKetorolac Tromethamine 60 MG/2ML Solution INJECT 2 ML ONCE A DAY NEEDED FOR MIGRAINE Intramuscular Hydroxychloroquine Sulfate 200 MG Tablet twice a day Orally tiZANidine HCl 2 MG Tablet 1 tablet as needed Orally every 8 hrs Ambien 10 MG Tablet 1 tablet at bedtime as needed Orally Once a day Estradiol 1 MG Tablet 1 tablet Orally Once a day Mirtazapine 30 MG Tablet TAKE ONE TABLET BY MOUTH AT BEDTIME Oral Ondansetron 8 MG Tablet Disintegrating DISSOLVE ONE TABLET BY MOUTH EVERY 8 HOURS NEEDED FOR NAUSEA Oral Allergy Relief 10 MG Tablet TAKE ONE TABLET BY MOUTH ONCE DAILY Oral HYDROmorphone HCl 2 MG Tablet 1 tablet as needed Orally every 6 hrs , Notes to Pharmacist: Post-procedure paintraMADol HCl 50 MG Tablet TAKE 1 TABLET BY MOUTH EVERY 6 HOURS NEEDED FOR PAIN Oral Taking Ketorolac Tromethamine 60 MG/2ML Solution INJECT 2 ML ONCE A DAY NEEDED FOR MIGRAINE Intramuscular Taking Hydroxychloroquine Sulfate 200 MG Tablet twice a day Orally Taking tiZANidine HCl 2 MG Tablet 1 tablet as needed Orally every 8 hrs Taking Ambien 10 MG Tablet 1 tablet at bedtime as needed Orally Once a day Taking Estradiol 1 MG Tablet 1 tablet Orally Once a day Taking Mirtazapine 30 MG Tablet TAKE ONE TABLET BY MOUTH AT BEDTIME Oral Taking Ondansetron 8 MG Tablet Disintegrating DISSOLVE ONE TABLET BY MOUTH EVERY 8 HOURS NEEDED FOR NAUSEA Oral Taking Allergy Relief 10 MG Tablet TAKE ONE TABLET BY MOUTH ONCE DAILY Oral Taking HYDROmorphone HCl 2 MG Tablet 1 tablet as needed Orally every 6 hrs , Notes to Pharmacist: Post-procedure painTaking traMADol HCl 50 MG Tablet TAKE 1 TABLET BY MOUTH EVERY 6 HOURS NEEDED FOR PAIN Oral DiscontinuedJournavx 50 MG Tablet 1 tablet Orally Once a day Take two tablets initially. Then, take 1 tablet every 12 hoursMedication List reviewed and reconciled with the patientDiscontinued Journavx 50 MG Tablet 1 tablet Orally Once a day Take two tablets initially. Then, take 1 tablet every 12 hoursMedication List reviewed and reconciled with the patient * Allergies: C odeine Sulfate: HivesDHEA: Diarrhea and NauseaHydrocodone-Acetaminophen: HivesLoperamide HCl: HivesMethocarbamol: RashMinocycline HCl: ItchingMorphine Sulfate: HivesOxycodone HCl: HivesProchlorperazine: HivesSumatriptan: HivesVenlafaxine HCl: Anxietyno[Allergies Verified] Objective: * Vitals: H t: 63 in, Wt: Not Taken - Declined by Patient, BMI: Not Taken - Declined by Patient, BP:130/86mm Hg, VAS-Today:101-10, VAS-Av 1-10, VAS-High: 10 1-10. * Examination: M usculoskeletal: Constitutional: w ell groomed, in no acute distress. Chest R espirations nonlabored. Musculoskeletal: N ormal gait and station, sits comfortably Lumbar spine:, pain with flexion and extension R>L, minimal pain with twisting. Skin: N o rashes, scars, or lesions on visible skin. Neurological N ormal coordination upper extremities, normal coordination lower extremities, alert and oriented x3, normal mood and affect. ? C QM Exceptions: BMI not documented R miller: P atient ReasonType of Patient Reason: P atient refused service. Assessment: * Assessment: 1. P ain in left shoulder - M25.512 2 . S pondylosis without myelopathy or radiculopathy, cervical region - M47.812 (Primary) 3 . S pondylosis without myelopathy or radiculopathy, lumbosacral region - M47.817 4 . O ther chronic pain - G89.29 Plan: * Treatment: 2.?Other chronic pain? Notes: Dean (Lea) returns to clinic today for a follow-up evaluation regarding her chronic neck, left shoulder, and low back pain. I have reviewed the [facility] database and did not find any inconsistencies. We discussed her current symptoms and medications. I will continue with a treatmentplan consisting of conservative therapy at this time. Lea expressed desire to repeat her left and right L3-S1 RFA's as her symptoms have returned to baseline. She reported 90% relief for 5.5 months following her last lumbar RFA's in 07/2024. She notesimprovements with ADLS, toys inspector, and standing. Therefore, an order will be placed today for this procedure to be repeated. This treatment plan was reviewed with Lea, and she was agreeable. I will continue to monitor her progress and she will follow up as needed. Plan: 1. Order repeat left and right L3-S1 RFA's 2. Follow up as needed Discharge instructions reviewed verbally. The patient was instructed to return to the office as scheduled and call with any questions, problems or concerns.?? 3.?Others? Notes: I, Dipesh Krueger, am serving as a scribe to document services personally performed by Freddy Giles PA-C, based upon my observations and the provider's statements to me. All documentation has been reviewed by the aforementioned JOSH Peterson. Drew, rFeddy Giles PA-C, attest that the above named individual is acting in scribe capacity, has observed my performance of the services and has documented them in accordance with my direction. The documentation recorded by the scribe accurately reflects theservice I personally performed and the decisions made during the clinic visit.?? * Procedure Codes: * Preventive Medicine: iSpine Inventory Forms: L ow Back Oswestry O swestry Score (0-100) 6 8,?BERNADINE Interpretation 6 0-79 (Crippled). * Follow Up: p rn * Billing Information: * Visit Code: 69111 Established Patient level 4. * Procedure Codes: * Sign off status: Completed true * Provider: Kayley Giles PA-C Date: 01/11/2025 Generated for Ricki rondon/Fasukhjinderg/eTransmitting on: 01/18/2025 04:59 PM CDT History and Physical Notes * HPI (History of Present Illness) Category Sub-Category Detail Notes Category Not es Depression Screening PHQ-9 Little inte rest or pleasure in doing things: Not at all Feeling down, depressed, or hopeless: No t at all Trouble falling or staying asleep, or sl eeping too much: Not at all Feeling tired or having little energy: N ot at all Poor appetite or overeating: Not at all Feeling bad about yourself o r that you are a failure, or have let yourself or your family down: Not at all Trouble concentrating on thi ngs, such as reading the newspaper or watching television: Not at all Moving or speaking so slowly that other people could have noticed; or the opposite, being so fidgety or restless that you have been moving around a lot more than usual: Not at all Thoughts that you would be b radha off or of hurting yourself in some way: Not at all Total Score: 0 Intervention Depression Screening Findings: N egative Name of the standardized too l used for adult depression screening:: Patient Health Questionnaire (PHQ-9) PQRS MEASURE 154,155 Fall Risk Have you had t wo or more falls in the past year?: No Have you had any falls with injury in th e past year?: No Plan of Care:: Documented Examination Category Sub-Category Detail Notes Category Not es Musculoskeletal Constitutional: well groomed, in no ac daisy distress Musculoskeletal: Normal gait and stat ion, sits comfortably Lumbar spine:, pain with flexion and extension R>L, minimal pain with twisting Skin: No rashes, scars, or lesions on visible skin Neurological Normal coordination upper extremities, normal coordination lower extremities, alert and oriented x3, normal mood and affect Chest Respirations nonlabo red CQM Exceptions BMI not documented Reason:: Patient Reason Type of Patient Reason:: Patient refused service
--- OUTSIDE RECORDS SUMMARY | 2025-01-18 17:00 | XMS_ITS | Encounter Summary ---
Author Organization [employer] Address [address] [place] [address] Care Team Providers Care Survey Compiler Name Role Phone Neil Wilkes MD Primary Care Provider [phone] Reason for Visit * Reason Comments Refill loratadine (CLARITIN ) 10 MG tablet [Pharmacy Med Name: LORATADINE 10MG TABS] Encounter Details Date Type Department Care Team (Late st Contact Info) Description 12/17/2024 [facility] [address] [place], [place] [id number] Neil Wilkes MD [address] [place], [place] [phone] Refill (loratadine (CLARITIN) 10 MG tablet [Pharmacy [...] as of this encounter Nursing Notes * Lakia Stokes, RN - 12/21/2024 12:23 PM CDT Renewed medication per medication refill protocol. Requested Prescriptions Pending Prescriptions Disp Refills ??? loratadine (CLARITIN) 10 MG tablet [Pharmacy Med Name: LORATADINE 10MG TABS] 90 Tablet 3 Sig: TAKE ONE TABLET BY MOUTH ONCE DAILY * Megan Dickerson Xrwcomm - 12/17/2024 5:14 AM CDT loratadine (CLARITIN) 10 MG tablet [Pharmacy Med Name: LORATADINE 10MG TABS] Medication started: 01/01/2020 Last ordered by NEIL WILKES M: 12/31/2023 (352 days ago) QTY: 90, Refills: 3, Sig: take one tablet by mouth once daily (unchanged) -> Refill x 12 months, qty: 90, refills: 3 (until due for an office visit) Last qualifying visit: 12/08/2024 (with NEIL WILKES) Next scheduled visit: None [facility] [employer] Embedded Refills, Reference: [id number], 12/17/2024 5:14:38 AM CDT, Pool: PN Refill Centralized Services - Primary Care [[id number]] ([id number]) documented in this encounter Plan of Treatment Upcoming Encounters Date Type Department Care Team (Late st Contact Info) Description 01/19/2025 4:15 PM CDT Telemedicine [facility] [address] [place], [place] [phone] Neil Wilkes MD [address] [place], [place] [address] documented as of this encounter Visit Diagnoses Diagnosis Allergic rhinitis, unspecified seasonality, unspecified trigger documented in this encounter Care Teams Survey Compiler Relationship Specialty Start Date End Date Neil Wilkes MD [address] [place], [place] [phone] PCP - General 08/23/14 documented as of this encounter
--- OUTSIDE RECORDS SUMMARY | 2025-01-18 17:00 | XMS_ITS | Clinical Summary ---
Author Organization [facility] Address [address] [place] [address] Care Team Providers Care Guitar Maker Name Role Phone Anna Wilkes MD Primary Care Provider + [phone] Source Comments You are receiving this document [...] for each transition of care or referral. [facility] Allergies Active Allergy Reactions Criticality Noted Date [...] 25 MG capsuleIndicatio ns:CANDI JOSEPH [facility] Aug 05, 2014 8:02 AM Received from: External Pharmacy Received Sig: Take 1 Capsule (25 mg) by mouth three times a day as needed (Take 1 capsule by mouth 3 times daily as needed.). Indications: CANDI JOSEPH [facility] Aug 05, 2014 8:02 AM Received [...] with 1 needles 23-25 G, and Filter [place] if glass ampules. 20 Each 3 023 [...] DAILY NEEDED 60 g 3 024 Active clobetasol (TEMOVATE) 0.05 % [...] bedtime. 180 Capsule 3 024 2024 Active cyclobenzaprine (FLEXERIL) 10 MG tablet Take 0.5-1 Tablets (5-10 mg) by mouth three times a day as needed for Muscle Spasms for up to 30 doses. 30 Tablet 024 Active Meloxicam (MOBIC) 15 MG tablet Take 1 Tablet (15 mg) by mouth daily. 90 Tablet 3 025 Active HYDROmorphone (DILAUDID) 4 MG tabletIndication s:Chronic bilateral low back pain without sciatica Take 0.5 Tablets (2 mg) by mouth every 3 hours as needed for Pain. 10 Tablet 025 Active hydroCHLOROthiaz donovan (ORETIC) 25 MG tablet Take 1 Tablet (25 mg) by mouth daily. 90 Tablet 3 025 2025 Active predniSONE (DELTASONE) 10 MG tabletIndication s:Acute left-sided low back pain with left-sided sciatica (HRC) 4 tabs for 3 days, 3 tabs for 3 days, 2 tabs for 3 days, 1 tab for 3 days, 1/2 tab for 4 days 50 Tablet 025 Active HYDROmorphone (DILAUDID) 2 MG tabletIndication s:Coccyalgia (HRC),De Quervain's tenosynovitis, left,Left wrist pain Take 1 Tablet (2 mg) by mouth every 6 hours as needed for Pain. 10 Tablet 025 Active pregabalin (LYRICA) 150 MG capsuleIndicatio ns:Chronic pain syndrome,Neck pain,Chronic bilateral low back pain without sciatica,Acute left-sided low back pain with left-sided sciatica (HRC) Take 1 Capsule (150 mg) by mouth three times a day. Take one in the am and noon and 2 at bedtime 270 Capsule 3 025 Active hydrOXYzine pamoate (VISTARIL) 25 MG capsuleIndicatio ns:Anxiety (HRC) TAKE ONE CAPSULE BY MOUTH EVERY 8 HOURS NEEDED 90 Capsule 5 025 Active ondansetron (ZOFRAN-ODT) 8 MG disintegrating tablet DISSOLVE ONE TABLET BY MOUTH EVERY 8 HOURS NEEDED FOR NAUSEA 30 Tablet 2 025 Active traMADol (ULTRAM) 50 MG tablet Take 1 Tablet (50 mg) by mouth every 6 hours as needed. 025 Active phenazopyridine (PYRIDIUM) 200 MG tablet Take 1 Tablet (200 mg) by mouth three times a day after meals. 12 Tablet 1 025 Active loratadine (CLARITIN) 10 MG tabletIndication s:Allergic rhinitis, unspecified seasonality, unspecified trigger TAKE ONE TABLET BY MOUTH ONCE DAILY 90 Tablet 3 025 Active cyclobenzaprine (FLEXERIL) 10 MG tabletIndication s:Neck pain Take 1 Tablet (10 mg) by mouth three times a day as needed for Muscle Spasms for up to 30 doses. 30 Tablet 025 Active loratadine (CLARITIN) 10 MG tabletIndication s:Allergic rhinitis, unspecified seasonality, unspecified trigger take one tablet by mouth once daily 90 Tablet 3 024 2024 Discontinued predniSONE (DELTASONE) 20 MG tabletIndication s:Neck pain Take 2 Tablets (40 mg) by mouth daily for 5 days. 10 Tablet 025 2024 Active Problems Problem Noted Date Diagnosed [...] Encounters Date Type Department Care Team Description 12/17/2024 11:30 AM CDT E-Visit [facility] [address] [place] [address] Anna Wilkes MD Dx: Neck pain (Primary Dx) 12/17/[address] [place] [place] [address] Anna Wilkes MD Refill (loratadine (CLARITIN) 10 MG tablet [Pharmacy Med Name: LORATADINE 10MG TABS]) 12/08/2024 1:15 PM CDT Telemedicine [place] [place] [address] Anna Wlikes MD Encounter for long-term (current) use of medications (Primary Dx); Urinary tract infection without hematuria, site unspecified; Anxiety (HRC); Major depressive disorder, recurrent, severe without psychotic features (HRC) 11/12/[address] [place] [place] [address] Anna Wilkes MD Refill (ondansetron (ZOFRAN-ODT) 8 MG disintegrating tablet [Pharmacy Med Name: ONDANSETRON 8MG TBDP]) 11/11/[address] [place] [place] [address] Anna Wilkes MD Refill (ondansetron (ZOFRAN-ODT) 8 MG disintegrating tablet [Pharmacy Med Name: ONDANSETRON 8MG TBDP]) 11/10/[address] [place] [place] [address] Anna Wilkes MD Refill (ondansetron (ZOFRAN-ODT) 8 MG disintegrating tablet [Pharmacy Med Name: ONDANSETRON 8MG TBDP]) 11/09/[address] [place] [place] [address] Anna Wilkes MD Refill (hydrOXYzine pamoate (VISTARIL) 25 MG capsule [Pharmacy Med Name: HYDROXYZINE PAMOATE 25MG CAPS]) [facility] [address] [place] [address] Anna Wilkes MD Pharmacy from Last 3 Months Immunizations Immunization Administration Dates Next Due Flu Vac Preserv Free (3+yrs) 03/05/2012, 04/10/2011,04/03/2010,2008,04/19/2006 Influenza IIV4 (Quadrivalent ) 0.5mL (35588) 03/27/2023,03/29/2021,04/26/2020,2018,04/18/2018,04/05/2017,04/06/2016,0 03/18/2015,03/19/2014,03/27/2013, 012,04/10/2011,04/03/2010,03/29/2009, Influenza ccIIV3 6 months+ (Flucelvax) 05/19/2024 PCV20 (Oofekjy53) 03/12/2024 PPSV23 (Pneumovax) 06/21/2017 Pfizer COVID-19 12+ 05/19/2024 Pfizer Monovalent 12+ Purple Top 021,05/15/2021,10/22/2020,2020 TDAP (ADACEL) 03/27/2007 Td 12/20/1997 Tdap 01/31/2017 Zoster RZV (Shingrix) 05/10/2021,02/21/2021 Family History Medical History Relation Name Comments Arthritis Father Josefa Rheumatoid COPD Father Josefa Heart Disease Father Josefa triple bypass Rheumatologic Disease Father Josefa Coronary Artery Disease Mother Mom Diabetes Mother Mom Heart Disease Mother Mom Triple bypass surgery Hypertension Mother Mom Migraines Mother Mom Osteoarthritis Mother Mom Other Mother Mom Proctor's esoph kaley Rheumatologic Disease Mother Mom Cancer Cousin Migraines Daughter linda Coronary Artery Disease Maternal Aunt Coronary Artery Disease Maternal Uncle Migraines Sister 1 Migraines Sister 2 both Migraines Son 1 agus Anesthesia Reaction Negative Family History Broken Bones Negative Family History Clotting Disorder Negative Family History Osteoporosis Negative Family History Relation Name Status Comments Father Josefa Alive does not know b iological father Mother Mom (Age 71) ruptured g allbladder Brother Alive half Cousin Daughter linda Grandchild 9 Maternal Aunt Maternal Uncle (Age 55) Sister 1 Alive half Sister 2 Alive Son 1 agus Son 2 gutierrez Alive Son 3 reagan Alive Social History Tobacco Use Types Packs/Day Years Used Date Smoking Tobacco: Every Day Cigarettes 0.5 8.4 Started: 09/11/2016 Smokeless Tobacco: Never Tobacco Cessation:Ready [...] Sign Reading Time Taken Comments Blood Pressure 114/80 09/22/2024 3:02 PM CDT Pulse 90 08/03/2024 10:10 AM PHOTOSTAT OPERATOR HELPER Temperature 36.4 C (97.6 F) 05/29/2022 8:10 AM PHOTOSTAT OPERATOR HELPER pt reported Respiratory Rate 16 12/04/2022 9:10 AM CDT Oxygen Saturation 97% 12/04/2022 9:10 AM CDT Inhaled Oxygen Concentration - - Weight 50.8 kg (112 lb) 12/08/2024 12:59 PM CDT pt reported Height 157.5 cm (5' 2) 12/28/2022 7:07 AM CDT Body Mass Index 20.49 12/28/2022 7:07 AM CDT Plan of Treatment Upcoming Encounters Date Type Department Care Team (Late st Contact Info) Description 01/19/2025 4:15 PM CDT Telemedicine [address] [place], [place] [id number] Anna Wilkes MD [address] [place], [place] [id number] Health Maintenance Due Date Last Done Comments HepB Vaccine (1) 1989 Adult Preventive Visit 11/05/2019 11/04/2018, 2016 Dexa 12/24/2019 12/23/2018 Mammogram 12/24/2019 12/23/2018, 10/07, 04/23/2012 Influenza Vaccine (#1) 2025 , 03/27/2023, 03/29/2021, Additional history exists DTaP/Tdap/Td Vaccine (3 - Tdap) 01/31/2027 01/31/2017, 03/27/2007, 03/27/2007, Additional history exists Cholesterol 08/02/2028 08/02/2023, 01/06, 08/05/2014, Additional history exists Colonoscopy 12/04/2029 12/04/2022, 06/07 (Completed) Hep C Screening (Preventive Services) Completed 09/19/2018 HIV Screening (Preventive Services) Completed 04/26/2020 Zoster/Shingles Vaccine Completed 05/10/2021, 02/21 Pneumococcal Vaccine 50+ Yrs Completed 03/12/2024, 06/21/2017 COVID-19 Vaccine Completed 05/19/2024, 04/2021, 05/15/2021, Additional history exists HepA Vaccine Aged Out No longer eligi ble based on patient's age to complete this topic Hib Vaccine Aged Out No longer eligi ble based on patient's age to complete this topic IPV (Polio) Vaccine Aged Out No longe r eligible based on patient's age to complete this topic MCV4 Vaccine Aged Out No longer eligi ble based on patient's age to complete this topic Meningococcal B Vaccine Aged Out No l onger eligible based on patient's age to complete this topic Procedures Procedure Name Priority Date/Time Associated Diagnosis Comments LIPID PANEL & DIRECT LDL (IF NEEDED) Routine 08/02/2023 9:37 AM PHOTOSTAT OPERATOR HELPER Screening for cholesterol level ENDOSCOPY, COLON, SCREENING/DIAGNOS TIC Routine 12/04/2022 8:16 AM CDT Screening for colon cancer HIV 1/2 AG/AB 4TH GEN Routine 04/26/2020 8:15 AM CDT Screening for HIV (human immunodeficiency virus) MM MAMMOGRAM SCREENING BILAT W CAD Routine 12/23/2018 10:52 AM CDT Visit for screening mammogram DXA BONE DENSITY SPINE/HIP Routine 12/23/2018 10:18 AM CDT Menopause HEPATITIS C ANTIBODY, WITH REFLEX (ANTI-HCV) Routine 09/19/2018 10:04 AM CDT Rheumatoid arthritis, involving unspecified site, unspecified rheumatoid factor presence (HRC) from Last 3 Months or Most Recently Relevant to Health Maintenance Results * (ABNORMAL) Lipid Panel and Direct LDL(If Needed) (08/02/2023 9:37 AM PHOTOSTAT OPERATOR HELPER) Cholesterol 192 0 - 199 mg/dL 08/02/2023 3:50 PM [facility] Triglyceride 155(H) <=149 mg/dL 08/02/2023 3:50 PM [facility] HDL Cholesterol 35(L) >=40 mg/dL 3:50 PM [facility] LDL, Calculated 126 <130 mg/dL 3:50 PM [facility] Non HDL Chol, Calculated 157 <=159 mg/dL 08/02/2023 3:50 PM [facility] Cholesterol/HDL Ratio 5.5(H) <=5.0 08/02/2023 3:50 PM [facility] Hours Fasting 15.0 8 - 12 Hours 08/02/2023 3:50 PM [facility] Blood Venipuncture / Unknown 08/02/2023 9:37 AM PHOTOSTAT OPERATOR HELPER 08/02/2023 9:37 AM PHOTOSTAT OPERATOR HELPER us Anna Wilkes MD LAB_1 Final Result [facility] [address] [place] [address] [address] [place] [address] * Endoscopy, Colon, Screening/Diagnostic (12/04/2022 8:16 AM [...] and oxygen saturations were monitored continuously. The [id number] was introduced through the anus and advanced [...] from the initial medication administration until the boom storage assists with initial maneuvers (biopsy / polypectomy [...] to anxiety. Procedure Code(s): --- Professional --- 45641, Colonoscopy, flexible; with removal of tumor(s), polyp(s), or other lesion(s) by snare technique 27131, 59, Colonoscopy, flexible; with biopsy, single or multiple G0500, Moderate sedation services provided by the same physician or other qualified health care partner performing a gastrointestinal endoscopic service that sedation supports, requiring the presence of an independent trained observer to assist in the monitoring of the patient's level of consciousness and physiological status; initial 15 minutes of intra-service time; patient age 5 years or older (additional time may be reported with 48928, as appropriate) Diagnosis Code(s): --- Professional --- Z12.11, Encounter for screening for malignant neoplasm of colon K64.9, Unspecified hemorrhoids K63.5, Polyp of colon K57.30, Diverticulosis of large intestine without perforation or abscess without bleeding CPT copyright 2020 [employer] [employer]. All rights reserved. The codes documented in this report are preliminary and upon sample shoe inspector and reworker review may be revised to meet current [...] and oxygen saturations were monitored continuously. The [id number] was introduced through the anus and advanced [...] from the initial medication administration until the boom storage assists with initial maneuvers (biopsy / polypectomy [...] to anxiety. Procedure Code(s): --- Professional --- 74703, Colonoscopy, flexible; with removal of tumor(s), polyp(s), or other lesion(s) by snare technique 50587, 59, Colonoscopy, flexible; with biopsy, single or multiple G0500, Moderate sedation services provided by the same physician or other qualified health care partner performing a gastrointestinal endoscopic service that sedation supports, requiring the presence of an independent trained observer to assist in the monitoring of the patient's level of consciousness and physiological status; initial 15 minutes of intra-service time; patient age 5 years or older (additional time may be reported with 43010, as appropriate) Diagnosis Code(s): --- Professional --- Z12.11, Encounter for screening for malignant neoplasm of colon K64.9, Unspecified hemorrhoids K63.5, Polyp of colon K57.30, Diverticulosis of large intestine without perforation or abscess without bleeding CPT copyright 2020 [place] [employer]. All rights reserved. The codes documented in this report are preliminary and upon sample shoe inspector and reworker review may be revised to meet current [...] Negative (Non Reactive) 04/26/2020 1:03 PM CDT [facility] Comment:HIV-1 p24 Antigen an d HIV-1/HIV-2 Antibody not detected Blood Venipuncture / Unknown 04/26/2020 8:15 AM CDT 04/26/2020 8:15 AM CDT Anna Wilkes MD LAB_1 Final Result [facility] [address] [place], [place] [address] * (ABNORMAL) MM Mammogram Screening Bilat W [...] AM CDT CLINIC DXA REPORT Patient Name: Herminiobozena Strauss Dre [place]: Francesco Polanco MD Densitometer: [email or web address] Horizon W (S/N [id number]) EASTMAN BONE OSTEOPOROSIS RISK FACTORS FROM PATIENT [...] trabecular bone, and is derived from the jeotp-kj-ahwdp changes of bone density embedded in the [...] - 09/19/2018 1:38 PM CDT Performed at [address] [address] CLIA number [id number] us Janelle Carranza MD LAB_1 Final Resul t [facility] [address] [place] [address] from Last 3 Months or Most Recently Relevant to Health Maintenance Insurance [facility] Care Teams Guitar Maker Relationship Specialty Start Date End Date Anna Wilkes MD [address] [address] PCP - General 08/23/14
--- OUTSIDE RECORDS SUMMARY | 2025-01-18 17:01 | XMS_ITS | Clinical Summary ---
Author Organization [facility] Address [address] [place] [address] Care Team Providers Care Die Casting Machine Maintainer Name Role Phone Elsewhere, Pcp Primary Care Provider Unavailabl e Source Comments Patient records contain information from all sites at [facility]. For routine questions regarding patient records, call [phone] during business hours, M-F 8:00 AM - 5:00 PM Central Time. Record requests for emergency care only can be directed to [phone] at any time.[facility] Allergies Active Allergy Reactions Criticality Noted Date Comments Codeine Hives (Reselect Reaction) 07/05/2006 Codeine only Dihydroergotamine Diarrhea 01/19/2014 Deotlihq-Cdt-Vx-Acetaminoph en Hives (Reselect Reaction) 06/26/2013 Hydrocodone Hives [...] Take 100 mg by mouth. 03/12/20 24 025 Active triamcinolone (Kenalog) 0.1 % ointment Apply 1 Application topically 2 (two) times a day. 11/28/19 23 Active hydroCHLOROthiazi de (HydroDiuril) 25 mg tablet Take 25 mg by mouth daily. Active Active Problems Problem Noted Date Diagnosed Date Dysthymia 12/18/2012 Overview (11/27/2016): Depression with anxiety (dysthymic) Social History Tobacco Use Types Packs/Day Years Used Date Smoking Tobacco: Every Day Cigarettes 0.3 1.5 Started: 2023 Smokeless Tobacco: Never Tobacco Cessation:Ready to Q uit: Not Asked; Counseling Given: Not Answered Alcohol Use Standard Drinks/Week Comments Not Currently 0 (1 standard drink = 0.6 oz pur e alcohol) Comments No Sex and Gender Information Value Date Recorded Sex Assigned at Not on file Legal Sex Female 6:09 PM MATERIAL CUTTER Gender Identity Not on file Sexual Orientation [...] 07/08/2024 COVID-19 Vaccine (5 - Pfizer risk 2023- season) 2024 05/19/2024, 05/17/2021, 10/22/2020, Additional history exists Influenza Vaccine (#1) 2025 , 03/27/2023, 03/29/2021, Additional history exists DTaP,Tdap,and Td Vaccines (3 - Td or Tdap) 01/31/2027 01/31/2017, 03/27/2007, 12/20/1997 Fasting Glucose for Diabetes Screening 09/14/2027 09/13/2024, 09/01/2014, 08/14/2014, Additional history exists Zoster Vaccines Completed 05/10/2021, 02/21/2021 IPV Vaccines Aged Out No longer eligi ble based on patient's age to complete this topic Procedures Procedure Name Priority Date/Time Associated Diagnosis Comments BASIC METABOLIC PANEL, S/P STAT 09/13/2024 5:30 PM CDT from Last 3 Months or Most Recently Relevant to Health Maintenance Results * (ABNORMAL) Basic Metabolic Panel (09/13/2024 5:30 [...] M.D. LAB BLOOD ADD-ON Final Resu lt [facility] [address] [place] [address], [place] [facility] [address] [place] [address] from Last 3 Months or Most Recently Relevant to Health Maintenance Additional Health Concerns Infection Onset Date Last Indicated Protective Environment 09/13/2024 Insurance [facility] Care Teams Die Casting Machine Maintainer Relationship Specialty Start Date End Date Elsewhere, Pcp PCP - General Internal Medicine 09/21/24
--- OUTSIDE RECORDS SUMMARY | 2025-01-18 17:01 | XMS_ITS | Clinical Summary ---
Author Organization [facility] Address [address] [place] [address] Care Team Providers Care Dentures Lab Technician Name Role Phone None, Provided Unavailable Unavailable Anna Wilkes MD Primary Care Prov ider Allergies Active Allergy Reactions Criticality Noted Date Comments Codeine Hives 07/05/2006 Venlafaxine Analogues Anxiety 06/26/2013 Vvujqqxd-Fkk-Nt-Acetaminophen Hives 2012 Sumatriptan Hives 07/05/2006 Loperamide Hives [...] on file Legal Sex Female 6:49 AM SIDE PIECE COVERER Gender Identity Not on file Sexual Orientation Not on file Obstetrics History Last Filed Vital Signs Vital Sign Reading Time Taken Comments Blood Pressure 108/78 02/18/2015 3:10 PM CDT Pulse 90 02/18/2015 3:10 PM CDT Temperature 36.7 C (98 F) 07/21/2014 3:49 PM SIDE PIECE COVERER Respiratory Rate 16 02/18/2015 3:10 PM CDT Oxygen Saturation 90% 02/18/2015 3:10 PM CDT Inhaled Oxygen Concentration - - Weight 53 kg (116 lb 13.5 oz) 02/18/2015 1:24 PM CDT Height 157.5 cm (5' 2) 02/18/2015 1:24 PM CDT Body Mass Index 21.37 02/18/2015 1:24 PM CDT Plan of Treatment Health Maintenance Due Date Last Done Comments Tetanus booster 1981 Depression screening for age 12+ 1982 HIV for age 15-65 1985 BMI (ht and wt on same day) for age 18+ 1988 Hepatitis C screening for age 18-79 1988 Hepatitis B series for 19+ (1 of 3 - 19+ 3-dose series ) 1989 Pap test for age 21-65 1991 Colonoscopy through age 75 2015 Lipids for age 45-75 2015 Mammogram for age 45-75 2015 Pneumococcal series for age 50+ (1 of 1 - PCV) 020 Zoster (shingles) series for age 50+ (1 of 2) 06/22/20 20 COVID-19 vaccine series ( - 2023- season) 4 Influenza Vaccine (#1) 2025 Medical Devices Implanted Type Area Insurance Verification Representative Device Identifier Shelf Expiration Date Model / Serial / Lot Sut Bio Mini Revo W/#2 Hi Fi - [id number] Implanted:Qty: 3 on 12/30/2009 at [facility] 01/05/2011 [id number] / / [id number] Sut Bio Mini Revo W/#2 Hi Fi - [id number] Implanted:Qty: 1 on 12/30/2009 at [facility] Right[facility] 09/05/2010 [id number]# / / [id number] Sut Bio Mini Revo W/#2 Hi Fi - [id number] Implanted:Qty: 1 on 12/30/2009 at [facility] Right: [facility] 12/06/2010 [id number] / / [id number] Insurance [facility] BASIC+1 PB ONLY [facility] [place]: [place] [id number] Advance Directives * Full Code (Latest Code [...] 9:15 AM 12/30/2009 1:20 PM Care Teams Dentures Lab Technician Relationship Specialty Start Date End Date Anna Wilkes MD . PCP - General Family Practice 02/15/15 None, Provided . 07/05/06
--- OUTSIDE RECORDS SUMMARY | 2025-01-18 17:01 | XMS_ITS | Encounter Summary ---
Author Organization [facility] Address [address] [place] [address] Care Team Providers Care Radiology Tech Name Role Phone Anna Wilkes MD Primary Care Provider + [phone] Encounter Details Date Type Department Care Team (Late st Contact Info) Description 10/13/2012 [facility] Only [facility] Orthopedic [facility] [address] [place] [id number] Tariq Cao MD [address] [place] [address] Biceps tendinopathy Social History Tobacco Use Types [...] Info) Description 01/19/2025 4:15 PM CDT [facility] [address] [place], [place] [phone] Anna Wilkes MD [address] [place], [place] [address] documented as of this encounter Visit Diagnoses Diagnosis Biceps tendinopathy Bicipital tenosynovitis documented in this encounter Additional Health Concerns Infection Onset Date Last Indicated Resolved Time R/O COVID19 03/08/2020 03/08/2020 03/12/2020 7:18 AM CDT R/O COVID19 04/30/2021 04/30/2021 05/01/2021 2:03 AM CDT documented as of this encounter Care Teams Radiology Tech Relationship Specialty Start Date End Date Anna Wilkes MD [address] [place] [address] PCP - General 08/23/14 documented as of this encounter
--- OUTSIDE RECORDS SUMMARY | 2025-01-18 17:01 | XMS_ITS | Encounter Summary ---
Author Organization [facility] Address [address] [place] [id number] Care Team Providers Care Chemical Compounder Name Role Phone Anna Wilkes MD Primary Care Provider + [phone] Reason for Visit * Reason Comments Back Pain Encounter Details Date Type Department Care Team (Late st Contact Info) Description 07/31/2024 Nurse Triage [facility] [address] [place], [place] [address] Anna Wilkes MD [address] [place], [place] [id number] Back Pain Social History Tobacco Use Types [...] take this in the morning with food. ICAL STAFF ANESTHESIOLOGIST * Matheus Fajardo RN - 07/31/2024 9:17 AM CST I would be happy to forward your message (request) onto your clinician, however please note that a potential charge may apply in doing so. Do I have your approval to forward this onto them? Yes Clinician: Review and advise and Patient is expecting a call back from [facility] Patient/acute care physical therapist request: Input needed: ongoing symptoms and New medication Specific Request: (Triage Encounter 07/31/24) - patient is requesting input on severe pain control prior to 08/03/24 appointment, reports previously prescribed steroid pack for former back issues. RN advised Seen in Office Today / Urgent Care, patient requests 08/03/24 appointment and message to PCP. ICAL STAFF ANESTHESIOLOGIST * Matheus Fajardo RN - 07/31/2024 8:56 [...] medicine and CARE ADVICE Protocols used: Back [id number] ICAL STAFF ANESTHESIOLOGIST * Singh Buitrago - 07/31/2024 8:51 AM [...] else I can help you with today? ICAL STAFF ANESTHESIOLOGIST documented in this encounter Plan of Treatment Upcoming Encounters Date Type Department Care Team (Late st Contact Info) Description 01/19/2025 4:15 PM CDT Telemedicine [place] [address] [place] [address] Anna Wilkes MD [address] [place] [id number] documented as of this encounter Visit Diagnoses Diagnosis Chronic bilateral low back pain without sciatica- Primary documented in this encounter Care Teams Chemical Compounder Relationship Specialty Start Date End Date Anna Wilkes MD [address] [place] [id number] PCP - General 08/23/14 documented as of this encounter
[2025-01-18 17:06] VITALS: BP 165/93; PULSE 98; RESP 20; TEMP 37.3; O2SAT 98; BMI 20.4
--- NOTE | 2025-01-18 19:16 | CRLHL7_ITS ---
For Patients: As a result of the Century Cures Act, medical imaging exams and procedure reports are released immediately into your electronic medical record. You may view this report before your referring provider. If you have questions, please contact your health care provider. Indication: right leg pain, bruising from injury mid posterior right calf weed whacker smacked back of calf, bruising Technique: Real-time longitudinal and transverse sonographic sullivan-scale imaging with and without compression, as well as color, duplex, and spectral Doppler imaging before and after augmentation, was obtained of the deep system of the right lower extremity, including the common femoral, femoral, popliteal, posterior tibial, and peroneal veins. Comparison: None. Findings: Common femoral vein: No evidence of thrombus. Femoral vein: No evidence of thrombus. Popliteal vein: No evidence of thrombus. Calf veins: Patent. No hematoma or fluid collection is seen at the area of contusion in the right mid posterior calf. Impression: No ultrasound evidence of deep venous thrombosis. Dictated by Ru Newman MD @ 01/18/2025 8:04:14 PM (Electronically Signed)
--- NOTE | 2025-01-18 19:46 | ED.LOWEXIN ---
HPI - Extremity Injury (Lower) General Date Seen: 01/18/25 Chief Complaint: Extremity Pain/Injury, Lower Stated Complaint: pain in right leg Time Seen by Provider: 01/18/25 19:00 Source: patient Mode of arrival: ambulatory Limitations: no limitations History of Present Illness HPI Narrative: Patient is a 54 year old female presenting to emergency department for right leg pain. She was hit in the calf by a rock while she was weed whacking 2 days ago. Since then she is having increased pain to the right leg and has noticed a large bruise to her posterior calf. She has no history of blood clots but was concerned she could be developing 1 due to the worsening pain. Did notice swelling to the right ankle yesterday that is improved today. States she has been active but hurts to walk on it. Pain improves when she elevates her leg. No other concerns noted. Denies chest pain or shortness of breath. Related Data Home Medications ?Medication ?Instructions ?Recorded ?Confirmed epinephrine 0.3 mg/0.3 mL 0.3 mg IM Q5-15M PRN 07/18/22 01/18/25 injection, auto-injector estradiol 1 mg tablet 1 mg PO QDAY 07/18/22 01/18/25 ondansetron 8 mg disintegrating 8 mg PO Q12H 07/18/22 01/18/25 tablet Tylenol 10/27/22 08/12/23 hydrochlorothiazide 25 mg tablet 25 mg PO DAILY 01/18/25 01/18/25 mirtazapine 30 mg tablet 30 mg PO QPM 01/18/25 01/18/25 Previous Rx's ?Medication ?Instructions ?Recorded tizanidine 4 mg tablet See Rx Instructions PO Q8H PRN 07/30/22 muscle spasticity #30 tabs celecoxib 200 mg capsule 200 mg PO QDAY #21 caps 09/09/22 zolpidem 5 mg tablet 5 mg PO QHS PRN insomnia #14 tabs 09/17/22 cyclobenzaprine 10 mg tablet 10 mg PO TID #15 tabs 12/30/22 hydromorphone 2 mg tablet 2 mg PO Q6H PRN pain #7 tabs 05/14/23 (Dilaudid) lorazepam 1 mg tablet 1 mg PO TID PRN anxiety #20 tabs 07/26/23 azithromycin 250 mg tablet See Rx Instructions PO .COMPLEX #6 08/12/23 tabs hydroxyzine pamoate 25 mg capsule 25 mg PO Q6H PRN anxiety #30 caps 09/06/23 ciprofloxacin HCl 500 mg tablet 500 mg PO BID 7 days #14 tabs 01/10/24 ketorolac 10 mg tablet 10 mg PO Q8H PRN pain #20 tabs 11/04/24 tramadol 50 mg tablet 50 mg PO Q6H PRN pain #24 tabs 12/22/24 Allergies Allergy/AdvReac Type Severity Reaction Status Date / Time bee venom protein (honey bee) Allergy Severe Verified 01/18/25 17:05 codeine Allergy Unknown Rash Verified 01/18/25 17:05 dihydroergotamine Allergy Unknown Diarrhea Verified 01/18/25 17:05 hydrocodone Allergy Unknown Hives Verified 01/18/25 17:05 loperamide Allergy Unknown Hives Verified 01/18/25 17:05 methocarbamol Allergy Unknown Rash Verified 01/18/25 17:05 minocycline Allergy Unknown Verified 01/18/25 17:05 morphine Allergy Unknown Hives Verified 01/18/25 17:05 oxycodone Allergy Unknown Hives Verified 01/18/25 17:05 prochlorperazine Allergy Unknown Anxiety Verified 01/18/25 17:05 rizatriptan Allergy Unknown Nausea Verified 01/18/25 17:05 sumatriptan Allergy Unknown Hives Verified 01/18/25 17:05 venlafaxine Allergy Unknown Anxiety Verified 01/18/25 17:05 Review of Systems Narrative: Pertinent systems reviewed and were negative unless stated in HPI PFSH [facility] Medical History COVID-19 ?U07.1 - COVID-19 (ICD-10) History of depression ?Z86.59 - Personal history of other mental and behavioral disorders (ICD-10) DDD (degenerative disc disease) Pain of right middle finger ?M79.644 - Pain in right finger(s) (ICD-10) Surgical History History of arthroscopy of right shoulder (~2011) ?Z98.890 - Other specified postprocedural states (ICD-10) Status post laparoscopic cholecystectomy (10/22/14) ?Z90.49 - Acquired absence of other specified parts of digestive tract (ICD-10) Status post appendectomy ?Z90.49 - Acquired absence of other specified parts of digestive tract (ICD-10) Status post arthroscopy of right knee (~2009) ?Z98.890 - Other specified postprocedural states (ICD-10) Status post hysterectomy with oophorectomy ?Z90.710 - Acquired absence of both cervix and uterus (ICD-10) ?Z90.721 - Acquired absence of ovaries, unilateral (ICD-10) Social History Smoking Status: Current every day smoker What tobacco products do you use: cigarettes Smoking packs per day: 0.25 Smoking cigarettes per day: 5.0 Years smoked: 25 Smoking pack-years: 6.25 Do you use any of these nicotine containing products: None Second hand tobacco smoke exposure: No How often do you have a drink containing alcohol: never How often do you have six or more drinks on one occasion: Never AUDIT-C Alcohol total score: 0 Non-prescribed substance use: denies use service: No Exam Narrative: Exam Narrative: Const: Well-nourished, Well-developed, in mild distress Eyes: PERRL, no conjunctival injection, and symmetrical lids HENT: Atraumatic external nose and ears. Moist mucous membranes. MSK:Extremities w/o deformity, Normal Active ROM. Large bruise about 5 cm x 5 cm posterior right upper calf with some tenderness to palpation. Skin: Warm, Dry. No rashes or lesions. Neuro: Normal Muscle tone, No focal neurological deficits. Psych: Awake, Alert, & Oriented x3. Appropriate mood and affect. Const: Vital Signs, click to edit/add: Vital Signs - 24 hr 01/18/25 17:06 Temperature 99.2 F Pulse Rate [Pulse Oximeter] 98 Respiratory Rate 20 Blood Pressure [Ri ght Upper Arm] 165/93 H Pulse Oximetry 98 Oxygen Delivery Me thod Room Air Course Vital Signs Vital signs: Initial Vital Signs Temperature 99.2 F 01/18/25 17:06 Temperature Source Temporal Artery Scan 01/18/25 17:06 Pulse Rate 98 01/18/25 17:06 Respiratory Rate 20 01/18/25 17:06 Blood Pressure 165/93 H 01/18/25 17:06 Blood Pressure Mean 117 H 01/18/25 17:06 Pulse Oximetry 98 01/18/25 17:06 Oxygen Delivery Method Room Air 01/18/25 17:06 Vital Signs Temperature 99.2 F 01/18/25 17:06 Pulse Rate 98 01/18/25 17:06 Respiratory Rate 20 01/18/25 17:06 Blood Pressure 165/93 H 01/18/25 17:06 Pulse Oximetry 98 01/18/25 17:06 Oxygen Delivery Method Room Air 01/18/25 17:06 Temperature 99.2 F 01/18/25 17:06 Pulse Rate 98 01/18/25 17:06 Respiratory Rate 20 01/18/25 17:06 Blood Pressure 165/93 H 01/18/25 17:06 Pulse Oximetry 98 01/18/25 17:06 Oxygen Delivery Method Room Air 01/18/25 17:06 MDM - Extremity Injury (Lower) MDM Narrative Medical decision making narrative: Patient is a 54-year-old female presenting for right leg pain. I do not believe this is likely to be a blood clot as there is no swelling but this hematoma could be portion on the pain that could lead to an early blood clot causing the pain and since the patient is concerned about a blood clot I will do an ultrasound for better evaluation. Ultrasound shows no signs of a hematoma or DVT. Patient be discharged home. Will prescribe her some tramadol for pain. Discharge Plan Discharge Clinical Impression: Contusion Qualifiers: Encounter type: initial encounter Contusion area: lower leg Laterality: right Qualified Code(s): S80.11XA - Contusion of right lower leg, initial encounter Patient Disposition: Home, Self-Care Condition: Stable Additional Instructions: Take the tramadol as needed for pain. Bruising showed resolve over the next few weeks. Follow-up with your primary care provider if leg pain persists Prescriptions: No Action estradiol 1 mg tablet 1 mg PO QDAY Rx Instructions: off 1 week; repeat cycle ondansetron 8 mg tablet,disintegrating 8 mg PO Q12H epinephrine 0.3 mg/0.3 mL auto-injector 0.3 mg IM Q5-15M PRN Rx Instructions: do not exceed 3 doses per episode tizanidine 4 mg tablet See Rx Instructions PO Q8H PRN (Reason: muscle spasticity) Qty: 30 2RF Rx Instructions: 2 mg QAM and Q1PM, and 4 mg at HS orally every 8 hours PRN; zolpidem 5 mg tablet 5 mg PO QHS PRN (Reason: insomnia) Qty: 14 0RF azithromycin 250 mg tablet See Rx Instructions PO .COMPLEX Qty: 6 0RF Rx Instructions: For 250 mg dose pack: take 500 mg today (day 1), then 250 mg for 4 days (days 2-5) PO cyclobenzaprine 10 mg tablet 10 mg PO TID Qty: 15 0RF mirtazapine 30 mg tablet 30 mg PO QPM hydrochlorothiazide 25 mg tablet 25 mg PO DAILY Tylenol hydromorphone [Dilaudid] 2 mg tablet 2 mg PO Q6H PRN (Reason: pain) Qty: 7 0RF ciprofloxacin HCl 500 mg tablet 500 mg PO BID 7 Days Qty: 14 0RF celecoxib 200 mg capsule 200 mg PO QDAY Qty: 21 2RF lorazepam 1 mg tablet 1 mg PO TID PRN (Reason: anxiety) Qty: 20 0RF hydroxyzine pamoate 25 mg capsule 25 mg PO Q6H PRN (Reason: anxiety) Qty: 30 2RF ketorolac 10 mg tablet 10 mg PO Q8H PRN (Reason: pain) Qty: 20 1RF Rx Instructions: maximum total duration of 5 days from all oral, intranasal, or parenteral formulations tramadol 50 mg tablet 50 mg PO Q6H PRN (Reason: pain) Qty: 24 0RF Follow Up/Referrals: Allen Kelley MD [Primary Care Provider, Family Practice] Stand Alone Forms: [facility] Info Instructions
--- OUTSIDE RECORDS SUMMARY | 2025-01-18 20:17 | XMS_ITS | Patient Health Record ---
Author Organization [facility] Address [address] [place] [address] [address] [place] [address] Care Team Providers Care Paralegal Assistant Name Role Phone Katrin BARNETT, Anna Primary Care Provider Unavail able Matt Schneider Unavailable [phone] [facility] Peterson Unavailable Unavailab Wilfredo Jimenez Unavailable [phone] Freddy Giles Unavailable [phone] Alberto Yoon Unavailable [phone] Quique Milton Unavailable [phone] Luis Enrique Kruse Unavailable [phone] Lorrie Charles Unavailable [phone] Allergies Allergen (clinical drug ingredient) Drug/Non Drug [...] Referral Reason Repeat Left and Righ t C4-C6 RFAs Diagnosis 1 Spondylosis without myelopathy or radiculopathy, cervical region (M47.812) Referral Organization [facility] Referring Provider First Name Matt Referring Provider Last Name Jennie Referring Provider Speciality Pain Medic ine Referred Organization [facility] Referred Provider Jennie Matt Referred Address [address],[place], [place],[address],[place] Referred Provider Specialty Pain Medicin e Referral [...] Physicians Referred Provider Matt Schneider Referred Address [address] [place] [address] [address],[place], [place],[address],[place] Referred Provider Specialty Pain Medicin e Referral [...] Physicians Referred Provider Matt Schneider Referred Address [address] [place] [address] [address],[place], [place],[address],[place] Referred Provider Specialty Pain Medicin e Referral Priority Routine Medications Medication SIG (Take, Route, Frequency, Duration) Notes Start Date End Date Status Hydroxychloroquine Sulfate 200 MG twice a day [...] FOR PAIN Oral; Duration: 6 Days Active Ketorolac Tromethamine 60 MG/2ML INJECT 2 [...] Notes Problem Degeneration of lumbar intervertebral disc (15001913) Lumbar disc degeneration (722.52) Active confirmed Problem Chronic pain (03205351) Chronic pain (338.29) Active confirmed Problem Lumbosacral spondylosis without myelopathy (95859560) Lumbosacral Spondylosis w/o myelopathy (721.3) Active confirmed Problem Opioid dependence (83957861) Opioid dependence, uncomplicated (F11.20) Active confirmed Problem Nondependent opioid abuse (227692538) Opioid use, unspecified, uncomplicated (F11.90) Active confirmed Problem Fear of medical treatment (919641437) Fear of injections and transfusions (F40.231) Active confirmed Problem Mononeuropathy of upper limb (715368257) Unspecified mononeuropathy of left upper limb (G56.92) Active confirmed Problem Mononeuropathy (012222866) Mononeuropathy, unspecified (G58.9) Active confirmed Problem Chronic pain (16816076) Other chronic pain (G89.29) Active confirmed Problem Shoulder joint pain (128623067) Pain in unspecified shoulder (M25.519) Active confirmed Problem Enthesopathy of wrist AND/OR carpus (98239368) Osteophyte, right wrist (M25.731) Active confirmed Problem Joint disorder (145843138) Joint disorder, unspecified (M25.9) Active confirmed Problem Lumbosacral spondylosis without myelopathy (90604387) Other spondylosis with radiculopathy, lumbar region (M47.26) Active confirmed Problem Cervical spondylosis without myelopathy (155035039) Spondylosis without myelopathy or radiculopathy, cervical region (M47.812) Active confirmed Problem Lumbosacral spondylosis without myelopathy (disorder) (36456001) Spondylosis without myelopathy or radiculopathy, lumbosacral 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) Active confirmed Problem Lumbosacral spondylosis without myelopathy (74071691) Other spondylosis, lumbosacral region (M47.897) Active confirmed Problem Degeneration of lumbar intervertebral disc (65345683) Other intervertebral disc degeneration, lumbar region (M51.36) Active confirmed Problem Sacrococcygeal disorders, not elsewhere classified (M53.3) Active confirmed Problem Lumbar radiculopathy (993004507) Radiculopathy, lumbar region (M54.16) Active confirmed Problem Lumbosacral radiculopathy (9987560) Radiculopathy, lumbosacral region (M54.17) Active confirmed Problem Cervicalgia (53337212) Cervicalgia (M54.2) Active confirmed Problem Myositis (43810213) Myositis, unspecified (M60.9) Active confirmed Problem Synovitis and tenosynovitis of joint of hand (disorder) (2276699963) Other synovitis and tenosynovitis, unspecified hand (M65.849) Active confirmed Problem Osteoarthritis of knee (272909692) Primary osteoarthritis of right knee (M17.11) Active confirmed Problem Osteoarthritis of left knee joint (372574304061505) Osteoarthritis of left knee, unspecified osteoarthritis type (M17.12) Active confirmed Vital Signs Blood pressure diastolic 86 mm Hg 01/11/2025 Height 63 in 01/11/2025 Blood pressure systolic 130 mm Hg 01/11/2025 Weight 112 lbs 09/24/2024 BMI 19.84 kg/m2 09/24/2024 Encounters Encounter Location Date Provider Diagnosis Pain [address] [place] [address] 01/23/2024 Quique Milton Pain [facility] [address] [facility] [address] [place] [address] 01/24/2024 Quique Milton 104 [facility] [address] [facility] [address] [place] [address] 03/24/2024 Wilfredo Motta Spondylosis without myelopathy or radiculopathy, cervical region M47.812 BV [address] [facility] [address] [place] [address] 04/07/2024 Wilfredo Motta Spondylosis without myelopathy or radiculopathy, cervical region M47.812 JENNIFER [address] [facility] [address] [facility] [address] [place] [address] 06/30/2024 Rano Faltas Spondylosis without myelopathy or radiculopathy, lumbosacral region M47.817 ; Mononeuropathy, unspecified G58.9 and Other chronic pain G89.[address] [place] [address] 07/21/2024 Matt Schneider [address] [place] [address] 07/22/2024 Matt Schneider [address] [facility] [address] [place] [address] 08/06/2024 Matt Schneider Spondylosis without myelopathy or radiculopathy, lumbosacral region M47.817 [address] [facility] [address] [place] [address] 09/24/2024 Luis Enrique Uriah Cervicalgia M54.2 ; Spondylosis without myelopathy or radiculopathy, cervical region M47.812 ; Pain in left shoulder M25.512 ; Low back pain, unspecified M54.50 and Other chronic pain G89.[address] [place] [address] 10/12/2024 Wilfredo Motta [address] [place] [address] 10/15/2024 Wilfredo Motta [address] [facility] [address] [place] [address] 10/29/2024 Matt Schneider Spondylosis without myelopathy or radiculopathy, cervical region M47.812 [address] [facility] [address] [place] [address] 01/11/2025 Freddy Bolick Spondylosis without myelopathy or radiculopathy, cervical region M47.812 ; Pain in left shoulder M25.512 ; Spondylosis without myelopathy or radiculopathy, lumbosacral region M47.817 and Other chronic pain G89.29 [facility] [address] [place] [address] [address] [place] [address] 01/27/2024 Quique Milton [facility] [address] [place] [address] [address] [place] [address] 02/07/2024 Matt Schneider [facility] [address] [place] [address] [address] [place] [address] 03/23/2024 Wilfredo Motta [facility] [address] [place] [address] [address] [place] [address] 04/06/2024 Wilfredo Motta [facility] [address] [place] [address] [address] [place] [address] 06/18/2024 Matt Schneider [facility] [address] [place] [address] [address] [place] [address] 07/07/2024 Matt Schneider Spondylosis without myelopathy or radiculopathy, lumbosacral region M47.817 [facility] [address] [place] [address] [address] [place] [address] 08/03/2024 Matt Schneider [facility] [address] [place] [address] [address] [place] [address] 09/21/2024 Matt Schneider [facility] [address] [place] [address] [address] [place] [address] 09/21/2024 Matt Schneider MG [address] [facility] [address] [place] [address] 09/21/2024 Matt Schneider [facility] [address] [place] [address] [address] [place] [address] 09/23/2024 Matt Schneider [facility] [address] [place] [address] [address] [place] [address] 09/24/2024 Luis Enrique Kruse Other chronic pain G89.29 [facility] [address] [place] [address] 10/27/2024 Matt Schneider [facility] [address] [place] [address] 12/22/2024 Matt Schneider [facility] [address] [place] [address] 12/30/2024 Matt Schneider Assessments Encounter Date Diagnosis (ICD Code) Assessment Notes Treatment Notes Treatment Clinical Notes Section Notes 03/24/2024 Spondylosis without myelopathy or radiculopathy, cervical region (ICD-10 - M47.812) 04/07/2024 Spondylosis without myelopathy or radiculopathy, cervical region (ICD-10 - M47.812) 06/30/2024 Spondylosis without myelopathy or radiculopathy, lumbosacral region (ICD-10 - M47.817) 07/07/2024 Spondylosis without myelopathy or radiculopathy, lumbosacral region (ICD-10 - M47.817) 08/06/2024 Spondylosis without myelopathy or radiculopathy, lumbosacral region (ICD-10 - M47.817) 09/24/2024 Spondylosis without myelopathy or radiculopathy, cervical region (ICD-10 - M47.812) 09/24/2024 Cervicalgia (ICD-10 - M54.2) 09/24/2024 Other chronic pain (ICD-10 - G89.29) 10/29/2024 Spondylosis without myelopathy or radiculopathy, cervical region (ICD-10 - M47.812) 01/11/2025 Pain in left shoulder (ICD-10 - M25.512) 01/11/2025 Spondylosis without myelopathy or radiculopathy, cervical region (ICD-10 - M47.812) 01/11/2025 Spondylosis without myelopathy or radiculopathy, lumbosacral region (ICD-10 - M47.817) 09/24/2024 Pain in left shoulder (ICD-10 - M25.512) 06/30/2024 Mononeuropathy, unspecified (ICD-10 - G58.9) 06/30/2024 Other chronic pain (ICD-10 - G89.29) Lea returns to clinic today for a follow-up evaluation regarding her chronic neck, left shoulder, and low back pain. I have reviewed the [place] [employer] database and did not find any inconsistencies. [...] call with any questions, problems or concerns. 09/24/2024 Low back pain, unspecified (ICD-10 - M54.50) 01/11/2025 Other chronic pain (ICD-10 - G89.29) Dean Patel) returns to clinic today for a follow-up evaluation regarding her chronic neck, left shoulder, and low back pain. I have reviewed the [place] [employer] database and did not find any inconsistencies. [...] in 07/2024. She notes improvements with ADLS, line builder, and standing. Therefore, an order will be [...] call with any questions, problems or concerns. 09/24/2024 Other chronic pain (ICD-10 - G89.29) Dean Patel) returns to clinic today for a follow-up evaluation regarding her chronic neck, left shoulder, and low back pain. I have reviewed the [facility] database and did not find any inconsistencies. We discussed her current symptoms and medications. I will continue with a treatment plan consisting of conservative therapy at this time. She inquires about repeat cervical RFAs. I have ordered repeat left and right C4-6 RFAs. Regarding medications, I have started her on a Medrol dose pack to address her pain flare, per her request. Additionally, I have started her on a 14-day prescription of Journavx as I am not recommending further opioid prescriptions. This treatment plan was reviewed with Lea, and she was agreeable. I will continue to monitor her progress and she will follow up as needed. Plan: 1. Order repeat left and right C4-6 RFAs 2. Send MDP 3. Start Journavx; declined refilling Dilaudid 4. Follow up as needed Discharge instructions reviewed verbally. Discussed the risks/benefits of prescribed medication. The patient was instructed to return to the office as scheduled and call with any questions, problems or concerns. 06/30/2024 Other Drew, Sara Trevizo, am serving as a scribe to document [...] the decisions made during the clinic visit. 09/24/2024 Other Angie Russell , am serving as a scribe to document services personally performed by Luis Enrique Kruse CNP, based upon my observations and the provider's statements to me. All documentation has been reviewed by the aforementioned MECHANICAL MAINTENANCE INSTRUCTOR as well as Matt Schneider MD, prior to being entered into the official medical record. I, Matt Schneider MD attest that the above named individual is acting in scribe capacity, has observed Luis Enrique Kruse's performance of the services and has documented them in accordance with her direction. The documentation recorded by the scribe accurately reflects the service Luis Enrique Kruse CRISTO and Matt Schneider MD personally performed and the decisions made by them. 01/11/2025 Other I, Dipesh Krueger , am [...] Treatment Pending Test Test Name Order Date Intervention: 01/11/2025 MRI : Shoulder, right 03/30/2020 X ray : Hand, left 12/13/2021 Insurance Providers Payer Name Payer Address Payer Phone Subscriber Number Group Number Insured Name Patient Relationship to Insured Coverage Start Date Coverage End Date [facility] [address] [address] [place] [address] [id number] Lisandro Erickson Spouse - patient is the spouse of the insured 3 [facility] [address] [place] [address] [id number] Dean Eirckson Self - patient is the insured 3 [...] Migraines Osteoporosis Lupus Surgical History Surgery Date(Month/Year) Right Knee Arthroscopy Right Shoulder x2 Cholecysectomy Appendectomy Hysterectomy Hospitalization History Reason Date(Month/Year) Surgical
== END 2025-01-18 20:20 | disposition home or self-care (01) ==
LOC: ED 20:15
PROVIDERS: Emergency Provider Student in an Organized Health Care Education/Training Program; PCP Family Medicine
DX: S80.11XA Contusion of right lower leg, initial encounter (principal); M79.604 Pain in right leg
CPT/HCPCS: 93971; 99283; 99284

== ENCOUNTER 2025-04-12 16:40 | Emergency (ER) | payer BC, SELFPAY ==
--- OUTSIDE RECORDS SUMMARY | 2014-08-11 06:36 | XMS_ITS | Continuity of Care Document ---
Author Organization [facility] Address [address] [address] [place] [address] Phone Care Team Providers Care Sewage Disposal Engineer Name Role Phone Kevyn Wong MD Unavailable Unavailable Advance Directives Directive Yes / No Effective Date File Name No Information Encounters Encounter Description Practice Location Reason(s) For Visit Diagnoses Date Provider Providers Copied on Encounter [facility], [address] [address], [place], [place], [id number], [place] tel:[phone] [facility] No Information 5 Link MD Bagley. [address] [facility], [facility] [address], [place], [place], [id number] , [place]. tel:[phone] Referring Provider: Jorge Collado MD, [address] [place] [address], [address]. tel:[phone] Family History Family Member Type Diagnosis Age At Onset No Information Payers Payer name Insurance type Covered alliance party ID Authoriza tion(s) No Information Social [...]
--- OUTSIDE RECORDS SUMMARY | 2014-08-11 06:36 | XMS_ITS | Continuity of Care Document ---
Author Organization [facility] Address [address] [address] [place] [address] Phone Care Team Providers Care Roller Inspector And Mender Name Role Phone Kevyn Wong MD Unavailable Unavailable Advance Directives Directive Yes / No Effective Date File Name No Information Encounters Encounter Description Practice Location Reason(s) For Visit Diagnoses Date Provider Providers Copied on Encounter [facility], [address] [address], [place], [place], [id number], [place] tel:[phone] [facility] No Information 5 Link MD Bagley. [address] [facility], [facility] [address], [place], [place], [id number] , [place]. tel:[phone] Referring Provider: Jorge Collado MD, [address] [place] [address], [address]. tel:[phone] Family History Family Member Type Diagnosis Age At Onset No Information Payers Payer name Insurance type Covered republican ID Authoriza tion(s) No Information Social History [...]
--- OUTSIDE RECORDS SUMMARY | 2014-10-13 06:30 | XMS_ITS | Continuity of Care Document ---
Author Organization [facility] Address [address] [facility] [address] [place] [address] Phone Care Team Providers Care Manager Of Training Name Role Phone Unavailable Unavailable Unavailable Allergies, Adverse Reactions, Alerts Substance Reaction Status Criticality minocycline Hives(mild) Active No Information ketorolac Hives(mild) Active No Information morphine Hives(mild) Active No Information LOPERAMIDE HCL Hives(mild) Active No Informatio n SUMATRIPTAN SUCCINATE Hives(mild) Active No Inf ormation acetaminophen Hives(mild) Active No Information Medications Medication Instructions Dosage Effective Dates (start - stop) Status Comments mirtazapine 30 mg tablet take 1 tablet by oral route every day before bedtime 30 MG - Active benzonatate 100 mg capsule take 1 capsule by oral route 4 times every day 100 MG - Active ondansetron HCl 8 mg tablet take 1 tablet by oral route every 8 hours for 2 days 8 MG - Active alprazolam 0.5 mg tablet take 1 tablet by oral route 3 times every day PRN 0.5 MG - Active gabapentin 400 mg capsule take 1 capsule by oral route 3 times every day 400 MG - Active omeprazole 40 mg capsule,delayed release take 1 capsule by oral route every bedtime 40 MG - Active Benadryl 25 mg capsule take 2 capsule by oral route every 4 - 6 hours as needed 50 MG - Active zolpidem 10 mg tablet take 1 tablet by o ral route every day at bedtime 10 MG - Active estradiol 1 mg tablet take 1 tablet by o ral route every day 1 MG - Active Procedures Procedure Date Epid/SAB Lumbosacral Fluoroscopic Guidance For Needle Placeme nt - Spine New Pt Eval 45 Min Pain Assessment And Follow Up Plan Docum ented Advance Directives Directive Yes / No Effective Date File Name No Information Encounters Encounter Description Practice Location Reason(s) For Visit Diagnoses Date Provider Providers Copied on Encounter FARHAT Sosa, [address] [facility] [address], [place], [place], [id number], [place] tel:[phone] [facility] No Information 5 No Information Referring Provider: REFERRAL SELF, ELADIO. New Pt Eval 45 Min FARHAT oSsa, [address] [facility] [address], [place], [place], [id number], [place] tel:[phone] [facility] No Information No Information Referring Provider: REFERRAL SELF, ELADIO. Family History Family Member Type Diagnosis Age At Onset Mother Problem (finding) diabetes melli tus in first degree relative Mother Problem (finding) Arthritis Payers Payer name Insurance type Covered constitution party ID Milliebozena wayne(s) [employer] [id number] Social History Type Description Quantity Date Captured Comments Alcohol Use Details No Caffeine Use Details soda > 32oz per day Tobacco Use Status Smoking Status Current every day smoker 2014 Sex Female Vital Signs Date / Time: Height Weight BMI Pulse Rate Blood Pressure Temperature Respiratory Rate Body Surface Area Head Circumference Head Circ. Percentile Wt./Shane. Percentile BMI percentile Pulse Ox Inhaled Ox 10:22 AM 91 /min 107/79 mm[Hg] 98.00 F 98 % 10:59 AM 88 /min 106/82 mm[Hg] 14 /min 97 % 11:04 AM 78 /min 104/76 mm[Hg] 14 /min 94 % 11:14 AM 85 /min 100/74 mm[Hg] 16 /min 100 % 11:18 AM 78 /min 99/75 mm[Hg] 16 /min 97 % 11:29 AM 88 /min 94/72 mm[Hg] 16 /min 98 % 11:32 AM 84 /min 95/67 mm[Hg] 16 /min 98 % Chief Complaint And Reason For Visit No Information Reason For Referral Reason For Referral No Information History Of Present Illness Encounter Date Complaint History Of Prese nt Illness No Information Functional Status Date Functional Assessmen t Pain Score 0/10 Pain Score 0/10 Instructions Date Instruction Additional Infor regineion Epidural Steroid Injection educa tion Assessments Type Assessment Date No Information Patient Care Teams Name Effective Dates (start - stop) Status Members No Information
--- OUTSIDE RECORDS SUMMARY | 2014-10-13 06:30 | XMS_ITS | Continuity of Care Document ---
Author Organization [facility] Address [address] [facility] [address] [place] [address] Phone Care Team Providers Care Staff Anesthesiologist Name Role Phone Unavailable Unavailable Unavailable Allergies, [...] Providers Copied on Encounter FARHAT Sosa, [address] [facility] [address], [place], [place], [address], [place] tel:[phone] [facility] No Information 5 No Information Referring Provider: REFERRAL SELF, ELADIO. New Pt Eval 45 Min FARHAT Sosa, [address] [facility] [address], [place], [place], [id number], [place] tel:[phone] [facility] No Information No Information Referring Provider: REFERRAL SELF, ELADIO. Family History Family Member Type Diagnosis Age At Onset Mother Problem (finding) diabetes melli tus in first degree relative Mother Problem (finding) Arthritis Payers Payer name Insurance type Covered alliance party ID Milliebozena wayne(s) [employer] [place] [id number] Social History Type Description Quantity Date Captured [...]
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
--- OUTSIDE RECORDS SUMMARY | 2022-07-25 08:40 | XMS_ITS | Continuity of Care Document ---
Author Organization [facility] Address [address] [facility] [place] [address] Phone Care Team Providers Care Safety Companion Name Role Phone Otis MARSHA Mary Unavailable [...] Copied on Encounter OFFICE/OUTPAT IENT VISIT, EST [facility], [address] [facility] [place], [id number] , [place] tel:[phone] [facility] [place] Back Pain (chief complaint) Chronic pain syndromePain in right shoulderSpondylosi s without myelopathy or radiculopathy, lumbar regionRadiculopath y, cervical regionLong term (current) use of opiate analgesic 3 Madeline Mary. [address] [facility] [address], [place], [id number] , [place]. tel:[phone] Referring Provider: Hunter Strauss, [address] [place], [place] [address], [address] . tel:[phone] [facility], [address] [place] [address] [place], [id number] , [place] tel: [phone] [facility] [place] No Information 3 Arlen Richter. [place], [address], [place], [address], [place]. tel: [phone] [facility], [address] [place] [address], [id number] , [place] tel: [phone] [facility] [place] No Information 2 [facility] Mary. [address], [place], [id number] , [place]. tel: [phone] Referring Provider: Hunter Strauss, [address] [place] [address] [place], [address] . tel:[phone] [facility], [address] [place] [address], [id number] , [place] tel: [phone] [facility] No Information 2 [facility] Mary. [address] [place] [address] Rd [address], [place], [id number] , [place]. tel: [phone] Referring Provider: Hunter Strauss, [address] [place] [address] [place], [address] . tel:[phone] OFFICE VISIT, EST TELEMEDICINE [facility], [address] [place] [address] [place], [id number] , [place] tel: [phone] [facility] Back Pain (chief complaint) Chronic pain syndromeLong term (current) use of opiate analgesicSpondylos is without myelopathy or radiculopathy, lumbar regionPain in right shoulderRadiculopa thy, cervical region 2 [facility] Mary. [address], [place], [id number] , [place]. tel: [phone] [facility], [address] [facility] [place], [id number] , [place] tel:[phone] [facility] [place] No Information 2 Otis Hernandez. [address], [place], [id number] , [place]. tel:[phone] Family History Family Member Type Diagnosis Age At Onset No Information Payers Payer name Insurance type Covered libertarian ID Authorlos black(s) [facility] Individual And Family Plans [id number] Social History Type Description Quantity Date [...] Of Treatment Date Type Action Status Goal Update Social Hi story. Due on due Goal Hepatitis C scre ening. Due on due Goal Weight. Due on d ue Goal Unhealthy drug u se screening. Due on due Goal PHQ-9. Due on du e Goal FIT. Due on due Goal Height. Due on d ue Goal Review Allergy L ist. Due on due Goal Tobacco Use. Due on due Goal Lipid panel. Due on due Goal HPV. Due on due Goal Medication Recon ciliation. Due on due Goal FIT-DNA. Due on due Goal CT-Colonography. Due on due Goal Zoster vaccine ( 1st). Due on due Goal AST (SGOT). 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 Due on due Goal Creatinine. Due on due Goal ALT (SGPT). Due on due Goal DIGITAL SOLUTION ARCHITECT Scanned. Due on due Goal Order Annual PT. Due on due Goal OARS. Due on due Goal UDT. Due on due Goal HPV. Due on due Goal UDT. Due on due Goal OARS. Due on due Goal Unhealthy drug u [...] Goal AST (SGOT). 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 Due on due Goal Creatinine. Due on due Goal ALT (SGPT). Due on due Goal Order Annual PT. Due on due Goal DIGITAL SOLUTION ARCHITECT Scanned. Due on due Goal Weight. Due on [...] due Goal PHQ-9. Due on du e Future Order: Radiology Order Shoulder WO Right (MRSHOUWO), Sent on: Sent History Of Present Illness Encounter Date Complaint History Of Prese nt Illness Comments: Dean is a 52 y/o female [...] imaging with Dr. Allen Kelley MD through [facility]. Results showed an already existing [...] today. Back Pain Severity level i s 4. [...] a 52 y/o female who presents via [place] for initial consultation in the setting of [...] both the neck and low back with [facility]. The ablation for the neck and low back provides around 85% relief and lasts for about 5-6 months. Continues to find interest in repeating the procedure through [facility]. Also reports various completion of PT over the last 10 years. Was previously established with [facility]. Notes she was with them for about 6 years. She states she was reluctant to switch to another pain clinic but was forced to d/t the fact her insurance was unable to cover her care with [facility] anymore. She discloses 3 instances in which her UDT results did not show any presence of her current medication. Reports she was issued a violation from [facility] for the first time last month.Currently managed on Tizanidine 2mg and Dilaudid 2mg with significant benefit. Requests a note from [facility] which states we do not prescribed opioid medications on the first visit in order to receive a bridge prescription with her PCP.Patient is interested in RFA and medication management from [facility]. No other concerns today. Back Pain Severity [...] by lying down, pain meds/drugs and rest. Functional Status Date Functional Assessmen t No [...] hitting a guardrail. Was previously established with [facility] for about 6-7 years. Patient states she had to switch pain clinics d/t her insurance no longer covering her care at [facility]. Discloses the fact 3 of her UDT results did not show any presence of her medication and was issued a violation in 04/2022. Have tried RFA for both the neck and low back several times with [facility]. Reports about 85% pain relief each [...] up with Dr. 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 Per the records from [facility], no presence of Dilaudid was shown in the UDT results of 11/10/21, 07/13/21, and 04/30/22. UDT on 04/30/22 also had presence of Methylphenidate. MME is Butrans 5mcg/hr. Patient has been managing medications appropriately, and is not confused or oversedated during our office visit. [facility] queried and showed no outside prescriptions. UDT results from 07/04/22 reviewed and are consistent with current medication regimen. Appropriate to continue with opioid therapy Mental Status Date Cognitive Assessment Orientation - [place] ed to time, place, person, situation. Patient Care Teams Name Effective Dates (start - stop) Status Members No Information
--- OUTSIDE RECORDS SUMMARY | 2025-03-11 08:39 | XMS_ITS ---
Author Organization [facility] Address [address] [place] [address] [address] [place] [address] Care Team Providers Care Auger Supervisor Name Role Phone Anna Wilkes MD Primary Care Provider Unavail able Matt Schneider Unavailable [phone] [facility] Bear RUSSELL Unavailable Unavailab Quique Blevins Unavailable [phone] Allergies Allergen (clinical drug ingredient) Drug/Non Drug Allergy documented on EMR Reaction Allergy Type Onset Date Status codeine Codeine Sulfate Hives Drug Allergy A ctive DHEA Diarrhea and Nausea Drug Allergy Active acetaminophen / hydrocodone Hydrocodone-Acetamino phen Hives Drug Allergy Active loperamide Loperamide HCl Hives Drug Allergy A ctive methocarbamol Methocarbamol Rash Drug Allergy Active Minocycline HCl Itching Drug Allergy A ctive Morphine Sulfate Hives Drug Allergy Active oxycodone Oxycodone HCl Hives Drug Allergy Act rafael prochlorperazine Prochlorperazine Hives Drug Allergy Active sumatriptan Sumatriptan Hives Drug Allergy Act rafael venlafaxine Venlafaxine HCl Anxiety Drug Allergy Active Medications Medication SIG (Take, Route, Frequency, Duration) Notes Start Date End Date Status traMADol HCl 50 MG TAKE 1 TABLET BY MOUTH EVERY 6 HOURS NEEDED FOR PAIN Oral; Duration: 6 Days Active HYDROmorphone HCl 2 MG 1 tablet as needed Orally every 6 hrs; Duration: 4 days As needed Post-procedur e pain 02/22/2025 Active tiZANidine HCl 4 MG 1-2 tabs Orally as needed at bedtime.; Duration: 30 days Active Allergy Relief 10 MG TAKE ONE TABLET BY MOUTH ONCE DAILY Oral; Duration: 90 Active Ondansetron 8 MG DISSOLVE ONE TABLET BY MOUTH EVERY 8 HOURS NEEDED FOR NAUSEA Oral; Duration: 7 Active Ketorolac Tromethamine 60 MG/2ML INJECT 2 ML ONCE A DAY NEEDED FOR MIGRAINE Intramuscular; Duration: 30 Active Ambien 10 MG 1 tablet at bedtime as needed Orally Once a day Active Hydroxychloroquine Sulfate 200 MG twice a day Orally Active Mirtazapine 30 MG TAKE ONE TABLET BY MOUTH AT BEDTIME Oral; Duration: 90 Active Estradiol 1 MG 1 tablet Orally Once a day Active Encounters Encounter Location Date Provider Diagnosis [facility] [address] [facility] [address] [place] [address] 03/11/2025 Quique Milton Plan Of Treatment No Information Progress Notes * Dean DEL ROSARIODOB: 0 (54 yo F)Acc No.[id number]:03/11/2025 Patient: Rosalba BIGGSDean Provider: Keith Milton MD :1970 A ge:54 Y S ex:Female Date:03/11/2025 Phone: Address:[facility] [address] [facility], [phone] Pcp:Anna Wilkes MD Subjective: * Chief Complaints: * HPI: P re-op Call: [facility] Template 2023 * Patient reminded of appointment day and time, SEDATION- NPO Instructions Given, *No illness reported or current antibiotic use, *No blood thinners, *No DM or insulin use, *No GLP1 use (Ozempic, Trulicity, Wegovy, etc.), *No vaccines in last 2 weeks, *Preop call completed by:TUSHAR Bella. P ost-op Call: Post-Op Call P ost - Op Call Completed, LVM with call back number to boom storage if patient has questions or concerns or if they are showing signs of infection.TUSHAR Bella. * Medical History: * Surgical History: * Medications: T akingHYDROmorphone HCl 2 MG Tablet 1 tablet as needed Orally every 6 hrs As needed, Notes to Pharmacist: Post-procedure paintiZANidine HCl 4 MG Tablet 1-2 tabs Orally as needed at bedtime. traMADol HCl 50 MG Tablet TAKE 1 TABLET BY MOUTH EVERY 6 HOURS NEEDED FOR PAIN Oral Allergy Relief 10 MG Tablet TAKE ONE TABLET BY MOUTH ONCE DAILY Oral Ondansetron 8 MG Tablet Disintegrating DISSOLVE ONE TABLET BY MOUTH EVERY 8 HOURS NEEDED FOR NAUSEA Oral Mirtazapine 30 MG Tablet TAKE ONE TABLET BY MOUTH AT BEDTIME Oral Estradiol 1 MG Tablet 1 tablet Orally Once a day Ambien 10 MG Tablet 1 tablet at bedtime as needed Orally Once a day Hydroxychloroquine Sulfate 200 MG Tablet twice a day Orally Ketorolac Tromethamine 60 MG/2ML Solution INJECT 2 ML ONCE A DAY NEEDED FOR MIGRAINE Intramuscular Taking HYDROmorphone HCl 2 MG Tablet 1 tablet as needed Orally every 6 hrs As needed, Notes to Pharmacist: Post- procedure painTaking tiZANidine HCl 4 MG Tablet 1-2 tabs Orally as needed at bedtime. Taking traMADol HCl 50 MG Tablet TAKE 1 TABLET BY MOUTH EVERY 6 HOURS NEEDED FOR PAIN Oral Taking Allergy Relief 10 MG Tablet TAKE ONE TABLET BY MOUTH ONCE DAILY Oral Taking Ondansetron 8 MG Tablet Disintegrating DISSOLVE ONE TABLET BY MOUTH EVERY 8 HOURS NEEDED FOR NAUSEA Oral Taking Mirtazapine 30 MG Tablet TAKE ONE TABLET BY MOUTH AT BEDTIME Oral Taking Estradiol 1 MG Tablet 1 tablet Orally Once a day Taking Ambien 10 MG Tablet 1 tablet at bedtime as needed Orally Once a day Taking Hydroxychloroquine Sulfate 200 MG Tablet twice a day Orally Taking Ketorolac Tromethamine 60 MG/2ML Solution INJECT 2 ML ONCE A DAY NEEDED FOR MIGRAINE Intramuscular * Allergies: C odeine Sulfate: HivesDHEA: Diarrhea and NauseaHydrocodone-Acetaminophen: HivesLoperamide HCl: HivesMethocarbamol: RashMinocycline HCl: ItchingMorphine Sulfate: HivesOxycodone HCl: HivesProchlorperazine: HivesSumatriptan: HivesVenlafaxine HCl: Anxietyno[Allergies Verified] Objective: * Vitals: * Billing Information: * Visit Code: * Procedure Codes: * Sign off status: Completed true * Provider: Keith Milton MD Date: 0 03/11/2025 Generated for Ricki rondon/Ai/Cindy on: 1 04:43 PM CDT History and Physical Notes * HPI (History of Present Illness) Category Sub-Category Detail Notes Category Not es Post-op Call Post-Op Call Post - Op Call C ompleted, LVM with call back number to boom storage if patient has questions or concerns or if they are showing signs of infection.TUSHAR Bella Pre-op Call New PAT Template 2023 *Patient r eminded of appointment day and time, SEDATION- NPO Instructions Given, *No illness reported or current antibiotic use, *No blood thinners, *No DM or insulin use, *No GLP1 use (Ozempic, Trulicity, Wegovy, etc.), *No vaccines in last 2 weeks, *Preop call completed by:TUSHAR Bella
--- OUTSIDE RECORDS SUMMARY | 2025-03-15 03:00 | XMS_ITS ---
Author Organization [facility] Address [address] [place] [address] [address] [place] [address] Care Team Providers Care Staff Attorney Name Role Phone Katrin BARNETT, Anna Primary Care Provider Unavail able Matt Schneider Unavailable [phone] [address] [facility] Bear RUSSELL Unavailable Unavailab Quique Blevins Unavailable [phone] REASON FOR VISIT iv conscious sedation Right Dorsal Scapular Nerve Block Encounters Encounter Location Date Provider Diagnosis [facility] [address] [facility] [address] [place] [address] 03/15/2025 Quique Milton Plan Of Treatment No Information Progress Notes * Dean DEL ROSARIO JDOB: 0 (54 yo F)Acc No.[id number]:03/15/2025 Patient: Rosalba BIGGSDean Provider: Keith Milton MD :1970 A ge:54 Y S ex:Female Date:03/15/2025 Phone: Address:[address] [id number] Pcp:Anna Wilkes MD * Billing Information: * Visit Code: * Procedure Codes: * Sign off status: Completed true * Provider: Keith Milton MD Date: 0 03/15/2025 Generated for Rolandoi nela/Ai/eTransmitting on: 1 04:44 PM CDT
--- OUTSIDE RECORDS SUMMARY | 2025-03-23 15:30 | XMS_ITS | Encounter Summary ---
Author Organization [facility] Address [address] [place] [address] Care Team Providers Care Full Service Supervisor Name Role Phone Neil Wilkes MD Primary Care Provider + [phone] Reason for Referral * Consult/Transfer Care (Routine) - New Request Specialty Diagnoses / Procedures Referred By Barbara de león Referred To Contact Diagnoses Spinal stenosis of cervical region Neil Wilkes MD [address] [place] [address] Phone: tel: fax: Referral ID Status Reason Start Date Expiration Date V isits Requested Visits Authorized [id number] New Request 03/30/2025 06/29/2026 1 1 Scheduling Instructions Your clinician has recommended an appointment with [facility]. You can quickly make your appointment online at [employer]/schedule. You can also call [phone] for help scheduling your appointment. We suggest you call your health insurance company about your coverage and benefits for this appointment. Question Answer Appointment Urgency? Within 1 Week (Urgent) Comments Severe cervical spinal stenosis * Procedure/Equipment (Routine) - Closed Specialty Diagnoses / Procedures Referred By Contac t Referred To Contact Diagnoses Radiculopathy of cervical region Procedures MR Cervical Spine WO IV Cont Neil Wileks MD [address] [place] [address] Phone: tel: fax: Referral ID Status Reason Start Date Expiration Date Visits Re quested Visits Authorized [id number] Closed 03/23/2025 2026 1 1 Reason for Visit * Reason Onset Date Comments SHOULDER PAIN Video Visit 03/23/2025 Encounter Details Date Type Department Care Team (Late st Contact Info) Description 03/23/2025 3:30 PM CDT Telemedicine [facility] [address] [place], [place] [phone] Neil Wilkes MD [address] [place] [address] Radiculopathy of cervical region (Primary Dx); Neck pain; Chronic migraine without aura without status migrainosus, not intractable; Spinal stenosis of cervical region Social History Tobacco Use Types Packs/Day Years Used Date Smoking Tobacco: Every Day Cigarettes 0.8 24.4 Started: 09/11/2016 Smokeless Tobacco: Never Alcohol Use Standard Drinks/Week Comments No 0 (1 standard drink = 0.6 oz pur e alcohol) PHQ-2 Answer Date Recorded PHQ-2 Score 0 03/23/2025 Financial Resource Strain Answer Date R ecorded [...] - Inhaled Oxygen Concentration - - Weight 53.1 kg (117 lb) 03/23/2025 2:58 PM CDT Height - - Body Mass Index 21.4 12/28/2022 7:07 AM CDT documented in this encounter Progress Notes * Neil Wilkes MD - 03/23/2025 3:30 PM CDTAddended by: NEIL WILKES on: 03/30/2025 06:56 PM Modules accepted: Orders * Neil Wilkes MD - 03/23/2025 3:30 PM CDT Subjective: Today's visit with Lea was conducted via telehealth (video) as it is the patient's preference andit is appropriate for the treatment being provided Four months of persistent right-sided neck and shoulder pain. She does follow with a pain clinic and does get radiofrequency ablation done to the neck and spine twice a year. She has recently had 2 injections in the right scapular region without any improvement of her symptoms. She describes it as a constant dull to intense and sharp pain throughout the day. She has found that she has decreased range of motion in the neck with little to no rotational movement bilaterally. She has a hard time falling asleep but does state that the pain is better 1st thing in the morning but gets worse throughout the day and she describes it as unbearable by late morning. She denies any recent injury. She is complaining of right arm numbness and weakness and she is starting to have increased frequency of her headaches. Medications were reviewed and she is taking nortriptyline 100 mg at bedtime, Lyrica 150 mg in the morning, at noon and 300 mg at bedtime. She has been taking meloxicam with no improvement of her symptoms. I did give her a small prescription for tramadol 1 month ago and she states this helped slightly. She has taken Toradol in the past for migraine headaches and has not use this in several years and I would recommend that she try Toradol 1st and use the tramadol only as a rescue medicine. She should continue to work with her pain clinic for her chronic pain. I was unable to find a recent MRI and this was ordered today and she will be contacted with test results. She did receive a steroid injection to the right scapula on March 15 and is not able to have any oral prednisone for 2 weeks fromthe injection Objective: Wt 117 lb (53.1 kg) BMI 21.40 kg/m?? She is alert cooperative appears to be quite uncomfortable and has very limited range of motion in the neck Respiratory: She is breathing easily with no coughing or wheezing Neurologic: She is speaking in full and logical sentences Psychiatric: She is neatly groomed, has good eye contact and her affect is somewhat guarded Assessment/Plan: 1. Radiculopathy of cervical region 2. Neck pain 3. Chronic migraine without aura without status migrainosus, not intractable Patient will be contacted with test results Neil Wilkes MD documented in this encounter Plan of Treatment Upcoming Encounters Date Type Department Care Team (Late st Contact Info) Description 05/11/2025 7:00 AM SENIOR WEB DEVELOPER Appointment [facility] [address] [place], [place] [phone] [place] [address] [address] [place] [address] Scheduled Referrals Name Type Priority Associated Diagnoses Orde r Schedule Physical Medicine & Rehab Consult-Adult Referral Routine Spinal stenosis of cervical region Ordered: 03/30/2025 documented as of this encounter Results * MR Cervical Spine WO IV Cont (03/26/2025 11:13 AM CDT) Anatomical Region Laterality Modality Spine, C-Spine, Neck, Vascular, MSK Magnetic Resonance Impressions 03/29/2025 8:59 AM CDT 1. Progression of degenerative findings most pronounced at C5-C6 and C6-C7 as above, without high-grade spinal canal or neural foraminal stenosis. 2. Avoy-ss-mbkuefjv spinal canal stenosis at C5-C6 and C6-C7. 3. Aqnu-gm-pkzjgxsc neural foraminal stenoses as above. Signed by: Vic Lopez 03/29/2025 8:59 AM Narrative 03/29/2025 8:59 AM CDT EXAM: MR CERVICAL SPINE WO IV CONT INDICATION: cervical radiculopathy COMPARISON: Cervical spine MRI 09/04/2013 TECHNIQUE: MRI of the cervical spine without contrast. FINDINGS: Dextroscoliosis centered at C7-T1. Normal cord signal. No suspicious marrow edema. Degenerative disc changes most pronounced at C5-C6 where there are bhsv-vs-idxnasxw degenerative disc changes eccentric to the left. Normal alignment. Moderate right mastoid air cell opacification. Small mucous retention cyst within the adenoid tonsils. C2-3: No spinal canal or neural foraminal stenosis. C3-4: Minimal posterior disc osteophyte complex. No canal stenosis. Slight right neural foraminal stenosis. C4-5: Minimal posterior disc osteophyte complex. Spinal canal is patent. Hbra-aw-ivcvlwqq left and mild right foraminal stenosis secondary to uncinate spurring and facet arthropathy. C5-6: Posterior disc osteophyte complex and small central disc protrusion. Yukt-bl-evutanpd spinal canal stenosis. Hwtd-rx-locaslgs left and mild right foraminal stenosis secondary to uncinate spurring and facet arthropathy. C6-7: Posterior disc osteophyte complex. Ligamentum flavum thickening. Coao-qr-xsweutir canal stenosis. Mild bilateral foraminal stenosis secondary to uncinate spurring and facet arthropathy. C7-T1: No canal or foraminal stenosis. Mild facet arthropathy. Dcvo-zv-ooroybtw left foraminal stenosis at T2-T3. Mild left foraminal stenosis at T3-T4. Procedure Note Vic Lopez MD - 03/29/2025 EXAM: MR CERVICAL SPINE WO IV CONT INDICATION: cervical radiculopathy COMPARISON: Cervical spine MRI 09/04/2013 TECHNIQUE: MRI of the cervical spine without contrast. FINDINGS: Dextroscoliosis centered at C7-T1. Normal cord signal. No suspiciousmarrow edema. Degenerative disc changes most pronounced at C5-C6 wherethere are lgsb-ln-snthkwvy degenerative disc changes eccentric to theleft. Normal alignment. Moderate right mastoid air cell opacification.Small mucous retention cyst within the adenoid tonsils. C2-3: No spinal canal or neural foraminal stenosis. C3-4: Minimal posterior disc osteophyte complex. No canal stenosis.Slight right neural foraminal stenosis. C4-5: Minimal posterior disc osteophyte complex. Spinal canal is patent.Shzs-ft-qovpakzc left and mild right foraminal stenosis secondary touncinate spurring and facet arthropathy. C5-6: Posterior disc osteophyte complex and small central disc protrusion.Estj-cn-fjymvcsf spinal canal stenosis. Abex-bd-avtmrels left and mildright foraminal stenosis secondary to uncinate spurring and facetarthropathy. C6-7: Posterior disc osteophyte complex. Ligamentum flavum thickening.Mqup-qs-rktjmzdi canal stenosis. Mild bilateral foraminal stenosissecondary to uncinate spurring and facet arthropathy. C7-T1: No canal or foraminal stenosis. Mild facet arthropathy. Npij-aj-lunsylbj left foraminal stenosis at T2-T3. Mild left foraminalstenosis at T3-T4. IMPRESSION 1. Progression of degenerative findings most pronounced at C5-C6 and C6-C7as above, without high-grade spinal canal or neural foraminal stenosis. 2. Nbio-az-tyxcckst spinal canal stenosis at C5-C6 and C6-C7. 3. Xtzr-kh-irwkzils neural foraminal stenoses as above. Signed by: Vic Lopez 03/29/2025 8:59 AM us Neil Wilkes MD RAD MRI Final Result documented in this encounter Visit Diagnoses Diagnosis Radiculopathy of cervical region- Primary Brachial neuritis or radiculitis nos Neck pain Cervicalgia Chronic migraine without aura without status migrainosus, not intractable Chronic migraine without aura, without mention of intractable migraine without mention of status migrainosus Spinal stenosis of cervical region Spinal stenosis in cervical region Radiculopathy of cervical region Brachial neuritis or radiculitis nos documented in this encounter Care Teams Full Service Supervisor Relationship Specialty Start Date End Date Neil Wilkes MD [address] [place] [address] PCP - General 08/23/14 documented as of this encounter
--- OUTSIDE RECORDS SUMMARY | 2025-03-23 20:00 | XMS_ITS | Encounter Summary ---
Author Organization [facility] Address [address] [place] [address] Care Team Providers Care Dog Catcher Name Role Phone Anna Wilkes MD Primary Care Provider + [phone] Reason for Visit * Reason Comments QUESTIONS, GENERAL Entered automaticall y based on patient selection in [facility]. Encounter Details Date Type Department Care Team (Late st Contact Info) Description 03/23/2025 8:00 PM CDT [facility] [address] [place], [place] [phone] Anna Wilkes MD [address] [place], [place] [address] Chief Comp: QUESTIONS, GENERAL Social History Tobacco [...] st Contact Info) Description 05/11/2025 7:00 AM LOGGING SPECIALIST Appointment [facility] [address] [place], [place] [phone] Igor Yang, [address] [place] [place] [address] documented as of this encounter Visit Diagnoses Not on filedocumented in this encounter Care Teams Dog Catcher Relationship Specialty Start Date End Date Anna Wilkes MD [address] [place], [place] [address] PCP - General 08/23/14 documented as of this encounter
--- OUTSIDE RECORDS SUMMARY | 2025-03-26 08:34 | XMS_ITS ---
Author Organization [facility] Address [address] [place] [address] [address] [place] [address] Care Team Providers Care Emblem Maker Name Role Phone Anna Wilkes MD Primary Care Provider Unavail able Matt Schneider Unavailable [phone] Castillo [facility] Bear RUSSELL Unavailable Unavailab le Allergies Allergen (clinical drug ingredient) Drug/Non Drug [...] venlafaxine Venlafaxine HCl Anxiety Drug Allergy Active loracarbef Loracarbef hives Drug Allergy Activ e rizatriptan Rizatriptan nausea Drug Allergy Act rafael REASON FOR VISIT updates Encounters Encounter Location Date Provider Diagnosis [facility] [address] [place] [address] [address] [place] [address] 03/26/2025 Matt Schneider Plan Of Treatment No Information Progress Notes * Dean DEL ROSARIO JDOB: 0 (54 yo F)Acc No.[id number]:03/26/2025 Patient: Dena AGUAYO :1970 A ge:54 Y S ex:Female Phone: Address:[address] [place], [address] Subjective: * Chief Complaints: * U pdates * Medical History: * Surgical History: * Hospitalization/Major Diagno stic Procedure: * Medications: * Allergies: C odeine Sulfate: HivesDHEA: Diarrhea and NauseaHydrocodone-Acetaminophen: HivesLoperamide HCl: HivesMethocarbamol: RashMinocycline HCl: ItchingMorphine Sulfate: HivesOxycodone HCl: HivesProchlorperazine: HivesSumatriptan: HivesVenlafaxine HCl: AnxietyRizatriptan: nausea - Side EffectsLoracarbef: hives - Allergyno[Allergies Verified] Objective: * Vitals: * Physical Examination: Assessment: Plan: * Treatment: * Procedure Codes: * true * Date: Generated for Ricki rondon/Ai/Cindy on: 04:44 PM CDT
--- OUTSIDE RECORDS SUMMARY | 2025-03-26 11:00 | XMS_ITS | Encounter Summary ---
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 Name Role Phone Anna Wilkes MD Primary Care Provider + [phone] Reason for Visit * Procedure/Equipment (Routine) - Closed Specialty Diagnoses / Procedures Referred By Barbara de león Referred To Contact Diagnoses Chronic radicular low back pain Procedures MR Lumbar Spine WO IV Cont Anna Wilkes MD [address] [place] [address] Phone: tel: fax: Referral ID Status Reason Start Date Expiration Date Visits Re quested Visits Authorized [id number] Closed 08/28/2024 11/27/2025 1 1 Encounter Details Date Type Department Care Team (Latest Contact Info) Description 03/26/2025 11:00 AM CDT Ancillary Procedure [facility] [address] [place] [address] [place] [phone] Anna Wilkes MD [address] [place], [place] [id number] Chronic radicular low back pain Social History Tobacco Use Types Packs/Day Years [...] st Contact Info) Description 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 Disc bulge eccentric to the left at L4-L5 with posterior displacement of the descending left L5 nerve root with mild spinal canal stenosis, mild left lateral recess stenosis, and mild left neural foraminal stenosis. 2. Other mild degenerative findings as above. Comment: Many lumbar spine MRI findings are so common that while we may have reported their presence, they must be interpreted with caution and in the context of the clinical situation. The frequency of these findings in adults WITHOUT low back pain increases with age and are as follows: disk degeneration (37-96%), disk height loss (24-84%), disk bulge (30-84%), disk protrusion (29-43%), annular fissure (19- 29%), and facet degeneration (4-83%). Frequency percentages adapted from Brandon W, Odette PH, Abraham B, et al. AJNR AM J Neuroradiol 2015:36:811-16. Signed by: Vic Lopez 03/29/2025 9:48 AM Narrative 03/29/2025 9:48 AM CDT EXAM: MR LUMBAR SPINE WO IV CONT INDICATION: right sided radiculopathy COMPARISON: Lumbar spine radiographs 03/07/2017 TECHNIQUE: Routine non-contrast MRI of the lumbar spine. FINDINGS: Study is labeled for five lumbar vertebrae, with the 1st trapezoidal appearing vertebra labeled S1, without definite ribs at T12. The conus medullaris terminates at the level of L1. Normal cord signal. Benign hemangioma within T11. Mild degenerative disc changes. No acute compression fracture or suspicious osseous lesion. Slight anterolisthesis at L5-S1. Small bilateral renal cysts. Small left central disc protrusion at T11-12. T12-L1: No spinal canal or neural foraminal stenosis. L1-2: No spinal canal or neural foraminal stenosis. L2-3: No spinal canal or neural foraminal stenosis. L3-4: Minimal disc bulge eccentric to the left. Mild facet arthropathy. No canal or foraminal stenosis. L4-5: Disc bulge eccentric to the left with posterior displacement of the descending left L5 nerve root. Mild facet arthropathy. Mild spinal canal stenosis. Mild left lateral recess stenosis. Mild left neural foraminal stenosis. L5-S1: Slight anterolisthesis. Small posterior disc osteophyte complex. Mild facet arthropathy. Minimal canal stenosis. Slight left foraminal stenosis. Procedure Note Vic Lopez MD - 03/29/2025 EXAM: MR LUMBAR SPINE WO IV CONT INDICATION: right sided radiculopathy COMPARISON: Lumbar spine radiographs 03/07/2017 TECHNIQUE: Routine non-contrast MRI of the lumbar spine. FINDINGS: Study is labeled for five lumbar vertebrae, with the 1st trapezoidalappearing vertebra labeled S1, without definite ribs at T12. The conusmedullaris terminates at the level of L1. Normal cord signal. Benignhemangioma within T11. Mild degenerative disc changes. No acutecompression fracture or suspicious osseous lesion. Slight anterolisthesisat L5-S1. Small bilateral renal cysts. Small left central disc protrusionat T11-12. T12-L1: No spinal canal or neural foraminal stenosis. L1-2: No spinal canal or neural foraminal stenosis. L2-3: No spinal canal or neural foraminal stenosis. L3-4: Minimal disc bulge eccentric to the left. Mild facet arthropathy.No canal or foraminal stenosis. L4-5: Disc bulge eccentric to the left with posterior displacement of thedescending left L5 nerve root. Mild facet arthropathy. Mild spinal canalstenosis. Mild left lateral recess stenosis. Mild left neural foraminalstenosis. L5-S1: Slight anterolisthesis. Small posterior disc osteophyte complex.Mild facet arthropathy. Minimal canal stenosis. Slight left foraminalstenosis. IMPRESSION 1. Disc bulge eccentric to the left at L4-L5 with posterior displacementof the descending left L5 nerve root with mild spinal canal stenosis, mildleft lateral recess stenosis, and mild left neural foraminal stenosis. 2. Other mild degenerative findings as above. Comment: Many lumbar spine MRI findings are so common that while we mayhave reported their presence, they must be interpreted with caution and inthe context of the clinical situation. The frequency of these findings inadults WITHOUT low back pain increases with age and are as follows: diskdegeneration (37-96%), disk height loss (24-84%), disk bulge (30-84%),disk protrusion (29-43%), annular fissure (19- 29%), and facet degeneration(4-83%). Frequency percentages adapted from Brandon W, Odette PH, Abraham B, etal. AJNR AM J Neuroradiol 2015:36:811-16. Signed by: Vic Lopez 03/29/2025 9:48 AM us Anna Wilkes MD RAD MRI Final Result documented in this encounter Visit Diagnoses Diagnosis Chronic radicular low back pain Thoracic or lumbosacral neuritis or radiculitis, unspecified documented in this encounter Care Teams Senior Mortgage Underwriter Relationship Specialty Start Date End Date Anna Wilkes MD [address] [place] [address] PCP - General 08/23/14 documented as of this encounter
--- OUTSIDE RECORDS SUMMARY | 2025-03-26 11:30 | XMS_ITS | Encounter Summary ---
Author Organization [facility] Address [address] [place] [address] Care Team Providers Care Rn Admissions Name Role Phone Anna Wilkes MD Primary Care Provider + [phone] Reason for Visit * Procedure/Equipment (Routine) - Closed Specialty Diagnoses / Procedures Referred By Barbara de león Referred To Contact Diagnoses Radiculopathy of cervical region Procedures MR Cervical Spine WO IV Cont Anna Wilkes MD [address] [place] [address] Phone: tel: fax: Referral ID Status Reason Start Date Expiration Date Visits Re quested Visits Authorized [id number] Closed 03/23/2025 2026 1 1 Encounter Details Date Type Department Care Team (Latest Contact Info) Description 03/26/2025 11:30 AM CDT Ancillary Procedure [facility] [place] [address] Rad[address] [address] [place] [phone] Anna Wilkes MD [address] [place], [place] [id number] Radiculopathy of cervical region Social History Tobacco Use [...] st Contact Info) Description 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 Progression of degenerative findings most pronounced at C5-C6 and C6-C7 as above, without high-grade spinal canal or neural foraminal stenosis. 2. Umbi-mc-iyomffqx spinal canal stenosis at C5-C6 and C6-C7. 3. Hidj-ok-mnvtlqyd neural foraminal stenoses as above. Signed by: Vic Lopez 03/29/2025 8:59 AM Trey 03/29/2025 8:59 AM CDT EXAM: MR CERVICAL SPINE WO IV CONT INDICATION: cervical radiculopathy COMPARISON: Cervical spine MRI 09/04/2013 TECHNIQUE: MRI of the cervical spine without contrast. FINDINGS: Dextroscoliosis centered at C7-T1. Normal cord signal. No suspicious marrow edema. Degenerative disc changes most pronounced at C5-C6 where there are hjhr-bo-flujnngy degenerative disc changes eccentric to the left. Normal alignment. Moderate right mastoid air cell opacification. Small mucous retention cyst within the adenoid tonsils. C2-3: No spinal canal or neural foraminal stenosis. C3-4: Minimal posterior disc osteophyte complex. No canal stenosis. Slight right neural foraminal stenosis. C4-5: Minimal posterior disc osteophyte complex. Spinal canal is patent. Mbhc-ow-xdovobhl left and mild right foraminal stenosis secondary to uncinate spurring and facet arthropathy. C5-6: Posterior disc osteophyte complex and small central disc protrusion. Bwdy-qw-ibszaqrz spinal canal stenosis. Vhmw-el-jnsohapc left and mild right foraminal stenosis secondary to uncinate spurring and facet arthropathy. C6-7: Posterior disc osteophyte complex. Ligamentum flavum thickening. Lfqj-xd-gfrgntva canal stenosis. Mild bilateral foraminal stenosis secondary to uncinate spurring and facet arthropathy. C7-T1: No canal or foraminal stenosis. Mild facet arthropathy. Bsek-um-lzmehcxk left foraminal stenosis at T2-T3. Mild left foraminal stenosis at T3-T4. Procedure Note Vic Lopez MD - 03/29/2025 EXAM: MR CERVICAL SPINE WO IV CONT INDICATION: cervical radiculopathy COMPARISON: Cervical spine MRI 09/04/2013 TECHNIQUE: MRI of the cervical spine without contrast. FINDINGS: Dextroscoliosis centered at C7-T1. Normal cord signal. No suspiciousmarrow edema. Degenerative disc changes most pronounced at C5-C6 wherethere are lbdz-jr-ruzovhfq degenerative disc changes eccentric to theleft. Normal alignment. Moderate right mastoid air cell opacification.Small mucous retention cyst within the adenoid tonsils. C2-3: No spinal canal or neural foraminal stenosis. C3-4: Minimal posterior disc osteophyte complex. No canal stenosis.Slight right neural foraminal stenosis. C4-5: Minimal posterior disc osteophyte complex. Spinal canal is patent.Lgca-sx-hevvmfqd left and mild right foraminal stenosis secondary touncinate spurring and facet arthropathy. C5-6: Posterior disc osteophyte complex and small central disc protrusion.Gesr-gd-roacsesh spinal canal stenosis. Kijk-kq-ecgpjeyt left and mildright foraminal stenosis secondary to uncinate spurring and facetarthropathy. C6-7: Posterior disc osteophyte complex. Ligamentum flavum thickening.Qdjo-av-hrwekxab canal stenosis. Mild bilateral foraminal stenosissecondary to uncinate spurring and facet arthropathy. C7-T1: No canal or foraminal stenosis. Mild facet arthropathy. Hanc-sm-xkxqqrsu left foraminal stenosis at T2-T3. Mild left foraminalstenosis at T3-T4. IMPRESSION 1. Progression of degenerative findings most pronounced at C5-C6 and C6-C7as above, without high-grade spinal canal or neural foraminal stenosis. 2. Wvmf-ly-iivkxdni spinal canal stenosis at C5-C6 and C6-C7. 3. Ajsi-ow-wtubcrhb neural foraminal stenoses as above. Signed by: Vic Lopez 03/29/2025 8:59 AM Anna Wilkes MD RAD MRI Final Result documented in this encounter Visit Diagnoses Diagnosis Radiculopathy of cervical region Brachial neuritis or radiculitis nos documented in this encounter Care Teams Rn Admissions Relationship Specialty Start Date End Date Anna Wilkes MD [address] [place] [address] PCP - General 08/23/14 documented as of this encounter
--- OUTSIDE RECORDS SUMMARY | 2025-04-06 10:15 | XMS_ITS ---
Author Organization [facility] Address [address] [place] [address] [address] [place] [address] Care Team Providers Care Encephalographer Name Role Phone Anna Wilkes MD Primary Care Provider Unavail able Matt Schneider Unavailable [phone] Castillo [facility] Bear RUSSELL Unavailable Unavailab Quique Blevins Unavailable [phone] Allergies Allergen (clinical drug ingredient) Drug/Non Drug [...] Drug Allergy Act rafael REASON FOR VISIT Neck pain Medications Medication SIG (Take, Route, Frequency, Duration) Notes Start Date End Date Status Ambien 10 MG 1 tablet at bedtime as needed Orally Once a day Active Hydroxychloroquine Sulfate 200 MG twice a day Orally Active Ketorolac Tromethamine 60 MG/2ML INJECT 2 ML ONCE A DAY NEEDED FOR MIGRAINE Intramuscular; Duration: 30 Active Mirtazapine 30 MG TAKE ONE TABLET BY MOUTH AT BEDTIME Oral; Duration: 90 Active Estradiol 1 MG 1 tablet Orally Once a day Active HYDROmorphone HCl 2 MG 1 tablet as needed Orally every 8 hrs; Duration: 1 days Post-Procedure Script Post-procedur e pain 03/15/2025 Active Allergy Relief 10 MG TAKE ONE TABLET BY MOUTH ONCE DAILY Oral; Duration: 90 Active Ondansetron 8 MG DISSOLVE ONE TABLET BY MOUTH EVERY 8 HOURS NEEDED FOR NAUSEA Oral; Duration: 7 Active tiZANidine HCl 4 MG 1-2 tabs Orally as needed at bedtime.; Duration: 30 days Active traMADol HCl 50 MG TAKE 1 TABLET BY MOUTH EVERY 6 HOURS NEEDED FOR PAIN Oral; Duration: 6 Days Active Medrol 4 MG as directed on Medrol package Orally 1 pack; Duration: 6 days 04/06/2025 Active Social History Tobacco Use: Social History Observation Description Date Details (start date - stop date) Never Smoker NA - NA Tobacco Control (Standard) Question Answer Notes Tobacco use: Nonsmoker AUDIT-C (Standard) Question Answer Notes Did you have a drink containing alcohol in the p ast year? No Points 0 Interpretation Negative Problems Problem Type SNOMED Code ICD Code Onset Dates Problem Status W/U Status Risk Notes Problem Cervical radiculopathy (20929415) Radiculopathy , cervical region (M54.12) Active confirmed Vital Signs Height 63 in 04/06/2025 Weight 119 lbs 04/06/2025 BMI 21.08 kg/m2 04/06/2025 Blood pressure systolic 122 mm Hg 04/06/20 25 Blood pressure diastolic 82 mm Hg 025 Procedures Procedure Date Ordered Date Performed Result Body Sit e Intervention: 04/06/2025 N/A Intervention: 2 04/06/2025 N/A Encounters Encounter Location Date Provider Diagnosis [place] [address] [facility] [address] [address] 04/06/2025 Quique Milton Spondylosis without myelopathy or radiculopathy, cervical region M47.812 ; Pain in left shoulder M25.512 ; Spondylosis without myelopathy or radiculopathy, lumbosacral region M47.817 ; Other chronic pain G89.29 and Radiculopathy, cervical region M54.12 Assessments Encounter Date Diagnosis (ICD Code) Assessment Notes Treatment Notes Treatment Clinical Notes Section Notes 04/06/2025 Spondylosis without myelopathy or radiculopathy, cervical region (ICD-10 - M47.812) 04/06/2025 Pain in left shoulder (ICD-10 - M25.512) 04/06/2025 Spondylosis without myelopathy or radiculopathy, lumbosacral region (ICD-10 - M47.817) 04/06/2025 Other chronic pain (ICD-10 - G89.29) Lea returns to clinic today for a follow-up evaluation regarding her chronic low back, neck, and left shoulder pain. I have reviewed the [facility] database and did not find any inconsistencies. We discussed her current symptoms and medications. I will continue with a treatment plan consisting of conservative therapies at this time. I reviewed her cervical MRI dated 03/29/2025 in clinic today. Based on my imaging review, and the patient's reported symptoms, I am recommending a C6-7 NICOLE using right paramedian approach with catheter to C4. I explained the details of this procedure with Lea, who expressed interest in proceeding. Therefore, I have placed the order accordingly. Additionally, I will order repeat C4-6 RFA's for Lea due to previous reported benefit from this treatment. She reported 80% relief for 5 months from this treatment which took place in 10/2024. Regarding medications, I will send Lea an MDP to address her current pain flare. This treatment plan was reviewed with Lea, and she was agreeable. I will continue to monitor her progress and she will follow up as needed. Plan: 1. Reviewed cervical MRI 2. Order C6-7 NICOLE using right paramedian approach with catheter to c4 3. Order repeat C4-6 RFA's 4. Send MDP 5. Follow-up as needed Discharge instructions reviewed verbally. Discussed the risks/benefits of prescribed medication. The patient was instructed to return to the office as scheduled and call with any questions, problems or concerns. Cervical MRI Exam Date: 03/29/2025 Impression: Progression of degenerative findings most pronounced at C5-6 and C6-7 as above, without high-grade spinal canal or neural foraminal stenosis. Nzqe-kx-pqxzrve e spinal canal stenosis at C5-6 and D9-7Rbko-kw-mod erate neural foraminal stenoses as above 04/06/2025 Radiculopathy, cervical region (ICD-10 - M54.12) 04/06/2025 Other I, Baudilio shahid, am serving as a scribe to document [...] during the clinic visit. Plan Of Treatment Medication Medication Name Sig Start Date Stop Date Notes Medrol 4 MG as directed on Medro l package Orally 1 pack; Duration: 6 days 04/06/2025 Treatment Notes Assessment Notes Other chronic pain Lea returns to clinic today for a follow-up evaluation regarding her chronic low back, neck, and left shoulder pain. I have reviewed the [facility] database and did not find any inconsistencies. We discussed her current symptoms and medications. I will continue with a treatment plan consisting of conservative therapies at this time. I reviewed her cervical MRI dated 03/29/2025 in clinic today. Based on my imaging review, and the patient's reported symptoms, I am recommending a C6-7 NICOLE using right paramedian approach with catheter to C4. I explained the details of this procedure with Lea, who expressed interest in proceeding. Therefore, I have placed the order accordingly. Additionally, I will order repeat C4-6 RFA's for Lea due to previous reported benefit from this treatment. She reported 80% relief for 5 months from this treatment which took place in 10/2024. Regarding medications, I will send Lea an MDP to address her current pain flare. This treatment plan was reviewed with Lea, and she was agreeable. I will continue to monitor her progress and she will follow up as needed. Plan: 1. Reviewed cervical MRI 2. Order C6-7 NICOLE using right paramedian approach with catheter to c4 3. Order repeat C4-6 RFA's 4. Send MDP 5. Follow-up as needed Discharge instructions reviewed verbally. Discussed the risks/benefits of prescribed medication. The patient was instructed to return to the office as scheduled and call with any questions, problems or concerns. Other I, Baudilio Rizzo, am serving as a scribe to document [...] Pending Test Test Name Order Date Intervention: 04/06/2025 Intervention: 2 04/06/2025 Next Appt Details Follow Up: prn, Reason: Procedure Notes * Category Sub-Category Detail Notes BEBE Initial C Initial BEBE Indications: Injection Order ed:: C6-7 NICOLE using right paramedian approach with catheter to C4 BEBE for same area within past 12 months? :: No Medical Indications:: Symptomatic Spinal Stenosis Diagnostic evaluation has ruled out other sources of pain:: Yes Imaging findings include:: Moderate to severe foraminal stenosis disc osteophyte complex Symptoms of spinal stenosis include:: Back pain Is the patient experiencing diminished Quality of Life and Activities of Daily Living?: Yes Conservative treatment attempted for at least 4 weeks:: physical therapy for neck pain without resolution of symptoms N/A Has the patient had at least 4 total visits 1x/week for 4 weeks?: Yes N/A Additional conservative treatment tried:: NSAIDS and/or analgesics, Activity modification Progress Notes * MIGUEL ÁNGELDean JDOB: 0 (54 yo F)Acc No.[id number]:04/06/2025 Progress Notes Patient: Dean AGUAYO Provider: Keith Milton MD :1970 A ge:54 Y S ex:Female Date:04/06/2025 Phone: Address[address] [place], [phone] Pcp:Anna Wilkes MD Subjective: * Chief Complaints: * N dm pain * HPI: C linic visit: Val (Lea) returns to clinic today for a follow-up evaluation on her chronic low back, neck, and left shoulder pain. Interval History: Lea underwent repeat right and left L3-S1 RFA's on 02/03/2025 and 02/22/2025 and reports 85% relief ongoing. She inquires today about repeating her cervical RFA's due to her pain returning to baseline levels. She inquires about medication today to address her current pain flare. Lea presents to clinic with a cervical MRI daated 03/29/2025; see impression below. Previous Procedures: - 03/15/2025 Right dorsal scapular NB - 02/03/2025 and 02/22/2025 repeat right and left L3-S1 RFAs (85% ongoing relief left, 85% ongoing relief right) - 10/15/2024 and 10/29/2024 repeat right and left C4-6 RFAs: (80% relief left for 5 months, 75% ongoing relief right for 5 months) (improvements with ADLs and signals analyst) - 07/22/2024 and 08/06/2024 right and left L3-S1 RFAs (90% relief for 5.5 months; easier to complete ADLs, signals analyst, standing) - 04/07/2024 and 03/24/2024 right and [...] ocumented. * ROS: G eneral/Constitutional: Chills/Fevers N o, . F atigue N o, . W eight gain N o, . W eight loss N o, . E ndocrine: Weakness Y es. R espiratory: Chest pain N o, . C ough N o, . S hortness of breath at rest N o, . G astrointestinal: Abdominal pain N o, . B lood in stool N o,?. C onstipation N o, . D iarrhea N o, . H ematology: Easy bruising N o, . P rolonged bleeding N o,?. S wollen glands N o, . M usculoskeletal: Painful joints N o, . S wollen joints N o,?. S kin: Skin lesion(s) N o, . N eurologic: Headache Y es. T ingling/Numbness Y es. ? P sychiatric: Anxiety Y es. * Medical History: * Surgical History: H ysterectomy Appendectomy Cholecysectomy Right Shoulder x2 Right Knee Arthroscopy * Hospitalization/Major Diagno stic Procedure: S urgical * Family History: F ather: unknown. M other: alive, diagnosed with Unspecified essential hypertension. Pt adopted. * Social History: T obacco Use: T obacco Control (Standard) T obacco use: N onsmoker. 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 D rug/Alcohol: A JORGE LUIS-C (Standard) D id you have a drink containing alcohol in the past year? N o,?Points 0 , I nterpretation N egative. * Medications: T akingHYDROmorphone HCl 2 MG Tablet 1 tablet as needed Orally every 8 hrs Post-Procedure Script, Notes to Pharmacist: Post-procedure paintiZANidine HCl 4 [...] ONCE A DAY NEEDED FOR MIGRAINE Intramuscular Medication List reviewed and reconciled with the patientTaking HYDROmorphone HCl 2 MG Tablet 1 tablet as needed Orally every 8 hrs Post-Procedure Script, Notes to Pharmacist: Post-procedure painTaking tiZANidine HCl 4 MG Tablet 1-2 [...] ONCE A DAY NEEDED FOR MIGRAINE Intramuscular Medication List reviewed and reconciled with the patient * Allergies: C odeine Sulfate: HivesDHEA: Diarrhea and NauseaHydrocodone-Acetaminophen: HivesLoperamide HCl: HivesMethocarbamol: RashMinocycline HCl: ItchingMorphine Sulfate: HivesOxycodone HCl: HivesProchlorperazine: HivesSumatriptan: HivesVenlafaxine HCl: AnxietyRizatriptan: nausea - Side EffectsLoracarbef: hives - Allergyno[Allergies Verified] Objective: * Vitals: H t: 63 in, Wt:119lbs, BMI:21.08, BP:122/82mm Hg, VAS-Today:101-10, VAS-Av 1- 10, VAS-High: 10 1-10. * Examination: M usculoskeletal: Constitutional: w ell groomed, in no acute distress. Chest R espirations nonlabored. Musculoskeletal: N ormal gait and station, sits comfortably. Skin: N o rashes, scars, or lesions on visible skin. Neurological N ormal coordination upper extremities, normal coordination lower extremities, alert and oriented x3, normal mood and affect. ? Assessment: * Assessment: 1. S pondylosis without myelopathy or radiculopathy, cervical region - M47.812 (Primary) ? 2 . P ain in left shoulder - M25.512 3 . S pondylosis without myelopathy or radiculopathy, lumbosacral region - M47.817 4 . R adiculopathy, cervical region - M54.12 5 . O ther chronic pain - G89.29 Plan: * Treatment: 2.?Radiculopathy, cervical region?Procedure: Intervention:* Baudilio Rizzo 04/06/2025 03 :32:01 PM CDT > Please order a C6-7 NICOLE with right paramedian approach and catheter to C4. Pt prefers PCOM. Please call pt to schedule, 3.?Other chronic pain? Start Medrol Tablet Therapy Pack, 4 MG, as directed on Medrol package, Orally, 1 pack, 6 days, 1 pack, Refills 0.?? Notes: Lea returns to clinic today for a follow-up evaluation regarding her chronic low back, neck, and left shoulder pain. I have reviewed the [facility] database and did not find any inconsistencies. We discussed her current symptoms and medications. I will continue with a treatment plan consisting of conservative therapies at this time. I reviewed her cervical MRI dated 03/29/2025 in clinic today. Based on my imaging review, and the patient's reported symptoms, I am recommending a C6-7 NICOLE using right paramedian approach with catheter to C4. I explained the details of this procedure with Lea, who expressed interest in proceeding. Therefore, I have placed the order accordingly. Additionally, I will order repeat C4-6 RFA's for Lea due to previous reported benefit from this treatment. She reported 80% relief for 5 months from this treatment which took place in 10/2024. Regarding medications, I will send Lea an MDP to address her current pain flare. This treatment plan was reviewed with Lea, and she was agreeable. I will continue to monitor her progress and she will follow up as needed. Plan: 1. Reviewed cervical MRI 2. Order C6-7 NICOLE using right paramedian approach with catheter to c4 3. Order repeat C4-6 RFA's 4. Send MDP 5. Follow-up as needed Discharge instructions reviewed verbally. Discussed the risks/benefits of prescribed medication. The patient was instructed to return to the office as scheduled and call with any questions, problems or concerns.?? Clinical Notes:Cervical MRI Exam Date: 03/29/2025 Impression: * Progression of degenerative findings most pronounced at C5-6 and C6-7 as above, without high-grade spinal canal or neural foraminal stenosis. * Rshh-ev-rzvvifhp spinal canal stenosis at C5-6 and C6-7 * Oizy-im-lmxjaqdi neural foraminal stenoses as above ??4.?Others? Notes: I, Baudilio Rizzo, am serving as a scribe to document [...] decisions made during the clinic visit.?? * Procedures: E SI Initial C: Initial BEBE Indications: I njection Ordered: C6-7 NICOLE using right paramedian approach with catheter to C4, E SI for same area within past 12 months?: N o, M edical Indications: S ymptomatic Spinal Stenosis, D iagnostic evaluation has ruled out other sources of pain: Y es, I maging findings include: M oderate to severe foraminal stenosis disc osteophyte complex, S ymptoms of spinal stenosis include: B ack pain, I s the patient experiencing diminished Quality of Life and Activities of Daily Living? Y es, C onservative treatment attempted for at least 4 weeks: p hysical therapy for neck pain without resolution of symptoms N/A, H as the patient had at least 4 total visits 1x/week for 4 weeks? Y es N/A, A dditional conservative treatment tried: N SAIDS and/or analgesics, Activity modification. * Procedure Codes: * Preventive Medicine: iSpine Inventory Forms: N dm Oswestry N DI Score (0-100) 6 0, N DI Interpretation 6 0-79 (Crippled). * Follow Up: p rn * Billing Information: * Visit Code: 34202 Established Patient level 4. * Procedure Codes: * Sign off status: Completed true * Provider: Keith Milton MD Date: 0 04/06/2025 Generated for Printi ng/Fasukhjinderg/eTransmitting on: 1 04:42 PM CDT History and Physical Notes * [...] Normal gait and stat ion, sits comfortably Skin: No rashes, scars, or lesions on visible skin Neurological Normal coordination upper extremities, normal coordination lower extremities, alert and oriented x3, normal mood and affect Chest Respirations nonlabo red
--- OUTSIDE RECORDS SUMMARY | 2025-04-06 16:45 | XMS_ITS | Encounter Summary ---
Author Organization [employer] Address [address] [place] [address] Care Team Providers Care Manager Publishing Name Role Phone Neil Wilkes MD Primary Care Provider + [phone] Reason for Visit * Reason Comments QUESTIONS, GENERAL Entered automaticall y based on patient selection in [employer]. Encounter Details Date Type Department Care Team (Late st Contact Info) Description 04/06/2025 4:45 PM CDT [facility] [address] [place], [place] [id number] eNil Wilkes MD [address] [place], [place] [phone] Chief Comp: QUESTIONS, GENERAL Social History Tobacco [...] as of this encounter Progress Notes * Neil Wilkes MD - 04/08/2025 12:48 PM CDTAddended by: NEIL WILKES on: 04/08/2025 12:48 PM Modules accepted: Orders documented in this encounter Nursing Notes * Pepper Moreno RN - 04/07/2025 12:21 PM CDT Clinician: Review and advise and Patient is expecting a my6senset message from [facility] Patient/infant caregiver request: Medication change Specific Request: Patient last seen 03/23/25. Requesting pain medication change and coverage until 05/11/25 PMD/Rehab appointment. documented in this encounter Plan of Treatment Upcoming Encounters Date Type Department Care Team (Late st Contact Info) Description 05/11/2025 7:00 AM STAFF COMMAND AND CONTROL OFFICER Appointment [facility] [address] [place] [address] [place] [address] [place] [address] documented as of this encounter Visit Diagnoses Not on filedocumented in this encounter Care Teams Manager Publishing Relationship Specialty Start Date End Date Neil Wilkes MD [address] [place] [address] PCP - General 08/23/14 documented as of this encounter
--- OUTSIDE RECORDS SUMMARY | 2025-04-12 16:43 | XMS_ITS | Encounter Summary ---
Author Organization [employer] Address [address] [place] [id number] Care Team Providers Care Chief Scientist Name Role Phone Neil Wilkes MD Primary Care Provider + [phone] Reason for Visit * Reason Comments Refill ondansetron (ZOFRAN- ODT) 8 MG disintegrating tablet [Pharmacy Med Name: ONDANSETRON 8MG TBDP] Encounter Details Date Type Department Care Team (Late st Contact Info) Description 03/07[facility] [address] [place], [place] [address] Neil Wilkes MD [address] [place], [place] [address] Refill (ondansetron (ZOFRAN-ODT) 8 MG disintegrating tablet [Pharmacy Med Name: ONDANSETRON 8MG TBDP]) Social History Tobacco Use Types Packs/Day Years Used Date Smoking Tobacco: Every Day Cigarettes 0.8 24.4 Started: 09/11/2016 Smokeless Tobacco: Never Alcohol Use Standard Drinks/Week Comments No 0 (1 standard drink = 0.6 oz pur e alcohol) PHQ-2 Answer Date Recorded PHQ-2 Score 0 02/16/2025 Financial Resource Strain Answer Date R ecorded [...] encounter Nursing Notes * Ankita Sheppard - 03/09/2025 9:13 AM CDT Left message for patient that prescription has been sent to pharmacy and is ready for pickup. * Megan Dickerson [employer] - 03/07/2025 5:11 AM CDT ondansetron (ZOFRAN-ODT) 8 MG disintegrating tablet [Pharmacy Med Name: ONDANSETRON 8MG TBDP] Medication started: 01/01/2020 Last ordered by NEIL WILKES: 11/10/2024 (117 days ago) QTY: 30, Refills: 2, Sig: dissolve onetablet by mouth every 8 hours as needed for nausea (unchanged) -> Medication cannot be delegated. Last qualifying visit: 02/16/2025 (with NEIL WILKES) Next scheduled visit: None [facility] [employer] Embedded Refills, Reference: [id number], 03/07/2025 5:11:17 AM CDT, Pool: PN Refill Centralized Services - Primary Care [[id number]] ([id number]) documented in this encounter Plan of Treatment Upcoming Encounters Date Type Department Care Team (Late st Contact Info) Description 05/11/2025 7:00 AM INCIDENT MANAGER Appointment [facility] [address] [place] [address] [place] [address] [place] [address] documented as of this encounter Visit Diagnoses Not on filedocumented in this encounter Care Teams Chief Scientist Relationship Specialty Start Date End Date Neil Wilkes MD [address] [place] [address] PCP - General 08/23/14 documented as of this encounter
--- OUTSIDE RECORDS SUMMARY | 2025-04-12 16:43 | XMS_ITS | Clinical Summary ---
Author Organization [facility] Address [address] [place] [address] Care Team Providers Care Full Roll Inspector Name Role Phone Anna Wilkes MD Primary Care Provider + [phone] Source Comments You are receiving this document [...] for each transition of care or referral. [facility] Allergies Active Allergy Reactions Criticality Noted Date Comments Bee Venom 09/19/2018 Codeine Rash 03/12/2006 Robitussin with Codeine cough syrup tolerates well Dhea Gastrointestinal 03/23/2025 Dihydroergotamine Diarrhea 01/19/2014 Hydrocodone Hives High 03/12/2006 Hydrocodone-Acetaminophen Hives 03/12/2006 Loperamide Hives 03/12/2006 Methocarbamol Rash 08/20/2012 Minocycline Itching 11/04/2013 Morphine Hives 03/12/2006 Oxycodone Hives High 03/12/2006 Oxycodone-Acetaminophen Hives 03/12/2006 Prochlorperazine Anxiety 09/29/2010 Rizatriptan Nausea 05/12/2015 Sumatriptan Hives 03/12/2006 Venlafaxine Anxiety 08/26/2012 Medications acetaminophen (TYLENOL) 325 MG tabletIndications :Headache, migraine Take 2 Tablets (650 mg) by mouth every 4 hours as needed (Take 650 mg by mouth every 4 hours as needed.). 10/01/19 13 Active diphenhydrAMINE (BENADRYL) 25 MG capsuleIndication s:CANDI JOSEPH [facility] Aug 05, 2014 8:02 AM Received from: External Pharmacy Received Sig: Take 1 Capsule (25 mg) by mouth three times a day as needed (Take 1 capsule by mouth 3 times daily as needed.). Indications: CANDI JOSEPH [facility] Aug 05, 2014 8:02 AM Received from: External Pharmacy Received Si 09/07/19 14 Active ascorbic acid (AKA VITAMIN C) 1000 MG tablet Take 1 Tablet (1,000 mg) by mouth daily. 11/16/19 15 Active EPINEPHrine (EPIPEN 2-MAX) 0.3 MG/0.3ML injectionIndicati ons:Bee sting allergy Inject 0.3 mL intramuscularly as needed. May repeat 2 Each 03/13/20 18 Active ALBUterol sulfate HFA 108 (90 Base) MCG/ACT inhaler Inhale 2 Puffs. Active oxymetazoline (AFRIN) 0.05 % nasal solution Place 2 Sprays into both nostrils two times a day. 30 mL 04/21/20 18 Active zolpidem (AMBIEN) 10 MG tabletIndications :Chronic insomnia Take 0.5-1 Tablets (5-10 mg) by mouth at bedtime as needed for Sleep. 90 Tablet 1 09/19/19 23 Active Syringe, Disposable, 3 MLIndications:Chr onic migraine without aura without status migrainosus, not intractable Use with ketorolac- 3cc syringes with 1 needles 23-25 G, and Filter [place] if glass ampules. 20 Each 3 10/31/19 23 Active triamcinolone acetonide (KENALOG) 0.1 % ointmentIndicatio ns:Eczema, unspecified type Apply topically two times a day. 80 g 11 11/28/19 23 Active citalopram (CELEXA) 10 MG tabletIndications :Major depressive disorder, recurrent, severe without psychotic features (HRC),Grief reaction (HRC),Anxiety (HRC) Take 1-2 Tablets (10-20 mg) by mouth daily. 60 Tablet 3 06/04/20 23 Active LORazepam (ATIVAN) 0.5 MG tabletIndications :Anxiety (HRC) TAKE ONE TABLET BY MOUTH EVERY 8 HOURS NEEDED FOR ANXIETY 15 Tablet 07/26/19 24 Active betamethasone dipropionate (DIPROLENE-AF) 0.05 % AUGMENTED creamIndications: Cutaneous lupus erythematosus APPLY TO AFFECTED ITCHY SCALY AREAS OF THE BODY TWICE DAILY NEEDED 60 g 3 09/17/19 24 Active clobetasol (TEMOVATE) 0.05 % cream Apply topically. 12/25/19 24 Active desonide (DESOWEN) 0.05 % ointment Apply topically. 09/18/19 24 Active folic acid 1 MG tablet Take 1 Tablet (1 mg) by mouth. 10/31/19 24 Active methotrexate 50 MG/2ML injection Inject 15 mg subcutaneously once every week. 12/25/19 24 Active BD SAFETYGLIDE NEEDLE 25G X 5/8 USE FOR METHOTREXATE INJECTIONS 10/31/19 Active nortriptyline (PAMELOR) 50 MG capsuleIndication s:Chronic pain syndrome,Neck pain,Chronic bilateral low back pain without sciatica Take 2 Capsules (100 mg) by mouth daily at bedtime. 180 Capsule 3 03/12/20 24 Active cyclobenzaprine (FLEXERIL) 10 MG tablet Take 0.5-1 Tablets (5-10 mg) by mouth three times a day as needed for Muscle Spasms for up to 30 doses. 30 Tablet 05/19/20 24 Active Meloxicam (MOBIC) 15 MG tablet Take 1 Tablet (15 mg) by mouth daily. 90 Tablet 3 08/03/19 25 Active HYDROmorphone (DILAUDID) 4 MG tabletIndications :Chronic bilateral low back pain without sciatica Take 0.5 Tablets (2 mg) by mouth every 3 hours as needed for Pain. 10 Tablet 08/03/19 25 Active hydroCHLOROthiazi de (ORETIC) 25 MG tablet Take 1 Tablet (25 mg) by mouth daily. 90 Tablet 3 08/30/19 25 2025 Active predniSONE (DELTASONE) 10 MG tabletIndications :Acute left-sided low back pain with left-sided sciatica (HRC) 4 tabs for 3 days, 3 tabs for 3 days, 2 tabs for 3 days, 1 tab for 3 days, 1/2 tab for 4 days 50 Tablet 09/23/19 25 Active HYDROmorphone (DILAUDID) 2 MG tabletIndications :Coccyalgia (HRC),De Quervain's tenosynovitis, left,Left wrist pain Take 1 Tablet (2 mg) by mouth every 6 hours as needed for Pain. 10 Tablet 09/23/19 25 Active pregabalin (LYRICA) 150 MG capsuleIndication s:Chronic pain syndrome,Neck pain,Chronic bilateral low back pain without sciatica,Acute left-sided low back pain with left-sided sciatica (HRC) Take 1 Capsule (150 mg) by mouth three times a day. Take one in the am and noon and 2 at bedtime 270 Capsule 3 10/22/19 25 Active phenazopyridine (PYRIDIUM) 200 MG tablet Take 1 Tablet (200 mg) by mouth three times a day after meals. 12 Tablet 1 12/09/19 25 Active loratadine (CLARITIN) 10 MG tabletIndications :Allergic rhinitis, unspecified seasonality, unspecified trigger TAKE ONE TABLET BY MOUTH ONCE DAILY 90 Tablet 3 12/22/19 25 Active cyclobenzaprine (FLEXERIL) 10 MG tabletIndications :Neck pain Take 1 Tablet (10 mg) by mouth three times a day as needed for Muscle Spasms for up to 30 doses. 30 Tablet 12/19/19 25 Active estradiol (ESTRACE) 1 MG tabletIndications :Symptomatic postsurgical menopause TAKE ONE TABLET BY MOUTH ONCE DAILY 90 Tablet 3 02/06/20 25 Active mirtazapine (REMERON) 30 MG tabletIndications :Major depressive disorder, recurrent, severe without psychotic features (HRC),Anxiety (HRC) TAKE ONE TABLET BY MOUTH AT BEDTIME 90 Tablet 3 02/26/20 25 Active ondansetron (ZOFRAN-ODT) 8 MG disintegrating tablet DISSOLVE ONE TABLET BY MOUTH EVERY 8 HOURS NEEDED FOR NAUSEA 30 Tablet 1 03/08/20 25 Active hydrOXYzine pamoate (VISTARIL) 25 MG capsuleIndication s:Anxiety (HRC) Take 2 Capsules (50 mg) by mouth every 8 hours. 90 Capsule 5 03/18/20 25 Active tiZANidine (ZANAFLEX) 2 MG tabletIndications :Radiculopathy of cervical region every 8 hours as needed. 03/23/20 25 Active traMADol (ULTRAM) 50 MG tabletIndications :Radiculopathy of cervical region,Neck pain Take 1 Tablet (50 mg) by mouth every 8 hours as needed. 20 Tablet 03/23/20 25 Active ketorolac (TORADOL) 60 MG/2ML injectionIndicati ons:Radiculopathy of cervical region,Chronic migraine without aura without status migrainosus, not intractable INJECT 2ML ONCE NEEDED FOR MIGRAINE 10 mL 1 03/23/20 25 Active naloxone (NARCAN) 4 MG/0.1ML nasal sprayIndications: Radiculopathy of cervical region,Neck pain Place 1 [place] (4 mg) into one nostril as needed. Call 911. Repeat in opposite nostril in 3 minutes if no or minimal response. 2 Each 03/23/20 25 Active traMADol (ULTRAM) 50 MG tablet Take 1 Tablet (50 mg) by mouth every 6 hours as needed for Pain. 30 Tablet 04/08/20 25 Active ketorolac (TORADOL) 60 MG/2ML injectionIndicati ons:Chronic migraine without aura without status migrainosus, not intractable INJECT 2ML ONCE NEEDED FOR MIGRAINE 10 mL 1 06/06/20 23 2024 Disconti nued(*Me d change OR same med OR reorder, new dose/dir ections) hydrOXYzine pamoate (VISTARIL) 25 MG capsuleIndication s:Anxiety (HRC) TAKE ONE CAPSULE BY MOUTH EVERY 8 HOURS NEEDED 90 Capsule 5 11/13/19 25 2024 Disconti nued(*Me d change OR same med OR reorder, new dose/dir ections) traMADol (ULTRAM) 50 MG tabletIndications :Neck pain Take 1 Tablet (50 mg) by mouth every 6 hours as needed. 60 Tablet 02/17/20 25 2024 Disconti nued(*Me d change OR same med OR reorder, new dose/dir ections) tiZANidine (ZANAFLEX) 2 MG tablet 1 tablet as needed Orally every 8 hrs; Duration: 30 days 2024 Disconti nued(*Me d change OR same med OR reorder, new dose/dir ections) Active Problems Problem Noted Date Diagnosed Date [...] Encounters Date Type Department Care Team Description 04/06/2025 4:45 PM CDT [facility] [address] [place] [address] Anna Wilkes MD Chief Comp: QUESTIONS, GENERAL 03/26/2025 11:30 AM CDT Ancillary Procedure [address] [place] [address] [place] [address] [place] [address] Anna Wilkes MD Radiculopathy of cervical region 03/26/2025 11:00 AM CDT Ancillary Procedure [address] [place] [address] [place] [address] [place] [address] Anna Wilkes MD Chronic radicular low back pain 03/23/2025 8:00 PM CDT [facility] [address] [place] [address] Anna Wilkes MD Chief Comp: QUESTIONS, GENERAL 03/23/2025 3:30 PM CDT Telemedicine [address] [place] [address] Anna Wilkes MD Radiculopathy of cervical region (Primary Dx); Neck pain; Chronic migraine without aura without status migrainosus, not intractable; Spinal stenosis of cervical region 03/18/2025 Notes/Orders [address] [place] [address] Anna Wilkes MD Anxiety ([facility]) 03/07/[address] [place] [address] Anna iWlkes MD Refill (ondansetron (ZOFRAN-ODT) 8 MG disintegrating tablet [Pharmacy Med Name: ONDANSETRON 8MG TBDP]) 02/23/[address] [place] [address] Anna Wilkes MD Refill (mirtazapine (REMERON) 30 MG tablet [Pharmacy Med Name: MIRTAZAPINE 30MG TABS]) 02/16/2025 1:45 PM CDT Telemedicine [address] [place] [address] Anna Wilkes MD Neck pain (Primary Dx) 02/12/2025 1:00 PM CDT E-Visit [address] [place] [address] Anna Wilkes MD Dx: Coccyalgia ([facility]) 02/03/[address] [place] [address] Anna Wilkes MD Refill (estradiol (ESTRACE) 1 MG tablet [Pharmacy Med Name: ESTRADIOL 1MG TABS]) from Last 3 Months Immunizations Immunization Administration Dates Next Due Flu Vac Preserv Free (3+yrs) 03/05/2012, 04/10/2011,04/03/2010,2008,04/19/2006 Influenza IIV4 (Quadrivalent ) 0.5mL (21889) 03/27/2023,03/29/2021,04/26/2020,2018,04/18/2018,04/05/2017,04/06/2016,0 03/18/2015,03/19/2014,03/27/2013, 012,04/10/2011,04/03/2010,03/29/2009, Influenza ccIIV3 6 months+ (Flucelvax) 05/19/2024 PCV20 ([id number]) 03/12/2024 PPSV23 (Pneumovax) 06/21/2017 Pfizer COVID-19 12+ (Comirnaty) 05/19/2024 Pfizer Monovalent 12+ Purple Top 021,05/15/2021,10/22/2020,2020 [...] 0.8 24.4 Started: 09/11/2016 Smokeless Tobacco: Never Tobacco Cessation:Ready to Q uit: Not Asked; Counseling Given: Not Answered Alcohol Use Standard Drinks/Week Comments No 0 [...] PM CDT Pulse 90 08/03/2024 10:10 AM GEAR ROOM KEEPER Temperature 36.4 C (97.6 F) 05/29/2022 8:10 AM GEAR ROOM KEEPER pt reported Respiratory Rate 16 12/04/2022 9:10 AM CDT Oxygen Saturation 97% 12/04/2022 9:10 AM CDT Inhaled Oxygen Concentration - - Weight 53.1 kg (117 lb) 03/23/2025 2:58 PM CDT Height 157.5 cm (5' 2) 12/28/2022 7:07 AM CDT Body Mass Index 21.4 12/28/2022 7:07 AM CDT Plan of Treatment Upcoming Encounters Date Type Department Care Team (Late st Contact Info) Description 05/11/2025 7:00 AM GEAR ROOM KEEPER Appointment [facility] Medicine [address] [facility] [place] [address] [place] [address] [place] [address] Health Maintenance Due Date Last Done Comments HepB Vaccine (1) 1989 Adult Preventive Visit 11/05/2019 11/04/2018, 2016 Dexa 12/24/2019 12/23/2018 Mammogram 12/24/2019 12/23/2018, 04/2 03/2014, 04/23/2012 Influenza Vaccine (#1) 2025 , 03/27/2023, 03/29/2021, Additional history exists DTaP/Tdap/Td Vaccine (3 - Tdap) 01/31/2027 01/31/2017, 03/27/2007, 03/27/2007, Additional history exists Cholesterol 08/02/2028 08/02/2023, 01/06, 08/05/2014, Additional history exists Colonoscopy 12/04/2029 12/04/2022, 06/07 (Completed) RSV Vaccine (1 - 1-dose 75+ series) 2045 Hep C Screening (Preventive Services) Completed 09/19/2018 [...] AM CDT Chronic radicular low back pain MR CERVICAL SPINE WO IV CONT Routine 03/26/2025 11:13 AM CDT Radiculopathy of cervical region LIPID PANEL & DIRECT LDL (IF NEEDED) Routine 08/02/2023 9:37 AM GEAR ROOM KEEPER Screening for cholesterol level ENDOSCOPY, COLON, SCREENING/DIAGNOS [...] Recently Relevant to Health Maintenance Results * MR Lumbar Spine WO IV [...] AJNR AM J Neuroradiol 2015:36:[id number]. Signed by: Agus Lopez 03/29/2025 9:48 AM Narrative 03/29/2025 9:48 [...] stenosis. Slight left foraminal stenosis. Procedure Note Agus Lopez MD - 03/29/2025 EXAM: MR LUMBAR [...] degeneration(4-83%). Frequency percentages adapted from Brandon W, Luetmer PH, Abraham B, etal. AJNR AM J Neuroradiol 2015:36:[id number]. Signed by: Agus Lopez 03/29/2025 9:48 AM us Anna Wilkes MD RAD MRI Final Result * MR Cervical Spine WO IV Cont (03/26/2025 11:13 AM CDT) Anatomical Region Laterality Modality Spine, C-Spine, Neck, Vascular, MSK Magnetic Resonance Impressions 03/29/2025 8:59 AM CDT 1. Progression of degenerative findings most pronounced at C5-C6 and C6-C7 as above, without high-grade spinal canal or neural foraminal stenosis. 2. Fxjk-gt-mrzlnxbz spinal canal stenosis at C5-C6 and C6-C7. 3. Ngzt-ct-gvlbwilx neural foraminal stenoses as above. Signed by: Agus Lopez 03/29/2025 8:59 AM Trey 03/29/2025 8:59 AM CDT EXAM: MR CERVICAL SPINE WO IV CONT INDICATION: cervical radiculopathy COMPARISON: Cervical spine MRI 09/04/2013 TECHNIQUE: MRI of the cervical spine without contrast. FINDINGS: Dextroscoliosis centered at C7-T1. Normal cord signal. No suspicious marrow edema. Degenerative disc changes most pronounced at C5-C6 where there are fwdk-fn-oytubava degenerative disc changes eccentric to the left. Normal alignment. Moderate right mastoid air cell opacification. Small mucous retention cyst within the adenoid tonsils. C2-3: No spinal canal or neural foraminal stenosis. C3-4: Minimal posterior disc osteophyte complex. No canal stenosis. Slight right neural foraminal stenosis. C4-5: Minimal posterior disc osteophyte complex. Spinal canal is patent. Rlpg-nd-qcauptjz left and mild right foraminal stenosis secondary to uncinate spurring and facet arthropathy. C5-6: Posterior disc osteophyte complex and small central disc protrusion. Wxcj-wp-jjzvrfox spinal canal stenosis. Ctru-pm-stxfjllh left and mild right foraminal stenosis secondary to uncinate spurring and facet arthropathy. C6-7: Posterior disc osteophyte complex. Ligamentum flavum thickening. Rcsr-wv-bvwzaiue canal stenosis. Mild bilateral foraminal stenosis secondary to uncinate spurring and facet arthropathy. C7-T1: No canal or foraminal stenosis. Mild facet arthropathy. Qdly-lp-utxvroqu left foraminal stenosis at T2-T3. Mild left foraminal stenosis at T3-T4. Procedure Note Agus Lopez MD - 03/29/2025 EXAM: MR CERVICAL SPINE WO IV CONT INDICATION: cervical radiculopathy COMPARISON: Cervical spine MRI 09/04/2013 TECHNIQUE: MRI of the cervical spine without contrast. FINDINGS: Dextroscoliosis centered at C7-T1. Normal cord signal. No suspiciousmarrow edema. Degenerative disc changes most pronounced at C5-C6 wherethere are fuua-fc-qigdmpob degenerative disc changes eccentric to theleft. Normal alignment. Moderate right mastoid air cell opacification.Small mucous retention cyst within the adenoid tonsils. C2-3: No spinal canal or neural foraminal stenosis. C3-4: Minimal posterior disc osteophyte complex. No canal stenosis.Slight right neural foraminal stenosis. C4-5: Minimal posterior disc osteophyte complex. Spinal canal is patent.Yzgv-qb-pfqflqyi left and mild right foraminal stenosis secondary touncinate spurring and facet arthropathy. C5-6: Posterior disc osteophyte complex and small central disc protrusion.Vakp-qr-zsbjsuhj spinal canal stenosis. Uyrr-rz-ezsjirmf left and mildright foraminal stenosis secondary to uncinate spurring and facetarthropathy. C6-7: Posterior disc osteophyte complex. Ligamentum flavum thickening.Ksme-sz-mpxlybip canal stenosis. Mild bilateral foraminal stenosissecondary to uncinate spurring and facet arthropathy. C7-T1: No canal or foraminal stenosis. Mild facet arthropathy. Dalq-ug-pwhctcxe left foraminal stenosis at T2-T3. Mild left foraminalstenosis at T3-T4. IMPRESSION 1. Progression of degenerative findings most pronounced at C5-C6 and C6-C7as above, without high-grade spinal canal or neural foraminal stenosis. 2. Secx-pm-ynnshxlb spinal canal stenosis at C5-C6 and C6-C7. 3. Bbvh-ww-dgqcperd neural foraminal stenoses as above. Signed by: Agus Lopez 03/29/2025 8:59 AM Anna Wilkes MD RAD MRI Final Result * (ABNORMAL) Lipid Panel and Direct LDL(If Needed) (08/02/2023 9:37 AM GEAR ROOM KEEPER) [facility] Cholesterol 192 0 - 199 mg/dL 08/02/2023 3:50 PM [facility] Triglyceride 155(H) <=149 mg/dL 08/02/2023 3:50 PM [facility] HDL Cholesterol 35(L) >=40 mg/dL 3:50 PM [facility] LDL, Calculated 126 <130 mg/dL 3:50 PM [facility] Non HDL Chol, Calculated 157 <=159 mg/dL 08/02/2023 3:50 PM [facility] Cholesterol/HDL Ratio 5.5(H) <=5.0 08/02/2023 3:50 PM [facility] Hours Fasting 15.0 8 - 12 Hours 08/02/2023 3:50 PM [facility] Blood Venipuncture / Unknown 08/02/2023 9:37 AM GEAR ROOM KEEPER 08/02/2023 9:37 AM GEAR ROOM KEEPER us Anna Wilkes MD LAB_1 Final Result [facility] [address] [place] [address], [facility] [address] [place] [address] [place] * Endoscopy, Colon, Screening/Diagnostic (12/04/2022 8:16 AM [...] and oxygen saturations were monitored continuously. The [id number] was introduced through the anus and advanced [...] from the initial medication administration until the kennel helper assists with initial maneuvers (biopsy / polypectomy [...] to anxiety. Procedure Code(s): --- Professional --- 13687, Colonoscopy, flexible; with removal of tumor(s), polyp(s), or other lesion(s) by snare technique 78048, 59, Colonoscopy, flexible; with biopsy, single or multiple G0500, Moderate sedation services provided by the same physician or other qualified health managed care nurse performing a gastrointestinal endoscopic service that sedation supports, requiring the presence of an independent trained observer to assist in the monitoring of the patient's level of consciousness and physiological status; initial 15 minutes of intra-service time; patient age 5 years or older (additional time may be reported with 23117, as appropriate) Diagnosis Code(s): --- Professional --- Z12.11, Encounter for screening for malignant neoplasm of colon K64.9, Unspecified hemorrhoids K63.5, Polyp of colon K57.30, Diverticulosis of large intestine without perforation or abscess without bleeding CPT copyright 2020 [employer]. All rights reserved. The codes documented in this report are preliminary and upon mold operator review may be revised to meet current [...] and oxygen saturations were monitored continuously. The [id number] was introduced through the anus and advanced [...] from the initial medication administration until the kennel helper assists with initial maneuvers (biopsy / polypectomy [...] to anxiety. Procedure Code(s): --- Professional --- 60048, Colonoscopy, flexible; with removal of tumor(s), polyp(s), or other lesion(s) by snare technique 02365, 59, Colonoscopy, flexible; with biopsy, single or multiple G0500, Moderate sedation services provided by the same physician or other qualified health managed care nurse performing a gastrointestinal endoscopic service that sedation supports, requiring the presence of an independent trained observer to assist in the monitoring of the patient's level of consciousness and physiological status; initial 15 minutes of intra-service time; patient age 5 years or older (additional time may be reported with 42846, as appropriate) Diagnosis Code(s): --- Professional --- Z12.11, Encounter for screening for malignant neoplasm of colon K64.9, Unspecified hemorrhoids K63.5, Polyp of colon K57.30, Diverticulosis of large intestine without perforation or abscess without bleeding CPT copyright 2020 [employer]. All rights reserved. The codes documented in this report are preliminary and upon mold operator review may be revised to meet current compliance requirements. Liz Burgess, 12/04/2022 8:52:36 AM This document has been electronically signed. Number of Addenda: 0 Note Initiated On: 12/04/2022 8:16 AM Endoscopy Report us Anna Wilkes MD ET GI PROCEDURE ORDERABLES F inal Result * HIV 1/2 Ag/Ab 4th Generation (04/26/2020 8:15 AM CDT) HIV 1/2 Antigen/Antib vickey (4th generation) Negative (Non Reactive) Negative (Non Reactive) 04/26/2020 1:03 PM CDT [facility] Comment:HIV-1 p24 Antigen an d HIV-1/HIV-2 Antibody not detected Blood Venipuncture / Unknown 04/26/2020 8:15 AM CDT 04/26/2020 8:15 AM CDT Anna Wilkes MD LAB_1 Final Result [facility] [address] [employer] [address] * (ABNORMAL) MM Mammogram Screening Bilat [...] is unremarkable. Anna Wilkes MD RAD GIOVANNA Final Result * DEXA Bone Density Spine/Hip (12/23/2018 10:18 AM CDT) Anatomical Region Laterality Modality Lower Extremity, Spine, Hip, L-Spine Radiographic Imaging Narrative 12/29/2018 7:11 AM CDT CLINIC DXA REPORT Patient Name: Keobozena Strauss Dre Raymond: Francesco Polanco MD Densitometer: HoloStudiekring W (S/N [id number]) [place] BONE OSTEOPOROSIS RISK FACTORS FROM PATIENT [...] trabecular bone, and is derived from the lhqll-mm-iemte changes of bone density embedded in the [...] FRAX scores. Anna Wilkes MD RAD DEXA Final Result * HC[facility] - Hepatitis C Virus Ivonne with Reflex In-House (09/19/2018 10:04 AM CDT) Hepatitis C Antibody Nonreactive Nonreactive PN SOFT 09/19/2018 10:0 4 AM CDT 09/19/2018 12:34 PM CDT Narrative PN SOFT - 09/19/2018 1:38 PM CDT Performed at [facility], [address] [place] [id number] CLIA number [id number] us Janelle Carranza MD LAB_1 Final Resul t PN SOFT [address] [place] [address] from Last 3 Months or Most Recently Relevant to Health Maintenance Insurance [facility] Care Teams Full Roll Inspector Relationship Specialty Start Date End Date Anna Wilkes MD [address] [place] [address] PCP - General 08/23/14
--- OUTSIDE RECORDS SUMMARY | 2025-04-12 16:43 | XMS_ITS | Encounter Summary ---
Author Organization [facility] Address [address], [place] [address] Care Team Providers Care Intake Assessor Name Role Phone Anna Wilkes MD Primary Care Provider + [phone] Encounter Details Date Type Department Care Team (Late st Contact Info) Description 10/13/2012 [facility] Only [facility] [place] [address] [place] [address] Tariq Cao MD [address] [place] [address] Biceps tendinopathy Social History Tobacco Use Types [...] st Contact Info) Description 05/11/2025 7:00 AM GRADUATE ADVISOR Appointment [facility] [address] [place] [address] [place] [address] [place] [place] [address] documented as of this encounter Visit Diagnoses Diagnosis Biceps tendinopathy Bicipital tenosynovitis documented in this encounter Additional Health Concerns Infection Onset Date Last Indicated Resolved Time R/O COVID19 03/08/2020 03/08/2020 03/12/2020 7:18 AM CDT R/O COVID19 04/30/2021 04/30/2021 05/01/2021 2:03 AM CDT documented as of this encounter Care Teams Intake Assessor Relationship Specialty Start Date End Date Anna Wilkes MD [address] [place] [address] PCP - General 08/23/14 documented as of this encounter
--- OUTSIDE RECORDS SUMMARY | 2025-04-12 16:43 | XMS_ITS | Encounter Summary ---
Author Organization [facility] Address [address] [place] [id number] Care Team Providers Care Torpedo Shooter Name Role Phone Anna Wilkes MD Primary Care Provider + [phone] Reason for Visit * Reason Comments Back Pain Encounter Details Date Type Department Care Team (Late st Contact Info) Description 07/31/2024 [facility] [address] [place], [place] [address] Anna Wilkes MD [address] [place], [place] [id number] Back Pain Social History Tobacco Use Types Packs/Day Years Used Date Smoking Tobacco: Every Day Cigarettes 0.5 8.6 Started: 09/11/2016 Smokeless Tobacco: Never Alcohol Use [...] take this in the morning with food. AL CARRIER * Matheus Fajardo RN - 07/31/2024 9:17 AM CST I would be happy to forward your message (request) onto your clinician, however please note that a potential charge may apply in doing so. Do I have your approval to forward this onto them? Yes Clinician: Review and advise and Patient is expecting a call back from [facility] Patient/director long term care request: Input needed: ongoing symptoms and New medication Specific Request: (Triage Encounter 07/31/24) - patient is requesting input on severe pain control prior to 08/03/24 appointment, reports previously prescribed steroid pack for former back issues. RN advised Seen in Office Today / Urgent Care, patient requests 08/03/24 appointment and message to PCP. AL CARRIER * Matheus Fajardo RN - 07/31/2024 8:56 [...] medicine and CARE ADVICE Protocols used: Back Pais-CEBHE-EN AL CARRIER * Singh Buitrago - 07/31/2024 8:51 AM [...] else I can help you with today? AL CARRIER documented in this encounter Plan of Treatment Upcoming Encounters Date Type Department Care Team (Late st Contact Info) Description 05/11/2025 7:00 AM POSTAL CARRIER Appointment [address] [id number] [place] [address] [place] [id number] documented as of this encounter Visit Diagnoses Diagnosis Chronic bilateral low back pain without sciatica- Primary documented in this encounter Care Teams Torpedo Shooter Relationship Specialty Start Date End Date Anna Wilkes MD [address] [place] [address] PCP - General 08/23/14 documented as of this encounter
--- OUTSIDE RECORDS SUMMARY | 2025-04-12 16:43 | XMS_ITS | Encounter Summary ---
Author Organization [facility] Address [address] [place] [address] Care Team Providers Care Recreation Therapist Name Role Phone Anna Wilkes MD Primary Care Provider + [phone] Encounter Details Date Type Department Care Team (Late st Contact Info) Description 03/18/2025 [facility] [address] [place], [place] [phone] Anna Wilkes MD [address] [place], [place] [phone] Anxiety (HRC) Social History Tobacco Use Types Packs/Day [...] st Contact Info) Description 05/11/2025 7:00 AM PREFITTER DOORS Appointment [facility] [address] [place], [place] [address] [place] [address] [place] [id number] documented as of this encounter Visit Diagnoses Diagnosis Anxiety (HRC) Anxiety state, unspecified documented in this encounter Care Teams Recreation Therapist Relationship Specialty Start Date End Date Anna Wilkes MD [address] [place], [place] [phone] PCP - General 08/23/14 documented as of this encounter
--- OUTSIDE RECORDS SUMMARY | 2025-04-12 16:44 | XMS_ITS | Clinical Summary ---
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 Gender Identity Not on file Sexual Orientation Not on file Obstetrics History Last Filed Vital Signs Vital Sign Reading Time Taken Comments Blood Pressure 108/78 02/18/2015 3:10 PM CDT Pulse 90 02/18/2015 3:10 PM CDT Temperature 36.7 C (98 F) 07/21/2014 3:49 PM INSULATION HOSEMAN Respiratory Rate 16 02/18/2015 3:10 PM CDT [...] COVID-19 vaccine series ( - 2023- season) Influenza Vaccine (#1) 2025 RSV vaccine for adults or pr egnancy (1 - 1-dose 75+ series) 2045 Medical Devices Implanted Type Area Assembler Dc Field Ring Device Identifier Shelf Expiration Date Model / Serial / Lot Sut Bio Mini Revo W/#2 Hi Fi - [id number] Implanted:Qty: 3 on 12/30/2009 at [facility] Right: Shoulder [employer]/CONMED 01/05/2011 [id number] / / [id number] Sut Bio Mini Revo W/#2 Hi Fi - [id number] Implanted:Qty: 1 on 12/30/2009 at [facility] Right: Shoulder [employer]/CONMED 09/05/2010 [id number] / / [id number] Sut Bio Mini Revo W/#2 Hi Fi - [id number] Implanted:Qty: 1 on 12/30/2009 at [facility] Right: Shoulder [employer]/CONMED 12/06/2010 [id number] / / [id number] Insurance [facility] BASIC+1 PB ONLY [employer] [place]n: [place] [id number] Advance Directives * Full Code (Latest Code [...] 9:15 AM 12/30/2009 1:20 PM Care Teams Senior Interactive Producer Relationship Specialty Start Date End Date Anna Wilkes MD . PCP - General Family Practice 02/15/15 None, Provided . 07/05/06
--- OUTSIDE RECORDS SUMMARY | 2025-04-12 16:44 | XMS_ITS | Clinical Summary ---
Author Organization [facility] Address [address] [place] [address] Care Team Providers Care Business Intelligence Etl Developer Name Role Phone Elsewhere, Pcp Primary Care Provider Unavailabl e Source Comments Patient records contain information from all sites at [facility]. For routine questions regarding patient records, call [phone] during business hours, M-F 8:00 AM - 5:00 PM Central Time. Record requests for emergency care only can be directed to [phone] at any time.[facility] Allergies Active Allergy Reactions Criticality Noted Date Comments Codeine Hives (Reselect Reaction) 07/05/2006 Codeine only Dihydroergotamine Diarrhea 01/19/2014 Govksmti-Wfl-Xh-Acetaminoph en Hives (Reselect Reaction) 06/26/2013 Hydrocodone Hives [...] Take 100 mg by mouth. 03/12/20 24 Active triamcinolone (Kenalog) 0.1 % ointment Apply 1 Application topically 2 (two) times a day. 11/28/19 23 Active hydroCHLOROthiazi de (HydroDiuril) 25 mg tablet Take 25 mg by mouth daily. 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 Gender Identity Not on file Sexual Orientation [...] Date Last Done Comments CT Colonography 1970 Cervical/Vaginal Cancer Screening 1970 Cologuard 1970 Colonoscopy 1970 Colorectal Cancer Screening 1970 FIT 1970 Hepatitis C Screening 1970 Lipid (Cholesterol) Screening 1970 Tobacco Cessation counseling 1970 Hepatitis B Vaccines (1 of 3 - 19+ 3-dose series) 1989 Pneumococcal vaccine (50+ years) (2 of 2 - PCV) 06/21/2018 06/21/2017 Mammogram 12/24/2019 12/23/2018, 12/06, 11/03/2013, Additional history exists Depression Screening (Annual PHQ-2) 07/08/2024 COVID-19 Vaccine ( season) 2025 05/19/2024, 05/17/2021, 10/22/2020, Additional history exists Influenza [...] LAB BLOOD ADD-ON Final Resu lt [facility] [address] [place] [address], [place] NPR[place] [facility] [address] [place] [address] from Last 3 Months or Most Recently Relevant to Health Maintenance Additional Health Concerns Infection Onset Date Last Indicated Protective Environment 09/13/2024 Insurance [facility] Care Teams Business Intelligence Etl Developer Relationship Specialty Start Date End Date Elsewhere, Pcp PCP - General Internal Medicine 09/21/24
[2025-04-12 16:54] VITALS: BP 157/102; PULSE 89; RESP 16; TEMP 37; O2SAT 99; BMI 21.1
--- NOTE | 2025-04-12 17:19 | ED.NECK ---
HPI - Neck Pain/Injury General Time Seen by Provider: 17:19 Date Seen: 04/12/25 Chief Complaint: Neck Injury/Pain Stated Complaint: Cant turn neck to the left Time Seen by Provider: 04/12/25 17:19 Source: patient Mode of arrival: ambulatory Limitations: no limitations History of Present Illness HPI Narrative: 54-year-old female who presents today with neck pain. Patient has a history of chronic neck pain, says pain is worse today. Difficulty turning head to the left. No numbness or tingling the arms legs, no difficulty swallowing. No new injury. Has been taking tramadol for this as well as Tylenol. Related Data Home Medications ?Medication ?Instructions ?Recorded ?Confirmed epinephrine 0.3 mg/0.3 mL 0.3 mg IM Q5-15M PRN 07/18/22 04/12/25 injection, auto-injector estradiol 1 mg tablet 1 mg PO QDAY 07/18/22 04/12/25 ondansetron 8 mg disintegrating 8 mg PO Q12H 07/18/22 04/12/25 tablet Tylenol 650 mg PO TID PRN 10/27/22 04/12/25 hydrochlorothiazide 25 mg tablet 25 mg PO DAILY 01/18/25 04/12/25 mirtazapine 30 mg tablet 30 mg PO QPM 01/18/25 04/12/25 ketorolac 60 mg/2 mL intramuscular 60 mg IM ONCE PRN migraine 04/12/25 04/12/25 solution Previous Rx's ?Medication ?Instructions ?Recorded hydroxyzine pamoate 25 mg capsule 25 mg PO Q6H PRN anxiety #30 caps 09/06/23 tramadol 50 mg tablet 50 mg PO Q6H PRN pain #24 tabs 12/22/24 lorazepam 0.5 mg tablet (Ativan) 0.5 mg PO TID PRN muscle spasm #10 04/12/25 tabs Allergies Allergy/AdvReac Type Severity Reaction Status Date / Time bee venom protein (honey bee) Allergy Severe Verified 04/12/25 17:05 codeine Allergy Unknown Rash Verified 04/12/25 17:05 dihydroergotamine Allergy Unknown Diarrhea Verified 04/12/25 17:05 hydrocodone Allergy Unknown Hives Verified 04/12/25 17:05 loperamide Allergy Unknown Hives Verified 04/12/25 17:05 methocarbamol Allergy Unknown Rash Verified 04/12/25 17:05 minocycline Allergy Unknown Verified 04/12/25 17:05 morphine Allergy Unknown Hives Verified 04/12/25 17:05 oxycodone Allergy Unknown Hives Verified 04/12/25 17:05 prochlorperazine Allergy Unknown Anxiety Verified 04/12/25 17:05 rizatriptan Allergy Unknown Nausea Verified 04/12/25 17:05 sumatriptan Allergy Unknown Hives Verified 04/12/25 17:05 venlafaxine Allergy Unknown Anxiety Verified 04/12/25 17:05 [facility] Medical History COVID-19 ?U07.1 - COVID-19 (ICD-10) History of depression ?Z86.59 - Personal history of other mental and behavioral disorders (ICD-10) DDD (degenerative disc disease) Pain of right middle finger ?M79.644 - Pain in right finger(s) (ICD-10) Surgical History History of arthroscopy of right shoulder (~2011) ?Z98.890 - Other specified postprocedural states (ICD-10) Status post laparoscopic cholecystectomy (04/28/14) ?Z90.49 - Acquired absence of other specified parts of digestive tract (ICD-10) Status post appendectomy ?Z90.49 - Acquired absence of other specified parts of digestive tract (ICD-10) Status post arthroscopy of right knee (~2009) ?Z98.890 - Other specified postprocedural states (ICD-10) Status post hysterectomy with oophorectomy ?Z90.710 - Acquired absence of both cervix and uterus (ICD-10) ?Z90.721 - Acquired absence of ovaries, unilateral (ICD-10) Social History Smoking Status: Current every day smoker What tobacco products do you use: cigarettes Smoking packs per day: 0.25 Smoking cigarettes per day: 5.0 Years smoked: 25 Smoking pack-years: 6.25 Do you use any of these nicotine containing products: None Second hand tobacco smoke exposure: No How often do you have a drink containing alcohol: never How often do you have six or more drinks on one occasion: Never AUDIT-C Alcohol total score: 0 Non-prescribed substance use: denies use service: No Exam Narrative: Exam Narrative: General: well nourished , NAD Head: Atraumatic and normocephalic ENT: External ears and external nose are normal Eyes: Conjunctiva clear, pupils are equal reactive, external ocular motions are intact Neck: No cervical tenderness. Able to rotate neck to just past 45? to the right but only to about 30? on the left. Lungs: No respiratory distress Musculoskeletal: No tenderness or deformity Neurologic: No gross focal neurologic deficits Skin: No rashes Psych: Mood and affect are appropriate Const: Vital Signs, click to edit/add: Vital Signs - 24 hr 04/12/25 16:54 Temperature 98.6 F Pulse Rate [Pulse Oximeter] 89 Respiratory Rate 16 Blood Pressure [Ri ght Upper Arm] 157/102 H Pulse Oximetry 99 Oxygen Delivery Me thod Room Air Course Course ED Course: Reviewed prior emergency department visits from December 2022 and November 2022 which were for neck pain and neck spasm. Also reviewed most recent primary care visit from April 06 which was follow-up of radiculopathy of the cervical region. At that time requesting pain medication change and prescription through May 11. At prior telemedicine visit from March 23 noted persistent right-sided neck pain and shoulder pain followed by pain clinic with decreased range of motion the neck and little to no rotational movement bilaterally. Reviewed [facility] aware, patient received tramadol 50 mg tablets #30 on April 08. I did review the MRI from [facility] on patient's phone, she has multilevel degenerative changes but no high-grade central or foraminal stenosis Patient presents today with neck pain and difficulty turning her head to the left, says this started today although documented exam from 2 weeks ago noted little to no rotational movement bilaterally. No upper lower extremity neurologic symptoms. Decreased range of motion particularly rotation of the left. Patient will be started on prednisone, Toradol in the emergency department, and Ativan for home due to concern for muscle drug interactions with other muscle relaxants. Vital Signs Vital signs: Initial Vital Signs Temperature 98.6 F 04/12/25 16:54 Temperature Source Temporal Artery Scan 04/12/25 16:54 Pulse Rate 89 04/12/25 16:54 Pulse Rhythm Regular 04/12/25 16:54 Respiratory Rate 16 04/12/25 16:54 Blood Pressure 157/102 H 04/12/25 16:54 Blood Pressure Mean 120 H 04/12/25 16:54 Blood Pressure Position Sitting 04/12/25 16:54 Pulse Oximetry 99 04/12/25 16:54 Oxygen Delivery Method Room Air 04/12/25 16:54 Vital Signs Temperature 98.6 F 04/12/25 16:54 Pulse Rate 89 04/12/25 16:54 Respiratory Rate 16 04/12/25 16:54 Blood Pressure 157/102 H 04/12/25 16:54 Pulse Oximetry 99 04/12/25 16:54 Oxygen Delivery Method Room Air 04/12/25 16:54 Temperature 98.6 F 04/12/25 16:54 Pulse Rate 89 04/12/25 16:54 Respiratory Rate 16 04/12/25 16:54 Blood Pressure 157/102 H 04/12/25 16:54 Pulse Oximetry 99 04/12/25 16:54 Oxygen Delivery Method Room Air 04/12/25 16:54 Discharge Plan Discharge Clinical Impression: Chronic neck pain, Cervical paraspinal muscle spasm Patient Disposition: Home, Self-Care Condition: Stable Instructions: Muscle Spasm (ED), Chronic Neck Pain (DC) Additional Instructions: Follow-up with your spine care doctor Activity Level: Activity as Tolerated Discharge Diet: Regular Prescriptions: New lorazepam [Ativan] 0.5 mg tablet 0.5 mg PO TID PRN (Reason: muscle spasm) Qty: 10 0RF No Action estradiol 1 mg tablet 1 mg PO QDAY Rx Instructions: off 1 week; repeat cycle ondansetron 8 mg tablet,disintegrating 8 mg PO Q12H epinephrine 0.3 mg/0.3 mL auto-injector 0.3 mg IM Q5-15M PRN Rx Instructions: do not exceed 3 doses per episode mirtazapine 30 mg tablet 30 mg PO QPM hydrochlorothiazide 25 mg tablet 25 mg PO DAILY ketorolac 60 mg/2 mL solution 60 mg IM ONCE PRN (Reason: migraine) Tylenol 650 mg PO TID PRN hydroxyzine pamoate 25 mg capsule 25 mg PO Q6H PRN (Reason: anxiety) Qty: 30 2RF tramadol 50 mg tablet 50 mg PO Q6H PRN (Reason: pain) Qty: 24 0RF Follow Up/Referrals: Allen Kelley MD [Primary Care Provider, Family Practice] Stand Alone Forms: [employer] Info Instructions
--- OUTSIDE RECORDS SUMMARY | 2025-04-12 18:06 | XMS_ITS | Patient Health Record ---
Author Organization [facility] Address [address] [place] [address] [address] [place] [address] Care Team Providers Care Shipping Technician Name Role Phone Katrin BARNETT, Anna Primary Care Provider Unavail able Matt Schneider Unavailable [phone] Castillo [facility] Bear RUSSELL Unavailable Unavailab Wilfredo Jimenez Unavailable [phone] Freddy Giles Unavailable [phone] Alberto Yoon Unavailable [phone] Quique Milton Unavailable [phone] Luis Enrique Kruse Unavailable [phone] Lorrie Charles Unavailable [phone] Allergies Allergen (clinical drug ingredient) Drug/Non Drug [...] rizatriptan Rizatriptan nausea Drug Allergy Act rafael Reason For Referral Reason Repeat Left and Righ t L3-S1 RFAs Diagnosis 1 Spondylosis without myelopathy or radiculopathy, lumbosacral 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) Referral Organization [facility] Referring Provider First Name Matt Referring Provider Last Name Jennie Referring Provider Speciality Pain Medic ine Referred Organization [facility] Referred Provider Matt Schneider Referred Address [address],[place], [place],[address],[place] Referred Provider Specialty Pain Medicin e Referral [...] Referred Provider Matt Schneider Referred Address [address],[place], [place],[address],[place] Referred Provider Specialty Pain Medicin e Referral Priority Routine Reason Right RFA Diagnosis 1 Spondylosis without myelopathy or radiculopathy, lumbosacral 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) Referral Organization [facility] Referring Provider First Name Matt Referring Provider Last Name Jennie Referring Provider Speciality Pain Medic ine Referred Organization [facility] Referred Provider Matt Schneider Referred Address [address] [place] [address] [address],[place], [place],[address],[place] Referred Provider Specialty Pain Medicin e Referral Priority Routine Reason Left L3-S1 RFA Diagnosis 1 Other chronic pain ( G89.29) Referral Organization [facility] Referring Provider First Name Quique Referring Provider Last Name Karine Referring Provider Speciality Pain Medic ine Referred Organization [facility] Referred Provider Quique Milton Referred Address [address] [facility],[address],[place], [place],[address],[place] Referred Provider Specialty Pain Medicin e Referral Priority Routine Medications Medication SIG (Take, Route, Frequency, Duration) Notes Start Date End Date Status HYDROmorphone HCl 2 MG 1 tablet as needed Orally every 8 hrs; Duration: 1 days Post-Procedure Script Post-procedur e pain 03/15/2025 Active Ambien 10 MG 1 tablet at bedtime as needed Orally Once a day Active Hydroxychloroquine Sulfate 200 MG twice a day Orally Active Ketorolac Tromethamine 60 MG/2ML INJECT 2 ML ONCE A DAY NEEDED FOR MIGRAINE Intramuscular; Duration: 30 Active Allergy Relief 10 MG TAKE ONE TABLET BY MOUTH ONCE DAILY Oral; Duration: 90 Active Ondansetron 8 MG DISSOLVE ONE TABLET BY MOUTH EVERY 8 HOURS NEEDED FOR NAUSEA Oral; Duration: 7 Active Mirtazapine 30 MG TAKE ONE TABLET BY MOUTH AT BEDTIME Oral; Duration: 90 Active Estradiol 1 MG 1 tablet Orally Once a day Active Medrol 4 MG as directed on Medrol package Orally 1 pack; Duration: 6 days 04/06/2025 Active tiZANidine HCl 4 MG 1-2 tabs Orally as needed at bedtime.; Duration: 30 days Active traMADol HCl 50 MG TAKE 1 TABLET BY MOUTH EVERY 6 HOURS NEEDED FOR PAIN Oral; Duration: 6 Days Active Social History Tobacco Use: Social History [...] Notes Problem Degeneration of lumbar intervertebral disc (83864562) Lumbar disc degeneration (722.52) Active confirmed Problem Chronic pain (75553134) Chronic pain (338.29) Active confirmed Problem Lumbosacral spondylosis without myelopathy (66767188) Lumbosacral Spondylosis w/o myelopathy (721.3) Active confirmed Problem Opioid dependence (68729401) Opioid dependence, uncomplicated (F11.20) Active confirmed Problem Nondependent opioid abuse (654498485) Opioid use, unspecified, uncomplicated (F11.90) Active confirmed Problem Fear of medical treatment (625094035) Fear of injections and transfusions (F40.231) Active confirmed Problem Mononeuropathy of upper limb (226072027) Unspecified mononeuropathy of right upper limb (G56.91) Active confirmed Problem Mononeuropathy of upper limb (441451941) Unspecified mononeuropathy of left upper limb (G56.92) Active confirmed Problem Mononeuropathy (713095214) Mononeuropathy, unspecified (G58.9) Active confirmed Problem Chronic pain (87261432) Other chronic pain (G89.29) Active confirmed Problem Shoulder joint pain (568012078) Pain in unspecified shoulder (M25.519) Active confirmed Problem Enthesopathy of wrist AND/OR carpus (55294603) Osteophyte, right wrist (M25.731) Active confirmed Problem Joint disorder (196993930) Joint disorder, unspecified (M25.9) Active confirmed Problem Lumbosacral spondylosis without myelopathy (93407368) Other spondylosis with radiculopathy, lumbar region (M47.26) Active confirmed Problem Cervical spondylosis without myelopathy (427219555) Spondylosis without myelopathy or radiculopathy, cervical region (M47.812) Active confirmed Problem Lumbosacral spondylosis without myelopathy (disorder) (94001362) Spondylosis without myelopathy or radiculopathy, lumbosacral 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) Active confirmed Problem Lumbosacral spondylosis without myelopathy (51445142) Other spondylosis, lumbosacral region (M47.897) Active confirmed Problem Degeneration of lumbar intervertebral disc (03897693) Other intervertebral disc degeneration, lumbar region (M51.36) Active confirmed Problem Sacrococcygeal disorders, not elsewhere classified (M53.3) Active confirmed Problem Cervical radiculopathy (11924583) Radiculopathy, cervical region (M54.12) Active confirmed Problem Lumbar radiculopathy (325646969) Radiculopathy, lumbar region (M54.16) Active confirmed Problem Lumbosacral radiculopathy (0002716) Radiculopathy, lumbosacral region (M54.17) Active confirmed Problem Cervicalgia (84373783) Cervicalgia (M54.2) Active confirmed Problem Myositis (73560548) Myositis, unspecified (M60.9) Active confirmed Problem Synovitis and tenosynovitis of joint of hand (disorder) (2492507886) Other synovitis and tenosynovitis, unspecified hand (M65.849) Active confirmed Problem Osteoarthritis of knee (493452420) Primary osteoarthritis of right knee (M17.11) Active confirmed Problem Osteoarthritis of left knee joint (821513395506339) Osteoarthritis of left knee, unspecified osteoarthritis type (M17.12) Active confirmed Vital Signs Blood pressure diastolic 82 mm Hg 04/06/2025 Height 63 in 04/06/2025 Blood pressure systolic 122 mm Hg 04/06/2025 Weight 119 lbs 04/06/2025 BMI 21.08 kg/m2 04/06/2025 Encounters Encounter Location Date Provider Diagnosis [facility] [address] [place] [address] [address] [place] [address] 06/18/2024 Matt Schneider [facility] [address] [place] [address] [address] [place] [address] 07/07/2024 Matt Schneider Spondylosis without myelopathy or radiculopathy, lumbosacral region M47.817 [facility] [address] [place] [address] 08/03/2024 Matt Schneider [facility] [address] [place] [address] 09/21/2024 Matt Schneider [facility] [address] [place] [address] [address] [place] [address] 09/21/2024 Matt Schneider [place] [address] [facility] [address] [place] [address] 09/21/2024 Matt Schneider [facility] [address] [place] [address] [address] [place] [address] 09/23/2024 Matt Schneider [facility] [address] [place] [address] 09/24/2024 Luis Enrique Kruse Other chronic pain G89.29 [facility] [address] [place] [address] 10/27/2024 Matt Schneider [facility] [address] [place] [address] [address] [place] [address] 12/22/2024 Matt Schneider [facility] [address] [place] [address] [address] [place] [address] 12/30/2024 Matt Schneider [facility] [address] [place] [address] 03/26/2025 Matt Schneider [facility] [address] [place] [address] 02/11/2025 Quique Cardonapaty [facility] [address] [place] [address] 02/11/2025 Matt Schneider [facility] [address] [place] [address] [address] [place] [address] 02/12/2025 Matt Schneider [facility] [address] [place] [address] [address] [place] [address] 02/15/2025 Matt Schneider [facility] [address] [facility] [address] [facility] [address] [place] [address] 06/30/2024 Quique Cardonas Spondylosis without myelopathy or radiculopathy, lumbosacral region M47.817 ; Mononeuropathy, unspecified G58.9 and Other chronic pain G89.29 [address] [facility] [address] [facility] [address] [place] [address] 09/24/2024 Luis Enrique Uriah Cervicalgia M54.2 ; Spondylosis without myelopathy or radiculopathy, cervical region M47.812 ; Pain in left shoulder M25.512 ; Low back pain, unspecified M54.50 and Other chronic pain G89.29 [address] [facility] [address] [facility] [address] [place] [address] 01/11/2025 Freddy Giles Spondylosis without myelopathy or radiculopathy, cervical region M47.812 ; Pain in left shoulder M25.512 ; Spondylosis without myelopathy or radiculopathy, lumbosacral region M47.817 and Other chronic pain G89.29 [facility] [address] [facility] [address] [facility] [address] [place] [address] 04/06/2025 Quique Cardonas Spondylosis without myelopathy or radiculopathy, cervical region M47.812 ; Pain in left shoulder M25.512 ; Spondylosis without myelopathy or radiculopathy, lumbosacral region M47.817 ; Other chronic pain G89.29 and Radiculopathy, cervical region M54.[address] [facility] [address] [place] [address] 02/03/2025 [facility] [address] [place] [address] 02/22/2025 [facility] [address] [place] [address] 10/15/2024 [facility] [address] [place] [address] [address] [place] [address] 07/22/2024 Matt Schneider [address] [facility] [address] [place] [address] 08/06/2024 Matt Schneider Spondylosis without myelopathy or radiculopathy, lumbosacral region M47.[address] [place] [address] 07/21/2024 Matt Schneider [address] [place] [address] 10/12/2024 [facility] [address] [place] [address] 02/02/2025 [facility] [address] [place] [address] 03/11/2025 [facility] [address] [place] [address] 02/18/2025 [facility] [address] [place] [address] 03/15/2025 Quique Cardonas [address] [facility] [address] [place] [address] 10/29/2024 Matt Schneider Spondylosis without myelopathy or radiculopathy, cervical region M47.812 Assessments Encounter Date Diagnosis (ICD Code) Assessment Notes Treatment Notes Treatment Clinical Notes Section Notes 06/30/2024 Spondylosis without myelopathy or radiculopathy, lumbosacral region (ICD-10 - M47.817) 07/07/2024 Spondylosis without myelopathy or radiculopathy, lumbosacral region (ICD-10 - M47.817) 08/06/2024 Spondylosis without myelopathy or radiculopathy, lumbosacral region (ICD-10 - M47.817) 09/24/2024 Other chronic pain (ICD-10 - G89.29) 10/29/2024 Spondylosis without myelopathy or radiculopathy, cervical region (ICD-10 - M47.812) 01/11/2025 Pain in left shoulder (ICD-10 - M25.512) 01/11/2025 Spondylosis without myelopathy or radiculopathy, cervical region (ICD-10 - M47.812) 04/06/2025 Spondylosis without myelopathy or radiculopathy, cervical region (ICD-10 - M47.812) 09/24/2024 Spondylosis without myelopathy or radiculopathy, cervical region (ICD-10 - M47.812) 09/24/2024 Cervicalgia (ICD-10 - M54.2) 09/24/2024 Pain in left shoulder (ICD-10 - M25.512) 04/06/2025 Pain in left shoulder (ICD-10 - M25.512) 01/11/2025 Spondylosis without myelopathy or radiculopathy, lumbosacral region (ICD-10 - M47.817) 06/30/2024 Mononeuropathy, unspecified (ICD-10 - G58.9) 06/30/2024 Other chronic pain (ICD-10 - G89.29) Lea returns to clinic today for a follow-up evaluation regarding her chronic neck, left shoulder, and low back pain. I have reviewed the [facility] database and did not find [...] any questions, problems or concerns. 01/11/2025 Other chronic pain (ICD-10 - G89.29) Dean Patel) returns to clinic today for a follow-up evaluation regarding her chronic neck, left shoulder, and low back pain. I have reviewed the [facility] database and did not find [...] in 07/2024. She notes improvements with ADLS, supervisor webbing, and standing. Therefore, an order will be [...] call with any questions, problems or concerns. 04/06/2025 Spondylosis without myelopathy or radiculopathy, lumbosacral region (ICD-10 - M47.817) 09/24/2024 Low back pain, unspecified (ICD-10 - M54.50) 09/24/2024 Other chronic pain (ICD-10 - G89.29) Dean Patel) returns to clinic today for a follow-up evaluation regarding her chronic neck, left shoulder, and low back pain. I have reviewed the [facility] database and did not find [...] call with any questions, problems or concerns. 04/06/2025 Radiculopathy, cervical region (ICD-10 - M54.12) 04/06/2025 Other chronic pain (ICD-10 - G89.29) Lea returns to clinic today for a follow-up evaluation regarding her chronic low back, neck, and left shoulder pain. I have reviewed the [place] [facility] database and did not find any inconsistencies. [...] high-grade spinal canal or neural foraminal stenosis. [id number] e spinal canal stenosis at C5-6 and [id number]-[id number]-mod erate neural foraminal stenoses as above 01/11/2025 Other I, Dipesh Krueger , am [...] documentation has been reviewed by the aforementioned CRISTO as well as Matt Schneider MD, prior to being entered into the official medical record. I, Matt Schneider MD attest that the above named individual is acting in scribe capacity, has observed Luis Enrique Kruse's performance of the services and has documented them in accordance with her direction. The documentation recorded by the scribe accurately reflects the service Luis Enrique Kruse CNP and Matt Schneider MD personally performed and the decisions made by them. 04/06/2025 Other I, Baudilio shahid, am serving [...] Order Date Intervention: 04/06/2025 Intervention: 2 04/06/2025 MRI : Shoulder, right 03/30/2020 X ray : Hand, left 12/13/2021 Insurance Providers Payer Name Payer Address Payer Phone Subscriber Number Group Number Insured Name Patient Relationship to Insured Coverage Start Date Coverage End Date [facility] [address] [address] [place] [address] [id number] Lisandro Erickson Spouse - patient is the spouse of the insured 3 [employer] [address] [place] [address] [id number] Dean Erickson Self - patient is the [...] ICD Code Depression Arthritis Migraines Osteoporosis Lupus Generalized Anxiety Disorder Surgical History Surgery Date(Month/Year) Right Knee Arthroscopy Right Shoulder x2 Cholecysectomy Appendectomy Hysterectomy Hospitalization History Reason Date(Month/Year) Surgical
[2025-04-12 18:11] VITALS: BP 148/88; PULSE 78; RESP 16
== END 2025-04-12 18:12 | disposition home or self-care (01) ==
LOC: ED 18:04
PROVIDERS: Emergency Provider Family Medicine; PCP Family Medicine
DX: M62.838 Other muscle spasm (principal)
CPT/HCPCS: 96372; 99283; 99284; J1885

== ENCOUNTER 2025-06-09 10:00 | Outpatient (CLI) | payer BC, SELFPAY ==
[2025-06-09 10:53] LABS: PCR FLU A Negative PCR FLU A (Negative); PCR FLU B Negative PCR FLU B (Negative); SARS PCR* Negative SARS-CoV-2 (Negative)
== END 2025-06-09 10:01 | disposition home or self-care (01) ==
LOC: NFLDUCREF 10:00
PROVIDERS: PCP Family Medicine; Visit Provider Physician Assistant Surgical
DX: R52 Pain, unspecified (principal)
CPT/HCPCS: 87636